=== PATIENT | male | born 1995 | race African-American/Black ===

== ENCOUNTER 2018-12-24 00:23 | Emergency (ER) | payer MEDICAID, SELFPAY ==
[2018-12-24 00:25] VITALS: BP 109/82; PULSE 103; RESP 16; TEMP 36.9; O2SAT 97; BMI 18.7
--- NOTE | 2018-12-24 00:43 | ED.VISSUMM ---
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 Patient was drinking some alcohol tonight and he has trouble with his balance from prior stroke fell and struck his face on the ground. Denies any LOC. Did not lose any teeth. And has a upper lip laceration. He states his last tetanus shot was in the last several years. Patient's biological father and I believe his stepmother want to talk to me I spoke with him in the waiting room. Mother has concerned that he has paranoid schizophrenia. She states she has been very paranoid lately. At times sleeps with a baseball bat for protection. Patient is never had a psychiatric evaluation or been institutionalized. Reportedly is not homicidal or suicidal but mom does not believe he can take care of himself. Physical Examination: Young male no acute distress. Vital signs are stable and afebrile. HEENT exam pupils are reactive light. No signs of trauma to his scalp. He does have a lip laceration on the upper lip in the midline. V-shaped 1 to 2 cm. Mild oozing but no heavy bleeding. There is no dental injuries. No malocclusion. C-spine nontender. Trachea midline. Normal range of motion to his neck. Lungs clear to auscultation bilaterally. Heart regular rhythm no murmur. Chest wall nontender. Abdomen soft nontender. Patient is moving all 4 extremities. He has normal blower and compressor assembler strength. Normal dorsi plantar flexion. No bony deformities or tenderness to his upper and lower extremities. Back nontender. Neurologically he has had a prior stroke. He has abnormal speech but it is coherent. He has no acute neurological new findings. Test Results: [] Emergency Department Course and Treatment: I offered but the patient does not want me to so the lip laceration. He understands the cosmetic difference of having the soda or not. I also discussed that with his parents and they said he would not let me so and he was mad that he was even here. Per mom's request I will have him evaluated by crisis. We will do ED mental health labs if the patient will allow us to draw them. At this time I do not feel he needs to be pink slipped unless the automotive worker comes up with additional information I am unaware of. Treatment Plan: Crisis eval. Turned over to the overnight physician. Disposition: [] Impression: Acute fall with upper lip laceration but patient refused repair History of neuro Behcet's syndrome Paranoid behavior This note was generated with Kindling software. It may contain incorrect words, spelling, and punctuation that were not noted in review of the chart prior to signing <Amandeep Uribe - Last Filed: 12/24/18 00:43> - ER Visit Summary Patient has a history of Behcet's syndrome. One of the complications of this syndrome include stroke. This is a rare complication. The patient has no signs or symptoms of a stroke currently. This syndrome can be managed as an outpatient basis. Overall his stroke risk is very low. He is medically cleared for transfer and admission to a psychiatric facility for further care. This note was generated with Kindling software. It may contain incorrect words, spelling, and punctuation that were not noted in review of the chart prior to signing <Wil Boucher - Last Filed: 12/24/18 11:27> ED Disposition <Amandeep Uribe - Last Filed: 12/24/18 00:43> <Wil Boucher - Last Filed: 12/24/18 11:27> - Plan for ED Patient: Referrals: Elizabeth Miller NP-C [Primary Care Provider] -
--- NOTE | 2018-12-24 00:47 | NURSING ---
CALLED [facility]IS AT [phone]
[2018-12-24] MEDS: Ziprasidone IM 20 MG/ML VIAL 10 MG IM (02:26)
[2018-12-24 02:28] LABS: Anion Gap 6 (5-15); BUN 8 mg/dL (7-18); BUN/Creat Ratio 8.2 RATIO (10-20); Calcium,Total 9.1 mg/dL (8.5-10.1); Chloride 104 mmol/L (98-107); Creatinine, Serum 0.97 mg/dL (0.70-1.30); EST Glomerular Filtration Rate 100 mL/min (>60); Est Glom Filt Rate - Afr Amer 121 mL/min (>60); Estimated Creatinine Clearance 92.05 ml/min; Glucose 81 mg/dL (74-106); Potassium 3.7 mmol/L (3.5-5.1); Sodium Level 140 mmol/L (136-145)
[2018-12-24 02:30] LABS: Absolute Lymphocyte Count 3.09 X10^3/uL (0.83-4.51); Basophil# 0.09 X10^3/uL; Eosinophil# 0.33 X10^3/uL; Eosinophils% 3.5 % (0-5); Hematocrit 45.3 % (40-54); Lymphocyte # 3.09 X10^3/ul (4.0); Lymphocyte % 32.7 % (19-41); Mean Corp Hgb Conc 33.1 g/dL (32-36); Mean Corpuscular Hgb 30.6 pg (27.0-32.0); Mean Corpuscular Volume 92.4 fL (80-94); Mean Platelet Vol. 10.1 fl (6.2-12.0); Monocyte% 9.5 % (0-10); NRBC Flagged by Analyzer 0 % (0-5); Neutrophil # 4.98 X10^3/uL (2.7-7.7); Neutrophil % 52.8 % (47-70); Platelet Count 234 K/mm3 (150-450); RBC Distribution Width CV 12.9 % (11.6-14.6); RBC Distribution Width SD 43.8 fl (35.1-43.9); White Blood Count 9.4 K/mm3 (4.4-11.0)
--- NOTE | 2018-12-24 02:31 | ED.RN ---
PT REFUSED MD ORDERS FOR PSYCH EVAL WORKUP. HRO ON DUTY AND THIS RN ALONG WITH FATHER OF THE PATIENT ATTEMPTED TO REASON WITH HIM. PT FINALLY SUBMITTED WILLINGLY TO LABS AND MEDICATION AFTER MUCH RESISTANCE AND PERSUASION OF TWO OTHER RESPONDING POLICE OFFICERS. PT MEDICATED WITH GEODON. RESTING COMFORTABLY IN BED WITH HOSPITAL GOWN ON AND A BLANKET.
[2018-12-24 02:34] LABS: Amphetamine Urine VISTA NEGATIVE (<1000 ng/mL); Barbiturate Urine VISTA NEGATIVE (< 200 ng/mL); Benzodiazepine Urine VISTA NEGATIVE (< 200 ng/mL); Cocaine Urine VISTA NEGATIVE (< 300 ng/mL); Ecstacy Urine VISTA NEGATIVE (< 500 ng/mL); Methadone Urine VISTA NEGATIVE (< 300 ng/mL); PCP Urine VISTA NEGATIVE (< 25 ng/mL); THC Urine VISTA POSITIVE (< 50 ng/mL); Vista UDS pH Range 5
[2018-12-24 04:25] VITALS: RESP 15
--- NOTE | 2018-12-24 05:04 | NURSING ---
REBECCA FROM CRISIS CALLED AT 0500 SAYING PATIENT WAS DECLINED FROM 3 FACILITIES AND NOW [facility] WANTS A REDRAW ON J[facility]
--- NOTE | 2018-12-24 07:06 | NURSING ---
REBECCA, LEONARD, CALLED. PATIENT GOING TO [facility]. HE'S WORKING ON IT
[2018-12-24 09:58] VITALS: BP 122/78; PULSE 60; RESP 16; O2SAT 99
--- NOTE | 2018-12-24 10:00 | ED.RN ---
called fro breakfast tray
--- NOTE | 2018-12-24 10:10 | NURSING ---
CALLED [facility]. TALKED TO KOURTNEY. AND NATALIE ARE WORKING ON PLACEMENT FOR PATIENT.
--- NOTE | 2018-12-24 11:15 | CM.ED ---
SOCIAL WORK SPOKE TO NATALIE WITH CRISIS REGARDING PATIENT'S CASE AND NEED FOR PLACEMENT. NATALIE REPORTS NEEDING UPDATED INFORMATION REGARDING PATIENT'S MEDICAL HX OF BEHCET'S SYNDROME. REQUESTING UPDATED CLINICAL NOTE FROM PHYSICIAN THAT PATIENT IS MEDICALLY STABLE FOR TRANSFER. UPDATED PATIENT'S NURSE AND DR. BARNARD ON THE ABOVE. SHEFALI SAN, MEAT GRINDER, MANUFACTURING ASSOCIATE.
--- NOTE | 2018-12-24 11:30 | CM.ED ---
SOCIAL WORK UPDATED PROGRESS NOTE COMPLETED BY DR. BARNARD FAXED TO CRISIS TO ASSIST WITH PLACEMENT FOR PATIENT. SHEFALI SAN, CREDIT RISK OFFICER, CUSTOMER RETENTION SPECIALIST.
[2018-12-24 14:16] VITALS: BP 98/85; PULSE 80; RESP 16; O2SAT 99
--- NOTE | 2018-12-24 15:20 | CM.ED ---
SOCIAL WORK RECEIVED CALL FROM [place] WITH [facility]ISIS. PER NATALIE [facility] REQUESTING EKG, CT, AND LIVER PROFILE. ONCE RECEIVED FAX RESULTS TO [facility] [phone]. UPDATED [address]. BARNARD ON THE ABOVE. SHEFALI SAN, MITERING MACHINE OPERATOR, MUD GRINDER.
--- NOTE | 2018-12-24 15:26 | CT_ITS ---
STUDY: CT BRAIN WITHOUT CONTRAST REASON FOR EXAM: Male, 23 years old. Fall, lip laceration RADIATION DOSAGE (If Supplied By Facility): CTDIvol = ( 60.81 ) mGy, DLP = ( 1044.28 ) mGycm TECHNIQUE: Transaxial CT imaging of the brain was performed without administration of intravenous contrast material. Individualized dose optimization techniques were used for this CT. COMPARISON: No relevant priors. FINDINGS: Normal soft tissue structures. Normal calvarium. Normal size ventricles and extra-axial spaces for the patient's age. Normal white matter tracts of the cerebral hemispheres. Normal basal ganglia and thalami. Remote infarct in the left jose. Normal cerebellum. There is no intracranial hemorrhage. There are no findings of an acute ischemic infarction. Normal visualized paranasal sinuses. CT/Brain/Head without Contrast IMPRESSION: No fracture or intracranial hemorrhage. Remote infarct in the left jose. Electronically Signed: Juan Luo MD at 16:29 EDT Tel , Service support ,
--- NOTE | 2018-12-24 15:26 | EKG12_ITS ---
Test Reason : MHC Blood Pressure : / mmHG Vent. Rate : 068 BPM Atrial Rate : 068 BPM P-R Int : 154 ms QRS Dur : 090 ms QT Int : 358 ms P-R-T Axes : 068 045 045 degrees QTc Int : 380 ms Normal sinus rhythm with sinus arrhythmia Early repolarization Normal ECG Confirmed by SPENCER GOODE ([id number]), electronic news gathering editor KRIS SOARES ([id number]) on 12/25/2018 2:32:49 PM Referred By: AKIL Confirmed By:SPENCER GOODE
[2018-12-24 16:00] LABS: AST(SGOT) 16 U/L (15-37); Alanine Aminotransfer ALT/SGPT 17 U/L (16-61); Alkaline Phosphatase 105 U/L (45-117); Bilirubin, Direct 0.09 mg/dL (0.00-0.30)
--- NOTE | 2018-12-24 17:00 | CM.ED ---
SOCIAL WORK REQUESTED EKG, LIVER PROFILE, AND CT FAXED TO [facility]. SHEFALI SAN, SLOT ATTENDANT, POWER HAMMER OPERATOR.
[2018-12-24 18:39] VITALS: BP 106/79; PULSE 79; RESP 15; O2SAT 98
--- NOTE | 2018-12-24 19:47 | CM.ED ---
SOCIAL WORK UPDATED BY ROSANNE WITH CRISIS, [facility] ACCEPTED PATIENT. SHEFALI SAN, DEALER SALES REP, BARN HAND.
--- NOTE | 2018-12-24 20:05 | ED.RN ---
UPDATED PT MOTHER PER PT REQUEST.
--- NOTE | 2018-12-24 20:47 | NURSING ---
[facility] DR. BARRY [phone] REPORT
[2018-12-24 20:58] VITALS: BP 106/79; PULSE 79; RESP 15; TEMP 36.9; O2SAT 98
--- NOTE | 2018-12-24 20:58 | ED.RN ---
REPORT WAS GIVEN TO ANJU LYLES AT [phone].
== END 2018-12-24 20:55 ==
PROVIDERS: Emergency Medicine; Emergency Provider Emergency Medicine; Family Provider Nurse Practitioner Family; PCP Nurse Practitioner Family
DX: S01.511A Laceration without foreign body of lip, initial encounter (principal); W18.30XA Fall on same level, unspecified, initial encounter; Y93.9 Activity, unspecified; Y92.9 Unspecified place or not applicable; Y99.9 Unspecified external cause status; M35.2 Behcet's disease; F22 Delusional disorders; Z86.73 Personal history of transient ischemic attack (TIA), and cerebral infarction without residual deficits; R46.89 Other symptoms and signs involving appearance and behavior; Z72.0 Tobacco use
CPT/HCPCS: 36415; 70450; 80048; 80076; 80307; 80320; 85025; 93005; 96372; 99283; G0480; J3486

== ENCOUNTER 2019-03-28 12:00 | Outpatient (RCR) | payer MEDICAID, SELFPAY ==
--- NOTE | 2019-03-06 16:32 | HP.PTEVAL_ITS ---
Patient's Visit Information NATI HOOD is a 23 year old M referred to Physical Therapy by JENNIFER Perez with a diagnosis of . Date of Evaluation: 03/05/19 Physical Therapist: Lawanda Villegas DPT - Visit Plan Frequency: 2x /Week Duration: 6 Weeks Plan: Focus on LE and core s/s- BALANCE assessment- Gait belt for safety. - Subjective Findings: Patient reports syndrome- balance is bad and he can't throw far any more. This all started in 2017. He can walk with a walker with 2 wheels. Lives alone in an apt- there is a few stairs to get into the apt but then its all one one floor. Is able to do all self care. 2017 could not walk at all but now its a better- but he is pretty much plateae. Wants to get back to doing everything. He was in therapy at [facility] and in [facility] [place]. Got out about 13 months- but has not done any therapy since then. Is coming to see PT and speech therapy. Wants to get back on his feet without an assistive device. He likes to play sports and wants to get back to doing those things. No pain at this time. Does not use a walker in his apt and has not had any falls. Last fall was last week when he was walking to the store- sometimes he can get up or someone helps him such as his brother. Has family close-but he does all his own cooking/cleaning. Is not working- he is disabled. PMHx: - Objective Posture: FH, RS- can correct but does not maintain. Gait: severly ataxic- uses FWW- shuffles feet- lockes out knees into full extension during stance phase- poor balance- impulsive. HR/TR: able with full ROM requires UE A for balance. SLS: unable without UE A- knee waivered btwn knee buckling and locking out. ROM: WFL in all planes. Strength: Core: fair minus, Hip: Abd: 4/5, add: 4/5, Extn: 4-/5, IR/ER: 4/5, Flex: 4/5, Knee: flex: 4/5, Extn: 4+/5, ankle: 5/5. Balance: LOB with all testing of dynamic balance. Static Standin min safely with knees locked out. when asked to close eyes- pt swayed and loss of balance happened after 10 seconds - Goals Goal 1:: Patient will be I with HEP and progression Goal Time Frame: 4-6 Weeks Goal 2:: Patient will ambulate >300 feet with a normalized gait pattern safely. - Rehabilitation Potential Physical Therapy Diagnosis: Patient presents with ataxic gait- he has decreased strength, muscular endurance and poor balance leading to increased difficulty with ADL's. Rehabilitation Potential: Fair - Anticipated Interventions Patient/Client Instruction: Educate patient on: Benefits of Fitness Program Therapeutic Exercise to Include: Strength training, Endurance training, Balance training, Coordination, Agility training, Body mechanics, Postural training, Flexibilty training, Gait and locomotor training, Dynamic Lumbar Stabilization, Scapular Strength/Stabilization For the Purpose of:: To improve muscle performance and motor function Thank you for the opportunity to evaluate your patient. For Medicare and Medicare HMO plans, please review the plan of care and approve it. It will need to be FAXED BACK to us at [phone] for Medicare purposes. For Medicare only, by signing this I certify the plan of care. Please let me know if there are questions or concerns regarding this plan of care. Physician Signature: Date:
--- NOTE | 2019-03-17 09:50 | HP.PTCOM_ITS ---
PT Communication Note 03/17/[address] Elizabeth Miller, HEAD PIECE ASSEMBLER-C , Thank you for the referral of Alber Rios to our clinic. He was tested on our NeuroCom Balance machine today and enclosed are the patients test results. On the Sensory Organization test (SOT), his overall composite score reveals that pt should be walking with an AD at this point. He has good use of his somatosensory system to help him maintain his balance. He has decreased input from his visual and vestibular systems to help him maintain his balance. His ov erall strategy analysis is ankle dominant, which is higher level and his COG alignment is more posterior. The Motor Control Test (MCT) showed that his overall reaction time is good. Pt had some trouble with weight shifting forward and to the right on the Limits of Stability Test (LOS). At this point in time we will see the pt for LE strengthening, gait training, functional strength and activities, balance activities with HEP. Sincerely, Carmen Black, CHARLETTE Contact Information
--- NOTE | 2019-05-06 11:29 | HP.PT.NRP ---
HP - Discharge Summary (1) - Patient Information NATI HOOD Jr. was seen in my office for initial evaluation on 03/05/19. The following Plan of Care was established for this patient: Initial Frequency: 2x /Week Initial Duration: 6 Weeks - Anticipated Interventions Patient/Client Instruction: Educate patient on: Benefits of Fitness Program Therapeutic Exercise to Include: Strength training, Endurance training, Balance training, Coordination, Agility training, Body mechanics, Postural training, Flexibilty training, Gait and locomotor training, Dynamic Lumbar Stabilization, Scapular Strength/Stabilization For the Purpose of:: To improve muscle performance and motor function This patient was last seen in our office . Pertinent comments regarding their Physical therapy will appear below: Patient has not attended physical therapy in over 4 weeks- appropriate for d/c and return to MD as appropriate. At this point I will be discontinuing this patient from physical therapy. I would be happy to see this patient again in the future if found appropriate by the physician. Thank you! Lawanda Villegas DPT
== END 2019-03-28 19:00 | disposition home or self-care (01) ==
LOC: PT 12:00
PROVIDERS: Family Provider Nurse Practitioner Family; PCP Nurse Practitioner Family; Referring Provider Nurse Practitioner Family; Visit Provider Nurse Practitioner Family
DX: M35.2 Behcet's disease (principal); R47.81 Slurred speech
CPT/HCPCS: 97110; 97116; 97162; 97750

== ENCOUNTER 2019-04-01 12:43 | Emergency (ER) | payer MEDICAID, SELFPAY ==
[2019-04-01 12:43] VITALS: BP 109/63; PULSE 98; RESP 16; TEMP 37.2; O2SAT 98; BMI 19.2
--- NOTE | 2019-04-01 13:57 | ED.DCSUM_ITS ---
History of Present Illness Chief Complaint: Laceration Informant: Patient Onset: Days - 4 Mechanism/Context: Blunt Injury Quality of Pain: - - sore Location: lower lip Current Severity: Mild Maximum Severity: Mild Worsened by: palpation Relieved by: nothing Narrative: Patient lacerated his lip by hitting it on the tub 4 days ago, this is the first time he has been to a healthcare provider since that injury. The swelling has become progressively worse. It is not hurting more. There is no itching. No discharge. No fevers or other systemic symptoms. No toothache. Past Medical History - Allergies and Home Meds Allergies/Adverse Reactions: Allergies No Known Allergies Allergy (Verified 04/01/19 12:45) Primary Care Physician: Elizabeth Miller NP-C [Primary Care Provider] - Past Medical History: None Lives: Alone Smoking Status: Current some day smoker Review of Systems General: Denies: Chills, Fever Eyes: Denies: Visual changes - bilaterally, Diplopia ENT: Reports: - - lower lip swelling. no dental pain.. Denies: Rhinorrhea, Sore throat Respiratory: Denies: Dyspnea, Cough Gastrointestinal: Denies: Nausea, Vomiting Skin: Reports: Wounds. Denies: Rash Neurological: Denies: Headache, Weakness, Numbness Physical Exam Vital Signs/Narrative: Vital Signs Temp Pulse Resp BP Pulse Ox 04/01/19 12:43 99 F 98 16 109/63 98 General: Well nourished, Well developed, - - well-appearing, nad Head: Normocephalic, Atraumatic Eyes: Perrl, EOMI ENT: - - Lower lip laceration that appears old. There is granulation tissue around it, there is no expressible discharge, it is diffusely swollen and mildly tender throughout. There is some scarring. There is a laceration below the lower lip that appears to be scabbed, and does not open and has no discharge. The vermilion border is spared in between these 2. No dental injury, tenderness, subluxation. Neck: Nontender, Full ROM Cardiovascular: Regular rate, Regular rhythm Respiratory: No distress, CTA bilaterally Skin: Normal color, No rash, Trauma - See above. No purulent discharge or abscess. The mucosal side of the laceration is open and macerated. Neurological: Alert, Oriented x3, Cranial nerves II-XII grossly intact, Normal Strength, Normal Sensation Psychological: Normal affect - Glascow Coma Scale Eye Opening: Spontaneous Motor: Obeys Commands Verbal: Oriented Coma Scale Total: 15 Diagnostic/Tx/Re-eval - Medical Decision Making This laceration is probably infected. There is nothing to drain. It probably was through and through although the lower portion externally appears to be scabbed and healing. Primary repair of this is not indicated at this time. He was placed on clindamycin and referred to plastics. It certainly is possible that repair of this was not indicated in the first place if he had presented directly after the injury, but it is difficult to tell with the amount of swelling and maceration on the mucosal side. ED Disposition - Plan for ED Patient: Disposition: Home or Assisted Living Diagnosis: Infected lip laceration Instructions: LACERATION, Infected (Not Sutured) Prescriptions: Clindamycin [Cleocin] 300 mg PO 4X/DAY #80 cap Transmission Status: Pending to [id number] Referrals: Manuel Ash MD [STAFF PHYSICIAN] - As soon as possible (call for appt)
== END 2019-04-01 14:22 | disposition home or self-care (01) ==
PROVIDERS: Emergency Provider Emergency Medicine; Family Provider Nurse Practitioner Family; PCP Nurse Practitioner Family
DX: S01.511A Laceration without foreign body of lip, initial encounter (principal); L08.9 Local infection of the skin and subcutaneous tissue, unspecified; W22.09XA Striking against other stationary object, initial encounter; Y92.9 Unspecified place or not applicable; Y99.9 Unspecified external cause status
CPT/HCPCS: 99282

== ENCOUNTER → 2019-04-09 19:10 | Outpatient (CLI) | payer MEDICAID, SELFPAY ==
[2019-04-09 16:14] VITALS: BMI 19.2
== END ==
PROVIDERS: Family Provider Nurse Practitioner Family; PCP Nurse Practitioner Family; Referring Provider Surgery; Visit Provider Surgery
DX: S01.501A Unspecified open wound of lip, initial encounter (principal); F17.200 Nicotine dependence, unspecified, uncomplicated; W19.XXXA Unspecified fall, initial encounter
CPT/HCPCS: 87070; 87077; 87186; 87205

== ENCOUNTER 2019-07-13 11:00 | Emergency (ER) | payer MEDICAID, SELFPAY ==
[2019-06-25 16:00] VITALS: BMI 19.2
[2019-07-13 11:01] VITALS: BP 108/69; PULSE 84; RESP 17; TEMP 36.9; O2SAT 98; BMI 20.3
--- NOTE | 2019-07-13 11:10 | RAD_ITS ---
STUDY: X-RAY - LEFT HAND REASON FOR EXAM: Male, 24 years old. PT INJURED HAND WHILE MOVING A COUCH, PAIN 3RD AND 4TH AREA TECHNIQUE: 3 view(s) of the hand. COMPARISON: None. FINDINGS: Normal radiocarpal articulation. Normal distal radioulnar joint. Normal visualized carpal bones. Normal carpal articulations Normal carpometacarpal articulation of the thumb. Normal second through fifth carpometacarpal joints. Normal metacarpi. Normal metacarpophalangeal joint of the thumb. Normal interphalangeal joint of the thumb. Normal proximal and distal phalanges of the thumb. Normal metacarpophalangeal joints of the second through fifth fingers. Normal proximal and distal interphalangeal joints of the second through fifth fingers. Normal phalanges of the second through fifth fingers. The soft tissue structures are unremarkable. RAD/Hand Min 3 Views IMPRESSION: Normal x-ray examination of the hand. Electronically Signed: Diego Coleman MD at 12:03 EST Tel , Service support ,
--- NOTE | 2019-07-13 11:12 | ED.VISSUMM ---
- ER Visit Summary Date of Service: 07/13/19 Chief Complaint: [] History of Present Illness: The patient is a 24 M [injury left hand presents the emerge meant with an injury to the left hand that occurred last evening. Patient states that he was moving his couch when he fell injuring his left hand. Patient is right-hand dominant. Patient has history of Behcet's disease and thinks he may have had a stroke in the past. Patient denies any other injuries.] Physical Examination: [Left hand-patient has some mild soft tissue swelling and tenderness over the third and fourth MCP joints. No obvious deformity. He is got good range of motion flexion extension of all digits. Neurovascular intact. No pain at the wrist.] Test Results: [X-ray of the left hand obtained and read by myself as no acute fractures] Emergency Department Course and Treatment: [Given an Meek wrap] Treatment Plan: [Patient advised use ibuprofen or Tylenol for pain. Patient advised to follow-up with primary care physician in 5 to 7 days.] Disposition: [Discharged home in stable condition] Impression: [Contusion left hand] This note was generated with [employer] dictation software. It may contain incorrect words, spelling, and punctuation that were not noted in review of the chart prior to signing ED Disposition - Plan for ED Patient: Referrals: Elizabeth Miller NP-C [Primary Care Provider] -
--- NOTE | 2019-07-13 11:45 | DCINST.ED_ITS ---
ED Disposition - Plan for ED Patient: Instructions: CONTUSION, Hand Referrals: Elizabeth Miller, FILTER TIP CATCHER-C [Primary Care Provider] - 5-7 Days
--- NOTE | 2019-07-13 11:45 | ED.DEP ---
ED Disposition - Plan for ED Patient: Instructions: CONTUSION, Hand Referrals: Elizabeth Miller, TAP PULLER-C [Primary Care Provider] - 5-7 Days
[2019-07-13 12:18] VITALS: BP 110/68; PULSE 85; RESP 16; O2SAT 98
== END 2019-07-13 12:19 | disposition home or self-care (01) ==
LOC: ED 11:51
PROVIDERS: Emergency Provider Emergency Medicine; PCP Nurse Practitioner Family
DX: S60.222A Contusion of left hand, initial encounter (principal); X50.0XXA Overexertion from strenuous movement or load, initial encounter; M35.2 Behcet's disease; Z86.73 Personal history of transient ischemic attack (TIA), and cerebral infarction without residual deficits; Z72.0 Tobacco use
CPT/HCPCS: 73130; 99282

== ENCOUNTER 2019-08-27 15:00 | Outpatient (RCR) | payer MEDICAID, SELFPAY ==
[2019-04-16 15:04] VITALS: BMI 19.2
--- NOTE | 2019-06-11 09:43 | HP.SP.AD ---
History - History Date of Eval: 06/09/19 Previous speech therapy: Yes Results: Pt received speech therapy at a assisted facility in 2018. Other Relevant Medical History/Diagnoses/Surgery: Pt with a diagnosis of Behcet's disease while at assisted facility in 2018. He will be receiving PT at this facility as well as he is currently in a wheel chair with limited mobility. Smoking Status: Current some day smoker Hx Tobacco Use: Yes - Pain Is pain an issue with your current prescribed condition?: No - Personal Occupation: Disability Patients Living Arrangements: Alone Patient Allergies - Allergies Allergies No Known Allergies Allergy (Verified 04/16/19 15:03) CLQT - CLQT CLQT Administered: Yes CLQT: Cognitive Linguistic Quick Test (CLQT) is a criterion - referenced assessment designed for adults between the ages of 18 and 89 with known or suspected neurological dysfuntions. The CLQT is to assess strength and weaknesses in five cognitive domains. Severity ratings are within normal limits, mild, moderate, severe deficits. The subtests are as follows: Date: 06/11/19 - CLQT Comments Comments Due to time restraints, the CLQT was unable to be completed in its entirety today. The patient received the following subtest scores: Personal Facts: 8 Criterion Cut Score (CCS): 8. Symbol Cancellation: 12 CCS: 11. Confrontation Namin CCS: 10. Clock Drawin CCS: 12. Story Retellin CCS: 6. Symbol Trails: 5 CCS: 9. The patient scored below the cutoff on the Clock Drawing subtest, with everything correct but the time, and the Symbol Trails subtest, which is a nonlinguistic task which requires planning, self-monitoring, working memory, and visual attention. The patient was aware of his errors on this subtest but did not self-correct. Subjective Articulation/Phon - Subjective Additional Information: The patient reports that oral sores associated with Behcet's disease have healed and that his speech has drastically improved; however, he is not yet at baseline. The patient produces a slow rate of speech with imprecise articulation. He is intelligible to this unfamiliar listener in unknown contexts approximately 95% of the time on first attempts. The patient does use grammatical structures and articulation consistent with panamanian. Plan - Plan Plan: Skilled speech-language therapy is warranted at this time to improve the patient's mild speech and cognitive-linguistic deficits secondary to Behcet's disease as he lives alone and must achieve his highest level of safe, independent functioning. - Recommendations Treatment Warranted: Yes - Frequency Frequency: 1x/Week Duration: 2 Months - Prognosis Prognosis: Good - Goals that are Established: Determination:: Goals will be added/modified as deemed necessary and appropriate. Therapy will be discontinued when results of re-evaluation indicate therapy is no longer needed or lack of progress has been documented. - Goal #1-5 Goal #1: The patient will participate in further evaluation of cognitive-linguistic skills via the CLQT. Goal #2: The patient will independently utilize strategies to improve intelligibility during conversational interactions in 4/5 trials across 3 consecutive sessions. Goal #3: The patient will independently utilize targeted cognitive-linguistic strategies to complete functional activities (finances, meal planning, etc...) of increasing complexity with 90% accuracy across 3 consecutive sessions. Education - Patient Instruction Patient Education: Diagnosis, Treatment Plan, Goals Person Taught: Patient
--- NOTE | 2019-06-18 11:41 | HP.PTEVAL ---
Patient's Visit Information NATI HOOD Jr. is a 24 year old M referred to Physical Therapy by JENNIFER Perez with a diagnosis of Behet's Disease. Date of Evaluation: 06/16/19 Physical Therapist: Lawanda Villegas DPT - Visit Plan Frequency: 2x /Week Duration: 4 Weeks Plan: Focus on balance and functional mobility - Subjective Findings: Patient is living alone in an apt- there is a single stair to get in the house- he has a neighbor that helps. Has a w/c at home but the tire off and the brakes are broke, has a walker and a cane as needed. He is not getting around very well- his family gets him to the grocery store but he wants to be more independent. His insurance brought him to PT today- currently in speech therapy as well. He wants to get back to doing physical therapy. He falls a little bit at home. Last terrible one was a few months ago when he had to go to the ER due to a cut on his lip. They did not have to do surgery but it was bad. He was on bed rest for his busted lip. Is using a walker at home but he only has a very short distance and does not feel safe. Once inside all on one floor- he is trying to get assistance for a shower chair and such but is unsure. He has to hold onto the carpenter in the shower- he has fallen down but has not hurt himself. Getting out of the shower is really scary too. No pain just balance is an issue. - Objective Posture: FH, RS- can correct but does not maintain. Gait: severly ataxic- uses FWW- shuffles feet- lockes out knees into full extension during stance phase- poor balance- impulsive. Ambualated 150 feet with FWW and sba for safety HR/TR: able with full ROM requires UE A for balance. SLS: unable without UE A- knee waivered btwn knee buckling and locking out. Unable to SLS without UE A from walker, Unable to tandem stance or tandem walk without UE A ROM: WFL in all planes. Strength: Core: fair minus, Hip: Abd: 4/5, add: 4/5, Extn: 4-/5, IR/ER: 4/5, Flex: 4/5, Knee: flex: 4/5, Extn: 4+/5, ankle: 5/5. Balance: LOB with all testing of dynamic balance. Static Standin min safely with knees locked out. when asked to close eyes- pt swayed and loss of balance happened after 10 seconds. Sit to Stand: 9 reps in 30 seconds - Goals Goal 1:: Patient will be I with HEP and progression Goal Time Frame: 4-6 Weeks Goal 2:: Patient will ambulate >300 feet with LRD and mod I Goal Time Frame: 4-6 Weeks Goal 3:: Patient will tandem stance for 10 seconds with LOB Goal Time Frame: 4-6 Weeks Goal 4:: Patient will perform 15 sit to stands in 30 sec Goal Time Frame: 4-6 Weeks - Rehabilitation Potential Physical Therapy Diagnosis: Patient presents with hypomobility- he had decreased strength, flex and muscular endurance leading to abnormal gait, balance and decreased participation in ADL's safely and efficiently. Rehabilitation Potential: Fair - Anticipated Interventions Patient/Client Instruction: Educate patient on: Benefits of Fitness Program Therapeutic Exercise to Include: Strength training, Endurance training, Balance training, Coordination, Agility training, Body mechanics, Postural training, Flexibilty training, Gait and locomotor training, Neuromotor development, Dynamic Lumbar Stabilization For the Purpose of:: To improve muscle performance and motor function Functional Training to Include: ADL Training, Gait training For the Purpose of:: To improve ability to perform ADL's Thank you for the opportunity to evaluate your patient. For Medicare and Medicare HMO plans, please review the plan of care and approve it. It will need to be FAXED BACK to us at [phone] for Medicare purposes. For Medicare only, by signing this I certify the plan of care. Please let me know if there are questions or concerns regarding this plan of care. Physician Signature: Date:
--- NOTE | 2019-07-30 16:29 | HP.SP.DC ---
ST Discharge Summary - Discharged: Discharge: Jaime Rios Jr. is discharged from outpatient speech-language therapy effective 07/30/2019. Jaime attended six therapy sessions following his initial evaluation targeting mildly impaired speech and cognitive-linguistic skills secondary to a diagnosis of Behcet's Disease. Education was provided regarding strategies to improve the patient's intelligibility (increased volume, slowed rate, over-exaggerating articulation of medial and final consonants, facing listener, reducing extraneous noise), with Jaime independently able to name and demonstrate effectively during structured activities. He does continue to benefit from direct prompts to use strategies, especially when on the phone, but uses effectively when asked for repetitions during conversation. Jaime demonstrates adequate planning and execution for functional activities (uses a calendar, did not miss appointments, makes lists, asks necessary questions regarding future events, etc...); however, he does demonstrate some deficits with follow-through, likely associated with baseline level of functioning vs. difficulty with organization, etc... He frequently demonstrated borderline inappropriate behaviors and made inappropriate comments for which he had adequate awareness of acceptability. Please reconsult as necessary.
--- NOTE | 2019-09-30 10:16 | HP.PT.NRP ---
NATI HOOD Jr. was seen in my office for initial evaluation on 06/16/19. The following Plan of Care was established for this patient: Initial Frequency: 2x /Week Initial Duration: 4 Weeks Patient/Client Instruction: Educate patient on: Benefits of Fitness Program Therapeutic Exercise to Include: Strength training, Endurance training, Balance training, Coordination, Agility training, Body mechanics, Postural training, Flexibilty training, Gait and locomotor training, Neuromotor development, Dynamic Lumbar Stabilization For the Purpose of:: To improve muscle performance and motor function Functional Training to Include: ADL Training, Gait training For the Purpose of:: To improve ability to perform ADL's This patient was last seen in our office . Pertinent comments regarding their Physical therapy will appear below: Patient has not been seen for over 4 weeks due to COVID-19 and is appropriate for d/c- may return as appropriate per MD recommendation. At this point I will be discontinuing this patient from physical therapy. I would be happy to see this patient again in the future if found appropriate by the physician. Thank you! MARZENA McclainT
== END 2019-08-27 19:00 | disposition home or self-care (01) ==
LOC: PT 15:00
PROVIDERS: Family Provider Nurse Practitioner Family; PCP Nurse Practitioner Family; Referring Provider Nurse Practitioner Family; Visit Provider Nurse Practitioner Family
DX: R47.81 Slurred speech (principal)
CPT/HCPCS: 92507; 92523; 97110; 97113; 97116; 97162; 97164

== ENCOUNTER 2019-11-01 20:14 | Emergency (ER) | payer MEDICAID, SELFPAY ==
[2019-11-01 20:14] VITALS: BP 131/100; PULSE 96; RESP 17; TEMP 37; O2SAT 99; BMI 20.1
--- NOTE | 2019-11-01 20:23 | ED.DCSUM_ITS ---
History of Present Illness Chief Complaint: Fall Informant: Patient Onset: Weeks Current Severity: Mild Maximum Severity: Mild Narrative: Lip injury 1 week ago fell getting out of shower Patient has what appears to be sound like Behcet's disorder chronic instability he falls frequently he lives alone at home, he basically stumbled out of the shower 1 week ago suffered injury to the upper lip mucosa he presents to have that evaluated, this is happened to him in the past he usually sees Dr. ash of plastic surgery who lets things heal naturally, he has had multiple lip injuries he is never required sutures his teeth are well approximated he has no complaints of teeth pain trouble opening closing mouth no head neck chest abdominal pain he has been doing fine at home with daily activities since the fall Past Medical History - Allergies and Home Meds Allergies/Adverse Reactions: Allergies No Known Allergies Allergy (Verified 11/01/19 20:17) Primary Care Physician: Elizabeth Miller NP-C [Primary Care Provider] - Past Medical History: - Smoking Status: Current every day smoker Review of Systems ROS: - Clues as above chronic instability syndrome General: Denies: Chills, Fever, Sweats Eyes: Denies: Visual changes - bilaterally, Diplopia ENT: Reports: - - upper lip only. Denies: Rhinorrhea, Sore throat Cardiovascular: Denies: Chest pain, Palpitations Respiratory: Denies: Dyspnea, Cough, Dyspnea on exertion Gastrointestinal: Denies: Abdominal pain, Nausea, Vomiting, Diarrhea, Melena, Hematochezia Genitourinary: Denies: Dysuria, Hematuria, Frequency Musculoskeletal: Denies: Back pain, Extremity Pain Skin: Denies: Rash, Wounds Neurological: Denies: Headache, Weakness, Numbness Physical Exam Vital Signs/Narrative: Vital Signs Temp Pulse Resp BP Pulse Ox 11/01/19 20:14 98.6 F 96 17 131/100 H 99 General: Well nourished, Well developed, No Acute Distress Head: Normocephalic, Atraumatic Eyes: Perrl, EOMI ENT: Moist mucous membranes, No rhinorrhea, - - He has a very superficial laceration to the left upper lip there is no signs of infection abscess drainage there is no odor the teeth are not tender he is opening and closing her mouth unremarkable tongue floor the mouth jaw head neck all unremarkable as is the rest of the medical exam Neck: Supple, Nontender Cardiovascular: Regular rate, Regular rhythm, No murmurs Respiratory: No distress, CTA bilaterally, Chest nontender Abdomen: Soft, Nontender, Nondistended, Normal bowel sounds Back: Nontender, Normal Inspection Extremities: Nontender, No edema Skin: Normal color, No rash Neurological: Alert, Oriented x3, Cranial nerves II-XII grossly intact, Normal Strength, Normal Sensation Psychological: Normal affect, Normal Mood Diagnostic/Tx/Re-eval - Medical Decision Making Patient's medical exam neurologic exam unremarkable he has no other injury no other complaints signs of healing the wound appears to have contracted there is no signs of active infection, he indicates usually treated with antibiotics and pain management he is unable to see Dr. ash, he will be started on Pen-Vee K Naprosyn and a follow-up with plastic surgeon in the next few days return for change in symptoms Home stable Final impression left upper lip laceration local trauma 1 week ago ED Disposition - Plan for ED Patient: Diagnosis: Accidental fall, Open wound of lip with complication Instructions: ED Fall Uncertain Cause, ED Laceration Lip Mouth Ch, ED Laceration Mouth Referrals: Elizabeth Miller, AIRCRAFT MAINTENANCE INSTRUCTOR-C [Primary Care Provider] - Manuel Ash MD [STAFF PHYSICIAN] -
[2019-11-01] MEDS: Naproxen 500 MG Tablet PO (20:25)
[2019-11-01] MEDS: Penicillin Vk 250 MG Tablet 500 MG PO (20:25)
--- NOTE | 2019-11-01 20:31 | ED.DEP ---
ED Disposition - Plan for ED Patient: Diagnosis: Accidental fall, Open wound of lip with complication Instructions: ED Fall Uncertain Cause, ED Laceration Mouth, ED Laceration Lip Mouth Ch Prescriptions: Naproxen [Naprosyn] 500 mg PO BID PRN #20 tab Prescription Printed Penicillin Vk [Pen-Vee K 250MG] 500 mg PO 4X/DAY #40 tab Prescription Printed Referrals: Manuel Ash MD [STAFF PHYSICIAN] - Elizabeth Miller NP-C [Primary Care Provider] -
[2019-11-01 20:36] VITALS: BP 122/89; PULSE 84; RESP 17; O2SAT 96
== END 2019-11-01 20:37 | disposition home or self-care (01) ==
LOC: ED 20:27
PROVIDERS: Emergency Provider Emergency Medicine; PCP Nurse Practitioner Family
DX: S01.511A Laceration without foreign body of lip, initial encounter (principal); W18.2XXA Fall in (into) shower or empty bathtub, initial encounter; Y93.E1 Activity, personal bathing and showering; Y92.002 Bathroom of unspecified non-institutional (private) residence as the place of occurrence of the external cause; Y99.9 Unspecified external cause status; M35.2 Behcet's disease; F17.200 Nicotine dependence, unspecified, uncomplicated; Z60.2 Problems related to living alone
CPT/HCPCS: 99285

== ENCOUNTER 2019-11-11 20:14 | Emergency (ER) | payer MEDICAID, SELFPAY ==
[2019-11-05 08:51] VITALS: BMI 20.1
[2019-11-11 20:16] VITALS: BP 119/70; PULSE 83; RESP 14; TEMP 37.5; O2SAT 97; BMI 20.4
[2019-11-11 20:39] LABS: Absolute Lymphocyte Count 1.83 X10^3/uL (0.83-4.51); Absolute Neutrophil Count 8.7 X10^3/uL (2.0-7.7); Basophil# 0.05 X10^3/uL; Basophil% 0.4 % (0-1); Eosinophil# 0.08 X10^3/uL; Eosinophils% 0.7 % (0-5); Hematocrit 43.6 % (40-54); Hemoglobin 13.6 g/dL (13.0-16.5); Lymphocyte # 1.83 X10^3/ul (4.0); Lymphocyte % 15.8 % (19-41); Mean Corp Hgb Conc 31.2 g/dL (32-36); Mean Corpuscular Hgb 30.2 pg (27.0-32.0); Mean Corpuscular Volume 96.9 fL (80-94); Mean Platelet Vol. 10.2 fl (6.2-12.0); Monocyte# 0.88 X10^3/uL; Monocyte% 7.6 % (0-10); NRBC Flagged by Analyzer 0 % (0-5); Neutrophil # 8.66 X10^3/uL (2.7-7.7); Neutrophil % 75.1 % (47-70); Platelet Count 266 K/mm3 (150-450); RBC Distribution Width CV 13.2 % (11.6-14.6); RBC Distribution Width SD 47.1 fl (35.1-43.9); White Blood Count 11.6 K/mm3 (4.4-11.0)
[2019-11-11] MEDS: 0.9% Normal Saline 1,000 ML 1000 ML IV (20:46)
[2019-11-11] MEDS: Ondansetron 4 MG/2 ML Vial IV (20:48)
--- NOTE | 2019-11-11 20:48 | ED.VIS.GEN ---
History of Present Illness Chief Complaint: Nausea/Vomiting Informant: Patient Onset: Today Context: Gradual Onset Timing: Continuous Current Severity: Moderate Maximum Severity: Moderate Narrative: The patient is a 24-year-old male with medical history significant for Georges's disease who presents to the emergency department with nausea and vomiting. The patient was in his normal state of health. He states he began to vomit last night. He is had about 5 episodes since. He denies any pain. He denies any fevers or chills. He denies any recent sick contacts. He has had no recent change in medications. He is otherwise been in his normal state of health. Prior similar symptoms: No Recent Illness/Hospitalization: No Past Medical History - Allergies and Home Meds Allergies/Adverse Reactions: Allergies No Known Allergies Allergy (Verified 11/05/19 08:50) Primary Care Physician: Zoey Delgado [Primary Care Provider] - Prior records reviewed: Yes Past Medical History: - - Behcet's disease Surgical History: noncontributory Smoking Status: Current every day smoker Review of Systems General: Denies: Chills, Fever, Sweats Eyes: Denies: Visual changes - bilaterally, Diplopia ENT: Denies: Rhinorrhea, Sore throat Cardiovascular: Denies: Chest pain, Palpitations Respiratory: Denies: Dyspnea, Cough, Dyspnea on exertion Gastrointestinal: Reports: Nausea, Vomiting. Denies: Abdominal pain, Diarrhea, Melena, Hematochezia Genitourinary: Denies: Dysuria, Hematuria, Frequency Musculoskeletal: Denies: Back pain, Extremity Pain Skin: Denies: Rash, Wounds Neurological: Denies: Headache, Weakness, Numbness Physical Exam Vital Signs/Narrative: Vital Signs Temp Pulse Resp BP Pulse Ox 11/11/19 20:16 99.5 F H 83 14 119/70 97 Inital Vital Signs reviewed: Yes General: Well nourished, Well developed, No Acute Distress Head: Normocephalic, Atraumatic Eyes: Perrl, EOMI ENT: Moist mucous membranes, No rhinorrhea Neck: Supple, Nontender Cardiovascular: Regular rate, Regular rhythm, No murmurs Respiratory: No distress, CTA bilaterally, Chest nontender Abdomen: Soft, Nontender, Nondistended, Normal bowel sounds Back: Nontender, Normal Inspection Extremities: Nontender, No edema Skin: Normal color, No rash Neurological: Alert, Oriented x3, Cranial nerves II-XII grossly intact, Normal Strength, Normal Sensation Psychological: Normal affect, Normal Mood Diagnostic/Tx/Re-eval Abnormal Lab Results 11/11/19 11/11/19 20:20 20:20 WBC 11.6 H RBC 4.50 L Hgb 13.6 Hct 43.6 MCV 96.9 H MCH 30.2 MCHC 31.2 L RDW Std Deviation 47.1 H RDW Coeff of Eduin 13.2 Plt Count 266 MPV 10.2 Immature Gran % (Auto) 0.400 Neut % (Auto) 75.1 H Lymph % (Auto) 15.8 L [place] % (Auto) 7.6 Eos % (Auto) 0.7 Baso % (Auto) 0.4 Absolute Neuts (auto) 8.7 H Absolute Lymphs (auto) 1.83 Nucleated RBC % 0 Sodium 139 Potassium 3.5 Chloride 100 Carbon Dioxide 35.0 H Anion Gap 4 L BUN 10 Creatinine 0.90 Estim Creat Clear Calc 107.31 Est GFR (MDRD) Af Amer 131 Est GFR (MDRD) Non-Af 109 BUN/Creatinine Ratio 11.1 Glucose 124 H Calcium 9.3 Total Bilirubin 0.60 AST 12 L ALT 12 L Alkaline Phosphatase 83 Total Protein 8.7 H Albumin 3.3 Globulin 5.4 H Albumin/Globulin Ratio 0.6 L - Medical Decision Making The patient presents to the emergency department nausea and vomiting. His abdomen is soft and nontender. He had vomited approximately 3 times. He is afebrile. Metabolic evaluation was obtained. Patient was given fluids and antiemetics. He is now able to tolerate oral fluids without issue. His labs are relatively unremarkable. His abdomen continues to be soft and nontender. At this point, I do feel that the patient is safe for outpatient follow-up. He will be prescribed antiemetics. He will be discharged home. Impression 1. Nausea vomiting ED Disposition - Plan for ED Patient: Instructions: ED Nausea Vomiting Adult Prescriptions: proMETHazine tablet [Phenergan] 25 mg PO Q6H PRN PRN #10 tab PRN Reason: Nausea Prescription Printed Referrals: Antonio Chaudhry,Zoey Parra [Primary Care Provider] -
[2019-11-11 21:03] LABS: ALB/GLOB Ratio 0.6 RATIO (0.9-2.4); AST(SGOT) 12 U/L (15-37); Alanine Aminotransfer ALT/SGPT 12 U/L (16-61); Albumin, Serum 3.3 g/dL (3.2-5.0); Alkaline Phosphatase 83 U/L (45-117); Anion Gap 4 (5-15); BUN 10 mg/dL (7-18); BUN/Creat Ratio 11.1 RATIO (10-20); Calcium,Total 9.3 mg/dL (8.5-10.1); Chloride 100 mmol/L (98-107); EST Glomerular Filtration Rate 109 mL/min (>60); Est Glom Filt Rate - Afr Amer 131 mL/min (>60); Estimated Creatinine Clearance 107.31 ml/min; Globulin 5.4 g/dL (2.2-4.2); Glucose 124 mg/dL (74-106); Potassium 3.5 mmol/L (3.5-5.1); Protein, Total 8.7 g/dL (6.4-8.2); Sodium Level 139 mmol/L (136-145)
[2019-11-11 22:13] VITALS: BP 118/67; PULSE 87; RESP 17; O2SAT 97
== END 2019-11-11 22:20 | disposition home or self-care (01) ==
LOC: ED 20:32
PROVIDERS: Emergency Provider Emergency Medicine; Referring Provider Nurse Practitioner Family
DX: R11.2 Nausea with vomiting, unspecified (principal); M35.2 Behcet's disease; F17.200 Nicotine dependence, unspecified, uncomplicated
CPT/HCPCS: 80053; 85025; 99285; J7030; A4216; J2405

== ENCOUNTER 2019-11-12 20:21 | Inpatient (IN) | payer MEDICAID, SELFPAY ==
[2019-11-11 20:16] VITALS: BMI 20.4
[2019-11-12] VITALS (7 sets, daily range): BP systolic 89–106; BP diastolic 64–71; PULSE 72–87; RESP 14–24; TEMP 36.6–38.1; O2SAT 89–96; BMI 22.2
--- NOTE | 2019-11-12 20:50 | EKG12_ITS ---
Test Reason : DYSRHYTHMIA Blood Pressure : / mmHG Vent. Rate : 078 BPM Atrial Rate : 078 BPM P-R Int : 150 ms QRS Dur : 092 ms QT Int : 372 ms P-R-T Axes : 067 050 039 degrees QTc Int : 424 ms Normal sinus rhythm Normal ECG When compared with ECG of 24-DEC-2018 15:32, Confirmed by CHAO WHITESIDE, MOUNIKA ([id number]), news assignment editor CHRISTOPHE BUENROSTRO ([id number]) on 11/14/2019 10:16:19 AM Referred By: Navi Bee Confirmed By:IAN GUIDRY MD
--- NOTE | 2019-11-12 20:58 | ED.DCSUM_ITS ---
History of Present Illness Chief Complaint: Fever Informant: Patient Onset: Yesterday Current Severity: Moderate Maximum Severity: Moderate Narrative: Patient was seen in the ER yesterday for nausea and vomiting. He states he was not able to get the medications that was prescribed to him because he was too weak to go to the pharmacy. He continues to have nausea and vomiting today. He states he has been short of breath and has now noted a fever with cough. - Past Medical History (1) CVA (cerebral vascular accident) Status: Chronic (2) Behcet's disease Status: Chronic Past Medical History - Allergies and Home Meds Allergies/Adverse Reactions: Allergies No Known Allergies Allergy (Verified 11/05/19 08:50) Primary Care Physician: Zoey Delgado [Primary Care Provider] - Prior records reviewed: Yes Surgical History: noncontributory Smoking Status: Current every day smoker Review of Systems General: Reports: Chills, Fever Eyes: Denies: Visual changes - bilaterally ENT: Reports: Sore throat. Denies: Bilateral ear pain Cardiovascular: Denies: Chest pain Respiratory: Reports: Dyspnea, Cough Gastrointestinal: Reports: Nausea, Vomiting Musculoskeletal: Reports: Myalgias Skin: Denies: Rash Neurological: Denies: Headache Hematologic: Denies: Easy bruising, Easy bleeding Allergy: Denies: Uticaria Physical Exam Vital Signs/Narrative: Vital Signs Temp Pulse Resp BP Pulse Ox 11/12/19 20:25 100.5 F H 84 14 106/69 93 11/12/19 20:22 100.5 F H 84 14 106/69 93 Inital Vital Signs reviewed: Yes General: Well nourished, Well developed Head: Normocephalic ENT: Moist mucous membranes, - - Posterior pharynx examination unremarkable. Neck: Supple Cardiovascular: Regular rate, Regular rhythm Respiratory: No distress, CTA bilaterally Abdomen: Soft, Nontender, Normal bowel sounds Skin: Normal color Neurological: Alert, Oriented x3 Psychological: - - Anxious Diagnostic/Tx/Re-eval Impressions Chest X-Ray 11/12/19 21:15 IMPRESSION: No acute cardiopulmonary pathology. Electronically Signed: Leonel Dawn MD at 21:39 EDT , Service support , 11/12/19 21:15 Chest 1 View (Portable) [RAD] Stat Laboratory Results 11/12/19 11/12/19 11/12/19 20:35 20:35 21:25 WBC 15.8 H RBC 4.40 L Hgb 13.5 Hct 42.6 MCV 96.8 H MCH 30.7 MCHC 31.7 L RDW Std Deviation 46.1 H RDW Coeff of Eduin 13.0 Plt Count 235 MPV 10.1 Immature Gran % (Auto) 0.400 Neut % (Auto) 79.4 H Lymph % (Auto) 9.3 L [place] % (Auto) 10.1 H Eos % (Auto) 0.4 Baso % (Auto) 0.4 Absolute Neuts (auto) 12.6 H Absolute Lymphs (auto) 1.47 Nucleated RBC % 0 Differential Comment Diff Path Review May foll Platelet Estimate ADEQUATE RBC Morphology NORM C+C Sodium 136 Potassium 3.6 Chloride 98 Carbon Dioxide 32.0 Anion Gap 6 BUN 12 Creatinine 0.81 Estim Creat Clear Calc 125.88 Est GFR (MDRD) Af Amer 147 Est GFR (MDRD) Non-Af 122 BUN/Creatinine Ratio 14.8 Glucose 104 Calcium 9.0 Total Bilirubin 0.80 Direct Bilirubin 0.18 AST 16 ALT 14 L Alkaline Phosphatase 82 Total Protein 8.7 H Albumin 3.4 Globulin 5.3 H Lipase 67 L COVID-19 (DINORAH) Negative - EKG Initial EKG Interpretation: Sinus Rhythm - Sinus at 78 with no acute ischemia. - Medical Decision Making Patient was given Toradol, Zofran, and IV fluids. He stated that he had taken an [id number] cough and cold medicine just prior to arrival. He was on nasal cannula at the time of my initial examination. On repeat exam he was feeling improved. He was asking about something to eat and drink. He was taken off of oxygen and was able to tolerate melba sage and crackers. O2 sat did drop to 87% with a good waveform. He was placed back on nasal cannula and is currently satting in the mid 90s. Patient does state that he feels a he has a lot of thick mucus in his lungs that he is having trouble getting up. He is ordered a dose of Mucinex and a DuoNeb treatment. I will speak with the hospitalist regarding admission. ED Disposition - Plan for ED Patient: Disposition: Acute Care Hospital [facility] Diagnosis: Vomiting, Hypoxia Referrals: Antonio Chaudhry,Zoey Parra [Primary Care Provider] -
[2019-11-12 21:07] LABS: Absolute Lymphocyte Count 1.47 X10^3/uL (0.83-4.51); Absolute Neutrophil Count 12.6 X10^3/uL (2.0-7.7); Basophil# 0.07 X10^3/uL; Basophil% 0.4 % (0-1); Eosinophil# 0.06 X10^3/uL; Eosinophils% 0.4 % (0-5); Hematocrit 42.6 % (40-54); Hemoglobin 13.5 g/dL (13.0-16.5); Lymphocyte # 1.47 X10^3/ul (4.0); Lymphocyte % 9.3 % (19-41); Mean Corp Hgb Conc 31.7 g/dL (32-36); Mean Corpuscular Hgb 30.7 pg (27.0-32.0); Mean Corpuscular Volume 96.8 fL (80-94); Mean Platelet Vol. 10.1 fl (6.2-12.0); Monocyte# 1.59 X10^3/uL; Monocyte% 10.1 % (0-10); NRBC Flagged by Analyzer 0 % (0-5); Neutrophil # 12.55 X10^3/uL (2.7-7.7); Neutrophil % 79.4 % (47-70); POSITIVE DIFFERENTIAL YES; Platelet Count 235 K/mm3 (150-450); RBC Distribution Width SD 46.1 fl (35.1-43.9); White Blood Count 15.8 K/mm3 (4.4-11.0)
[2019-11-12 21:09] LABS: Differential Indicated SCAN CRITERIA MET
[2019-11-12] MEDS: Ketorolac 30 MG/ML Syringe IV (21:11)
[2019-11-12] MEDS: 0.9% Normal Saline 1,000 ML 150 ML IV (21:11)
[2019-11-12] MEDS: Ondansetron 4 MG/2 ML Vial IV (21:12)
--- NOTE | 2019-11-12 21:15 | RAD_ITS ---
STUDY: X-RAY CHEST REASON FOR EXAM: Male, 24 years old. FEVER, N/V, COUGH, SEEN YESTERDAY FOR SAME TECHNIQUE: PA and lateral COMPARISON: None. FINDINGS: The lungs are clear and expanded. There is no demonstrated pleural abnormality. Normal size heart. Normal mediastinum and sergio. Normal visualized pulmonary arteries. Normal visualized aortic arch and descending thoracic aorta. Thoracic spine demonstrates dextroscoliosis possibly due to muscle spasm or positioning artifact. Normal visualized ribs, clavicles, and shoulders. There is no demonstrated abnormality of the visualized soft tissue structures of the upper abdomen. RAD/Chest 1 View (Portable) IMPRESSION: No acute cardiopulmonary pathology. Electronically Signed: Leonel Dawn MD at 21:39 EDT , Service support ,
[2019-11-12 21:20] LABS: AST(SGOT) 16 U/L (15-37); Alanine Aminotransfer ALT/SGPT 14 U/L (16-61); Albumin, Serum 3.4 g/dL (3.2-5.0); Alkaline Phosphatase 82 U/L (45-117); Anion Gap 6 (5-15); BUN 12 mg/dL (7-18); BUN/Creat Ratio 14.8 RATIO (10-20); Bilirubin, Direct 0.18 mg/dL (0.00-0.30); Chloride 98 mmol/L (98-107); Creatinine, Serum 0.81 mg/dL (0.70-1.30); EST Glomerular Filtration Rate 122 mL/min (>60); Est Glom Filt Rate - Afr Amer 147 mL/min (>60); Estimated Creatinine Clearance 125.88 ml/min; Globulin 5.3 g/dL (2.2-4.2); Glucose 104 mg/dL (74-106); Lipase 67 U/L (73-393); Potassium 3.6 mmol/L (3.5-5.1); Protein, Total 8.7 g/dL (6.4-8.2); Sodium Level 136 mmol/L (136-145)
[2019-11-12 21:26] LABS: Platelet Estimate ADEQUATE (ADEQ); Red Cell Morphology NORM C+C NORMAL (NORM C&C)
[2019-11-12 22:26] LABS: Probe Check PASS; Specimen Processing Control PASS
[2019-11-12] MEDS: guaiFENesin 1,200 MG Tablet 1200 MG PO (23:00)
--- NOTE | 2019-11-12 23:12 | ED.RN ---
PATIENT GAVE PERMISSION FOR NURSING STAFF TO SPEAK WITH MOTHER (MARY SCHULZ) AND GIVE OUT HIS TEST RESULTS OVER THE PHONE.
--- NOTE | 2019-11-12 23:36 | HP.PCM_ITS ---
Problem List (1) Respiratory insufficiency Status: Acute (2) CVA (cerebral vascular accident) Status: Chronic (3) Behcet's disease Status: Chronic (4) Vomiting Status: Acute (5) Hypoxia Status: Acute (6) Accidental fall Status: Inactive (7) Smoker Status: Chronic (8) Open wound of lip with complication Status: Chronic Comment: 1.3 cm post-traumatic nonhealing open wound left lower lip near midline 2 cm post-traumatic nonhealing open wound central upper lip in posterior portion of lip History of Present Illness Date of Admission: 11/13/19 Chief Complaint: nausea and vomiting The patient is a 24 year old M with a significant history of Behcet's disease; depression; and anxiety who presents to the emergency department with nausea and vomiting. His symptom has been going on for about 3 days. A day before his presentation he was at emergency department and he was given IV fluids and antiemetics. He was discharge home with a prescription. However patient reported he was too weak to go and pickle pumper the prescription. Associated with his symptoms is productive cough of dark black sputum. However, many times he is unable to expectorate his sputum. Further he has chills; weakness and muscle ache. He denies any loss of taste or loss of smell. Emergent department doctor reported that because on room air his oxygen s aturation fell to 87% a stay at the hospital was considered He has not been wearing a mask and he has not been quarantining. However he denies any knowledge of association with someone with covid -19 infection. Past Medical History Past Medical History (Chronic Problems): Chronic Problems (Last Reviewed 11/13/19 @ 00:[address] Naiv Bee MD) CVA (cerebral vascular accident) (Chronic) Behcet's disease (Chronic) Smoker (Chronic) Open wound of lip with complication (Chronic) 1.3 cm post-traumatic nonhealing open wound left lower lip near midline 2 cm post-traumatic nonhealing open wound central upper lip in posterior portion of lip Medical History: Medical History (Last Reviewed 11/13/19 @ 00:[address] Navi Bee MD) Open wound, nose, without complication (Inactive) S01.20XA 1 cm post-traumatic nonhealing wound nasal root Accidental fall (Chronic) W19.XXXA Open wound of lip with complication (Chronic) S01.501A 1.3 cm post-traumatic nonhealing open wound left lower lip near midline 2 cm post-traumatic nonhealing open wound central upper lip in posterior portion of lip Back problem M53.9 Behcet's disease M35.2 Head ache R51 Heart murmur R01.1 Stroke I63.9 Ulcer Vision problems H54.7 Allergies No Known Allergies Allergy (Verified 11/05/19 08:50) Home Medications: Ambulatory Orders Medication Instructions Recorded Acyclovir [Zovirax] 800 mg PO TID 11/01/19 Quetiapine Fumarate [Seroquel] 50 mg PO QHS 11/11/19 proMETHazine tablet [Phenergan] 25 mg PO Q6H PRN PRN #10 tab 11/11/19 Surgical History: Surgical History (Last Reviewed 11/07/19 @ 22:[address] Manuel Ash MD) History of incision and drainage Z98.890 BEHCETS INFECTION Surgical History: - - No surgical history except incision and drainage. Smoking Status: Current every day smoker Tobacco Use: Cigarettes Alcohol: Occasional - *Family History Maternal Family History: Family History (Last Reviewed 11/07/19 @ 22:[address] Manuel Ash MD) Unknown No problems noted. Paternal Family History: Family History (Last Reviewed 11/07/19 @ 22:[address] Manuel Ash MD) Unknown No problems noted. History Items: Hypertension Review of Systems Constitutional: Reports: Anorexia, Chills, Malaise, Weakness, Fatigue. Denies: Weight Change HEENT: Denies: Head Aches, Sinus Congestion, Sinus Drainage Cardiovascular: Denies: Chest Pain, Palpitations Respiratory: Reports: Cough, Shortness of Breath, Sputum production Gastrointestinal: Reports: Nausea, Vomiting Genitourinary: Denies: Dysuria Musculoskeletal: Denies: Joint Pain, Joint Tenderness Skin: Reports: Wounds - lips. Denies: Rash Neurological: Denies: Numbness, Tingling, Focal weakness Psychiatric: Denies: Anxiety, Depression, Homicidal Ideations, Suicidal Ideations Hematologic/ Lymphatic: Denies: Easy Bruising, Easy Bleeding VTE Information - Inpt Only VTE Present on Admission: No VTE Mechan Device Prophylaxis: None VTE Pharm Prophylaxis ordered?: Yes Patient Problems: Active and Suspected Problems (Last Reviewed 11/13/19 @ 00:[address] Navi Bee MD) Vomiting (Acute) Hypoxia (Acute) Respiratory insufficiency (Acute) - Physical Exam Vitals/I&O's: Vital Signs Temp Pulse Resp BP Pulse Ox 98 F 79 24 H 105/71 96 11/12/19 21:11 11/12/19 21:11 11/12/19 21:11 11/12/19 21:11 11/12/19 21:11 Oxygen Delivery Method Room Air Weight: 64.4 kg Body Mass Index (BMI) 22.2 General: Alert, Oriented x3, Cooperative HEENT: Atraumatic, PERRLA, EOMI, Normocephalic Oral: - - Ulcers of the lips Neck: Supple, No JVD, Negative Carotid Bruits Lungs: Rhonchi, Short of Breath, Using Accessory Muscles Cardiovascular: Regular rate, Normal S1, Normal S2, No murmurs Abdomen: Bowel Sounds Present, Soft, Non Tender Extremities: No clubbing, No cyanosis, No edema, Capillary Refill Less than 3 Seconds Skin: No rashes, No breakdown Musculoskeletal: No Tenderness to Palpation of Joints or Extremities Neurological: Cranial nerves II-XII grossly intact Psych/Mental Status: Normal Affect, Appropriate Laboratory Results 11/12/19 20:35: WBC 15.8 H, RBC 4.40 L, Hgb 13.5, Hct 42.6, MCV 96.8 H, MCH 30.7, MCHC 31.7 L, RDW Std Deviation 46.1 H, RDW Coeff of Eduin 13.0, Plt Count 235, MPV 10.1, Immature Gran % (Auto) 0.400, Neut % (Auto) 79.4 H, Lymph % (Auto) 9.3 L, [place] % (Auto) 10.1 H, Eos % (Auto) 0.4, Baso % (Auto) 0.4, Absolute Neuts (auto) 12.6 H, Absolute Lymphs (auto) 1.47, Nucleated RBC % 0, Differential Comment , Diff Path Review May foll, Platelet Estimate ADEQUATE, RBC Morphology NORM C+C 11/12/19 20:35: Sodium 136, Potassium 3.6, Chloride 98, Carbon Dioxide 32.0, Anion Gap 6, BUN 12, Creatinine 0.81, Estim Creat Clear Calc 125.88, Est GFR (MDRD) Af Amer 147, Est GFR (MDRD) Non-Af 122, BUN/Creatinine Ratio 14.8, Glucose 104, Calcium 9.0, Total Bilirubin 0.80, Direct Bilirubin 0.18, AST 16, ALT 14 L, Alkaline Phosphatase 82, Total Protein 8.7 H, Albumin 3.4, Globulin 5.3 H, Lipase 67 L 11/12/19 21:25: COVID-19 (DINORAH) Negative Current Medications Guaifenesin (Mucinex) 1,200 mg PO X1 ONE Stop: 11/13/19 23:07 Sodium Chloride () 1,000 mls @ 150 mls/hr IV .Q6H40M [facility] Last Admin: 11/12/19 21:11 Dose: 150 mls/hr Documented by: Sodium Chloride () 500 mls @ 999 mls/hr IV .Q31M [facility] Stop: 11/12/19 23:45 Last Admin: 11/12/19 23:31 Dose: 999 mls/hr Documented by: Assessment/Plan All Active Problems (Last Reviewed 11/13/19 @ 00:[address] Navi Bee MD) Vomiting (Acute) Hypoxia (Acute) Respiratory insufficiency (Acute) The patient is a 24 year old M with a significant history of Behcet's disease; depression; and anxiety who presents to the emergency department with nausea and vomiting; chills; was found to have a fever leukocytosis; hypoxia. Acute respiratory insufficiency secondary to acute febrile illness Review of imaging department labs showed a neutrophilia with lymphopenia. Also there is elevated monocytes. Etiology unclear at this time. Covid test x1 is negative. Will admit to COVID cohort unit Check ferritin; triglyceride; d-dimer ESR; CRP and troponin. Placed on scheduled DuoNeb and PRN albuterol. Mucinex ordered. Tylenol for fever His chest x-ray does not look like covid.. However in the setting of fever and GI illness will continue covid precautions started from the emergency department. Tamper Operator consult. Behcet's disease Acyclovir continued. Tobacco abuse Counseled. DVT Prophylaxis Placed on subcutaneous Lovenox 40 mg twice daily Inpatient E&M: 20184 Init Hosp L3
[2019-11-12] MEDS: Ipratropium/Albuterol Sulfate 3 ML AMPUL.NEB INHALATION (23:40)
[2019-11-13] VITALS (11 sets, daily range): BP systolic 94–137; BP diastolic 62–92; PULSE 67–105; RESP 13–22; TEMP 36.3–37.3; O2SAT 90–98
--- NOTE | 2019-11-13 01:00 | ED.RN ---
CALLED MOTHER W/UPDATE RE:ADMISSION. CALL WENT TO AND BOX INDICATES IT IS FULL. UNABLE TO LEAVE MESSAGE
[2019-11-13 01:06] LABS: D-Dimer Quantitative (DVT/PE) 1.25 FEU/ug/m (0.27-0.49)
[2019-11-13 01:15] LABS: Erythrocyte Sedimentation Rate 115 mm/hr (0-15)
--- NOTE | 2019-11-13 01:15 | NURSING ---
Pts primary rn aware of ddimer result of 1.25 at this time.
[2019-11-13 01:35] LABS: Ferritin 188 ng/mL (26-388); Triglycerides 80 mg/dL
[2019-11-13 04:41] LABS: Absolute Lymphocyte Count 1.04 X10^3/uL (0.83-4.51); Absolute Neutrophil Count 13.6 X10^3/uL (2.0-7.7); Basophil# 0.05 X10^3/uL; Basophil% 0.3 % (0-1); Eosinophil# 0.07 X10^3/uL; Eosinophils% 0.4 % (0-5); Hematocrit 41.3 % (40-54); Hemoglobin 13.1 g/dL (13.0-16.5); Lymphocyte # 1.04 X10^3/ul (4.0); Lymphocyte % 6.3 % (19-41); Mean Corp Hgb Conc 31.7 g/dL (32-36); Mean Corpuscular Hgb 30.5 pg (27.0-32.0); Mean Platelet Vol. 10.2 fl (6.2-12.0); Monocyte# 1.65 X10^3/uL; NRBC Flagged by Analyzer 0 % (0-5); Neutrophil # 13.56 X10^3/uL (2.7-7.7); Neutrophil % 82.5 % (47-70); POSITIVE DIFFERENTIAL YES; Platelet Count 214 K/mm3 (150-450); RBC Distribution Width CV 12.7 % (11.6-14.6); RBC Distribution Width SD 45.1 fl (35.1-43.9); White Blood Count 16.5 K/mm3 (4.4-11.0)
[2019-11-13 05:11] LABS: Anion Gap 5 (5-15); BUN 12 mg/dL (7-18); BUN/Creat Ratio 15.9 RATIO (10-20); Chloride 104 mmol/L (98-107); Creatinine, Serum 0.75 mg/dL (0.70-1.30); EST Glomerular Filtration Rate 133 mL/min (>60); Est Glom Filt Rate - Afr Amer 161 mL/min (>60); Estimated Creatinine Clearance 122.44 ml/min; Glucose 105 mg/dL (74-106); Potassium 3.6 mmol/L (3.5-5.1); Sodium Level 139 mmol/L (136-145)
[2019-11-13 05:29] LABS: Differential Indicated SCAN CRITERIA MET
[2019-11-13] MEDS: Acyclovir 800 MG Tablet PO ×3 (06:23→21:13)
[2019-11-13] MEDS: 0.9% Saline Lock 10 ML Syringe IV ×3 (06:23→17:30)
[2019-11-13] MEDS: guaiFENesin 1,200 MG Tablet 1200 MG PO ×2 (06:23→20:51)
[2019-11-13] MEDS: Acetaminophen 325 MG Tablet 650 MG PO ×2 (06:36→17:54)
--- NOTE | 2019-11-13 07:04 | PCM.CONS.PUL ---
Problem List (1) CVA (cerebral vascular accident) Status: Resolved (2) Behcet's disease Status: Chronic (3) Vomiting Status: Acute (4) Respiratory insufficiency Status: Acute Reason for Consult Date of Consultation: 11/13/19 Reason for Consultation: Concern for COVID, hypoxia History of Present Illness: The patient is a 24 year old M with past medical history listed below, who presented [facility] on 11/12/2019 secondary to continued nausea and vomiting. Patient reportedly has been unable to keep any medications down and has not been able to go to the pharmacy to fill new medications. Patient has had nausea and vomiting and started to develop shortness of breath and a fever with cough. Patient estimates that symptoms started on Sunday and have been progressive. Patient has been to the ER twice. In the ER, patient was given Toradol, Zofran and IV fluids. Patient was given some melba sage and crackers and was able to tolerate it. Unfortunately, patient saturation was 87% with a good waveform off of nasal cannula oxygen. Patient was given DuoNeb, Mucinex and admitted to the floor for further evaluation. Patient did have a negative COVID test, but white blood cell count was elevated at 15.8. 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 Patient reportedly has had a stroke in the past requiring a cane for ambulation. Patient states that he has been producing significant amounts of mucus overnight and this is his biggest problem at this time. Patient denies any trauma, urinary symptoms or rashes. Review of systems otherwise negative from a constitutional, HEENT, respiratory, cardiovascular, GI, genitourinary, musculoskeletal, skin, neurologic, psychiatric and hematologic system unless stated above. Past Medical History Past Medical History (Chronic Problems): Chronic Problems (Last Reviewed 11/13/19 @ 00:[address] Navi Bee MD) Behcet's disease (Chronic) Smoker (Chronic) Open wound of lip with complication (Chronic) 1.3 cm post-traumatic nonhealing open wound left lower lip near midline 2 cm post-traumatic nonhealing open wound central upper lip in posterior portion of lip Medical History: Medical History (Last Reviewed 11/13/19 @ 00:[address] Navi Bee MD) Open wound, nose, without complication (Inactive) S01.20XA 1 cm post-traumatic nonhealing wound nasal root Accidental fall (Inactive) W19.XXXA Open wound of lip with complication (Chronic) S01.501A 1.3 cm post-traumatic nonhealing open wound left lower lip near midline 2 cm post-traumatic nonhealing open wound central upper lip in posterior portion of lip Back problem M53.9 Behcet's disease M35.2 Head ache R51 Heart murmur R01.1 Stroke I63.9 Ulcer Vision problems H54.7 Allergies No Known Allergies Allergy (Verified 11/05/19 08:50) Home Medications: Ambulatory Orders Medication Instructions Recorded Acyclovir [Zovirax] 800 mg PO TID 11/01/19 Quetiapine Fumarate [Seroquel] 50 mg PO QHS 11/11/19 proMETHazine tablet [Phenergan] 25 mg PO Q6H PRN PRN #10 tab 11/11/19 Surgical History: Surgical History (Last Reviewed 11/07/19 @ 22:[address] Manuel Ash MD) History of incision and drainage Z98.890 BEHCETS INFECTION Surgical History: - - No surgical history except incision and drainage. Smoking Status: Current every day smoker Tobacco Use: Cigarettes Alcohol: Occasional - *Family History Maternal Family History: Family History (Last Reviewed 11/07/19 @ 22:[address] Manuel Ash MD) Unknown No problems noted. Paternal Family History: Family History (Last Reviewed 11/07/19 @ 22:[address] Manuel Ash MD) Unknown No problems noted. History Items: Hypertension Review of Systems Comment: See HPI Patient Problems: Active and Suspected Problems (Last Reviewed 11/13/19 @ 00:[address] Navi Bee MD) Vomiting (Acute) Hypoxia (Acute) Respiratory insufficiency (Acute) Objective: Chest x-ray was personally reviewed and appears to be normal. - Physical Exam Vitals/I&O's: Vital Signs Temp Pulse Resp BP Pulse Ox 36.3 C L 69 16 110/92 H 96 11/13/19 00:50 11/13/19 00:50 11/13/19 00:50 11/13/19 00:50 11/13/19 00:50 Oxygen Flow Rate (L/min) 3 Oxygen Delivery Method Room Air Weight: 58 kg Body Mass Index (BMI) 20.0 Intake and Output for Last 24 Hours 11/11/19 11/12/19 11/13/19 23:59 23:59 23:59 Intake Total 1847 / 1847 Output Total 400 / 400 Balance 1447 / 1447 General: Alert, Oriented x3, Cooperative, No apparent distress, - - Frequent expectoration of mucus noted. HEENT: Atraumatic, PERRLA, EOMI, Normocephalic, - - No scleral icterus or injection noted Oral: Moist Mucosa, No Gingival or Mucosal Lesions/ Ulcerations Neck: Supple, No JVD, No Nodes, Trachea Midline Lungs: Clear to auscultation, Normal air movement - Improves with coughing, No rhonchi, No wheeze, No rales Cardiovascular: Regular rate, Regular Rhythm, Normal S1, Normal S2, No murmurs, No rub noted, No Gallop Abdomen: Bowel Sounds Present, Soft, Non Tender, Non-Distended Extremities: No clubbing, No cyanosis, No edema Skin: No rashes, No breakdown Musculoskeletal: No Tenderness to Palpation of Joints or Extremities Neurological: Neuro grossly intact - At baseline function. Some expressive aphasia and lower extremity weakness Psych/Mental Status: Alert and oriented to time, place, person, mood and affect Laboratory Results 11/12/19 20:35: WBC 15.8 H, RBC 4.40 L, Hgb 13.5, Hct 42.6, MCV 96.8 H, MCH 30.7, MCHC 31.7 L, RDW Std Deviation 46.1 H, RDW Coeff of Eduin 13.0, Plt Count 235, MPV 10.1, Immature Gran % (Auto) 0.400, Neut % (Auto) 79.4 H, Lymph % (Auto) 9.3 L, [place] % (Auto) 10.1 H, Eos % (Auto) 0.4, Baso % (Auto) 0.4, Absolute Neuts (auto) 12.6 H, Absolute Lymphs (auto) 1.47, Nucleated RBC % 0, Differential Comment , Diff Path Review May , Platelet Estimate ADEQUATE, RBC Morphology NORM C+C 11/12/19 20:35: Sodium 136, Potassium 3.6, Chloride 98, Carbon Dioxide 32.0, Anion Gap 6, BUN 12, Creatinine 0.81, Estim Creat Clear Calc 125.88, Est GFR (MDRD) Af Amer 147, Est GFR (MDRD) Non-Af 122, BUN/Creatinine Ratio 14.8, Glucose 104, Calcium 9.0, Total Bilirubin 0.80, Direct Bilirubin 0.18, AST 16, ALT 14 L, Alkaline Phosphatase 82, Total Protein 8.7 H, Albumin 3.4, Globulin 5.3 H, Lipase 67 L 11/12/19 20:55: ESR 115 H 11/12/19 20:55: D-Dimer Quant (PE/DVT) 1.25 H* 11/12/19 20:55: Ferritin 188, C-React Prot Ext Range 55.60 H, Triglycerides 80 11/12/19 20:55: Troponin I < 0.015 11/12/19 21:25: COVID-19 (DINORAH) Negative 11/13/19 04:30: WBC 16.5 H, RBC 4.30 L, Hgb 13.1, Hct 41.3, MCV 96.0 H, MCH 30.5, MCHC 31.7 L, RDW Std Deviation 45.1 H, RDW Coeff of Eduin 12.7, Plt Count 214, MPV 10.2, Immature Gran % (Auto) 0.500, Neut % (Auto) 82.5 H, Lymph % (Auto) 6.3 L, [place] % (Auto) 10.0, Eos % (Auto) 0.4, Baso % (Auto) 0.3, Absolute Neuts (auto) 13.6 H, Absolute Lymphs (auto) 1.04, Nucleated RBC % 0, Differential Comment COMMENT, Diff Path Review September11/13/19 04:30: Sodium 139, Potassium 3.6, Chloride 104, Carbon Dioxide 30.0, Anion Gap 5, BUN 12, Creatinine 0.75, Estim Creat Clear Calc 122.44, Est GFR (MDRD) Af Amer 161, Est GFR (MDRD) Non-Af 133, BUN/Creatinine Ratio 15.9, Glucose 105, Calcium 8.0 L Current Medications Acetaminophen (Tylenol) 650 mg PO Q6H PRN PRN PRN Reason: Pain Score 1-10/Temp > 100.7 F Last Admin: 11/13/19 06:36 Dose: 650 mg Documented by: Acyclovir (Zovirax) 800 mg PO TID KARYNA Last Admin: 11/13/19 06:23 Dose: 800 mg Documented by: Albuterol/Ipratropium (Duoneb) 3 ml INHALATION Q4HWA.RT [facility] Dextrose (D50w Syringe) 0 gm IV X1 PRN; Protocol PRN Reason: Hypoglycemia Enoxaparin Sodium (Lovenox) 40 mg SC BID [facility] Glucagon () 1 mg IM .X1 PRN PRN Reason: Hypoglycemia Guaifenesin (Mucinex) 1,200 mg PO BID [facility] Last Admin: 11/13/19 06:23 Dose: 1,200 mg Documented by: Sodium Chloride () 250 mls @ 15 mls/hr IV .[id number] PRN PRN Reason: Saline Flush Sodium Chloride () 250 mls @ 15 mls/hr IV .[id number] PRN PRN Reason: Additional IVPB Infusion Melatonin (Melatonin) 3 mg PO QHS PRN PRN PRN Reason: INSOMNIA Ondansetron HCl (Zofran) 4 mg IV Q8H PRN PRN PRN Reason: NAUSEA/VOMITING Sodium Chloride () 10 - 40 ml IV UD PRN PRN Reason: SALINE FLUSH Last Admin: 11/13/19 06:23 Dose: 10 ml Documented by: Clinical Impression(s) from Imaging Studies Chest X-Ray 11/12/19 21:15 IMPRESSION: No acute cardiopulmonary pathology. Electronically Signed: Leonel Dawn MD at 21:39 EDT , Service support , Assessment/Plan All Active Problems (Last Reviewed 11/13/19 @ 00:[address] Navi Bee MD) CVA (cerebral vascular accident) (Resolved) Vomiting (Acute) Hypoxia (Acute) Respiratory insufficiency (Acute) RECOMMENDATIONS: 1. Consider obtaining viral panel 2. Consider discontinuation of COVID precautions 3. Aggressive pulmonary toileting 4. Consider rheumatology consultation 5. Walking oximetry prior to discharge and outpatient complete PFT IMPRESSIONS: 1. Hypoxia Unclear etiology. Chest x-ray is unremarkable. Differential diagnosis would include mucous plugging, atypical lung infection and Behcet's disease exacerbation. Patient appears to be doing well at this time. Patient is reporting significant mucus production, so pulmonary toileting will be necessary. Unclear if CT scan is necessary. COVID test was negative with low risk factors, so COVID precautions can likely be discontinued from my perspective. Outpatient complete pulmonary function test for quantification clarification of lung function would be appropriate. If patient has exertional hypoxemia, echocardiogram could be considered for evaluation of pulmonary hypertension, but this is not typical for Behcet's disease. Patient would likely benefit from rheumatology evaluation 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 Unclear if current symptomatology represents an acute exacerbation of the vasculitis given significant mucocutaneous complaints. Consider rheumatology evaluation. Patient does have a significantly elevated CRP 3. Tobacco abuse/history of stroke Complicates care, management, recovery and prognosis. Encourage smoking cessation. Inpatient E&M: 17077 Init Hosp L3
--- NOTE | 2019-11-13 09:47 | CT_ITS ---
STUDY: CTA CHEST REASON FOR EXAM: Male, 24 years old. SUSPECTED PE, BEHCETS DISEASE, HYPOXIA, D-DIMER RADIATION DOSAGE (If Supplied By Facility): CTDIvol = ( 6.88 ) mGy, DLP = ( 167.54 ) mGycm TECHNIQUE: The examination was performed with the intravenous administration of IV 75mL [id number]-370. Post-processing of the angiographic images was performed, with multiplanar reformation and 3D reconstruction. Individualized dose optimization techniques were used for this CT. COMPARISON: None. FINDINGS: There is limited enhancement of the main pulmonary artery and right and left pulmonary arteries. There is limited enhancement of the bilateral peripheral pulmonary arteries. There is no demonstrated pulmonary embolism in the proximal pulmonary arteries, there is diminished contrast in the distal pulmonary arteries and the subtle PE can not be excluded.. Normal thoracic aorta and visualized great vessels. There is no demonstrated aortic dissection. Normal heart and pericardium. Normal mediastinum. Normal hilar regions. There is peribronchial thickening. The lungs are well expanded. There is interstitial edema and both lung barnes consistent with pulmonary vascular congestion. There are also scattered tree-in-bud opacifications in the upper lobes suggesting small airways inflammation. There is a very subtle, too small to characterize 3 mm noncalcified nodule in the right upper lobe on axial image 155. Normal pleura. Normal chest wall structures. Normal osseous structures. Normal visualized upper abdomen. CT/CTA Chest W/WO Contrast IMPRESSION: No demonstrated PE, or thoracic aortic aneurysm or dissection. However, the contrast bolus is not optimal in the distal pulmonary arteries and a subtle filling defect could be present and overlooked. Diffuse interstitial edema in both lung barnes with tree-in-bud opacifications consistent with small airways inflammation. Too small to characterize 3 mm nodule in the right upper lobe on axial image 155 Electronically Signed: Henry Rolon MD at 10:59 EDT , Service support ,
--- NOTE | 2019-11-13 09:52 | PCM.HP.ID ---
Problem List (1) Hypoxia Status: Acute Reason for Consult: fever Consulted by: Dr. Pierre History of Present Illness: The patient is a 24 year old M with Behcet's, hasn't seen a doctor in a while, not on immunosuppressive meds, presented to ED last night with n/v, fever, dyspnea, aches, headache, weakness, cough, and intermittent chest pressure. Sx started 11/08 with n/v, came to ED 11/10, sent home with n/v meds. No sick contacts, but has not been masking/isolating. No oral ulcers, no diarrhea, no change in taste/smell, no sore throat. Coughing up some stuff but thinks it is related to his vomiting. No joint pain. Chest pain is intermittent, substernal, worse with deep breath. Came here last night, 87% on RA at one point, fever to 100.5. Admitted to icu in covid precautions. PCR was neg. Still n/v and cough, no current aches or chest pain. Not needing O2. Full ROS performed and neg except as noted above. Genital ulcers have been stable. No new oral ulcers. - Medical History Past Medical History (Chronic Problems): Chronic Problems (Last Reviewed 11/13/19 @ 00:[address] Navi Bee MD) Behcet's disease (Chronic) Smoker (Chronic) Open wound of lip with complication (Chronic) 1.3 cm post-traumatic nonhealing open wound left lower lip near midline 2 cm post-traumatic nonhealing open wound central upper lip in posterior portion of lip Allergies/Adverse Reactions: Allergies No Known Allergies Allergy (Verified 11/05/19 08:50) Home Medications: Ambulatory Orders Medication Instructions Recorded Acyclovir [Zovirax] 800 mg PO TID 11/01/19 Quetiapine Fumarate [Seroquel] 50 mg PO QHS 11/11/19 proMETHazine tablet [Phenergan] 25 mg PO Q6H PRN PRN #10 tab 11/11/19 - Social History Tobacco Use: cigarettes Alcohol Use: rarely Drug Use: none Vital Signs Temp Pulse Resp BP Pulse Ox 97.3 F L 69 16 110/92 H 93 11/13/19 00:50 11/13/19 00:50 11/13/19 00:50 11/13/19 00:50 11/13/19 07:43 Oxygen Flow Rate (L/min) 3 Oxygen Delivery Method Room Air Weight: 58 kg Body Mass Index (BMI) 20.0 Laboratory Tests Past 24 Hrs 11/12/19 11/12/19 11/12/19 20:35 20:35 20:55 WBC 15.8 H RBC 4.40 L Hgb 13.5 Hct 42.6 MCV 96.8 H MCH 30.7 MCHC 31.7 L RDW Std Deviation 46.1 H RDW Coeff of Eduin 13.0 Plt Count 235 MPV 10.1 Immature Gran % (Auto) 0.400 Neut % (Auto) 79.4 H Lymph % (Auto) 9.3 L [place] % (Auto) 10.1 H Eos % (Auto) 0.4 Baso % (Auto) 0.4 Absolute Neuts (auto) 12.6 H Absolute Lymphs (auto) 1.47 Nucleated RBC % 0 Differential Comment Diff Path Review May foll Platelet Estimate ADEQUATE RBC Morphology NORM C+C ESR 115 H D-Dimer Quant (PE/DVT) Sodium 136 Potassium 3.6 Chloride 98 Carbon Dioxide 32.0 Anion Gap 6 BUN 12 Creatinine 0.81 Estim Creat Clear Calc 125.88 Est GFR (MDRD) Af Amer 147 Est GFR (MDRD) Non-Af 122 BUN/Creatinine Ratio 14.8 Glucose 104 Calcium 9.0 Ferritin Total Bilirubin 0.80 Direct Bilirubin 0.18 AST 16 ALT 14 L Alkaline Phosphatase 82 Troponin I C-React Prot Ext Range Total Protein 8.7 H Albumin 3.4 Globulin 5.3 H Triglycerides Lipase 67 L COVID-19 (DINORAH) 11/12/19 11/12/19 11/12/19 20:55 20:55 20:55 WBC RBC Hgb Hct MCV MCH MCHC RDW Std Deviation RDW Coeff of Eduin Plt Count MPV Immature Gran % (Auto) Neut % (Auto) Lymph % (Auto) [place] % (Auto) Eos % (Auto) Baso % (Auto) Absolute Neuts (auto) Absolute Lymphs (auto) Nucleated RBC % Differential Comment Diff Path Review Platelet Estimate RBC Morphology ESR D-Dimer Quant (PE/DVT) 1.25 H* Sodium Potassium Chloride Carbon Dioxide Anion Gap BUN Creatinine Estim Creat Clear Calc Est GFR (MDRD) Af Amer Est GFR (MDRD) Non-Af BUN/Creatinine Ratio Glucose Calcium Ferritin 188 Total Bilirubin Direct Bilirubin AST ALT Alkaline Phosphatase Troponin I < 0.015 C-React Prot Ext Range 55.60 H Total Protein Albumin Globulin Triglycerides 80 Lipase COVID-19 (DINORAH) 11/12/19 11/13/19 11/13/19 21:25 04:30 04:30 WBC 16.5 H RBC 4.30 L Hgb 13.1 Hct 41.3 MCV 96.0 H MCH 30.5 MCHC 31.7 L RDW Std Deviation 45.1 H RDW Coeff of Eduin 12.7 Plt Count 214 MPV 10.2 Immature Gran % (Auto) 0.500 Neut % (Auto) 82.5 H Lymph % (Auto) 6.3 L [place] % (Auto) 10.0 Eos % (Auto) 0.4 Baso % (Auto) 0.3 Absolute Neuts (auto) 13.6 H Absolute Lymphs (auto) 1.04 Nucleated RBC % 0 Differential Comment COMMENT Diff Path Review May foll Platelet Estimate RBC Morphology ESR D-Dimer Quant (PE/DVT) Sodium 139 Potassium 3.6 Chloride 104 Carbon Dioxide 30.0 Anion Gap 5 BUN 12 Creatinine 0.75 Estim Creat Clear Calc 122.44 Est GFR (MDRD) Af Amer 161 Est GFR (MDRD) Non-Af 133 BUN/Creatinine Ratio 15.9 Glucose 105 Calcium 8.0 L Ferritin Total Bilirubin Direct Bilirubin AST ALT Alkaline Phosphatase Troponin I C-React Prot Ext Range Total Protein Albumin Globulin Triglycerides Lipase COVID-19 (DINORAH) Negative - Other Studies Radiology: [] reviewed Other Studies: [] Route of nutrition/ use of supplements: [] Nutritional Intake: [] IV Site: [] Chowdhury Catheter: [] - Physical Exam General: Alert, Oriented x3, Cooperative, - - ill appearing, vomiting and cough. HEENT: Atraumatic, PERRLA, EOMI Neck: Supple, No Nodes Lungs: Rhonchi - scattered rhonchi Cardiovascular: Regular rate, Regular Rhythm, No murmurs Abdomen: Soft, Non Tender, Non-Distended Extremities: No edema Skin: Ulcer/ Wound - ulcers on genitals IV Site: Peripheral, without redness Musculoskeletal: No Tenderness to Palpation of Joints or Extremities Neurological: Cranial nerves II-XII grossly intact - Assessment/Plan Antibiotics: [] Assessment/Plan: [] Active and Suspected Problems (Last Reviewed 11/13/19 @ 00:[address] Navi Bee MD) Vomiting (Acute) Hypoxia (Acute) Respiratory insufficiency (Acute) Acute onset of n/v, headache, myalgias, chest pain, dyspnea, cough, hypoxia - h/o Behcet's, untreated. Elevated d-dimer and CRP. Wbc is elevated, no lymphopenia, normal ferritin. Aches are better today. On RA currently. No sick contacts but has not been isolating/masking. COVID pcr on admit neg, but high clinical suspicion. Would keep in isolation for now. Check CT-PE given chest pain, hypoxia, cough, and elevated d-dimer. Repeat inflammatory markers today. Lungs are coarse, but cxr was clear. Aspiration is possible with all his vomiting. Will get procalcitonin and see what CT shows. Will give dose of iv dex today given suspected covid, possible contributing Behcet's. Overall lower concern for Behcet's flare given lack of lower GI symptoms, arthritis, or new ulcers, but it could be causing vasculitis, dvt/pe, or other lung changes. Duration of n/v would be atypical for something like food poisoning. Will follow, thank you, d/w Dr. Pierre.
[2019-11-13 10:37] LABS: BNP,B-Type NATRIURETIC PEPTIDE 66.2 pg/mL (0-100); Ferritin 195 ng/mL (26-388); LDH 136 U/L (87-241)
[2019-11-13 10:45] LABS: D-Dimer Quantitative (DVT/PE) 1.99 FEU/ug/m (0.27-0.49); Procalcitonin 0.12 ng/mL (0.00-0.09)
[2019-11-13] MEDS: dexAMETHasone 4 MG/ML Vial 6 MG IV (11:06)
[2019-11-13] MEDS: Enoxaparin 40 MG/0.4 ML Syringe SC ×2 (11:06→20:50)
[2019-11-13 11:09] LABS: Pathologist Review Reviewed
[2019-11-13 11:10] LABS: Pathologist Review Reviewed
--- NOTE | 2019-11-13 11:56 | CASEMGMT ---
Pt is in COVID precautions at this time. This RN CM attempted to reach pt via phone without success at this time. Will attempt again later. SStaten RN CM
--- NOTE | 2019-11-13 13:36 | CASEMGMT ---
RAFAL BAIN assessment: Phone interview with patient for initial transition planning/care coordination assessment. RN TAYA introduced self and role at [facility], pt voices understanding and consents to assessment at this time. Pt answers questions appropriately but is hard to understand via phone at this time. Pt is A/Ox4 at this time. Care providers, pharmacy, and demographics verified at this time. Presentation: Fever, N/V, cough-seen yesterday for same Admitting dx: Acute febrile illness PCP: Zoey Chaudhry Specialists: Pt states no current specialists. Preferred Pharmacy: [facility] Insurance: [facility] Prescription Benefit: [facility] Living Will/HPOA: Pt states does not have LW/HPOA and declines info at this time. LNOK: Radha Stearns, mother Living Arrangements: Pt states lives alone in 1 story apartment and states no concerns at home at this time. Pt states is independent with ADL's. Transportation: Pt states does not drives but takes taxi, if needed, and states no transportation concerns at this time. DME/HHC: Pt states no current DME or need for any at this time. Pt states no hx of HHC or SNF. Pt states no concerns with going home at time of discharge, but states may be transferred to [facility] to this RN CM . Pt states is on disability. Pt states smoke a pack of cigarettes daily and states drinks ETOH occasionally. Pt states no further concerns/needs at this time. CM to follow for any further discharge planning/needs. Advised pt to ask for CM if any further questions/concerns/needs arise, voices understanding. Pt Goal: Home Plan: Home [place]en RAFAL BAIN
[2019-11-13] MEDS: Ipratropium/Albuterol Sulfate 3 ML AMPUL.NEB INHALATION ×2 (14:36→18:55)
--- NOTE | 2019-11-13 15:12 | PN_ITS ---
Patient Problems: Active and Suspected Problems (Last Reviewed 11/13/19 @ 00:[address] Navi Bee MD) Vomiting (Acute) Hypoxia (Acute) Respiratory insufficiency (Acute) Subjective: Still with some nausea and difficulty breathing. He is 94% on room air and his previous hypoxia appears to have resolved as has his fevers Vitals/I&O's: Vital Signs Temp Pulse Resp BP Pulse Ox 98.3 F 72 18 133/76 H 94 11/13/19 12:00 11/13/19 12:00 11/13/19 12:00 11/13/19 12:00 11/13/19 12:00 Oxygen Flow Rate (L/min) 3 Oxygen Delivery Method Room Air Weight: 127 lb 13.89 oz Body Mass Index (BMI) 20.0 Intake and Output for Last 24 Hours 11/11/19 11/12/19 11/13/19 23:59 23:59 23:59 Intake Total 7 / 2087 Output Total 400 / 400 Balance 1687 / 1687 General: Alert, Oriented x3, Cooperative, No apparent distress HEENT: Atraumatic, PERRLA, EOMI, Normocephalic Oral: No Gingival or Mucosal Lesions/ Ulcerations, Dry Mucosa Neck: Supple, No JVD Lungs: Normal air movement, Diminished, Rhonchi Cardiovascular: Regular rate, Regular Rhythm, Normal S1, Normal S2, No murmurs Abdomen: Soft, Non Tender, Non-Distended, No Hepato-splenomegaly Extremities: No edema, Capillary Refill Less than 3 Seconds Skin: No rashes, No breakdown Neurological: Neuro grossly intact, Sensory exam intact to light touch and pain Psych/Mental Status: Normal Affect, Appropriate Laboratory Results 11/12/19 20:35: WBC 15.8 H, RBC 4.40 L, Hgb 13.5, Hct 42.6, MCV 96.8 H, MCH 30.7, MCHC 31.7 L, RDW Std Deviation 46.1 H, RDW Coeff of Eduin 13.0, Plt Count 235, MPV 10.1, Immature Gran % (Auto) 0.400, Neut % (Auto) 79.4 H, Lymph % (Auto) 9.3 L, [place] % (Auto) 10.1 H, Eos % (Auto) 0.4, Baso % (Auto) 0.4, Absolute Neuts (auto) 12.6 H, Absolute Lymphs (auto) 1.47, Nucleated RBC % 0, Differential Comment , Diff Path Review Reviewed, Platelet Estimate ADEQUATE, RBC Morphology NORM C+C 11/12/19 20:35: Sodium 136, Potassium 3.6, Chloride 98, Carbon Dioxide 32.0, Anion Gap 6, BUN 12, Creatinine 0.81, Estim Creat Clear Calc 125.88, Est GFR (MDRD) Af Amer 147, Est GFR (MDRD) Non-Af 122, BUN/Creatinine Ratio 14.8, Glucose 104, Calcium 9.0, Total Bilirubin 0.80, Direct Bilirubin 0.18, AST 16, ALT 14 L, Alkaline Phosphatase 82, Total Protein 8.7 H, Albumin 3.4, Globulin 5.3 H, Lipase 67 L 11/12/19 20:55: ESR 115 H 11/12/19 20:55: D-Dimer Quant (PE/DVT) 1.25 H* 11/12/19 20:55: Ferritin 188, C-React Prot Ext Range 55.60 H, Triglycerides 80 11/12/19 20:55: Troponin I < 0.015 11/12/19 21:25: COVID-19 (DINORAH) Negative 11/13/19 04:30: WBC 16.5 H, RBC 4.30 L, Hgb 13.1, Hct 41.3, MCV 96.0 H, MCH 30.5, MCHC 31.7 L, RDW Std Deviation 45.1 H, RDW Coeff of Eduin 12.7, Plt Count 214, MPV 10.2, Immature Gran % (Auto) 0.500, Neut % (Auto) 82.5 H, Lymph % (Auto) 6.3 L, [place] % (Auto) 10.0, Eos % (Auto) 0.4, Baso % (Auto) 0.3, Absolute Neuts (auto) 13.6 H, Absolute Lymphs (auto) 1.04, Nucleated RBC % 0, Differential Comment COMMENT, Diff Path Review Reviewed 11/13/19 04:30: Sodium 139, Potassium 3.6, Chloride 104, Carbon Dioxide 30.0, Anion Gap 5, BUN 12, Creatinine 0.75, Estim Creat Clear Calc 122.44, Est GFR (MDRD) Af Amer 161, Est GFR (MDRD) Non-Af 133, BUN/Creatinine Ratio 15.9, Glucose 105, Calcium 8.0 L 11/13/19 10:00: D-Dimer Quant (PE/DVT) 1.99 H* 11/13/19 10:00: Ferritin 195, Lactate Dehydrogenase 136, Troponin I < 0.015, C- React Prot Ext Range 86.60 H 11/13/19 10:00: B-Natriuretic Peptide 66.2 11/13/19 10:00: Procalcitonin 0.12 H Current Medications Acetaminophen (Tylenol) 650 mg PO Q6H PRN PRN PRN Reason: Pain Score 1-10/Temp > 100.7 F Last Admin: 11/13/19 06:36 Dose: 650 mg Documented by: Acyclovir (Zovirax) 800 mg PO TID [facility] Last Admin: 11/13/19 12:59 Dose: 800 mg Documented by: Albuterol/Ipratropium (Duoneb) 3 ml INHALATION Q4HWA.RT [facility] Last Admin: 11/13/19 14:36 Dose: 3 ml Documented by: Dextrose (D50w Syringe) 0 gm IV X1 PRN; Protocol PRN Reason: Hypoglycemia Enoxaparin Sodium (Lovenox) 40 mg SC BID [facility] Last Admin: 11/13/19 11:06 Dose: 40 mg Documented by: Glucagon () 1 mg IM .X1 PRN PRN Reason: Hypoglycemia Guaifenesin (Mucinex) 1,200 mg PO BID [facility] Last Admin: 11/13/19 06:23 Dose: 1,200 mg Documented by: Sodium Chloride () 250 mls @ 15 mls/hr IV .[id number] PRN PRN Reason: Saline Flush Sodium Chloride () 250 mls @ 15 mls/hr IV .[id number] PRN PRN Reason: Additional IVPB Infusion Melatonin (Melatonin) 3 mg PO QHS PRN PRN PRN Reason: INSOMNIA Ondansetron HCl (Zofran) 4 mg IV Q8H PRN PRN PRN Reason: NAUSEA/VOMITING Sodium Chloride () 10 - 40 ml IV UD PRN PRN Reason: SALINE FLUSH Last Admin: 11/13/19 11:06 Dose: 20 ml Documented by: STROKE Vital Signs/Narrative: Vital Signs Temp Pulse Resp BP Pulse Ox 11/13/19 12:00 98.3 F 72 18 133/76 H 94 Medical Necessity - Tobacco Use Smoking Status: Current every day smoker Tobacco Use: Cigarettes Assessment/Plan All Active Problems (Last Reviewed 11/13/19 @ 00:[address] Navi Bee MD) CVA (cerebral vascular accident) (Resolved) Vomiting (Acute) Hypoxia (Acute) Respiratory insufficiency (Acute) 1. Behcet's disease/hypoxia which appears to have resolved/tobacco abuse -This was the reason behind his stroke 2 years ago and he does not follow-up with a public health physician and is not on any suppression medication -COVID test was negative -We will continue with prednisone daily as well as Rocephin for right now and obtain a sputum culture -CTA without a PE but did show diffuse interstitial edema -He received a dose of dexamethasone per ID -We will attempt to contact rheumatology for assistance in his management -Discussed smoking cessation DVT: Lovenox Inpatient E&M: [id number] Subs Hosp L2
[2019-11-14] VITALS (10 sets, daily range): BP systolic 99–128; BP diastolic 66–81; PULSE 71–122; RESP 14–30; TEMP 36.7–38.1; O2SAT 78–97
[2019-11-14] MEDS: Acyclovir 800 MG Tablet PO ×3 (05:40→21:05)
[2019-11-14] MEDS: guaiFENesin 1,200 MG Tablet 1200 MG PO ×2 (05:40→21:05)
[2019-11-14] MEDS: Mupirocin Ointment 22gm Tube 1 APPLIC TOPICAL ×2 (05:41→21:08)
[2019-11-14] MEDS: 0.9% Saline Lock 10 ML Syringe IV ×3 (05:43→20:58)
[2019-11-14] MEDS: Ondansetron 4 MG/2 ML Vial IV ×3 (05:45→20:58)
[2019-11-14 06:02] LABS: Absolute Lymphocyte Count 1.49 X10^3/uL (0.83-4.51); Absolute Neutrophil Count 18.1 X10^3/uL (2.0-7.7); Basophil# 0.03 X10^3/uL; Basophil% 0.1 % (0-1); Hematocrit 41.6 % (40-54); Hemoglobin 13.8 g/dL (13.0-16.5); Lymphocyte # 1.49 X10^3/ul (4.0); Lymphocyte % 6.9 % (19-41); Mean Corp Hgb Conc 33.2 g/dL (32-36); Mean Corpuscular Hgb 31.1 pg (27.0-32.0); Mean Corpuscular Volume 93.7 fL (80-94); Mean Platelet Vol. 9.9 fl (6.2-12.0); Monocyte# 1.92 X10^3/uL; Monocyte% 8.9 % (0-10); NRBC Flagged by Analyzer 0 % (0-5); Neutrophil # 18.05 X10^3/uL (2.7-7.7); Neutrophil % 83.6 % (47-70); POSITIVE DIFFERENTIAL YES; Platelet Count 233 K/mm3 (150-450); RBC Distribution Width CV 12.5 % (11.6-14.6); RBC Distribution Width SD 42.6 fl (35.1-43.9); Red Blood Count 4.44 M/mm3 (4.6-6.2); White Blood Count 21.6 K/mm3 (4.4-11.0)
[2019-11-14 06:09] LABS: Differential Indicated SCAN CRITERIA MET
[2019-11-14 06:24] LABS: Anion Gap 6 (5-15); BUN 15 mg/dL (7-18); BUN/Creat Ratio 20.7 RATIO (10-20); Calcium,Total 9.1 mg/dL (8.5-10.1); Chloride 97 mmol/L (98-107); Creatinine, Serum 0.72 mg/dL (0.70-1.30); EST Glomerular Filtration Rate 139 mL/min (>60); Est Glom Filt Rate - Afr Amer 168 mL/min (>60); Estimated Creatinine Clearance 127.55 ml/min; Glucose 105 mg/dL (74-106); Sodium Level 135 mmol/L (136-145)
[2019-11-14 06:56] LABS: Differential Comment SCANNED
--- NOTE | 2019-11-14 07:16 | PN_ITS ---
Patient Problems: Active and Suspected Problems (Last Reviewed 11/13/19 @ 00:[address] Navi Bee MD) Vomiting (Acute) Hypoxia (Acute) Respiratory insufficiency (Acute) Subjective: Patient did okay overnight. Patient reports he feels subjectively improved compared to previous. Nursing does report patient developed an ulcer on the cephalad portion of the scrotum. Patient states that this is typical of his Behcet's disease. No hemoptysis has been reported. Patient did require oxygen overnight while sleeping. Patient reports that he is supposed to establish with a equity analyst in 2 to 3 weeks, but is unaware of their name. - Physical Exam Vitals/I&O's: Vital Signs Temp Pulse Resp BP Pulse Ox 36.7 C 71 18 125/75 H 92 11/14/19 03:47 11/14/19 03:47 11/14/19 03:47 11/14/19 03:47 11/14/19 03:47 Oxygen Flow Rate (L/min) 2 Oxygen Delivery Method Room Air Weight: 58 kg Body Mass Index (BMI) 20.0 Intake and Output for Last 24 Hours 11/12/19 11/13/19 11/14/19 23:59 23:59 23:59 Intake Total 2437 / 2587 600 / 600 Output Total 450 / 850 1350 / 1350 Balance 1987 / 1737 -750 / -750 General: Alert, Oriented x3, Cooperative, No apparent distress, - - No conversational dyspnea. HEENT: Atraumatic, PERRLA, EOMI, Normocephalic, - - No scleral icterus or injection noted Oral: Moist Mucosa, No Gingival or Mucosal Lesions/ Ulcerations, - - Unable to visualize any oral ulcerations Neck: Supple, No JVD, No Nodes, Trachea Midline Lungs: No wheeze, No rales, Diminished, Rhonchi - Improved with cough, - - Symmetric expansion. Cardiovascular: Regular rate, Regular Rhythm, Normal S1, Normal S2, No murmurs, No rub noted, No Gallop Abdomen: Bowel Sounds Present, Soft, Non Tender, Non-Distended Extremities: No clubbing, No cyanosis, No edema Skin: Ulcer/ Wound - Base of the penis by the scrotum Musculoskeletal: No Tenderness to Palpation of Joints or Extremities Lymphatic: No Cervical, Supraclavicular, or Inguinal Adenopathy Neurological: - - No change compared to previous Psych/Mental Status: Alert and oriented to time, place, person, mood and affect Microbiology Past 72 Hours 11/13/19 19:05 Mucosa - Nasopharyngeal Respiratory Panel (PCR) - Final Laboratory Results 11/12/19 20:35: Diff Path Review Reviewed 11/13/19 04:30: Diff Path Review Reviewed 11/13/19 10:00: D-Dimer Quant (PE/DVT) 1.99 H* 11/13/19 10:00: Ferritin 195, Lactate Dehydrogenase 136, Troponin I < 0.015, C- React Prot Ext Range 86.60 H 11/13/19 10:00: B-Natriuretic Peptide 66.2 11/13/19 10:00: Procalcitonin 0.12 H 11/14/19 05:55: WBC 21.6 H, RBC 4.44 L, Hgb 13.8, Hct 41.6, MCV 93.7, MCH 31.1, MCHC 33.2, RDW Std Deviation 42.6, RDW Coeff of Eduin 12.5, Plt Count 233, MPV 9.9, Immature Gran % (Auto) 0.500, Neut % (Auto) 83.6 H, Lymph % (Auto) 6.9 L, [place] % (Auto) 8.9, Eos % (Auto) 0.0, Baso % (Auto) 0.1, Absolute Neuts (auto) 18.1 H, Absolute Lymphs (auto) 1.49, Nucleated RBC % 0, Differential Comment SCANNED, Diff Path Review May foll 11/14/19 05:55: Sodium 135 L, Potassium 4.0, Chloride 97 L, Carbon Dioxide 32.0, Anion Gap 6, BUN 15, Creatinine 0.72, Estim Creat Clear Calc 127.55, Est GFR (MDRD) Af Amer 168, Est GFR (MDRD) Non-Af 139, BUN/Creatinine Ratio 20.7 H, Glucose 105, Calcium 9.1 Current Medications Acetaminophen (Tylenol) 650 mg PO Q6H PRN PRN PRN Reason: Pain Score 1-10/Temp > 100.7 F Last Admin: 11/13/19 17:54 Dose: 650 mg Documented by: Acyclovir (Zovirax) 800 mg PO TID [facility] Last Admin: 11/14/19 05:40 Dose: 800 mg Documented by: Albuterol/Ipratropium (Duoneb) 3 ml INHALATION Q4HWA.RT [facility] Last Admin: 11/13/19 18:55 Dose: 3 ml Documented by: Dextrose (D50w Syringe) 0 gm IV X1 PRN; Protocol PRN Reason: Hypoglycemia Enoxaparin Sodium (Lovenox) 40 mg SC BID [facility] Last Admin: 11/13/19 20:50 Dose: 40 mg Documented by: Glucagon () 1 mg IM .X1 PRN PRN Reason: Hypoglycemia Guaifenesin (Mucinex) 1,200 mg PO BID [facility] Last Admin: 11/14/19 05:40 Dose: 1,200 mg Documented by: Sodium Chloride () 250 mls @ 15 mls/hr IV .[id number] PRN PRN Reason: Saline Flush Sodium Chloride () 250 mls @ 15 mls/hr IV .[id number] PRN PRN Reason: Additional IVPB Infusion Ceftriaxone Sodium 2 gm/ (Sodium Chloride) 50 mls @ 100 mls/hr IV Q24 [facility] Last Infusion: 11/13/19 18:03 Dose: Infused Documented by: Melatonin (Melatonin) 3 mg PO QHS PRN PRN PRN Reason: INSOMNIA Mupirocin (Bactroban) 1 applic TOPICAL BID [facility]; Protocol Last Admin: 11/14/19 05:41 Dose: 1 applicatio Documented by: Ondansetron HCl (Zofran) 4 mg IV Q8H PRN PRN PRN Reason: NAUSEA/VOMITING Last Admin: 11/14/19 05:45 Dose: 4 mg Documented by: Prednisone () 40 mg PO DAILY@0800 [facility] Sodium Chloride () 10 - 40 ml IV UD PRN PRN Reason: SALINE FLUSH Last Admin: 11/14/19 05:45 Dose: 10 ml Documented by: Clinical Impression(s) from Imaging Studies Chest CTA 11/13/19 09:47 IMPRESSION: No demonstrated PE, or thoracic aortic aneurysm or dissection. However, the contrast bolus is not optimal in the distal pulmonary arteries and a subtle filling defect could be present and overlooked. Diffuse interstitial edema in both lung barnes with tree-in-bud opacifications consistent with small airways inflammation. Too small to characterize 3 mm nodule in the right upper lobe on axial image 155 Electronically Signed: Henry Rolon MD at 10:59 EDT , Service support , Medical Necessity - Tobacco Use Smoking Status: Current every day smoker Tobacco Use: Cigarettes Assessment/Plan All Active Problems (Last Reviewed 11/13/19 @ 00:[address] Navi Bee MD) CVA (cerebral vascular accident) (Resolved) Vomiting (Acute) Hypoxia (Acute) Respiratory insufficiency (Acute) RECOMMENDATIONS: 1. Continue with antibiotics pending culture results 2. Await repeat COVID testing per ID. Continue systemic steroids 3. Aggressive pulmonary toileting 4. Consider rheumatology consultation 5. Walking oximetry prior to discharge and outpatient complete PFT IMPRESSIONS: 1. Hypoxia Unclear etiology. Chest x-ray is unremarkable. Differential diagnosis would include mucous plugging, atypical lung infection and Behcet's disease exacerbation. Patient appears to be doing well at this time. Patient is reporting significant mucus production, so pulmonary toileting will be necessary. COVID test was negative with low risk factors, so COVID precautions can likely be discontinued from my perspective. Outpatient complete pulmonary function test for quantification clarification of lung function would be ap propriate. If patient has exertional hypoxemia, echocardiogram could be considered for evaluation of pulmonary hypertension, but this is not typical for Behcet's disease to affect the pulmonary vasculature. Patient would likely benefit from rheumatology evaluation. Continue empiric steroids for now. 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 Unclear if current symptomatology represents an acute exacerbation of the vasculitis given significant mucocutaneous complaints. Patient did develop a genital ulcer overnight. Consider rheumatology evaluation. Patient does have a significantly elevated CRP 3. Tobacco abuse/history of stroke Complicates care, management, recovery and prognosis. Encourage smoking cessation. Inpatient E&M: 58541 Subs Hosp L2
[2019-11-14] MEDS: Ipratropium/Albuterol Sulfate 3 ML AMPUL.NEB INHALATION ×3 (07:20→20:18)
[2019-11-14] MEDS: predniSONE 20 MG Tablet 40 MG PO (09:35)
[2019-11-14] MEDS: Enoxaparin 40 MG/0.4 ML Syringe SC ×2 (09:35→21:00)
--- NOTE | 2019-11-14 10:12 | PN_ITS ---
Patient Problems: Active and Suspected Problems (Last Reviewed 11/13/19 @ 00:[address] Navi Bee MD) Vomiting (Acute) Hypoxia (Acute) Respiratory insufficiency (Acute) Subjective: Feeling better today, less nausea and he is breathing easier today. Vitals/I&O's: Vital Signs Temp Pulse Resp BP Pulse Ox 98.7 F 83 14 119/71 94 11/14/19 09:47 11/14/19 09:47 11/14/19 09:47 11/14/19 09:47 11/14/19 09:47 Oxygen Flow Rate (L/min) 2 Oxygen Delivery Method Room Air Weight: 127 lb 13.89 oz Body Mass Index (BMI) 20.0 Intake and Output for Last 24 Hours 11/12/19 11/13/19 11/14/19 23:59 23:59 23:59 Intake Total 2437 / 2587 650 / 650 Output Total 450 / 850 1350 / 1350 Balance 1987 / 1737 -700 / -700 General: Alert, Oriented x3, Cooperative, No apparent distress HEENT: Atraumatic, PERRLA, EOMI, Normocephalic Oral: No Gingival or Mucosal Lesions/ Ulcerations, Dry Mucosa Neck: Supple, No JVD Lungs: Normal air movement, Diminished, Rhonchi Cardiovascular: Regular rate, Regular Rhythm, Normal S1, Normal S2, No murmurs Abdomen: Soft, Non Tender, Non-Distended, No Hepato-splenomegaly Extremities: No edema, Capillary Refill Less than 3 Seconds Skin: No rashes, No breakdown Neurological: Neuro grossly intact, Sensory exam intact to light touch and pain Psych/Mental Status: Normal Affect, Appropriate Microbiology Past 72 Hours 11/13/19 19:05 Mucosa - Nasopharyngeal Respiratory Panel (PCR) - Final Laboratory Results 11/12/19 20:35: Diff Path Review Reviewed 11/13/19 04:30: Diff Path Review Reviewed 11/13/19 10:00: D-Dimer Quant (PE/DVT) 1.99 H* 11/13/19 10:00: Ferritin 195, Lactate Dehydrogenase 136, Troponin I < 0.015, C- React Prot Ext Range 86.60 H 11/13/19 10:00: B-Natriuretic Peptide 66.2 11/13/19 10:00: Procalcitonin 0.12 H 11/14/19 05:55: WBC 21.6 H, RBC 4.44 L, Hgb 13.8, Hct 41.6, MCV 93.7, MCH 31.1, MCHC 33.2, RDW Std Deviation 42.6, RDW Coeff of Eduin 12.5, Plt Count 233, MPV 9.9, Immature Gran % (Auto) 0.500, Neut % (Auto) 83.6 H, Lymph % (Auto) 6.9 L, [place] % (Auto) 8.9, Eos % (Auto) 0.0, Baso % (Auto) 0.1, Absolute Neuts (auto) 18.1 H, Absolute Lymphs (auto) 1.49, Nucleated RBC % 0, Differential Comment SCANNED, Diff Path Review September11/14/19 05:55: Sodium 135 L, Potassium 4.0, Chloride 97 L, Carbon Dioxide 32.0, Anion Gap 6, BUN 15, Creatinine 0.72, Estim Creat Clear Calc 127.55, Est GFR (MDRD) Af Amer 168, Est GFR (MDRD) Non-Af 139, BUN/Creatinine Ratio 20.7 H, Glucose 105, Calcium 9.1 Current Medications Acetaminophen (Tylenol) 650 mg PO Q6H PRN PRN PRN Reason: Pain Score 1-10/Temp > 100.7 F Last Admin: 11/13/19 17:54 Dose: 650 mg Documented by: Acyclovir (Zovirax) 800 mg PO TID [facility] [place] Last Admin: 11/14/19 05:40 Dose: 800 mg Documented by: Albuterol/Ipratropium (Duoneb) 3 ml INHALATION Q4HWA.RT [facility] [place] Last Admin: 11/14/19 07:20 Dose: 3 ml Documented by: Dextrose (D50w Syringe) 0 gm IV X1 PRN; Protocol PRN Reason: Hypoglycemia Enoxaparin Sodium (Lovenox) 40 mg SC BID [facility] [place] Last Admin: 11/14/19 09:35 Dose: 40 mg Documented by: Glucagon () 1 mg IM .X1 PRN PRN Reason: Hypoglycemia Guaifenesin (Mucinex) 1,200 mg PO BID [facility] [place] Last Admin: 11/14/19 05:40 Dose: 1,200 mg Documented by: Sodium Chloride () 250 mls @ 15 mls/hr IV .[id number] PRN PRN Reason: Saline Flush Sodium Chloride () 250 mls @ 15 mls/hr IV .[id number] PRN PRN Reason: Additional IVPB Infusion Ceftriaxone Sodium 2 gm/ (Sodium Chloride) 50 mls @ 100 mls/hr IV Q24 KARYNA Last Infusion: 11/14/19 10:12 Dose: Infused Documented by: Melatonin (Melatonin) 3 mg PO QHS PRN PRN PRN Reason: INSOMNIA Mupirocin (Bactroban) 1 applic TOPICAL BID [facility] [place]; Protocol Last Admin: 11/14/19 05:41 Dose: 1 applicatio Documented by: Ondansetron HCl (Zofran) 4 mg IV Q8H PRN PRN PRN Reason: NAUSEA/VOMITING Last Admin: 11/14/19 05:45 Dose: 4 mg Documented by: Prednisone () 40 mg PO DAILY@0800 [facility] [place] Last Admin: 11/14/19 09:35 Dose: 40 mg Documented by: Sodium Chloride () 10 - 40 ml IV UD PRN PRN Reason: SALINE FLUSH Last Admin: 11/14/19 05:45 Dose: 10 ml Documented by: STROKE Vital Signs/Narrative: Vital Signs Temp Pulse Resp BP Pulse Ox 11/14/19 09:47 98.7 F 83 14 119/71 94 11/14/19 07:57 94 11/14/19 07:20 82 19 H Medical Necessity - Tobacco Use Smoking Status: Current every day smoker Tobacco Use: Cigarettes Assessment/Plan All Active Problems (Last Reviewed 11/13/19 @ 00:[address] Navi Bee MD) CVA (cerebral vascular accident) (Resolved) Vomiting (Acute) Hypoxia (Acute) Respiratory insufficiency (Acute) 1. 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
[2019-11-14 11:09] LABS: Pathologist Review Reviewed
--- NOTE | 2019-11-14 14:48 | PCM.PN.ID ---
Patient Problems: Active and Suspected Problems (Last Reviewed 11/13/19 @ 00:[address] Navi Bee MD) Vomiting (Acute) Hypoxia (Acute) Respiratory insufficiency (Acute) Subjective: Feeling better, n/v improved. On room air, breathing improved. - Physical Exam Vitals/I&O's: Vital Signs Temp Pulse Resp BP Pulse Ox 98.7 F 83 14 119/71 94 11/14/19 09:47 11/14/19 09:47 11/14/19 09:47 11/14/19 09:47 11/14/19 09:47 Oxygen Flow Rate (L/min) 2 Oxygen Delivery Method Room Air Weight: 58 kg Body Mass Index (BMI) 20.0 Intake and Output for Last 24 Hours 11/12/19 11/13/19 11/14/19 23:59 23:59 23:59 Intake Total 2437 / 2587 1050 / 1050 Output Total 450 / 850 1625 / 1625 Balance 1987 / 1737 -575 / -575 General: Alert, Cooperative, No apparent distress Lungs: Clear to auscultation, Normal air movement Cardiovascular: Regular rate, Regular Rhythm Abdomen: Soft, Non Tender, Non-Distended Skin: No rashes Microbiology Past 72 Hours 11/13/19 15:50 Sputum, Expectorated/Coughed Gram Stain - Final 11/13/19 15:50 Sputum, Expectorated/Coughed Respiratory Culture - Preliminary Appears to be normal respiratory hai. Further studies to follow. 11/13/19 19:05 Mucosa - Nasopharyngeal Respiratory Panel (PCR) - Final Laboratory Results 11/14/19 05:55: WBC 21.6 H, RBC 4.44 L, Hgb 13.8, Hct 41.6, MCV 93.7, MCH 31.1, MCHC 33.2, RDW Std Deviation 42.6, RDW Coeff of Eduin 12.5, Plt Count 233, MPV 9.9, Immature Gran % (Auto) 0.500, Neut % (Auto) 83.6 H, Lymph % (Auto) 6.9 L, [place] % (Auto) 8.9, Eos % (Auto) 0.0, Baso % (Auto) 0.1, Absolute Neuts (auto) 18.1 H, Absolute Lymphs (auto) 1.49, Nucleated RBC % 0, Differential Comment SCANNED, Diff Path Review Reviewed 11/14/19 05:55: Sodium 135 L, Potassium 4.0, Chloride 97 L, Carbon Dioxide 32.0, Anion Gap 6, BUN 15, Creatinine 0.72, Estim Creat Clear Calc 127.55, Est GFR (MDRD) Af Amer 168, Est GFR (MDRD) Non-Af 139, BUN/Creatinine Ratio 20.7 H, Glucose 105, Calcium 9.1 Current Medications Acetaminophen (Tylenol) 650 mg PO Q6H PRN PRN PRN Reason: Pain Score 1-10/Temp > 100.7 F Last Admin: 11/13/19 17:54 Dose: 650 mg Documented by: Acyclovir (Zovirax) 800 mg PO TID [facility] Last Admin: 11/14/19 14:26 Dose: 800 mg Documented by: Albuterol/Ipratropium (Duoneb) 3 ml INHALATION Q4HWA.RT [facility] Last Admin: 11/14/19 11:20 Dose: Not Given Documented by: Dextrose (D50w Syringe) 0 gm IV X1 PRN; Protocol PRN Reason: Hypoglycemia Enoxaparin Sodium (Lovenox) 40 mg SC BID [facility] Last Admin: 11/14/19 09:35 Dose: 40 mg Documented by: Glucagon () 1 mg IM .X1 PRN PRN Reason: Hypoglycemia Guaifenesin (Mucinex) 1,200 mg PO BID [facility] Last Admin: 11/14/19 05:40 Dose: 1,200 mg Documented by: Sodium Chloride () 250 mls @ 15 mls/hr IV .[id number] PRN PRN Reason: Saline Flush Sodium Chloride () 250 mls @ 15 mls/hr IV .[id number] PRN PRN Reason: Additional IVPB Infusion Melatonin (Melatonin) 3 mg PO QHS PRN PRN PRN Reason: INSOMNIA Mupirocin (Bactroban) 1 applic TOPICAL BID [facility]; Protocol Last Admin: 11/14/19 05:41 Dose: 1 applicatio Documented by: Ondansetron HCl (Zofran) 4 mg IV Q8H PRN PRN PRN Reason: NAUSEA/VOMITING Last Admin: 11/14/19 14:26 Dose: 4 mg Documented by: Prednisone () 40 mg PO DAILY@0800 [facility] Last Admin: 11/14/19 09:35 Dose: 40 mg Documented by: Sodium Chloride () 10 - 40 ml IV UD PRN PRN Reason: SALINE FLUSH Last Admin: 11/14/19 05:45 Dose: 10 ml Documented by: Medical Necessity - Tobacco Use Smoking Status: Current every day smoker Tobacco Use: Cigarettes Route of nutrition/ use of supplements: [] Nutritional Intake: [] IV Site: [] Chowdhury Catheter: [] - Assessment/Plan Antibiotics: [] Assessment/Plan: [] Active and Suspected Problems (Last Reviewed 11/13/19 @ 00:[address] Navi Bee MD) Vomiting (Acute) Hypoxia (Acute) Respiratory insufficiency (Acute) Acute onset of n/v, headache, myalgias, chest pain, dyspnea, cough, hypoxia - h/o Behcet's, untreated. Feeling better with steroids. Cxs neg. Will stop ceftriaxone. Not clear how much of this is covid vs Behcet's. Will check covid serology in AM. PCR was neg. Ok for d/c home with one more week of isolation. Will follow, d/w Dr. Mauricio.
--- NOTE | 2019-11-14 20:18 | CPS ---
placed pt on 4 lpm nasal cannula
--- NOTE | 2019-11-14 23:52 | NURSING ---
Pt bed alarm went off. Upon entering the room, pt was noted to be on his hands and knees by this RN. Pt states he had crawled on the floor to turn the bed alarm off. Pt was asked by this RN if he had hit anywhere on his body when he fell to which he responded I told you, I didn't fall. I crawled on the floor to turn the bed alarm off.. No abrasions or bruises noted. pt bedding and gown changed. Reinforcement education given to pt about call light use and waiting for staff to assist him. Bed rails up x3 and bed alarm set. Pt given snack and ice water. pt denies further needs at this time. Sonu LYLES
[2019-11-15] VITALS (54 sets, daily range): BP systolic 62–169; BP diastolic 24–108; PULSE 74–160; RESP 12–32; TEMP 36.7–39.2; O2SAT 75–100
[2019-11-15] MEDS: Ipratropium/Albuterol Sulfate 3 ML AMPUL.NEB INHALATION ×6 (00:13→22:35)
--- NOTE | 2019-11-15 01:30 | NURSING ---
Pt sats dropped to 76%. This RN entered room and pt had his nasal cannula off. Pt sats recovered to 88% on 7L. Respiratory Therapy is in with patient. Per respiratory therapy, pt increased to 10L high flow O2 and pt is refusing to be suctioned. Dr Bee ordered stat CXR and bipap therapy. Sonu LYLES
--- NOTE | 2019-11-15 01:40 | RAD_ITS ---
We are attempting to reach an attending provider to discuss findings. An addendum with communication details will be sent when the communication is complete. HISTORY: CHANGE IN O2 LEVELS;SOB EXAM: XR Chest 1 View: COMPARISON: November 12, 2019 FINDINGS: # of images incl. paperwork: 1 The right hemithorax is now completely opacified. There is no aeration remaining within the right hemithorax. The heart and mediastinum are deviated to the right. Gas fills the esophagus. Stomach is also slightly distended with gas. There is some hyperexpansion of the left hemithorax crossing the midline due to the volume loss of the right lung. The right hemidiaphragm is also slightly elevated The left lung is clear Heart is not enlarged. No acute osseous pathology perceived. Pulmonary vascularity is distinct in the left hemithorax. Likely right pleural effusions. RAD/Chest 1 View (Portable) IMPRESSION: Right lung collapse with volume loss and deviation of the mediastinum and heart to the right with hyperexpansion of the left hemithorax. at 0318 Reported and signed by: Alejandro Phelps MD Electronically Signed: Alejandro Phelps MD at 3:17 EDT Tel , Service support ,
--- NOTE | 2019-11-15 01:53 | NURSING ---
Addendum entered by Chaparro Calloway 11/18/19 02:46: Original Note: This RN spoke with Dr Bee on the phone. Dr Bee to see a patient in ED and then to come assess Mr Chaney. Sonu LYLES
--- NOTE | 2019-11-15 02:19 | RRT_ITS ---
Rapid Response Note - Blank Notified the patient is having increase work of breathing. Respiratory therapy is tried to suction patient. Reportedly patient take the respiratory therapist out of room. Discussed with nurse to get respiratory therapy to put patient on BiPAP. Patient placed on BiPAP. A chest x-ray was ordered. Rapid response was called because patient continued to have increased respiration. Patient was examined at the bedside. Lethargic and confused. Has an S1-S2 present tachycardia. Tachypnea, rhonchi throughout. Soft nontender nondistended. Extremities with no edema. Impression: Acute respiratory failure secondary to acute right lung collapse with mediastinal deviation secondary to probable mucous plug. Patient was emergently transferred to intensive care unit and intubated. Start Patient on propofol and fentanyl drip. Order was giving to give patient vancomycin loading dose x1 and Zosyn 4.5 g x 1. Dexamethasone 4 mg IV x1. CBC and blood cultures ordered. Radiologist called with acute chest x-ray finding as in impression. Discussed with scissors grinder who recommended vest therapy. Vest therapy. Per scissors grinder patient may have bronchoscopy. Because of hypotension patient was given normal saline bolus and Levophed drip was initiated. Discussed with respiratory therapy and nursing team. Critical time: This involved time at bedside, review of charts, discussing case with specialist and care team was 2:20 to 3:25 AM (65 minutes). This was outside time of intubation.
[2019-11-15] MEDS: Etomidate 20 MG/10 ML Vial IV (02:30)
[2019-11-15] MEDS: Succinylcholine Chloride 200 MG/10 ML Vial 100 MG IV (02:30)
--- NOTE | 2019-11-15 02:37 | PN_ITS ---
Progress Note Endotracheal Intubation Note Indication: Respiratory Distress Performed by: Dr. Navi Bee The patient was placed in sniffing position. RSI was done using Etomidate 20mg and succinylcholine 100 mg. The patient was transitioned form bipap. Glidescope was inserted into the oropharynx at which time there was a Grade 1 view of the v ocal cords. A 7.5-cuban endotracheal tube was inserted and visualized going through the vocal cords. The stylette was removed and cuff was inflated. Colorimetric change was visualized on the CO2 detector. Breath sounds were heard equally in both lung barnes. The endotracheal tube was placed at 21 cm, measured at the lips. A STAT chest x-ray was ordered to verify endotracheal tube placement. The patient tolerated the procedure well and there were no immediate complications. A chest x-ray showed beginning of reexpansion of right lung; and significant correction of mediastinal shift seen on previous checks x-ray. STROKE Vital Signs/Narrative: Vital Signs Temp Pulse Resp BP BP Pulse Ox 11/15/19 02:08 141 H 30 H 132/90 H 88 11/15/19 02:04 99 F 108 H 32 H 169/108 H 75 11/15/19 00:13 96 22 H
--- NOTE | 2019-11-15 02:44 | NURSING ---
This RN in room at appx 0200. pt noted to be unresponsive with desat of 75% on 15L high flow oxygen. Rapid response called. pt placed on bipap and transported to ICU at 0220. Sonu LYLES
--- NOTE | 2019-11-15 02:48 | NURSING ---
This RN attempted to call pt's mother, Radha Stearns, and reached her voicemail. Voicemail was full and unable to leave a message with pt's mother. this RN to continue to try to reach pt's mother. Sonu LYLES
[2019-11-15] MEDS: Propofol 10MG/Ml 1,000 MG/100 ML Bottle 3.5 MG CONT INF ×2 (03:00→07:00)
--- NOTE | 2019-11-15 03:00 | RAD_ITS ---
HISTORY: S/P INTUBATION. CHECK PLACEMENT OF ETT AND OG TUBE EXAM: XR Chest 1 View: COMPARISON: Study from just over one hour earlier FINDINGS: # of images incl. paperwork: 2 The endotracheal tube terminates superimposed over the trachea above the clavicular heads, at the level of the T1-T2 interspace. Esophagogastric tube terminates below the diaphragm in the left upper quadrant, likely within the stomach. There has been reexpansion of the right hemithorax. There return to normal to the position of the trachea and stefania. Heart is not enlarged. No acute osseous pathology perceived. Pulmonary vascularity is less distinct in the right hemithorax than the left. Likely small right pleural effusions. RAD/Chest 1 View (Portable) IMPRESSION: Reexpansion of the right lung with persistent atelectasis and likely airspace disease. Endotracheal tube terminates within the trachea above the clavicular heads, likely at the T1-T2 interspace. at 0455 Reported and signed by: Alejandro Phelps MD Electronically Signed: Alejandro Phelps MD at 4:54 EDT Tel , Service support ,
--- NOTE | 2019-11-15 03:27 | EKG12_ITS ---
Test Reason : RAPID RESPONSE Blood Pressure : / mmHG Vent. Rate : 125 BPM Atrial Rate : 125 BPM P-R Int : 124 ms QRS Dur : 082 ms QT Int : 308 ms P-R-T Axes : 077 073 057 degrees QTc Int : 444 ms Sinus tachycardia Right atrial enlargement Borderline ECG Confirmed by SPENCER GOODE ([id number]), newspaper copy editor KEANU RIZVI ([id number]) on 11/20/2019 1:26:30 PM Referred By: Navi Bee Confirmed By:SPENCER GOODE
[2019-11-15] MEDS: Haloperidol Lactate 5 MG/ML Vial IV (04:12)
[2019-11-15 04:19] LABS: Allen Test NEG; SITE R BRACHIAL
[2019-11-15 04:20] LABS: FI02 100; Mode AC; O2 Delivery Device VENT; PEEP 10; RR 14; Vt 450
[2019-11-15 04:21] LABS: Time Given 353
[2019-11-15 04:22] LABS: Base Excess 11 mmol/L (-2 to +2); Bicarbonate 34.4 mmol/L (22-26); PO2 63 mmHG (75-100); pCO2 47.3 mmHg (35-45); pH 7.47 (7.35-7.45)
[2019-11-15 04:23] LABS: SO2 93 % (95-99); Total Carbon Dioxide 36 mmol/L
--- NOTE | 2019-11-15 05:07 | PCM.PN.BLA ---
Progress Note Procedure: CV catheter Insertion Informed consent: Could not be obtained because patient was intubated and sedated and needed immediate IV access for pressors. The patient was appropriately placed to maximize comfort. The site was cleansed and allowed to dry prior to draping the patient. The skin overlying the access site was infiltrated with lidocaine. The vein was successfully cannulated and a guidewire was inserted. The needle was removed and the vein dilator was advanced over the guidewire. The dilator was removed and a catheter was threaded over the guidewire while maintaining control over the guidewire. The guidewire was removed and each port was sequentially aspirated and then flushed with saline. The catheter was sutured in place and the site was dressed using sterile technique. A chest x-ray was obtained. The patient tolerated the procedure well. STROKE Vital Signs/Narrative: Vital Signs Temp Pulse Resp BP BP Pulse Ox 11/15/19 03:17 152 H 11/15/19 02:20 86 11/15/19 02:08 141 H 30 H 132/90 H 88 11/15/19 02:04 99 F 108 H 32 H 169/108 H 75 Procedures: [id number] US Guide Vascular Access
--- NOTE | 2019-11-15 05:22 | RAD_ITS ---
ACR Level 3 findings have been noted. An addendum which confirms receipt of the report will follow. HISTORY: central line placement EXAM: XR Chest 1 View: COMPARISON: Previous study is from less than 2-1/2 hours earlier FINDINGS: # of images incl. paperwork: 1 The endotracheal tube continues terminates superimposed over the trachea. It may have been slightly pulled back, and is now at the level of the C7-T1 interspace. The inferior tip of the endotracheal tube is now 11 cm above the stefania. It may be beneficial to advance the endotracheal tube for more stable positioning. The esophagogastric tube and its proximal sidehole both continue to terminate below the diaphragm, likely within the stomach. New right IJ central venous catheter terminates superimposed over the anticipated location of the SVC at the level of the right main bronchus. Airspace disease within the right lung, possibly reexpansion pulmonary edema, versus pneumonia is more severe. Indistinctness of the right hemidiaphragm possibly related to small right pleural effusion is similar. The left lung remain slightly hyperexpanded. No right pneumothorax. Heart is not enlarged. No acute osseous pathology perceived. Pulmonary vascularity is distinct within the left lung. RAD/CXR for Line Placement IMPRESSION: Adequate position of newly placed right IJ central venous catheter without evidence of complications from placement of the catheter. Slight withdrawal of the endotracheal tube, now terminating at the intersection of the C7 and T1 vertebral body, approximately 11 cm above the stefania. It may benefit the patient for this to be advanced Worsening right lung airspace disease possibly representing reexpansion pulmonary edema. at 0552 Reported and signed by: Alejandro Phelps MD Electronically Signed: Alejandro Phelps MD at 5:51 EDT Tel , Service support ,
[2019-11-15 05:47] LABS: Absolute Lymphocyte Count 2.15 X10^3/uL (0.83-4.51); Absolute Neutrophil Count 19.5 X10^3/uL (2.0-7.7); Basophil# 0.07 X10^3/uL; Basophil% 0.3 % (0-1); Eosinophil# 0.07 X10^3/uL; Eosinophils% 0.3 % (0-5); Hematocrit 42.7 % (40-54); Hemoglobin 13.5 g/dL (13.0-16.5); Lymphocyte # 2.15 X10^3/ul (4.0); Lymphocyte % 9.5 % (19-41); Mean Corp Hgb Conc 31.6 g/dL (32-36); Mean Corpuscular Hgb 30.4 pg (27.0-32.0); Mean Corpuscular Volume 96.2 fL (80-94); Mean Platelet Vol. 10.3 fl (6.2-12.0); Monocyte# 0.77 X10^3/uL; Monocyte% 3.4 % (0-10); NRBC Flagged by Analyzer 0 % (0-5); Neutrophil # 19.51 X10^3/uL (2.7-7.7); Neutrophil % 85.9 % (47-70); Platelet Count 227 K/mm3 (150-450); RBC Distribution Width CV 12.6 % (11.6-14.6); RBC Distribution Width SD 44.2 fl (35.1-43.9); Red Blood Count 4.44 M/mm3 (4.6-6.2); White Blood Count 22.7 K/mm3 (4.4-11.0)
[2019-11-15 06:11] LABS: Lactic Acid 1.7 mmol/L (0.4-1.9)
[2019-11-15 06:13] LABS: Anion Gap 4 (5-15); BUN 20 mg/dL (7-18); BUN/Creat Ratio 27.6 RATIO (10-20); Calcium,Total 7.6 mg/dL (8.5-10.1); Chloride 103 mmol/L (98-107); Creatinine, Serum 0.72 mg/dL (0.70-1.30); EST Glomerular Filtration Rate 139 mL/min (>60); Est Glom Filt Rate - Afr Amer 168 mL/min (>60); Estimated Creatinine Clearance 127.55 ml/min; Glucose 74 mg/dL (74-106); Potassium 3.7 mmol/L (3.5-5.1); Sodium Level 140 mmol/L (136-145)
[2019-11-15 06:31] LABS: Bedside Glucose 185 mg/dL (70-110)
--- NOTE | 2019-11-15 07:14 | PN_ITS ---
Subjective: Patient with significant decompensation overnight requiring intubation, central line placement and pressors. Patient reportedly became progressively hypoxic and chest x-ray was consistent with a right-sided mucous plug. Patient was intubated and had central line by my arrival. Respiratory reports significant improvement in hemodynamic status following intubation. Objective: Multiple chest x-rays were reviewed showing scattered atelectasis/collapse of the right. Endotracheal tube was high this has since been advanced. Central line is in good position. Following aggressive suctioning with intubation, patient's lung exam is now clear. General: - - Intubated and sedated. Good vent synchrony noted. HEENT: Atraumatic, PERRLA, EOMI, Normocephalic, - - No scleral icterus or injection noted Oral: Moist Mucosa, No Gingival or Mucosal Lesions/ Ulcerations, - - No ulcers appreciated Neck: Supple, No JVD, No Nodes, Trachea Midline Lungs: Clear to auscultation - Following intubation, Normal air movement, No rhonchi, No wheeze, No rales Cardiovascular: Normal S1, Normal S2, No murmurs, No rub noted, No Gallop, Tachycardic Abdomen: Bowel Sounds Present, Soft, Non Tender, Non-Distended Extremities: No clubbing, No cyanosis, No edema, Capillary Refill Less than 3 Seconds Skin: No rashes, Ulcer/ Wound - Unchanged Musculoskeletal: No Tenderness to Palpation of Joints or Extremities Lymphatic: No Cervical, Supraclavicular, or Inguinal Adenopathy Neurological: Cranial nerves II-XII grossly intact, Neuro grossly intact, Motor Exam 5/5 strength throughout Psych/Mental Status: Flat Affect Vital Signs Temp Pulse Resp BP Pulse Ox 37.2 C 118 H 15 132/85 H 99 11/15/19 02:04 11/15/19 06:00 11/15/19 06:00 11/15/19 06:00 11/15/19 06:00 Oxygen Flow Rate (L/min) 100 Oxygen Delivery Method Mechanical Ventilator Weight: 58 kg Body Mass Index (BMI) 20.0 Intake and Output for Last 24 Hours 11/13/19 11/14/19 11/15/19 23:59 23:59 23:59 Intake Total 2437 / 2587 1530 / 1752 238.45 / 238.45 Output Total 450 / 850 1750 / 1750 Balance 1986 / 1736 -220 / 2 238.45 / 238.45 Labs (Last 48 Hours) 11/12/19 11/13/19 11/13/19 20:35 04:30 10:00 WBC RBC Hgb Hct MCV MCH MCHC RDW Std Deviation RDW Coeff of Eduin Plt Count MPV Immature Gran % (Auto) Neut % (Auto) Lymph % (Auto) [place] % (Auto) Eos % (Auto) Baso % (Auto) Absolute Neuts (auto) Absolute Lymphs (auto) Nucleated RBC % Differential Comment Diff Path Review Reviewed Reviewed D-Dimer Quant (PE/DVT) 1.99 H* Sample Site pH Bicarbonate Actual POC Total CO2 Base Excess O2 Saturation O2 % ABG pCO2 ABG pO2 Cisco Test Respiration Rate O2 Delivery Device Vent Mode Tidal Volume POC PEEP Blood Gas Notified Whom Blood Gas Notified Time Sodium Potassium Chloride Carbon Dioxide Anion Gap BUN Creatinine Estim Creat Clear Calc Est GFR (MDRD) Af Amer Est GFR (MDRD) Non-Af BUN/Creatinine Ratio Glucose Lactic Acid Calcium Ferritin Lactate Dehydrogenase Troponin I C-React Prot Ext Range B-Natriuretic Peptide Procalcitonin SARS Serology Pneumococcal Type 1 Ab Pneumococcal Type 3 Ab Pneumococcal Type 4 Ab Pneumococcal Type 8 Ab Pneumococcal Type 9 Ab Pneumococcal Type 12 Ab Pneumococcal Type 14 Ab Pneumococcal Type 19 Ab Pneumococcal Typ 23 Ab Pneumococcal Type 26 Ab Pneumococcal Type 51 Ab Pneumococcal Type 56 Ab Pneumococcal Type 57 Ab Pneumococcal Type 68 Ab POC Glucose 11/13/19 11/13/19 11/13/19 10:00 10:00 10:00 WBC RBC Hgb Hct MCV MCH MCHC RDW Std Deviation RDW Coeff of Eduin Plt Count MPV Immature Gran % (Auto) Neut % (Auto) Lymph % (Auto) [place] % (Auto) Eos % (Auto) Baso % (Auto) Absolute Neuts (auto) Absolute Lymphs (auto) Nucleated RBC % Differential Comment Diff Path Review D-Dimer Quant (PE/DVT) Sample Site pH Bicarbonate Actual POC Total CO2 Base Excess O2 Saturation O2 % ABG pCO2 ABG pO2 Cisco Test Respiration Rate O2 Delivery Device Vent Mode Tidal Volume POC PEEP Blood Gas Notified Whom Blood Gas Notified Time Sodium Potassium Chloride Carbon Dioxide Anion Gap BUN Creatinine Estim Creat Clear Calc Est GFR (MDRD) Af Amer Est GFR (MDRD) Non-Af BUN/Creatinine Ratio Glucose Lactic Acid Calcium Ferritin 195 Lactate Dehydrogenase 136 Troponin I < 0.015 C-React Prot Ext Range 86.60 H B-Natriuretic Peptide 66.2 Procalcitonin 0.12 H SARS Serology Pneumococcal Type 1 Ab Pneumococcal Type 3 Ab Pneumococcal Type 4 Ab Pneumococcal Type 8 Ab Pneumococcal Type 9 Ab Pneumococcal Type 12 Ab Pneumococcal Type 14 Ab Pneumococcal Type 19 Ab Pneumococcal Typ 23 Ab Pneumococcal Type 26 Ab Pneumococcal Type 51 Ab Pneumococcal Type 56 Ab Pneumococcal Type 57 Ab Pneumococcal Type 68 Ab POC Glucose 11/14/19 11/14/19 11/14/19 05:55 05:55 14:45 WBC 21.6 H RBC 4.44 L Hgb 13.8 Hct 41.6 MCV 93.7 MCH 31.1 MCHC 33.2 RDW Std Deviation 42.6 RDW Coeff of Eduin 12.5 Plt Count 233 MPV 9.9 Immature Gran % (Auto) 0.500 Neut % (Auto) 83.6 H Lymph % (Auto) 6.9 L [place] % (Auto) 8.9 Eos % (Auto) 0.0 Baso % (Auto) 0.1 Absolute Neuts (auto) 18.1 H Absolute Lymphs (auto) 1.49 Nucleated RBC % 0 Differential Comment SCANNED Diff Path Review Reviewed D-Dimer Quant (PE/DVT) Sample Site pH Bicarbonate Actual POC Total CO2 Base Excess O2 Saturation O2 % ABG pCO2 ABG pO2 Cisco Test Respiration Rate O2 Delivery Device Vent Mode Tidal Volume POC PEEP Blood Gas Notified Whom Blood Gas Notified Time Sodium 135 L Potassium 4.0 Chloride 97 L Carbon Dioxide 32.0 Anion Gap 6 BUN 15 Creatinine 0.72 Estim Creat Clear Calc 127.55 Est GFR (MDRD) Af Amer 168 Est GFR (MDRD) Non-Af 139 BUN/Creatinine Ratio 20.7 H Glucose 105 Lactic Acid Calcium 9.1 Ferritin Lactate Dehydrogenase Troponin I C-React Prot Ext Range B-Natriuretic Peptide Procalcitonin SARS Serology Pending Pneumococcal Type 1 Ab Pneumococcal Type 3 Ab Pneumococcal Type 4 Ab Pneumococcal Type 8 Ab Pneumococcal Type 9 Ab Pneumococcal Type 12 Ab Pneumococcal Type 14 Ab Pneumococcal Type 19 Ab Pneumococcal Typ 23 Ab Pneumococcal Type 26 Ab Pneumococcal Type 51 Ab Pneumococcal Type 56 Ab Pneumococcal Type 57 Ab Pneumococcal Type 68 Ab POC Glucose 11/15/19 11/15/19 11/15/19 02:06 03:50 05:15 WBC 22.7 H RBC 4.44 L Hgb 13.5 Hct 42.7 MCV 96.2 H MCH 30.4 MCHC 31.6 L RDW Std Deviation 44.2 H RDW Coeff of Eduin 12.6 Plt Count 227 MPV 10.3 Immature Gran % (Auto) 0.600 Neut % (Auto) 85.9 H Lymph % (Auto) 9.5 L [place] % (Auto) 3.4 Eos % (Auto) 0.3 Baso % (Auto) 0.3 Absolute Neuts (auto) 19.5 H Absolute Lymphs (auto) 2.15 Nucleated RBC % 0 Differential Comment Diff Path Review D-Dimer Quant (PE/DVT) Sample Site R BRACHIAL pH 7.47 H Bicarbonate Actual 34.4 H POC Total CO2 36 Base Excess 11 H O2 Saturation 93 L O2 % 100 ABG pCO2 47.3 H ABG pO2 63 L Cisco Test NEG Respiration Rate 14 O2 Delivery Device VENT Vent Mode AC Tidal Volume 450 POC PEEP 10 Blood Gas Notified Whom HOSP Blood Gas Notified Time 353 Sodium Potassium Chloride Carbon Dioxide Anion Gap BUN Creatinine Estim Creat Clear Calc Est GFR (MDRD) Af Amer Est GFR (MDRD) Non-Af BUN/Creatinine Ratio Glucose Lactic Acid Calcium Ferritin Lactate Dehydrogenase Troponin I C-React Prot Ext Range B-Natriuretic Peptide Procalcitonin SARS Serology Pneumococcal Type 1 Ab Pneumococcal Type 3 Ab Pneumococcal Type 4 Ab Pneumococcal Type 8 Ab Pneumococcal Type 9 Ab Pneumococcal Type 12 Ab Pneumococcal Type 14 Ab Pneumococcal Type 19 Ab Pneumococcal Typ 23 Ab Pneumococcal Type 26 Ab Pneumococcal Type 51 Ab Pneumococcal Type 56 Ab Pneumococcal Type 57 Ab Pneumococcal Type 68 Ab POC Glucose 185 H 11/15/19 11/15/19 11/15/19 05:15 05:15 05:15 WBC RBC Hgb Hct MCV MCH MCHC RDW Std Deviation RDW Coeff of Eduin Plt Count MPV Immature Gran % (Auto) Neut % (Auto) Lymph % (Auto) [place] % (Auto) Eos % (Auto) Baso % (Auto) Absolute Neuts (auto) Absolute Lymphs (auto) Nucleated RBC % Differential Comment Diff Path Review D-Dimer Quant (PE/DVT) Sample Site pH Bicarbonate Actual POC Total CO2 Base Excess O2 Saturation O2 % ABG pCO2 ABG pO2 Cisco Test Respiration Rate O2 Delivery Device Vent Mode Tidal Volume POC PEEP Blood Gas Notified Whom Blood Gas Notified Time Sodium 140 Potassium 3.7 Chloride 103 Carbon Dioxide 33.0 H Anion Gap 4 L BUN 20 H Creatinine 0.72 Estim Creat Clear Calc 127.55 Est GFR (MDRD) Af Amer 168 Est GFR (MDRD) Non-Af 139 BUN/Creatinine Ratio 27.6 H Glucose 74 Lactic Acid 1.7 Calcium 7.6 L Ferritin Lactate Dehydrogenase Troponin I C-React Prot Ext Range B-Natriuretic Peptide Procalcitonin SARS Serology Pneumococcal Type 1 Ab Pending Pneumococcal Type 3 Ab Pending Pneumococcal Type 4 Ab Pending Pneumococcal Type 8 Ab Pending Pneumococcal Type 9 Ab Pending Pneumococcal Type 12 Ab Pending Pneumococcal Type 14 Ab Pending Pneumococcal Type 19 Ab Pending Pneumococcal Typ 23 Ab Pending Pneumococcal Type 26 Ab Pending Pneumococcal Type 51 Ab Pending Pneumococcal Type 56 Ab Pending Pneumococcal Type 57 Ab Pending Pneumococcal Type 68 Ab Pending POC Glucose Microbiology 11/15/19 06:00 Sputum, Induced/Lukens Gram Stain - Preliminary 11/13/19 15:50 Sputum, Expectorated/Coughed Gram Stain - Final 11/13/19 15:50 Sputum, Expectorated/Coughed Respiratory Culture - Preliminary Appears to be normal respiratory hai. Further studies to follow. 11/13/19 19:05 Mucosa - Nasopharyngeal Respiratory Panel (PCR) - Final Clinical Impression(s) from Imaging Studies Chest X-Ray 11/15/19 01:40 IMPRESSION: Right lung collapse with volume loss and deviation of the mediastinum and heart to the right with hyperexpansion of the left hemithorax. at 0318 Reported and signed by: Alejandro Phelps MD Electronically Signed: Alejandro Phelps MD at 3:17 EDT Tel , Service support , ADDENDUM: 11/15/19 0334 IMPRESSION: Right lung collapse with volume loss and deviation of the mediastinum and heart to the right with hyperexpansion of the left hemithorax. at 0318 Reported and signed by: Alejandro Phelps MD N.B. : The above information has been verbally conveyed by Alejandro Phelps MD to RAFAL Snow, on 11/15/2019 03:30:11 (ET). Electronically Signed: Alejandro Phelps MD at 3:17 EDT Tel , Service support , Chest X-Ray 11/15/19 03:00 IMPRESSION: Reexpansion of the right lung with persistent atelectasis and likely airspace disease. Endotracheal tube terminates within the trachea above the clavicular heads, likely at the T1-T2 interspace. at 0455 Reported and signed by: Alejandro Phelps MD Electronically Signed: Alejandro Phelps MD at 4:54 EDT Tel , Service support , Chest X-Ray 11/15/19 05:22 IMPRESSION: Adequate position of newly placed right IJ central venous catheter without evidence of complications from placement of the catheter. Slight withdrawal of the endotracheal tube, now terminating at the intersection of the C7 and T1 vertebral body, approximately 11 cm above the stefania. It may benefit the patient for this to be advanced Worsening right lung airspace disease possibly representing reexpansion pulmonary edema. at 2734 Reported and signed by: Alejandro Phelps MD Electronically Signed: Alejandro Phelps MD at 5:51 EDT Tel , Service support , ADDENDUM: 11/15/19 0606 IMPRESSION: Adequate position of newly placed right IJ central venous catheter without evidence of complications from placement of the catheter. Slight withdrawal of the endotracheal tube, now terminating at the intersection of the C7 and T1 vertebral body, approximately 11 cm above the stefania. It may benefit the patient for this to be advanced Worsening right lung airspace disease possibly representing reexpansion pulmonary edema. at 7442 Reported and signed by: Alejandro Phelps MD N.B. : Diane Guillen RN, confirmed on 11/15/2019 05:59:10 (ET) that the healthcare facility has received the radiology report. Electronically Signed: Alejandro Phelps MD at 5:51 EDT Tel , Service support , Medical Necessity - Tobacco Use Smoking Status: Current every day smoker Tobacco Use: Cigarettes Assessment/Plan All Active Problems (Last Reviewed 11/13/19 @ 00:[address] Navi Bee MD) Mediastinal shift (Acute) Mucus plugging of bronchi (Acute) CVA (cerebral vascular accident) (Resolved) Vomiting (Acute) Hypoxia (Acute) Respiratory insufficiency (Acute) RECOMMENDATIONS: 1. Continue with antibiotics pending culture results 2. Await repeat COVID testing per ID. Continue systemic steroids 3. Aggressive pulmonary toileting 4. Consider rheumatology consultation 5. Walking oximetry prior to discharge and outpatient complete PFT IMPRESSIONS: 1. Acute hypoxic respiratory failure secondary to probable mucous plugging Patient was significant decompensation overnight following mucous plugging. Clinical suspicion for pressor requirement secondary to sedation. Patient has responded well to intubation. Repeat culture will be sent from endobronchial sample. COVID testing is still pending. Patient will be placed on empiric antibiotics. Clinical suspicion for retention of secretions leading to mucous plugging. Will repeat chest x-ray once patient has time for recruitment. Continue to wean oxygen as tolerated. 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 Unclear if current symptomatology represents an acute exacerbation of the vasculitis given significant mucocutaneous complaints. Patient did develop a genital ulcer overnight. Consider rheumatology evaluation. Patient does have a significantly elevated CRP. Patient will be placed on systemic steroids by IV. 3. Tobacco abuse/history of stroke Complicates care, management, recovery and prognosis. Encourage smoking cessation. Addendum 12:15 PM: Spoke with patient's mother Radha for 60 minutes. She was updated on patient's condition. Patient's mother is very concerned that she is too far away if he needs her, so she is planning on arriving at approximately 6 PM this evening and plans to stay in town until things stabilize. Extensive discussion on COVID, pneumonia and Behcet's. Plan was discussed in detail and mother voiced understanding. Mother has requested a brief visit with the patient when she arrives TIME: 33 minutes critical care time spent addressing patient's respiratory failure, hypotension, review of all data and collaboration with care team (5:20 AM to 6:20 AM) [phone]: [id number] Critical care first hour
[2019-11-15 07:21] LABS: Blood Gas Specimen Type ART
[2019-11-15 07:53] LABS: CPK Total, Creatine Kinase 548 U/L (39-308); Triglycerides 127 mg/dL
[2019-11-15 07:55] LABS: SARS-COV-2 TOTAL ABS Nonreactive (Nonreactive)
--- NOTE | 2019-11-15 07:55 | RAD_ITS ---
STUDY: X-RAY CHEST REASON FOR EXAM: Male, 24 years old. [employer] ADVANCEMENT. TECHNIQUE: Frontal view COMPARISON: November 15, 2019 at 05:24 hours FINDINGS: Endotracheal tube with tip 40 mm above the stefania. Right central line is stable. Nasogastric tube extends into the stomach with tip just distal to the GE junction. It may be advanced by another 8 to 9 cm. The lungs are expanded. Diffuse right pulmonary infiltrates, similar to the previous study. Normal size heart. Normal mediastinum and sergio. Normal visualized pulmonary arteries. Normal visualized aortic arch and descending thoracic aorta. Normal visualized thoracic spine. Normal visualized ribs, clavicles, and shoulders. There is no demonstrated abnormality of the visualized soft tissue structures of the upper abdomen. RAD/Chest 1 View (Portable) IMPRESSION: Diffuse right pulmonary infiltrates, similar to the previous study. Electronically Signed: Jun Blackwood DO at 8:35 EDT Tel [phone], Service support ,
--- NOTE | 2019-11-15 08:27 | PN_ITS ---
Patient Problems: Active and Suspected Problems (Last Reviewed 11/13/19 @ 00:[address] Navi Bee MD) Mediastinal shift (Acute) Mucus plugging of bronchi (Acute) Vomiting (Acute) Hypoxia (Acute) Respiratory insufficiency (Acute) Reason for Visit: Acute hypoxic respiratory failure required intubation Objective: Rapid response was called at 2:19 AM on 11/14. Subsequently patient was intubated and had a right IJ CVC catheter for hypotension requiring pressor support Patient has tachycardia even prior to start of vasopressor. Hypotension probably secondary to sedation. Blood pressure 112/58. 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 Currently on sedation. Vitals/I&O's: Vital Signs Temp Pulse Resp BP Pulse Ox 99 F 123 H 16 108/56 L 100 11/15/19 02:04 11/15/19 06:45 11/15/19 06:15 11/15/19 06:45 11/15/19 06:15 Oxygen Flow Rate (L/min) 100 Oxygen Delivery Method Mechanical Ventilator Weight: 127 lb 13.89 oz Body Mass Index (BMI) 20.0 Intake and Output for Last 24 Hours 11/13/19 11/14/19 11/15/19 23:59 23:59 23:59 Intake Total 2437 / 2587 1530 / 1752 374.25 / 374.25 Output Total 450 / 850 1750 / 1750 Balance 1986 / 1737 -220 / 2 374.25 / 374.25 General: Lethargic, - - On propofol and fentanyl drip. HEENT: Atraumatic, PERRLA, Normocephalic Neck: - - Right IJ CVC Intubated on ventilator. ET and OG tube Lungs: - - On vent support. Right-sided mediastinum shift prior to intubation probably from mucous plugging Cardiovascular: Regular Rhythm, Normal S1, Normal S2, No murmurs, Tachycardic Abdomen: Bowel Sounds Present, Soft, Non Tender, Non-Distended Extremities: No edema, Capillary Refill Less than 3 Seconds Skin: No rashes, No breakdown Musculoskeletal: No Tenderness to Palpation of Joints or Extremities Neurological: - - Neuro exam unobtainable as patient is sedated. Microbiology Past 72 Hours 11/15/19 06:00 Sputum, Induced/Lukens Gram Stain - Preliminary 11/13/19 15:50 Sputum, Expectorated/Coughed Gram Stain - Final 11/13/19 15:50 Sputum, Expectorated/Coughed Respiratory Culture - Preliminary Appears to be normal respiratory hai. Further studies to follow. 11/13/19 19:05 Mucosa - Nasopharyngeal Respiratory Panel (PCR) - Final Laboratory Results 11/14/19 05:55: Diff Path Review Reviewed 11/14/19 14:45: SARS Serology Nonreactive 11/15/19 02:06: POC Glucose 185 H 11/15/19 03:50: Specimen Type ART, Sample Site R BRACHIAL, pH 7.47 H, Bicarbonate Actual 34.4 H, POC Total CO2 36, Base Excess 11 H, O2 Saturation 93 L, O2 % 100, ABG pCO2 47.3 H, ABG pO2 63 L, Cisco Test NEG, Respiration Rate 14, O2 Delivery Device VENT, Vent Mode AC, Tidal Volume 450, POC PEEP 10, Blood Gas Notified Whom DEREK WHITESIDE, Blood Gas Notified Time 353 11/15/19 05:15: WBC 22.7 H, RBC 4.44 L, Hgb 13.5, Hct 42.7, MCV 96.2 H, MCH 30.4, MCHC 31.6 L, RDW Std Deviation 44.2 H, RDW Coeff of Eduin 12.6, Plt Count 227, MPV 10.3, Immature Gran % (Auto) 0.600, Neut % (Auto) 85.9 H, Lymph % (Auto) 9.5 L, Will % (Auto) 3.4, Eos % (Auto) 0.3, Baso % (Auto) 0.3, Absolute Neuts (auto) 19.5 H, Absolute Lymphs (auto) 2.15, Nucleated RBC % 0 11/15/19 05:15: Sodium 140, Potassium 3.7, Chloride 103, Carbon Dioxide 33.0 H, Anion Gap 4 L, BUN 20 H, Creatinine 0.72, Estim Creat Clear Calc 127.55, Est GFR (MDRD) Af Amer 168, Est GFR (MDRD) Non-Af 139, BUN/Creatinine Ratio 27.6 H, Glucose 74, Calcium 7.6 L 11/15/19 05:15: Lactic Acid 1.7 11/15/19 05:15: Pneumococcal Type 1 Ab Pending, Pneumococcal Type 3 Ab Pending, Pneumococcal Type 4 Ab Pending, Pneumococcal Type 8 Ab Pending, Pneumococcal Type 9 Ab Pending, Pneumococcal Type 12 Ab Pending, Pneumococcal Type 14 Ab Pending, Pneumococcal Type 19 Ab Pending, Pneumococcal Typ 23 Ab Pending, Pneumococcal Type 26 Ab Pending, Pneumococcal Type 51 Ab Pending, Pneumococcal Type 56 Ab Pending, Pneumococcal Type 57 Ab Pending, Pneumococcal Type 68 Ab Pending 11/15/19 05:15: Total Creatine Kinase 548 H, Triglycerides 127 Current Medications Acetaminophen (Tylenol) 650 mg PO Q6H PRN PRN PRN Reason: Pain Score 1-10/Temp > 100.7 F Last Admin: 11/13/19 17:54 Dose: 650 mg Documented by: Acyclovir (Zovirax) 800 mg PO TID [facility] Last Admin: 11/15/19 07:32 Dose: Not Given Documented by: Albuterol Sulfate (Ventolin Aerosols) 2.5 mg INHALATION Q2H PRN PRN PRN Reason: sob/wheezing Albuterol/Ipratropium (Duoneb) 3 ml INHALATION Q4H.RT [facility] Chlorhexidine Gluconate () 15 ml PO BID [facility] Dextrose (D50w Syringe) 0 gm IV X1 PRN; Protocol PRN Reason: Hypoglycemia Enoxaparin Sodium (Lovenox) 40 mg SC BID [facility] Last Admin: 11/14/19 21:00 Dose: 40 mg Documented by: Famotidine (Pepcid) 20 mg GT BID [facility] Glucagon () 1 mg IM .X1 PRN PRN Reason: Hypoglycemia Guaifenesin (Mucinex) 1,200 mg PO BID [facility] Last Admin: 11/14/19 21:05 Dose: 1,200 mg Documented by: Sodium Chloride () 250 mls @ 15 mls/hr IV .[id number] PRN PRN Reason: Saline Flush Sodium Chloride () 250 mls @ 15 mls/hr IV .[id number] PRN PRN Reason: Additional IVPB Infusion Norepinephrine Bitartrate 8 mg (/ Sodium Chloride) 250 mls @ 9.375 mls/hr CONT INF .[id number] [facility]; Protocol Last Titration: 11/15/19 06:45 Dose: 5 mcg/min, 9.4 mls/hr Documented by: Propofol (Diprivan) 1,000 mg in 100 mls @ 3.48 mls/hr CONT INF .Q12H [facility]; Protocol Last Admin: 11/15/19 07:00 Dose: 10 mcg/kg/min, 3.5 mls/hr Documented by: Fentanyl Citrate 1,000 mcg/ (Sodium Chloride) 100 mls @ 5 mls/hr CONT INF .Q20H [facility]; Protocol Last Titration: 11/15/19 07:00 Dose: 75 mcg/hr, 7.5 mls/hr Documented by: Ceftriaxone Sodium (Rocephin) 1 gm in 50 mls @ 100 mls/hr IV Q24 [facility] Azithromycin 500 mg/ Dextrose 255 mls @ 250 mls/hr IV X1 ONE Stop: 11/15/19 09:31 Melatonin (Melatonin) 3 mg PO QHS PRN PRN PRN Reason: INSOMNIA Methylprednisolone (Solu-Medrol) 40 mg IV Q8 [facility] Last Admin: 11/15/19 08:02 Dose: 40 mg Documented by: Mupirocin (Bactroban) 1 applic TOPICAL BID [facility]; Protocol Last Admin: 11/14/19 21:08 Dose: 1 applicatio Documented by: Ondansetron HCl (Zofran) 4 mg IV Q6H PRN PRN PRN Reason: NAUSEA/VOMITING Last Admin: 11/14/19 20:58 Dose: 4 mg Documented by: Sodium Chloride () 10 - 40 ml IV UD PRN PRN Reason: SALINE FLUSH Last Admin: 11/14/19 20:58 Dose: 10 ml Documented by: STROKE Vital Signs/Narrative: Vital Signs Pulse Resp BP Pulse Ox 11/15/19 06:45 123 H 108/56 L 11/15/19 06:30 126 H 112/58 L 11/15/19 06:15 125 H 16 126/71 H 100 11/15/19 06:00 118 H 15 132/85 H 99 11/15/19 05:45 117 H 119/75 11/15/19 05:30 120 H 122/74 H 11/15/19 05:15 115 H 117/56 L 11/15/19 05:00 121 H 17 81/65 L 100 11/15/19 04:45 117 H 107/64 11/15/19 04:30 117 H 16 116/69 100 Medical Necessity - Tobacco Use Smoking Status: Current every day smoker Tobacco Use: Cigarettes Assessment/Plan All Active Problems (Last Reviewed 11/13/19 @ 00:[address] Navi Bee MD) Mediastinal shift (Acute) Mucus plugging of bronchi (Acute) CVA (cerebral vascular accident) (Resolved) Vomiting (Acute) Hypoxia (Acute) Respiratory insufficiency (Acute) This a 24-year-old Afro-[place] gentleman with history of Behcet's disease was admitted with cough with dark black sputum, hypoxia 87% on room air also nausea and vomiting. 1. Acute hypoxic respiratory failure secondary to mucous plugging: Patient multiple chest x-ray reviewed and shows mediastinal shift with right tracheal pull most likely from mucous plugging. Patient is on aggressive pulmonary toileting, systemic steroid and VEST therapy. Repeat chest x-ray after intubation corrected the mediastinal shift. Early ARDS CTA did not show PE but diffuse interstitial edema. CK elevated. Lactic acid normal. Start serology nonreactive. COVID-19 PCR pending. Blood cultures x2 no growth for 48 hours, respiratory panel negative. Initial Gram stain shows mixed normal respiratory hai. On empiric ceftriaxone and Zithromax. 2. Hypotension most likely secondary to sedative: Patient is on norepinephrine drip. 3. Behcet's disease and history of a stroke: Patient is not on chronic steroid therapy or immunosuppression. Patient has significant mucocutaneous ulcer, oral and genital ulcers. Elevated CRP. On IV steroid. Stroke may be likely result of vasculitis. Patient has significant leukocytosis with neutrophilia. 4. Tobacco abuse: DVT: Lovenox Clinical Impression(s) from Imaging Studies Chest X-Ray 11/12/19 21:15 IMPRESSION: No acute cardiopulmonary pathology. Chest CTA 11/13/19 09:47 IMPRESSION: No demonstrated PE, or thoracic aortic aneurysm or dissection. However, the contrast bolus is not optimal in the distal pulmonary arteries and a subtle filling defect could be present and overlooked. Diffuse interstitial edema in both lung barnes with tree-in-bud opacifications consistent with small airways inflammation. Too small to characterize 3 mm nodule in the right upper lobe on axial image 155 Chest X-Ray 11/15/19 01:40 IMPRESSION: Right lung collapse with volume loss and deviation of the mediastinum and heart to the right with hyperexpansion of the left hemithorax. Chest X-Ray 11/15/19 03:00 IMPRESSION: Reexpansion of the right lung with persistent atelectasis and likely airspace disease. Endotracheal tube terminates within the trachea above the clavicular heads, likely at the T1-T2 interspace. Chest X-Ray 11/15/19 05:22 IMPRESSION: Adequate position of newly placed right IJ central venous catheter without evidence of complications from placement of the catheter. Slight withdrawal of the endotracheal tube, now terminating at the intersection of the C7 and T1 vertebral body, approximately 11 cm above the stefania. It may benefit the patient for this to be advanced Worsening right lung airspace disease possibly representing reexpansion pulmonary edema. at 0552 Reported and signed by: Alejandro Phelps MD Electronically Signed: Alejandro Phelps MD at 5:51 EDT Tel , Service support , ADDENDUM: 11/15/19 0606 IMPRESSION: Adequate position of newly placed right IJ central venous catheter without evidence of complications from placement of the catheter. Slight withdrawal of the endotracheal tube, now terminating at the intersection of the C7 and T1 vertebral body, approximately 11 cm above the stefania. It may benefit the patient for this to be advanced Worsening right lung airspace disease possibly representing reexpansion pulmonary edema. at 0552 Reported and signed by: Alejandro Phelps MD N.B. : Diane Guillen RN, confirmed on 11/15/2019 05:59:10 (ET) that the healthcare facility has received the radiology report. Electronically Signed: Alejandro Phelps MD at 5:51 EDT Tel , Service support , Chest X-Ray 11/15/19 07:55 IMPRESSION: Diffuse right pulmonary infiltrates, similar to the previous study. Electronically Signed: Jun Blackwood DO at 8:35 EDT Tel [phone], Service support , Inpatient E&M: [id number] [facility] L3
--- NOTE | 2019-11-15 10:00 | NT.THERAPY_ITS ---
Nutrition Therapy Report - History Nutrition Services has been consulted to:: Manage enteral nutrition Current diet / nutrition support order:: NPO - Anthropometric Measurements Height:: 5 ft 7 in Weight:: 58 kg Body Mass Index (BMI):: 20.0 - Relevant Labs Relevant Labs:: WBC 22.7 K/mm3 (4.4-11.0) H 11/15/19 05:15 RBC 4.44 M/mm3 (4.6-6.2) L 11/15/19 05:15 MCV 96.2 fL (80-94) H 11/15/19 05:15 MCHC 31.6 g/dL (32-36) L 11/15/19 05:15 RDW Std Deviation 44.2 fl (35.1-43.9) H 11/15/19 05:15 Neut % (Auto) 85.9 % (47-70) H 11/15/19 05:15 Lymph % (Auto) 9.5 % (19-41) L 11/15/19 05:15 [place] % (Auto) 10.1 % (0-10) H 11/12/19 20:35 Absolute Neuts (auto) 19.5 X10^3/uL (2.0-7.7) H 11/15/19 05:15 ESR 115 mm/hr (0-15) H 11/12/19 20:55 D-Dimer Quant (PE/DVT) 1.99 FEU/ug/m (0.27-0.49) H* 11/13/19 10:00 Sodium 135 mmol/L (136-145) L 11/14/19 05:55 Chloride 97 mmol/L (98-107) L 11/14/19 05:55 Carbon Dioxide 33.0 mmol/L (21.0-32.0) H 11/15/19 05:15 Anion Gap 4 (5-15) L 11/15/19 05:15 BUN 20 mg/dL (7-18) H 11/15/19 05:15 BUN/Creatinine Ratio 27.6 RATIO (10-20) H 11/15/19 05:15 Calcium 7.6 mg/dL (8.5-10.1) L 11/15/19 05:15 ALT 14 U/L (16-61) L 11/12/19 20:35 Total Creatine Kinase 548 U/L (39-308) H 11/15/19 05:15 C-React Prot Ext Range 86.60 mg/L (0.0-3.0) H 11/13/19 10:00 Total Protein 8.7 g/dL (6.4-8.2) H 11/12/19 20:35 Globulin 5.3 g/dL (2.2-4.2) H 11/12/19 20:35 Lipase 67 U/L (73-393) L 11/12/19 20:35 Procalcitonin 0.12 ng/mL (0.00-0.09) H 11/13/19 10:00 - Assessment Food / Nutrition-Related History:: Discussed in ICU rounds. Overnight pt w/ significant decompensation requiring intubation; chest x-ray was consistent with a right-sided mucous plug- OG In place per RN John. TF to start this day per Dr. Pierre. No new wt to assess since previous review, CBW 58 kg. Pt COVID negative remains in isolation precaution. - Nutrition Diagnosis Problem / Etiology / Signs & Symptoms (PES):: Inadequate oral intake related to respitory distress aeb pt intubated w/ OG in place. Evidence of Malnutrition Exists:: No - Nutrition Intervention Nutrition Prescription:: Estimated nutrient needs: [id number] calories, 50-60 g protein - Food / Nutrient Delivery Interventions Summary of nutrition intervention:: See TF recommendations below. Nutrition support ordered as / adjusted to:: Vital AF 1.2 via OG at goal rate of 70 ml per hour with 95 ml H2O flush every 6 hours to provide 2016 calories, 126 g protein, 1743 ml fluid per day. Would intiate TF at 20mL/hour and increase by 20 mL every 8 hours as pt tolerates until goal rate achieved. Nutrition education provided?: No - MNT Monitoring Further MNT monitoring and evaluation required?: Yes MNT Follow-up in:: 3-5 days
[2019-11-15] MEDS: Enoxaparin 40 MG/0.4 ML Syringe SC ×2 (11:12→21:26)
[2019-11-15] MEDS: guaiFENesin 10 ML UDC (200MG/10ML) 20 ML GT ×2 (11:12→17:40)
[2019-11-15] MEDS: Vital AF 1.2 Cal Liquid 1,000 ML 70 ML GT (11:12)
[2019-11-15] MEDS: Ceftriaxone 1 GM/50 ML BAG IV (11:12)
[2019-11-15] MEDS: Famotidine 20 MG Tablet GT ×2 (11:12→21:25)
[2019-11-15] MEDS: Chlorhexidine 15 ML PO ×2 (11:14→21:27)
[2019-11-15] MEDS: Acyclovir 800 MG Tablet GT ×2 (14:35→21:25)
[2019-11-15] MEDS: Propofol 10MG/Ml 1,000 MG/100 ML Bottle 10.4 MG CONT INF ×2 (17:07→22:38)
[2019-11-15] MEDS: Senna/Docusate Sodium 1 Tablet 2 TABLET GT (21:25)
[2019-11-15] MEDS: Mupirocin Ointment 22gm Tube 1 APPLIC TOPICAL (21:27)
--- NOTE | 2019-11-15 22:45 | NURSING ---
Radha, patient's mother, at bedside for a brief visit wearing proper PPE. Update provided on patient condition and POC. Radha would like notified when extubated.
[2019-11-16] VITALS (39 sets, daily range): BP systolic 109–169; BP diastolic 64–101; PULSE 77–123; RESP 14–40; TEMP 36.1–36.9; O2SAT 90–100
[2019-11-16] MEDS: guaiFENesin 10 ML UDC (200MG/10ML) 20 ML GT ×2 (00:35→05:04)
[2019-11-16] MEDS: 0.9% Saline Lock 10 ML Syringe IV (00:35)
[2019-11-16 01:15] LABS: Bedside Glucose 130 mg/dL (70-110)
[2019-11-16] MEDS: Ipratropium/Albuterol Sulfate 3 ML AMPUL.NEB INHALATION ×6 (03:35→22:15)
--- NOTE | 2019-11-16 05:01 | NURSING ---
fentanyl held at 0440 for vent wean trial
[2019-11-16] MEDS: Acyclovir 800 MG Tablet GT (05:04)
[2019-11-16 05:19] LABS: Absolute Lymphocyte Count 1.14 X10^3/uL (0.83-4.51); Absolute Neutrophil Count 26.2 X10^3/uL (2.0-7.7); Basophil# 0.04 X10^3/uL; Basophil% 0.1 % (0-1); Hematocrit 37.6 % (40-54); Hemoglobin 12.2 g/dL (13.0-16.5); Lymphocyte # 1.14 X10^3/ul (4.0); Mean Corp Hgb Conc 32.4 g/dL (32-36); Mean Corpuscular Hgb 30.3 pg (27.0-32.0); Mean Corpuscular Volume 93.3 fL (80-94); Mean Platelet Vol. 10.7 fl (6.2-12.0); Monocyte# 0.94 X10^3/uL; Monocyte% 3.3 % (0-10); NRBC Flagged by Analyzer 0 % (0-5); Neutrophil # 26.19 X10^3/uL (2.7-7.7); Neutrophil % 91.6 % (47-70); POSITIVE DIFFERENTIAL YES; Platelet Count 231 K/mm3 (150-450); RBC Distribution Width CV 12.6 % (11.6-14.6); RBC Distribution Width SD 43.3 fl (35.1-43.9); Red Blood Count 4.03 M/mm3 (4.6-6.2); White Blood Count 28.6 K/mm3 (4.4-11.0)
[2019-11-16 05:38] LABS: Anion Gap 8 (5-15); BUN 19 mg/dL (7-18); BUN/Creat Ratio 24.7 RATIO (10-20); Calcium,Total 8.7 mg/dL (8.5-10.1); Chloride 100 mmol/L (98-107); Creatinine, Serum 0.77 mg/dL (0.70-1.30); EST Glomerular Filtration Rate 130 mL/min (>60); Est Glom Filt Rate - Afr Amer 157 mL/min (>60); Estimated Creatinine Clearance 119.26 ml/min; Glucose 137 mg/dL (74-106); Potassium 3.1 mmol/L (3.5-5.1); Sodium Level 137 mmol/L (136-145)
[2019-11-16 06:15] LABS: Base Excess 7 mmol/L (-2 to +2); Bicarbonate 30.4 mmol/L (22-26); PO2 156 mmHG (75-100); SO2 100 % (95-99); Total Carbon Dioxide 32 mmol/L; pCO2 37.9 mmHg (35-45); pH 7.51 (7.35-7.45)
[2019-11-16 06:21] LABS: Allen Test POS; Blood Gas Specimen Type ART; FI02 40; Mode CPAP; PEEP 5; PS 5; SITE L RADIAL
[2019-11-16 06:21] LABS: Differential Indicated SCAN CRITERIA MET
[2019-11-16 06:24] LABS: O2 Delivery Device Vent
--- NOTE | 2019-11-16 07:07 | PN_ITS ---
Subjective: Patient did okay overnight. Nursing and respiratory have reported copious oral and endotracheal secretions. Patient with no rhonchi following suctioning. Patient was able to tolerate spontaneous breathing trial this morning and was interactive. Patient's mother was able to visit briefly last evening. General: Alert, Cooperative, No apparent distress, - - Following commands. Comfortable breathing on spontaneous breathing trial. HEENT: Atraumatic, PERRLA, EOMI, Normocephalic, - - No scleral icterus or injection noted Oral: Moist Mucosa, No Gingival or Mucosal Lesions/ Ulcerations, - - Copious oral secretions noted. Neck: Supple, No JVD, No Nodes, Trachea Midline Lungs: No wheeze, No rales, Diminished, Rhonchi - Right base, - - Symmetric expansion Cardiovascular: Regular rate, Regular Rhythm, Normal S1, Normal S2, No murmurs, No rub noted, No Gallop Abdomen: Bowel Sounds Present, Soft, Non Tender, Non-Distended Extremities: No clubbing, No cyanosis, No edema Skin: - - No change from previous Musculoskeletal: No Tenderness to Palpation of Joints or Extremities Lymphatic: No Cervical, Supraclavicular, or Inguinal Adenopathy Neurological: Cranial nerves II-XII grossly intact, Neuro grossly intact, Motor Exam 5/5 strength throughout Psych/Mental Status: Normal Affect, Appropriate Vital Signs Temp Pulse Resp BP Pulse Ox 36.8 C 82 14 148/79 H 100 11/16/19 05:00 11/16/19 06:00 11/16/19 06:00 11/16/19 06:00 11/16/19 06:00 Oxygen Flow Rate (L/min) 100 Oxygen Delivery Method Mechanical Ventilator Weight: 58 kg Body Mass Index (BMI) 20.0 Intake and Output for Last 24 Hours 11/14/19 11/15/19 11/16/19 23:59 23:59 23:59 Intake Total 1530 / 1752 2099.78 / 2709.18 1140.35 / 1140.35 Output Total 1750 / 1750 975 / 1025 210 / 210 Balance -220 / 2 1124.78 / 1684.18 930.35 / 930.35 Labs (Last 48 Hours) 11/14/19 11/14/19 11/15/19 05:55 14:45 02:06 WBC RBC Hgb Hct MCV MCH MCHC RDW Std Deviation RDW Coeff of Eduin Plt Count MPV Immature Gran % (Auto) Neut % (Auto) Lymph % (Auto) Nelson % (Auto) Eos % (Auto) Baso % (Auto) Absolute Neuts (auto) Absolute Lymphs (auto) Nucleated RBC % Diff Path Review Reviewed Specimen Type Sample Site pH Bicarbonate Actual POC Total CO2 Base Excess O2 Saturation O2 % ABG pCO2 ABG pO2 Cisco Test Respiration Rate O2 Delivery Device Vent Mode Tidal Volume POC PEEP POC Pressure Suppt Blood Gas Notified Whom Blood Gas Notified Time Sodium Potassium Chloride Carbon Dioxide Anion Gap BUN Creatinine Estim Creat Clear Calc Est GFR (MDRD) Af Amer Est GFR (MDRD) Non-Af BUN/Creatinine Ratio Glucose Lactic Acid Calcium Total Creatine Kinase Triglycerides COVID-19 (DINORAH) SARS Serology Nonreactive Pneumococcal Type 1 Ab Pneumococcal Type 3 Ab Pneumococcal Type 4 Ab Pneumococcal Type 8 Ab Pneumococcal Type 9 Ab Pneumococcal Type 12 Ab Pneumococcal Type 14 Ab Pneumococcal Type 19 Ab Pneumococcal Typ 23 Ab Pneumococcal Type 26 Ab Pneumococcal Type 51 Ab Pneumococcal Type 56 Ab Pneumococcal Type 57 Ab Pneumococcal Type 68 Ab POC Glucose 185 H 11/15/19 11/15/19 11/15/19 03:50 05:15 05:15 WBC 22.7 H RBC 4.44 L Hgb 13.5 Hct 42.7 MCV 96.2 H MCH 30.4 MCHC 31.6 L RDW Std Deviation 44.2 H RDW Coeff of Eduin 12.6 Plt Count 227 MPV 10.3 Immature Gran % (Auto) 0.600 Neut % (Auto) 85.9 H Lymph % (Auto) 9.5 L Nelson % (Auto) 3.4 Eos % (Auto) 0.3 Baso % (Auto) 0.3 Absolute Neuts (auto) 19.5 H Absolute Lymphs (auto) 2.15 Nucleated RBC % 0 Diff Path Review Specimen Type ART Sample Site R BRACHIAL pH 7.47 H Bicarbonate Actual 34.4 H POC Total CO2 36 Base Excess 11 H O2 Saturation 93 L O2 % 100 ABG pCO2 47.3 H ABG pO2 63 L Cisco Test NEG Respiration Rate 14 O2 Delivery Device VENT Vent Mode AC Tidal Volume 450 POC PEEP 10 POC Pressure Suppt Blood Gas Notified Whom [facility] [place] Blood Gas Notified Time 353 Sodium 140 Potassium 3.7 Chloride 103 Carbon Dioxide 33.0 H Anion Gap 4 L BUN 20 H Creatinine 0.72 Estim Creat Clear Calc 127.55 Est GFR (MDRD) Af Amer 168 Est GFR (MDRD) Non-Af 139 BUN/Creatinine Ratio 27.6 H Glucose 74 Lactic Acid Calcium 7.6 L Total Creatine Kinase Triglycerides COVID-19 (DINORAH) SARS Serology Pneumococcal Type 1 Ab Pneumococcal Type 3 Ab Pneumococcal Type 4 Ab Pneumococcal Type 8 Ab Pneumococcal Type 9 Ab Pneumococcal Type 12 Ab Pneumococcal Type 14 Ab Pneumococcal Type 19 Ab Pneumococcal Typ 23 Ab Pneumococcal Type 26 Ab Pneumococcal Type 51 Ab Pneumococcal Type 56 Ab Pneumococcal Type 57 Ab Pneumococcal Type 68 Ab POC Glucose 11/15/19 11/15/19 11/15/19 05:15 05:15 05:15 WBC RBC Hgb Hct MCV MCH MCHC RDW Std Deviation RDW Coeff of Eduin Plt Count MPV Immature Gran % (Auto) Neut % (Auto) Lymph % (Auto) Nelson % (Auto) Eos % (Auto) Baso % (Auto) Absolute Neuts (auto) Absolute Lymphs (auto) Nucleated RBC % Diff Path Review Specimen Type Sample Site pH Bicarbonate Actual POC Total CO2 Base Excess O2 Saturation O2 % ABG pCO2 ABG pO2 Cisco Test Respiration Rate O2 Delivery Device Vent Mode Tidal Volume POC PEEP POC Pressure Suppt Blood Gas Notified Whom Blood Gas Notified Time Sodium Potassium Chloride Carbon Dioxide Anion Gap BUN Creatinine Estim Creat Clear Calc Est GFR (MDRD) Af Amer Est GFR (MDRD) Non-Af BUN/Creatinine Ratio Glucose Lactic Acid 1.7 Calcium Total Creatine Kinase 548 H Triglycerides 127 COVID-19 (DINORAH) SARS Serology Pneumococcal Type 1 Ab Pending Pneumococcal Type 3 Ab Pending Pneumococcal Type 4 Ab Pending Pneumococcal Type 8 Ab Pending Pneumococcal Type 9 Ab Pending Pneumococcal Type 12 Ab Pending Pneumococcal Type 14 Ab Pending Pneumococcal Type 19 Ab Pending Pneumococcal Typ 23 Ab Pending Pneumococcal Type 26 Ab Pending Pneumococcal Type 51 Ab Pending Pneumococcal Type 56 Ab Pending Pneumococcal Type 57 Ab Pending Pneumococcal Type 68 Ab Pending POC Glucose 11/15/19 11/15/19 11/16/19 11:10 11:10 00:18 WBC RBC Hgb Hct MCV MCH MCHC RDW Std Deviation RDW Coeff of Eduin Plt Count MPV Immature Gran % (Auto) Neut % (Auto) Lymph % (Auto) Nelson % (Auto) Eos % (Auto) Baso % (Auto) Absolute Neuts (auto) Absolute Lymphs (auto) Nucleated RBC % Diff Path Review Specimen Type Sample Site pH Bicarbonate Actual POC Total CO2 Base Excess O2 Saturation O2 % ABG pCO2 ABG pO2 Cisco Test Respiration Rate O2 Delivery Device Vent Mode Tidal Volume POC PEEP POC Pressure Suppt Blood Gas Notified Whom Blood Gas Notified Time Sodium Potassium Chloride Carbon Dioxide Anion Gap BUN Creatinine Estim Creat Clear Calc Est GFR (MDRD) Af Amer Est GFR (MDRD) Non-Af BUN/Creatinine Ratio Glucose Lactic Acid Calcium Total Creatine Kinase Triglycerides COVID-19 (DINORAH) Pending Pending SARS Serology Pneumococcal Type 1 Ab Pneumococcal Type 3 Ab Pneumococcal Type 4 Ab Pneumococcal Type 8 Ab Pneumococcal Type 9 Ab Pneumococcal Type 12 Ab Pneumococcal Type 14 Ab Pneumococcal Type 19 Ab Pneumococcal Typ 23 Ab Pneumococcal Type 26 Ab Pneumococcal Type 51 Ab Pneumococcal Type 56 Ab Pneumococcal Type 57 Ab Pneumococcal Type 68 Ab POC Glucose 130 H 11/16/19 11/16/19 11/16/19 04:40 04:40 05:59 WBC 28.6 H RBC 4.03 L Hgb 12.2 L Hct 37.6 L MCV 93.3 MCH 30.3 MCHC 32.4 RDW Std Deviation 43.3 RDW Coeff of Eduin 12.6 Plt Count 231 MPV 10.7 Immature Gran % (Auto) 1.000 H Neut % (Auto) 91.6 H Lymph % (Auto) 4.0 L Nelson % (Auto) 3.3 Eos % (Auto) 0.0 Baso % (Auto) 0.1 Absolute Neuts (auto) 26.2 H Absolute Lymphs (auto) 1.14 Nucleated RBC % 0 Diff Path Review Specimen Type ART Sample Site L RADIAL pH 7.51 H Bicarbonate Actual 30.4 H POC Total CO2 32 Base Excess 7 H O2 Saturation 100 H O2 % 40 ABG pCO2 37.9 ABG pO2 156 H Cisco Test POS Respiration Rate O2 Delivery Device Vent Vent Mode CPAP Tidal Volume POC PEEP 5 POC Pressure Suppt 5 Blood Gas Notified Whom ICU MD Blood Gas Notified Time Sodium 137 Potassium 3.1 L Chloride 100 Carbon Dioxide 29.0 Anion Gap 8 BUN 19 H Creatinine 0.77 Estim Creat Clear Calc 119.26 Est GFR (MDRD) Af Amer 157 Est GFR (MDRD) Non-Af 130 BUN/Creatinine Ratio 24.7 H Glucose 137 H Lactic Acid Calcium 8.7 Total Creatine Kinase Triglycerides COVID-19 (DINORAH) SARS Serology Pneumococcal Type 1 Ab Pneumococcal Type 3 Ab Pneumococcal Type 4 Ab Pneumococcal Type 8 Ab Pneumococcal Type 9 Ab Pneumococcal Type 12 Ab Pneumococcal Type 14 Ab Pneumococcal Type 19 Ab Pneumococcal Typ 23 Ab Pneumococcal Type 26 Ab Pneumococcal Type 51 Ab Pneumococcal Type 56 Ab Pneumococcal Type 57 Ab Pneumococcal Type 68 Ab POC Glucose Microbiology 11/13/19 15:50 Sputum, Expectorated/Coughed Gram Stain - Final 11/13/19 15:50 Sputum, Expectorated/Coughed Respiratory Culture - Final Mixed normal respiratory hai. No Streptococcus pneumoniae, beta-hemolytic Streptococcus or Staphylococcus aureus isolated. 11/15/19 06:00 Sputum, Induced/Lukens Gram Stain - Final 11/15/19 08:00 Urine Catheter - Catheter Legionella Antigen - Final 11/12/19 20:40 Blood Culture (Wb) - Anticubital Left Blood Culture - Preliminary No growth in 48 hours. 11/12/19 20:35 Blood Culture (Wb) - Anticubital Right Blood Culture - Preliminary No growth in 48 hours. Clinical Impression(s) from Imaging Studies Chest X-Ray 11/15/19 07:55 IMPRESSION: Diffuse right pulmonary infiltrates, similar to the previous study. Electronically Signed: Jun Blackwood DO at 8:35 EDT Tel [phone], Service support , Medical Necessity - Tobacco Use Smoking Status: Current every day smoker Tobacco Use: Cigarettes Assessment/Plan All Active Problems (Last Reviewed 11/13/19 @ 00:[address] Navi Bee MD) Mediastinal shift (Acute) Mucus plugging of bronchi (Acute) CVA (cerebral vascular accident) (Resolved) Vomiting (Acute) Hypoxia (Acute) Respiratory insufficiency (Acute) RECOMMENDATIONS: 1. Continue with antibiotics pending culture results 2. Await repeat COVID testing per ID. Continue systemic steroids 3. Aggressive pulmonary toileting 4. Okay to extubate patient 5. Walking oximetry prior to discharge and outpatient complete PFT IMPRESSIONS: 1. Acute hypoxic respiratory failure secondary to probable mucous plugging Patient with respiratory failure secondary to mucous plugging. Patient still having copious oral and endotracheal secretions, but is tolerating vest therapy. Will attempt to extubate and continue aggressive pulmonary toileting. Patient is on steroid therapy for possible Behcet's contribution and antibiotics for possible pneumonia. Initial sputum culture showed no active infection. Patient does have a polymicrobial endotracheal sample currently pending. 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 Unclear if current symptomatology represents an acute exacerbation of the vasculitis given significant mucocutaneous complaints. Patient did develop a genital ulcer during the hospitalization. Attempts to have rheumatology evaluate have been unsuccessful. Patient does have a significantly elevated CRP. Patient will be continued on systemic steroids by IV. 3. Tobacco abuse/history of stroke Complicates care, management, recovery and prognosis. Encourage smoking cessation. TIME: 35 minutes critical care time spent addressing patient's respiratory failure, hypotension, review of all data and collaboration with care team (5:45 AM to 6:45 AM) [phone] [id number] Critical care first hour
--- NOTE | 2019-11-16 07:38 | NURSING ---
extubated per respiratory therapist, RN at bedside, placed on 2L NC, tolerated well. Propofol, fentanyl, and restraints D/C'd.
--- NOTE | 2019-11-16 07:46 | PCM.PN.HOSP ---
Patient Problems: Active and Suspected Problems (Last Reviewed 11/13/19 @ 00:[address] Navi Bee MD) Vomiting (Acute) Hypoxia (Acute) Respiratory insufficiency (Acute) Reason for Visit: Acute hypoxic respiratory failure. Patient is extubated. was on vasopressin that is discontinued Objective: Heart rate in normal range. Blood pressure 148/79; off vasopressor. Patient still has significant oral secretions. Patient was extubated. Vitals/I&O's: Vital Signs Temp Pulse Resp BP Pulse Ox 98.3 F 96 23 H 148/79 H 100 11/16/19 05:00 11/16/19 07:18 11/16/19 07:18 11/16/19 06:00 11/16/19 06:00 Oxygen Flow Rate (L/min) 100 Oxygen Delivery Method Mechanical Ventilator Weight: 127 lb 13.89 oz Body Mass Index (BMI) 20.0 Intake and Output for Last 24 Hours 11/14/19 11/15/19 11/16/19 23:59 23:59 23:59 Intake Total 1530 / 1752 2099.78 / 2709.18 1428.10 / 1428.10 Output Total 1750 / 1750 975 / 1025 210 / 210 Balance -220 / 2 1124.78 / 1684.18 1218.10 / 1218.10 General: Alert, Oriented x3, Cooperative, - - Restless. HEENT: Atraumatic, PERRLA, EOMI, Normocephalic Oral: Ulcerations Present - Superficial ulceration present on buccal mucosa. Significant continuous oral drooling of saliva. Neck: Supple, No JVD, Negative Carotid Bruits Lungs: Diminished - Air entry diminished. On 2 L of oxygen, Rhonchi - Coarse rhonchi present on the right lung base. Cardiovascular: Regular Rhythm, Normal S1, Normal S2, No murmurs, Tachycardic Abdomen: Bowel Sounds Present, Soft, Non Tender, Non-Distended Extremities: No edema, Capillary Refill Less than 3 Seconds Skin: Ulcer/ Wound - Scrotal ulcer present with a scab on it. Musculoskeletal: No Tenderness to Palpation of Joints or Extremities Neurological: Cranial nerves II-XII grossly intact, Deep Tendon Reflexes 2+/4 and Symmetrical, Neuro grossly intact Psych/Mental Status: Normal Affect, Appropriate Microbiology Past 72 Hours 11/13/19 15:50 Sputum, Expectorated/Coughed Gram Stain - Final 11/13/19 15:50 Sputum, Expectorated/Coughed Respiratory Culture - Final Mixed normal respiratory hai. No Streptococcus pneumoniae, beta-hemolytic Streptococcus or Staphylococcus aureus isolated. 11/15/19 06:00 Sputum, Induced/Lukens Gram Stain - Final 11/15/19 08:00 Urine Catheter - Catheter Legionella Antigen - Final 11/12/19 20:40 Blood Culture (Wb) - Anticubital Left Blood Culture - Preliminary No growth in 48 hours. 11/12/19 20:35 Blood Culture (Wb) - Anticubital Right Blood Culture - Preliminary No growth in 48 hours. 11/13/19 19:05 Mucosa - Nasopharyngeal Respiratory Panel (PCR) - Final Laboratory Results 11/14/19 14:45: SARS Serology Nonreactive 11/15/19 05:15: Total Creatine Kinase 548 H, Triglycerides 127 11/15/19 11:10: COVID-19 (DINORAH) Pending 11/15/19 11:10: COVID-19 (DINORAH) Pending 11/16/19 00:18: POC Glucose 130 H 11/16/19 04:40: WBC 28.6 H, RBC 4.03 L, Hgb 12.2 L, Hct 37.6 L, MCV 93.3, MCH 30.3, MCHC 32.4, RDW Std Deviation 43.3, RDW Coeff of Eduin 12.6, Plt Count 231, MPV 10.7, Immature Gran % (Auto) 1.000 H, Neut % (Auto) 91.6 H, Lymph % (Auto) 4.0 L, [place] % (Auto) 3.3, Eos % (Auto) 0.0, Baso % (Auto) 0.1, Absolute Neuts (auto) 26.2 H, Absolute Lymphs (auto) 1.14, Nucleated RBC % 0 11/16/19 04:40: Sodium 137, Potassium 3.1 L, Chloride 100, Carbon Dioxide 29.0, Anion Gap 8, BUN 19 H, Creatinine 0.77, Estim Creat Clear Calc 119.26, Est GFR (MDRD) Af Amer 157, Est GFR (MDRD) Non-Af 130, BUN/Creatinine Ratio 24.7 H, Glucose 137 H, Calcium 8.7 11/16/19 05:59: Specimen Type ART, Sample Site L RADIAL, pH 7.51 H, Bicarbonate Actual 30.4 H, POC Total CO2 32, Base Excess 7 H, O2 Saturation 100 H, O2 % 40, ABG pCO2 37.9, ABG pO2 156 H, Cisco Test POS, O2 Delivery Device Vent, Vent Mode CPAP, POC PEEP 5, POC Pressure Suppt 5, Blood Gas Notified Whom ICU MD Current Medications Acetaminophen (Tylenol Liquid) 650 mg GT Q4H PRN PRN PRN Reason: FEVER Acyclovir (Zovirax) 800 mg GT TID [facility] Last Admin: 11/16/19 05:04 Dose: 800 mg Documented by: Albuterol Sulfate (Ventolin Aerosols) 2.5 mg INHALATION Q2H PRN PRN PRN Reason: sob/wheezing Albuterol/Ipratropium (Duoneb) 3 ml INHALATION Q4H.RT [facility] Last Admin: 11/16/19 07:16 Dose: 3 ml Documented by: Dextrose (D50w Syringe) 0 gm IV X1 PRN; Protocol PRN Reason: Hypoglycemia Enoxaparin Sodium (Lovenox) 40 mg SC BID [facility] Last Admin: 11/15/19 21:26 Dose: 40 mg Documented by: Famotidine (Pepcid) 20 mg GT BID [facility] Last Admin: 11/15/19 21:25 Dose: 20 mg Documented by: Glucagon () 1 mg IM .X1 PRN PRN Reason: Hypoglycemia Guaifenesin (Robitussin) 20 ml GT Q6 [facility] Last Admin: 11/16/19 05:04 Dose: 20 ml Documented by: Sodium Chloride () 250 mls @ 15 mls/hr IV .[id number] PRN PRN Reason: Saline Flush Sodium Chloride () 250 mls @ 15 mls/hr IV .[id number] PRN PRN Reason: Additional IVPB Infusion Ceftriaxone Sodium (Rocephin) 1 gm in 50 mls @ 100 mls/hr IV Q24 [facility] Last Infusion: 11/15/19 13:26 Dose: Infused Documented by: Azithromycin 500 mg/ Dextrose 255 mls @ 250 mls/hr IV Q24 [facility] Stop: 11/17/19 11:02 Methylprednisolone (Solu-Medrol) 40 mg IV Q8 [facility] Last Admin: 11/16/19 05:04 Dose: 40 mg Documented by: Mupirocin (Bactroban) 1 applic TOPICAL BID KARYNA; Protocol Last Admin: 11/15/19 21:27 Dose: 1 applicatio Documented by: Ondansetron HCl (Zofran) 4 mg IV Q6H PRN PRN PRN Reason: NAUSEA/VOMITING Last Admin: 11/14/19 20:58 Dose: 4 mg Documented by: Senna/Docusate Sodium (Senokot-S, Becky-Colace) 2 tablet GT BID KARYNA Last Admin: 11/15/19 21:25 Dose: 2 tablet Documented by: Sodium Chloride () 10 - 40 ml IV UD PRN PRN Reason: SALINE FLUSH Last Admin: 11/16/19 00:35 Dose: 20 ml Documented by: STROKE Vital Signs/Narrative: Vital Signs Temp Pulse Resp BP Pulse Ox 11/16/19 07:18 96 23 H 11/16/19 06:00 82 14 148/79 H 100 11/16/19 05:00 98.3 F 83 19 H 156/85 H 97 11/16/19 04:45 78 20 H 97 11/16/19 04:00 97.9 F 88 23 H 123/83 H 95 Medical Necessity - Tobacco Use Smoking Status: Current every day smoker Tobacco Use: Cigarettes Assessment/Plan All Active Problems (Last Reviewed 11/13/19 @ 00:[address] Navi Bee MD) Mediastinal shift (Acute) Mucus plugging of bronchi (Acute) CVA (cerebral vascular accident) (Resolved) Vomiting (Acute) Hypoxia (Acute) Respiratory insufficiency (Acute) This a 24-year-old Afro-[place]ian gentleman with history of Behcet's disease was admitted with cough with dark black sputum, hypoxia 87% on room air also nausea and vomiting. 1. Acute hypoxic respiratory failure secondary to mucous plugging: Patient multiple chest x-ray reviewed and shows mediastinal shift with right tracheal pull most likely from mucous plugging. Patient is on aggressive pulmonary toileting, systemic steroid and VEST therapy. Repeat chest x-ray after intubation corrected the mediastinal shift. Early ARDS CTA did not show PE but diffuse interstitial edema. CK elevated. Lactic acid normal. Start serology nonreactive. COVID-19 PCR pending. Blood cultures x2 no growth for 48 hours, respiratory panel negative. Initial Gram stain shows mixed normal respiratory hai. On empiric ceftriaxone and Zithromax. 11/15 continue pulmonary hygiene including oral suctioning,VEST and incentive spirometry. Continue IV antibiotics. Patient has leukocytosis most probably, reactive to steroid. Sputum culture from 11/14 are pending which shows 3+ gram-positive cocci, 1+ gram-negative rods and 1+ gram-positive rods. 2. Hypotension most likely secondary to sedative: Resolved. Blood pressure normal to slightly elevated 156/71. 3. Behcet's disease and history of a stroke: Has oral and scrotal ulcer. Patient is not on chronic steroid therapy or immunosuppression. Elevated CRP. On IV steroid. Stroke may be likely result of vasculitis. Patient has significant leukocytosis with neutrophilia. 4. Tobacco abuse: DVT: Lovenox Microbiology Past 72 Hours 11/15/19 06:00 Sputum, Induced/Lukens Gram Stain - Final 11/15/19 06:00 Sputum, Induced/Lukens Respiratory Culture - Preliminary Culture exhibits no growth. 11/13/19 15:50 Sputum, Expectorated/Coughed Gram Stain - Final 11/13/19 15:50 Sputum, Expectorated/Coughed Respiratory Culture - Final Mixed normal respiratory hai. No Streptococcus pneumoniae, beta-hemolytic Streptococcus or Staphylococcus aureus isolated. 11/15/19 08:00 Urine Catheter - Catheter Legionella Antigen - Final 11/12/19 20:40 Blood Culture (Wb) - Anticubital Left Blood Culture - Preliminary No growth in 48 hours. 11/12/19 20:35 Blood Culture (Wb) - Anticubital Right Blood Culture - Preliminary No growth in 48 hours. 11/13/19 19:05 Mucosa - Nasopharyngeal Respiratory Panel (PCR) - Final Laboratory Results 11/16/19 00:18: POC Glucose 130 H 11/16/19 04:40: WBC 28.6 H, RBC 4.03 L, Hgb 12.2 L, Hct 37.6 L, MCV 93.3, MCH 30.3, MCHC 32.4, RDW Std Deviation 43.3, RDW Coeff of Eduin 12.6, Plt Count 231, MPV 10.7, Immature Gran % (Auto) 1.000 H, Neut % (Auto) 91.6 H, Lymph % (Auto) 4.0 L, [place] % (Auto) 3.3, Eos % (Auto) 0.0, Baso % (Auto) 0.1, Absolute Neuts (auto) 26.2 H, Absolute Lymphs (auto) 1.14, Nucleated RBC % 0, Differential Comment SCANNED 11/16/19 04:40: Sodium 137, Potassium 3.1 L, Chloride 100, Carbon Dioxide 29.0, Anion Gap 8, BUN 19 H, Creatinine 0.77, Estim Creat Clear Calc 119.26, Est GFR (MDRD) Af Amer 157, Est GFR (MDRD) Non-Af 130, BUN/Creatinine Ratio 24.7 H, Glucose 137 H, Calcium 8.7 11/16/19 05:59: Specimen Type ART, Sample Site L RADIAL, pH 7.51 H, Bicarbonate Actual 30.4 H, POC Total CO2 32, Base Excess 7 H, O2 Saturation 100 H, O2 % 40, ABG pCO2 37.9, ABG pO2 156 H, Cisco Test POS, O2 Delivery Device Vent, Vent Mode CPAP, POC PEEP 5, POC Pressure Suppt 5, Blood Gas Notified Whom ICU MD Inpatient E&M: 63963 Subs Hosp L3
[2019-11-16 08:44] LABS: Differential Comment SCANNED
[2019-11-16] MEDS: Enoxaparin 40 MG/0.4 ML Syringe SC ×2 (10:06→20:59)
[2019-11-16] MEDS: guaiFENesin 1,200 MG Tablet 1200 MG PO (10:06)
[2019-11-16] MEDS: QUEtiapine 25 MG Tablet 50 MG PO (10:06)
[2019-11-16] MEDS: Famotidine 20 MG Tablet PO (10:06)
[2019-11-16] MEDS: Mupirocin Ointment 22gm Tube 1 APPLIC TOPICAL ×2 (10:07→23:56)
[2019-11-16] MEDS: Ceftriaxone 1 GM/50 ML BAG IV (10:07)
[2019-11-16] MEDS: Acyclovir 800 MG Tablet PO (13:14)
[2019-11-16] MEDS: Bisacodyl 10 MG Suppository RECTAL (16:00)
[2019-11-16] MEDS: Ondansetron 4 MG/2 ML Vial IV (18:27)
--- NOTE | 2019-11-16 21:28 | NURSING ---
DR COWART AT BEDSIDE. DEEP SUCTIONING DONE . 93-95% ON 2L N/C
--- NOTE | 2019-11-16 21:31 | PCM.PN.BLA ---
Progress Note Notified by nurse that patient has increased work of breathing and has noisy breathing. Stat chest x-ray placed. Notified nurse to let respiratory therapy suction patient. Patient was then examined at the bedside. Patient lethargic and in a position. Respiratory rate 26-35. Rhonchorous throughout. Heart sounds S1-S2 present. Respiratory at the bedside ready to suction patient. Discussed with nurse that if patient worsens MD be notified. Will follow up with x-ray reading and clinically. STROKE Vital Signs/Narrative: Vital Signs Temp Pulse Resp BP Pulse Ox 11/16/19 21:00 87 30 H 127/85 H 94 11/16/19 20:00 113 H 29 H 125/72 H 93 11/16/19 19:00 96.9 F L 92 30 H 161/96 H 95 11/16/19 18:50 110 H 40 H 94 11/16/19 18:00 91 32 H 113/88 H 94
--- NOTE | 2019-11-16 21:40 | RAD_ITS ---
HISTORY: DYSPNEA, ACUTE FEBRILE ILLNESS EXAM: XR Chest 1 View: COMPARISON: November 15, 2019 FINDINGS: # of images incl. paperwork: 1 Endotracheal tube and esophagogastric tube have been removed. Right IJ central venous catheter remains. And is unchanged in position. Right lung airspace disease remains and is perhaps slightly diminished. The left lung remains well expanded and relatively clear Heart is not enlarged. No acute osseous pathology perceived. Pulmonary vascularity is indistinct in the right hemithorax. No effusions. RAD/Chest 1 View (Portable) IMPRESSION: Removal of endotracheal and esophagogastric tubes.. Stable position of right IJ central venous catheter. Likely slight improvement to diffuse right hemithorax airspace disease, likely pneumonia. at 2041 Reported and signed by: Alejandro Phelps MD Electronically Signed: Alejandro Phelps MD at 22:44 EDT Tel , Service support ,
--- NOTE | 2019-11-16 22:43 | NURSING ---
2200: HS ORAL MEDS HELD AT THIS TIME D/T COPIOUS AMOUNTS OF SECRETIONS AND PT'S FATIGUE. CXR PENDING
--- NOTE | 2019-11-16 22:54 | NURSING ---
PT BEING PREPPED FOR INTUBATION AT THIS TIME.
[2019-11-16] MEDS: Succinylcholine Chloride 200 MG/10 ML Vial 100 MG IV (23:08)
--- NOTE | 2019-11-16 23:13 | RAD_ITS ---
HISTORY: Intubation, acute febrile illness. Comparison is from study from 2 hours earlier. Findings: The endotracheal tube terminates superimposed over the trachea, below the level of the clavicular heads, and above the stefania. Esophagogastric tube's tip is below the diaphragm. Right IJ central venous catheter terminates superimposed over the anticipated location of the SVC, near the level of the right main bronchus. Lungs are adequately expanded. Right lung airspace disease is similar. Heart is not enlarged. No pleural effusions are perceived. RAD/Chest 1 View (Portable) IMPRESSION: Adequate position of replaced endotracheal and esophagogastric tubes. Persistent right lung airspace disease. at 0041 Reported and signed by: Alejandro Phelps MD Electronically Signed: Alejandro Phelps MD at 0:40 EDT Tel , Service support ,
[2019-11-16] MEDS: Propofol 10MG/Ml 1,000 MG/100 ML Bottle 3.5 MG CONT INF (23:15)
[2019-11-16 23:17] LABS: CPK Total, Creatine Kinase 429 U/L (39-308); Triglycerides 120 mg/dL
--- NOTE | 2019-11-16 23:30 | NURSING ---
Preparing to intubate patient at this time. Dr Bee is at the bedside, Respiratory Martell Webster is at the bedside, this RN, Margot Lindsay RN and Diane Haney GLUELINE WORKER all at the beside for intubation. 20 of Etomidate given at 2308 100 of succinycholine give at 2308 ETT inserted at 2311 glidescope used intubation preformed by Dr. Bee ETT size 7.5, 26@lip OG placed at 2320 Core temp Chowdhury @2320
--- NOTE | 2019-11-16 23:46 | PN_ITS ---
Progress Note Endotracheal Intubation Note Indication: Impending respiratory failure Performed by: Dr. Navi Bee The patient was placed in a supine position. The patient was easily ventilated using an ambu bag. RSI was done using Etomidate 20 mg and succinylcholine 100 mg. . Glidescope was used and inserted into the oropharynx at which time there was a Grade 1 view of the vocal cords. A 7.5-macanese endotracheal tube was inserted and visualized going through the vocal cords. The stylette was removed and cuff was inflated. Colorimetric change was visualized on the CO2 detector. Breath sounds were heard equally in both lung barnes. The endotracheal tube was placed at 26 cm, measured at the lips. A STAT chest x-ray was ordered to verify endotracheal tube placement. The patient tolerated the procedure well and there were no immediate complications. STROKE Vital Signs/Narrative: Vital Signs Temp Pulse Resp BP Pulse Ox 11/16/19 23:43 103 H 14 98 11/16/19 23:00 97.7 F L 79 16 109/83 H 11/16/19 22:15 91 29 H 11/16/19 21:40 121 H 27 H 127/85 H 95 11/16/19 21:20 90 38 H 11/16/19 21:00 87 30 H 127/85 H 94 11/16/19 20:00 113 H 29 H 125/72 H 93
[2019-11-17] VITALS (36 sets, daily range): BP systolic 95–111; BP diastolic 60–87; PULSE 68–117; RESP 14–25; TEMP 36.6–37.3; O2SAT 93–100
[2019-11-17] MEDS: Propofol 10MG/Ml 1,000 MG/100 ML Bottle 10.4 MG CONT INF (00:50)
[2019-11-17] MEDS: 0.9% Saline Lock 10 ML Syringe IV ×4 (00:58→22:16)
[2019-11-17] MEDS: Ipratropium/Albuterol Sulfate 3 ML AMPUL.NEB INHALATION ×6 (02:40→23:09)
[2019-11-17 04:04] LABS: Absolute Lymphocyte Count 1.29 X10^3/uL (0.83-4.51); Absolute Neutrophil Count 36.2 X10^3/uL (2.0-7.7); Basophil# 0.06 X10^3/uL; Basophil% 0.2 % (0-1); Hematocrit 38.3 % (40-54); Hemoglobin 12.2 g/dL (13.0-16.5); Lymphocyte # 1.29 X10^3/ul (4.0); Lymphocyte % 3.3 % (19-41); Mean Corp Hgb Conc 31.9 g/dL (32-36); Mean Corpuscular Volume 94.3 fL (80-94); Mean Platelet Vol. 10.3 fl (6.2-12.0); Monocyte# 1.29 X10^3/uL; Monocyte% 3.3 % (0-10); NRBC Flagged by Analyzer 0 % (0-5); Neutrophil # 36.18 X10^3/uL (2.7-7.7); Neutrophil % 92.3 % (47-70); POSITIVE COUNT YES; POSITIVE DIFFERENTIAL YES; Platelet Count 264 K/mm3 (150-450); RBC Distribution Width CV 12.8 % (11.6-14.6); RBC Distribution Width SD 44.3 fl (35.1-43.9); Red Blood Count 4.06 M/mm3 (4.6-6.2)
[2019-11-17 04:46] LABS: Differential Indicated SCAN CRITERIA MET; White Blood Count 39.2 K/mm3 (4.4-11.0)
[2019-11-17 04:48] LABS: Anion Gap 7 (5-15); BUN 24 mg/dL (7-18); Calcium,Total 9.1 mg/dL (8.5-10.1); Chloride 105 mmol/L (98-107); Creatinine, Serum 0.67 mg/dL (0.70-1.30); EST Glomerular Filtration Rate 153 mL/min (>60); Est Glom Filt Rate - Afr Amer 185 mL/min (>60); Estimated Creatinine Clearance 137.06 ml/min; Glucose 91 mg/dL (74-106); Magnesium 2.2 mg/dL (1.6-2.6); Phosphorus 0.6 mg/dL (2.5-4.9); Potassium 3.7 mmol/L (3.5-5.1); Sodium Level 141 mmol/L (136-145)
[2019-11-17 05:20] LABS: Differential Comment SCANNED
[2019-11-17] MEDS: Acyclovir 800 MG Tablet PO (05:51)
--- NOTE | 2019-11-17 06:22 | PCM.PN.INT ---
Subjective: The patient was seen and examined at the bedside this morning. Events from the last 24 hours have been reviewed. The patient is currently afebrile, hemodynamically stable and maintaining appropriate oxygen saturations with an FiO2 requirement of 30%. Overnight, the patient experienced multiple episodes of increased work of breathing, which subsequently led to his re-intubation. The patient is currently documented to be overall net +3.6 L for the hospital admission. Objective: The patient's most recent lab work, culture data and imaging studies have all been personally reviewed. Infectious work-up has been unrevealing to date. General: - - Intubated, sedated and mechanically ventilated HEENT: Atraumatic, Normocephalic Oral: No Gingival or Mucosal Lesions/ Ulcerations, - - Endotracheal and OG tubes in place Neck: Supple, No Nodes, Trachea Midline, - - Right IJ central venous catheter in place Lungs: Diminished Cardiovascular: Regular rate, Regular Rhythm Abdomen: Bowel Sounds Present, Soft, Non Tender Extremities: No clubbing, No cyanosis, No edema Skin: No rashes Musculoskeletal: No Muscle Wasting Lymphatic: No Cervical, Supraclavicular, or Inguinal Adenopathy Neurological: - - No focal neurological deficits. Arousable and able to follow simple commands. Vital Signs Temp Pulse Resp BP Pulse Ox 98.1 F 84 14 111/76 100 11/17/19 06:00 11/17/19 06:00 11/17/19 06:00 11/17/19 06:00 11/17/19 06:00 Oxygen Flow Rate (L/min) 2 Oxygen Delivery Method Mechanical Ventilator Weight: 127 lb 13.89 oz Body Mass Index (BMI) 20.0 Intake and Output for Last 24 Hours 11/15/19 11/16/19 11/17/19 23:59 23:59 23:59 Intake Total 2099.78 / 2709.18 2418.22 / 2420.40 251.15 / 251.15 Output Total 975 / 1025 1380 / 1580 550 / 550 Balance 1124.78 / 1684.18 1038.22 / 840.40 -298.85 / -298.85 Labs (Last 48 Hours) 11/14/19 11/15/19 11/15/19 14:45 02:06 03:50 WBC RBC Hgb Hct MCV MCH MCHC RDW Std Deviation RDW Coeff of Eduin Plt Count MPV Immature Gran % (Auto) Neut % (Auto) Lymph % (Auto) Faulk % (Auto) Eos % (Auto) Baso % (Auto) Absolute Neuts (auto) Absolute Lymphs (auto) Nucleated RBC % Differential Comment Diff Path Review Specimen Type ART Sample Site R BRACHIAL pH 7.47 H Bicarbonate Actual 34.4 H POC Total CO2 36 Base Excess 11 H O2 Saturation 93 L O2 % 100 ABG pCO2 47.3 H ABG pO2 63 L Cisco Test NEG Respiration Rate 14 O2 Delivery Device VENT Vent Mode AC Tidal Volume 450 POC PEEP 10 POC Pressure Suppt Blood Gas Notified Whom [facility] Blood Gas Notified Time 353 Sodium Potassium Chloride Carbon Dioxide Anion Gap BUN Creatinine Estim Creat Clear Calc Est GFR (MDRD) Af Amer Est GFR (MDRD) Non-Af BUN/Creatinine Ratio Glucose Calcium Phosphorus Magnesium Total Creatine Kinase Triglycerides COVID-19 (DINORAH) SARS Serology Nonreactive POC Glucose 185 H 11/15/19 11/15/19 11/15/19 05:15 11:10 11:10 WBC RBC Hgb Hct MCV MCH MCHC RDW Std Deviation RDW Coeff of Eduin Plt Count MPV Immature Gran % (Auto) Neut % (Auto) Lymph % (Auto) Faulk % (Auto) Eos % (Auto) Baso % (Auto) Absolute Neuts (auto) Absolute Lymphs (auto) Nucleated RBC % Differential Comment Diff Path Review Specimen Type Sample Site pH Bicarbonate Actual POC Total CO2 Base Excess O2 Saturation O2 % ABG pCO2 ABG pO2 Cisco Test Respiration Rate O2 Delivery Device Vent Mode Tidal Volume POC PEEP POC Pressure Suppt Blood Gas Notified Whom Blood Gas Notified Time Sodium Potassium Chloride Carbon Dioxide Anion Gap BUN Creatinine Estim Creat Clear Calc Est GFR (MDRD) Af Amer Est GFR (MDRD) Non-Af BUN/Creatinine Ratio Glucose Calcium Phosphorus Magnesium Total Creatine Kinase 548 H Triglycerides 127 COVID-19 (DINORAH) Not Detected Not Reportable SARS Serology POC Glucose 11/16/19 11/16/19 11/16/19 00:18 04:40 04:40 WBC 28.6 H RBC 4.03 L Hgb 12.2 L Hct 37.6 L MCV 93.3 MCH 30.3 MCHC 32.4 RDW Std Deviation 43.3 RDW Coeff of Eduin 12.6 Plt Count 231 MPV 10.7 Immature Gran % (Auto) 1.000 H Neut % (Auto) 91.6 H Lymph % (Auto) 4.0 L Faulk % (Auto) 3.3 Eos % (Auto) 0.0 Baso % (Auto) 0.1 Absolute Neuts (auto) 26.2 H Absolute Lymphs (auto) 1.14 Nucleated RBC % 0 Differential Comment SCANNED Diff Path Review Specimen Type Sample Site pH Bicarbonate Actual POC Total CO2 Base Excess O2 Saturation O2 % ABG pCO2 ABG pO2 Cisco Test Respiration Rate O2 Delivery Device Vent Mode Tidal Volume POC PEEP POC Pressure Suppt Blood Gas Notified Whom Blood Gas Notified Time Sodium 137 Potassium 3.1 L Chloride 100 Carbon Dioxide 29.0 Anion Gap 8 BUN 19 H Creatinine 0.77 Estim Creat Clear Calc 119.26 Est GFR (MDRD) Af Amer 157 Est GFR (MDRD) Non-Af 130 BUN/Creatinine Ratio 24.7 H Glucose 137 H Calcium 8.7 Phosphorus Magnesium Total Creatine Kinase Triglycerides COVID-19 (DINORAH) SARS Serology POC Glucose 130 H 11/16/19 11/16/19 11/17/19 04:40 05:59 03:50 WBC 39.2 H* RBC 4.06 L Hgb 12.2 L Hct 38.3 L MCV 94.3 H MCH 30.0 MCHC 31.9 L RDW Std Deviation 44.3 H RDW Coeff of Eduin 12.8 Plt Count 264 MPV 10.3 Immature Gran % (Auto) 0.900 Neut % (Auto) 92.3 H Lymph % (Auto) 3.3 L Faulk % (Auto) 3.3 Eos % (Auto) 0.0 Baso % (Auto) 0.2 Absolute Neuts (auto) 36.2 H Absolute Lymphs (auto) 1.29 Nucleated RBC % 0 Differential Comment SCANNED Diff Path Review May foll Specimen Type ART Sample Site L RADIAL pH 7.51 H Bicarbonate Actual 30.4 H POC Total CO2 32 Base Excess 7 H O2 Saturation 100 H O2 % 40 ABG pCO2 37.9 ABG pO2 156 H Cisco Test POS Respiration Rate O2 Delivery Device Vent Vent Mode CPAP Tidal Volume POC PEEP 5 POC Pressure Suppt 5 Blood Gas Notified Whom ICU MD Blood Gas Notified Time Sodium Potassium Chloride Carbon Dioxide Anion Gap BUN Creatinine Estim Creat Clear Calc Est GFR (MDRD) Af Amer Est GFR (MDRD) Non-Af BUN/Creatinine Ratio Glucose Calcium Phosphorus Magnesium Total Creatine Kinase 429 H Triglycerides 120 COVID-19 (DINORAH) SARS Serology POC Glucose 11/17/19 03:50 WBC RBC Hgb Hct MCV MCH MCHC RDW Std Deviation RDW Coeff of Eduin Plt Count MPV Immature Gran % (Auto) Neut % (Auto) Lymph % (Auto) Faulk % (Auto) Eos % (Auto) Baso % (Auto) Absolute Neuts (auto) Absolute Lymphs (auto) Nucleated RBC % Differential Comment Diff Path Review Specimen Type Sample Site pH Bicarbonate Actual POC Total CO2 Base Excess O2 Saturation O2 % ABG pCO2 ABG pO2 Cisco Test Respiration Rate O2 Delivery Device Vent Mode Tidal Volume POC PEEP POC Pressure Suppt Blood Gas Notified Whom Blood Gas Notified Time Sodium 141 Potassium 3.7 Chloride 105 Carbon Dioxide 29.0 Anion Gap 7 BUN 24 H Creatinine 0.67 L Estim Creat Clear Calc 137.06 Est GFR (MDRD) Af Amer 185 Est GFR (MDRD) Non-Af 153 BUN/Creatinine Ratio 36.0 H Glucose 91 Calcium 9.1 Phosphorus 0.6 L* Magnesium 2.2 Total Creatine Kinase Triglycerides COVID-19 (DINORAH) SARS Serology POC Glucose Microbiology 11/15/19 06:00 Sputum, Induced/Lukens Gram Stain - Final 11/15/19 06:00 Sputum, Induced/Lukens Respiratory Culture - Preliminary Culture exhibits no growth. 11/13/19 15:50 Sputum, Expectorated/Coughed Gram Stain - Final 11/13/19 15:50 Sputum, Expectorated/Coughed Respiratory Culture - Final Mixed normal respiratory hai. No Streptococcus pneumoniae, beta-hemolytic Streptococcus or Staphylococcus aureus isolated. 11/15/19 08:00 Urine Catheter - Catheter Legionella Antigen - Final 11/12/19 20:40 Blood Culture (Wb) - Anticubital Left Blood Culture - Preliminary No growth in 48 hours. 11/12/19 20:35 Blood Culture (Wb) - Anticubital Right Blood Culture - Preliminary No growth in 48 hours. Clinical Impression(s) from Imaging Studies Chest X-Ray 11/12/19 21:15 IMPRESSION: No acute cardiopulmonary pathology. Electronically Signed: Leonel Dawn MD at 21:39 EDT , Service support , Chest CTA 06/25/20 09:47 IMPRESSION: No demonstrated PE, or thoracic aortic aneurysm or dissection. However, the contrast bolus is not optimal in the distal pulmonary arteries and a subtle filling defect could be present and overlooked. Diffuse interstitial edema in both lung barnes with tree-in-bud opacifications consistent with small airways inflammation. Too small to characterize 3 mm nodule in the right upper lobe on axial image 155 Electronically Signed: Henry Rolon MD at 10:59 EDT , Service support , Chest X-Ray 11/15/19 01:40 IMPRESSION: Right lung collapse with volume loss and deviation of the mediastinum and heart to the right with hyperexpansion of the left hemithorax. at 0318 Reported and signed by: Alejandro Phelps MD Electronically Signed: Alejandro Phelps MD at 3:17 EDT Tel , Service support , ADDENDUM: 11/15/19 0337 IMPRESSION: Right lung collapse with volume loss and deviation of the mediastinum and heart to the right with hyperexpansion of the left hemithorax. at 0318 Reported and signed by: Alejandro Phelps MD N.B. : The above information has been verbally conveyed by Alejandro Phelps MD to RAFAL Snow, on 11/15/2019 03:30:11 (ET). Electronically Signed: Alejandro Phelps MD at 3:17 EDT Tel , Service support , Chest X-Ray 11/15/19 03:00 IMPRESSION: Reexpansion of the right lung with persistent atelectasis and likely airspace disease. Endotracheal tube terminates within the trachea above the clavicular heads, likely at the T1-T2 interspace. at 0455 Reported and signed by: Alejandro Phelps MD Electronically Signed: Alejandro Phelps MD at 4:54 EDT Tel , Service support , Chest X-Ray 11/15/19 05:22 IMPRESSION: Adequate position of newly placed right IJ central venous catheter without evidence of complications from placement of the catheter. Slight withdrawal of the endotracheal tube, now terminating at the intersection of the C7 and T1 vertebral body, approximately 11 cm above the stefania. It may benefit the patient for this to be advanced Worsening right lung airspace disease possibly representing reexpansion pulmonary edema. at 0572 Reported and signed by: Alejandro Phelps MD Electronically Signed: Alejandro Phelps MD at 5:51 EDT Tel , Service support , ADDENDUM: 11/15/19 0606 IMPRESSION: Adequate position of newly placed right IJ central venous catheter without evidence of complications from placement of the catheter. Slight withdrawal of the endotracheal tube, now terminating at the intersection of the C7 and T1 vertebral body, approximately 11 cm above the stefania. It may benefit the patient for this to be advanced Worsening right lung airspace disease possibly representing reexpansion pulmonary edema. at 0525 Reported and signed by: Alejandro Phelps MD N.B. : Diane Guillen RN, confirmed on 11/15/2019 05:59:10 (ET) that the healthcare facility has received the radiology report. Electronically Signed: Alejandro Phelps MD at 5:51 EDT Tel , Service support , Chest X-Ray 11/15/19 07:55 IMPRESSION: Diffuse right pulmonary infiltrates, similar to the previous study. Electronically Signed: Jun Blackwood DO at 8:35 EDT Tel [phone], Service support , Chest X-Ray 11/16/19 21:40 IMPRESSION: Removal of endotracheal and esophagogastric tubes.. Stable position of right IJ central venous catheter. Likely slight improvement to diffuse right hemithorax airspace disease, likely pneumonia. at 2245 Reported and signed by: Alejandro Phelps MD Electronically Signed: Alejandro Phelps MD at 22:44 EDT Tel , Service support , Chest X-Ray 11/16/19 23:13 IMPRESSION: Adequate position of replaced endotracheal and esophagogastric tubes. Persistent right lung airspace disease. at 0041 Reported and signed by: Alejandro Phelps MD Electronically Signed: Alejandro Phelps MD at 0:40 EDT Tel , Service support , Medical Necessity - Tobacco Use Smoking Status: Current every day smoker Tobacco Use: Cigarettes Assessment/Plan All Active Problems (Last Reviewed 11/13/19 @ 00:[address] Navi Bee MD) Mediastinal shift (Acute) Mucus plugging of bronchi (Acute) CVA (cerebral vascular accident) (Resolved) Vomiting (Acute) Hypoxia (Acute) Respiratory insufficiency (Acute) RECOMMENDATIONS: 1. Given issues handling oral secretions, will obtain MRI brain today. 2. Continue antimicrobials as ordered, per ID recommendations. 3. Okay from my perspective to discontinue coronavirus precautions, given negative PCR and nonreactive serology. 4. Start tube feeds today. 5. Continue propofol and fentanyl for sedation. 6. Continue appropriate ICU prophylaxis. 7. Phosphorus repletion as ordered. IMPRESSIONS: 1. Acute hypoxemic respiratory failure The patient does have notable right lower lobe airspace disease and failed a trial of extubation due to increased work of breathing and inability to clear secretions. He remains on antimicrobials per the discretion of infectious diseases. FiO2 requirement is minimal. At this time, the patient will be started on tube feeds once again with plans to perform daily paired spontaneous awakening and breathing trials. The exact reason that the patient is unable to clear his secretions is unknown. Given his underlying Behcet's disease, I am going to obtain an MRI brain today for further evaluation. To date, the patient has had negative PCR testing for coronavirus and nonreactive serology. 2. Hypophosphatemia Aggressive phosphate repletion as ordered. Recheck levels in the morning. 3. History of Behcet Disease The patient was not on any chronic immunosuppression reportedly as an outpatient. Unclear if current symptomatology represents an acute exacerbation of the vasculitis given significant mucocutaneous complaints. Attempts to have rheumatology evaluate have been unsuccessful. Patient does have a significantly elevated CRP. The patient will be continued on systemic steroids by IV. 4. History of tobacco dependency/Prior CVA Complicates care, management, recovery and prognosis. Physical therapy to evaluate the patient. TIME: 38 minutes of critical care time, independent of procedures, was spent addressing the patient's acute hypoxemic respiratory failure, hypophosphatemia, review of all data and collaboration with the care team. ([id number])
[2019-11-17] MEDS: Propofol 10MG/Ml 1,000 MG/100 ML Bottle 13.9 MG CONT INF ×4 (06:33→23:55)
--- NOTE | 2019-11-17 08:03 | NT.THERAPY_ITS ---
Nutrition Therapy Report - History Nutrition Services has been consulted to:: Manage enteral nutrition Current diet / nutrition support order:: Regular - will change to NPO d/t intubation - Anthropometric Measurements Height:: 5 ft 7 in - Weight:: 58 kg Body Mass Index (BMI):: 20.0 - Relevant Labs Relevant Labs:: WBC 39.2 K/mm3 (4.4-11.0) H* 11/17/19 03:50 RBC 4.06 M/mm3 (4.6-6.2) L 11/17/19 03:50 Hgb 12.2 g/dL (13.0-16.5) L 11/17/19 03:50 Hct 38.3 % (40-54) L 11/17/19 03:50 MCV 94.3 fL (80-94) H 11/17/19 03:50 MCHC 31.9 g/dL (32-36) L 11/17/19 03:50 RDW Std Deviation 44.3 fl (35.1-43.9) H 11/17/19 03:50 Immature Gran % (Auto) 1.000 % (0.0-0.9) H 11/16/19 04:40 Neut % (Auto) 92.3 % (47-70) H 11/17/19 03:50 Lymph % (Auto) 3.3 % (19-41) L 11/17/19 03:50 Griggs % (Auto) 10.1 % (0-10) H 11/12/19 20:35 Absolute Neuts (auto) 36.2 X10^3/uL (2.0-7.7) H 11/17/19 03:50 ESR 115 mm/hr (0-15) H 11/12/19 20:55 D-Dimer Quant (PE/DVT) 1.99 FEU/ug/m (0.27-0.49) H* 11/13/19 10:00 Sodium 135 mmol/L (136-145) L 11/14/19 05:55 Potassium 3.1 mmol/L (3.5-5.1) L 11/16/19 04:40 Chloride 97 mmol/L (98-107) L 11/14/19 05:55 Carbon Dioxide 33.0 mmol/L (21.0-32.0) H 11/15/19 05:15 Anion Gap 4 (5-15) L 11/15/19 05:15 BUN 24 mg/dL (7-18) H 11/17/19 03:50 Creatinine 0.67 mg/dL (0.70-1.30) L 11/17/19 03:50 BUN/Creatinine Ratio 36.0 RATIO (10-20) H 11/17/19 03:50 Glucose 137 mg/dL (74-106) H 11/16/19 04:40 Calcium 7.6 mg/dL (8.5-10.1) L 11/15/19 05:15 Phosphorus 0.6 mg/dL (2.5-4.9) L* 11/17/19 03:50 ALT 14 U/L (16-61) L 11/12/19 20:35 Total Creatine Kinase 429 U/L (39-308) H 11/16/19 04:40 C-React Prot Ext Range 86.60 mg/L (0.0-3.0) H 11/13/19 10:00 Total Protein 8.7 g/dL (6.4-8.2) H 11/12/19 20:35 Globulin 5.3 g/dL (2.2-4.2) H 11/12/19 20:35 Lipase 67 U/L (73-393) L 11/12/19 20:35 Procalcitonin 0.12 ng/mL (0.00-0.09) H 11/13/19 10:00 - Assessment Food / Nutrition-Related History:: Pt reintubated over night d/t resp distress - has OGT to suction. No new wt since last revies. On Regular diet - will change to NPO d/t intubation. [ End ] - Nutrition Diagnosis Problem / Etiology / Signs & Symptoms (PES):: Inadequate oral intake related to respitory distress aeb pt intubated w/ OG in place. [ End ]. [ End ] Evidence of Malnutrition Exists:: No - Nutrition Intervention Nutrition Prescription:: [id number] charo / 50-60 gm pro/day - Food / Nutrient Delivery Interventions Summary of nutrition intervention:: While intubated, rec enteral nutrition support - rec Vital AF 1.2 at goal rate 70 cc/hr with 100 cc H2O flush every 4 hours to provide ~ 2016 charo/ 126 gm pro / 1962 cc free water/day. Would start tf at 20 cc/hr and increase by 20 cc every 8 hours as pt tolerates until goal rate achieved. Rec Regular diet as pt medically able. [ End ] Nutrition support ordered as / adjusted to:: While on TF rec - Vital AF 1.2 at goal rate 70 cc/hr with 100 cc H2O flush every 4 hours to provide ~ 2016 charo/ 126 gm pro / 1962 cc free water/day. Would start tf at 20 cc/hr and increase by 20 cc every 8 hours as pt tolerates until goal rate achieved. [ End ] Nutrition education provided?: No - MNT Monitoring Further MNT monitoring and evaluation required?: Yes MNT Follow-up in:: 1-2 days - if questions - please call RD/LD at x [phone]
--- NOTE | 2019-11-17 09:18 | MRI_ITS ---
We are attempting to reach an attending provider to discuss findings. An addendum with communication details will be sent when the communication is complete. STUDY: MRI BRAIN WITH AND WITHOUT CONTRAST REASON FOR EXAM: Male, 24 years old. h/o Behcets with issues handling oral secretions, hx prev cva -- patient intubated TECHNIQUE: Standardized multiplanar fat and water weighted pulse sequences were obtained. IV dotarem 11ml was administered for the contrast portion of the examination. COMPARISON: CT 12/24/2018 FINDINGS: Normal size of the ventricles and extra-axial spaces for the patient''s age. Normal white matter tracts of the supratentorial brain. Hyperintensity of the brainstem with a punctate area restricted diffusion consistent with an acute/subacute brainstem infarct. Normal T2* images of the brain without demonstrated susceptibility artifact. There is no demonstrated hemosiderin stain. Normal bilateral basal ganglia. Normal thalami. There is no extra-axial fluid accumulation. Normal flow voids within the major intracranial circulation suggesting patency by spin echo criteria. Normal venous enhancement. There is no enhancing intra-axial or extra-axial abnormality. Normal sella turcica, pituitary gland, infundibular stalk, optic chiasm and hypothalamus. Normal tectal plate and pineal gland. Normal midbrain, jose and medulla. Normal cerebellum. Normal basal cisterns. Normal bilateral temporal bones. Normal bilateral internal auditory canals. No demonstrated orbital abnormality, within the constraints of a routine brain study. Normal visualized paranasal sinuses. Normal calvarium and skull base. Normal visualized soft tissue structures. Normal visualized upper cervical spine. MRI/Brain W/WO Contrast IMPRESSION: Acute/subacute infarct of the right side of the brainstem. Electronically Signed: Diego Coleman MD at 14:17 EDT Tel , Service support ,
--- NOTE | 2019-11-17 10:02 | CASEMGMT ---
RN TAYA Note: participated in ICU interdisciplinary rounds. Pt remains on ventilator, 30% O2. COVID 19 negative and Sars serology nonreactive. DC planning deferred while patient is intubated. RAFAL BAIN will continue to follow and assist with dc needs. Lars FABIANN RN ACM
[2019-11-17] MEDS: Chlorhexidine 15 ML PO ×2 (11:18→22:13)
[2019-11-17] MEDS: Mupirocin Ointment 22gm Tube 1 APPLIC TOPICAL ×2 (11:18→22:15)
[2019-11-17] MEDS: Vital AF 1.2 Cal Liquid 1,000 ML 70 ML GT (11:18)
[2019-11-17] MEDS: Enoxaparin 40 MG/0.4 ML Syringe SC ×2 (11:19→22:14)
[2019-11-17] MEDS: QUEtiapine 25 MG Tablet 50 MG GT ×2 (11:19→22:13)
[2019-11-17] MEDS: CHLORHEXIDINE GLUC 2% CLOTH 1 EACH TOWELETTE TOPICAL (11:19)
[2019-11-17] MEDS: Ceftriaxone 1 GM/50 ML BAG IV (11:20)
[2019-11-17] MEDS: Famotidine 20 MG Tablet GT ×2 (11:20→22:14)
--- NOTE | 2019-11-17 11:55 | PN_ITS ---
Patient Problems: Active and Suspected Problems (Last Reviewed 11/13/19 @ 00:[address] Navi Bee MD) Vomiting (Acute) Hypoxia (Acute) Respiratory insufficiency (Acute) Reason for Visit: Acute hypoxic respiratory failure secondary to increased oral and tracheal bronchial secretions along with inability to protect airway Objective: Overnight events were noted. Patient was intubated form tamper operator today when he was not able to control his secretions. Copious amount of oropharyngeal/tracheal secretions giving respiratory distress and was re- intubated. On IV sedation. Discussed with the night hospitalist. Patient is overall +3.6 L fluid balance. On exam General: Awake, cooperative, mild lethargic on light IV sedation HEENT: Atraumatic, PERRLA, EOMI, Normocephalic Oral: Superficial ulceration present on buccal mucosa. Significant continuous oral drooling of saliva. ET tube and OG tube. Neck: Supple, No JVD, Negative Carotid Bruits Lungs: Air entry diminished mainly on the right lung base. On ventilator setting, 30% FiO2. Coarse rhonchi present on the right lung base. Cardiovascular: Regular Rhythm, Normal S1, Normal S2, No murmurs Abdomen: Bowel Sounds Present, Soft, Non Tender, Non-Distended Extremities: No edema, Capillary Refill Less than 3 Seconds Skin: Ulcer/ Wound - Scrotal ulcer present with a scab on it. Musculoskeletal: No Tenderness to Palpation of Joints or Extremities Neurological: Cranial nerves II-XII grossly intact. Bilateral lower extremity weakness but patient is on sedative therefore hard to grade the strength of muscle power. Psych/Mental Status: Normal Affect, Appropriate Vitals/I&O's: Vital Signs Temp Pulse Resp BP Pulse Ox 98.0 F 78 14 109/72 98 11/17/19 07:00 11/17/19 11:15 11/17/19 11:15 11/17/19 07:00 11/17/19 11:15 Oxygen Flow Rate (L/min) 2 Oxygen Delivery Method Mechanical Ventilator Weight: 127 lb 13.89 oz Body Mass Index (BMI) 20.0 Intake and Output for Last 24 Hours 11/15/19 11/16/19 11/17/19 23:59 23:59 23:59 Intake Total 2099.78 / 2709.18 2418.22 / 2420.40 341.71 / 341.71 Output Total 975 / 1025 1380 / 1580 825 / 825 Balance 1124.78 / 1684.18 1038.22 / 840.40 -483.29 / -483.29 Microbiology Past 72 Hours 11/15/19 06:00 Sputum, Induced/Lukens Gram Stain - Final 11/15/19 06:00 Sputum, Induced/Lukens Respiratory Culture - Final Presumptive C albicans 11/15/19 05:15 Blood Culture (Wb) - Central Line Blood Culture - Preliminary No growth in 48 hours. 11/15/19 04:15 Blood Culture (Wb) - Arm Right Blood Culture - Preliminary No growth in 48 hours. 11/13/19 15:50 Sputum, Expectorated/Coughed Gram Stain - Final 11/13/19 15:50 Sputum, Expectorated/Coughed Respiratory Culture - Final Mixed normal respiratory hai. No Streptococcus pneumoniae, beta-hemolytic Streptococcus or Staphylococcus aureus isolated. 11/15/19 08:00 Urine Catheter - Catheter Legionella Antigen - Final 11/12/19 20:40 Blood Culture (Wb) - Anticubital Left Blood Culture - Preliminary No growth in 48 hours. 11/12/19 20:35 Blood Culture (Wb) - Anticubital Right Blood Culture - Preliminary No growth in 48 hours. Laboratory Results 11/15/19 11:10: COVID-19 (DINORAH) Not Detected 11/15/19 11:10: COVID-19 (DINORAH) Not Reportable 11/16/19 04:40: Total Creatine Kinase 429 H, Triglycerides 120 11/17/19 03:50: WBC 39.2 H*, RBC 4.06 L, Hgb 12.2 L, Hct 38.3 L, MCV 94.3 H, MCH 30.0, MCHC 31.9 L, RDW Std Deviation 44.3 H, RDW Coeff of Eduin 12.8, Plt Count 264, MPV 10.3, Immature Gran % (Auto) 0.900, Neut % (Auto) 92.3 H, Lymph % (Auto) 3.3 L, Weber % (Auto) 3.3, Eos % (Auto) 0.0, Baso % (Auto) 0.2, Absolute Neuts (auto) 36.2 H, Absolute Lymphs (auto) 1.29, Nucleated RBC % 0, Differential Comment SCANNED, Diff Path Review September11/17/19 03:50: Sodium 141, Potassium 3.7, Chloride 105, Carbon Dioxide 29.0, Anion Gap 7, BUN 24 H, Creatinine 0.67 L, Estim Creat Clear Calc 137.06, Est GFR (MDRD) Af Amer 185, Est GFR (MDRD) Non-Af 153, BUN/Creatinine Ratio 36.0 H, Glucose 91, Calcium 9.1, Phosphorus 0.6 L*, Magnesium 2.2 Current Medications Acyclovir (Zovirax) 800 mg GT TID [facility] Albuterol Sulfate (Ventolin Aerosols) 2.5 mg INHALATION Q2H PRN PRN PRN Reason: sob/wheezing Albuterol/Ipratropium (Duoneb) 3 ml INHALATION Q4H.RT [facility] Last Admin: 11/17/19 11:18 Dose: 3 ml Documented by: Chlorhexidine Gluconate () 15 ml PO BID [facility] Last Admin: 11/17/19 11:18 Dose: 15 ml Documented by: Chlorhexidine Gluconate () 1 each TOPICAL DAILY [facility] Last Admin: 11/17/19 11:19 Dose: 1 each Documented by: Dextrose (D50w Syringe) 0 gm IV X1 PRN; Protocol PRN Reason: Hypoglycemia Enoxaparin Sodium (Lovenox) 40 mg SC BID [facility] Last Admin: 11/17/19 11:19 Dose: 40 mg Documented by: Famotidine (Pepcid) 20 mg GT BID [facility] Last Admin: 11/17/19 11:20 Dose: 20 mg Documented by: Glucagon () 1 mg IM .X1 PRN PRN Reason: Hypoglycemia Guaifenesin (Mucinex) 1,200 mg PO BID [facility] Last Admin: 11/16/19 22:21 Dose: Not Given Documented by: Sodium Chloride () 250 mls @ 15 mls/hr IV .[id number] PRN PRN Reason: Saline Flush Sodium Chloride () 250 mls @ 15 mls/hr IV .[id number] PRN PRN Reason: Additional IVPB Infusion Ceftriaxone Sodium (Rocephin) 1 gm in 50 mls @ 100 mls/hr IV Q24 [facility] Last Admin: 11/17/19 11:20 Dose: 100 mls/hr Documented by: Propofol (Diprivan) 1,000 mg in 100 mls @ 3.48 mls/hr CONT INF .Q12H [facility]; Protocol Last Titration: 11/17/19 07:00 Dose: 40 mcg/kg/min, 13.9 mls/hr Documented by: Fentanyl Citrate 1,000 mcg/ (Sodium Chloride) 100 mls @ 5 mls/hr CONT INF .Q20H [facility]; Protocol Last Titration: 11/17/19 07:00 Dose: 150 mcg/hr, 15 mls/hr Documented by: Potassium Phosphate 40 mm/ (Sodium Chloride) 513.3333 mls @ 62.5 mls/hr IV X1 ONE Stop: 11/17/19 13:22 Last Admin: 11/17/19 05:51 Dose: 62.5 mls/hr Documented by: Enteral Nutritional Formula (Vital Af 1.2 Rafael Liquid) 1,000 mls @ 70 mls/hr GT .[id number] [facility] Last Admin: 11/17/19 11:18 Dose: 70 mls/hr Documented by: Methylprednisolone (Solu-Medrol) 40 mg IV Q8 [facility] Last Admin: 11/17/19 05:51 Dose: 40 mg Documented by: Mupirocin (Bactroban) 1 applic TOPICAL BID [facility]; Protocol Last Admin: 11/17/19 11:18 Dose: 1 applicatio Documented by: Ondansetron HCl (Zofran) 4 mg IV Q6H PRN PRN PRN Reason: NAUSEA/VOMITING Last Admin: 11/16/19 18:27 Dose: 4 mg Documented by: Quetiapine Fumarate (Seroquel) 50 mg GT BID [facility] Last Admin: 11/17/19 11:19 Dose: 50 mg Documented by: Sodium Chloride () 10 - 40 ml IV UD PRN PRN Reason: SALINE FLUSH Last Admin: 11/17/19 03:55 Dose: 40 ml Documented by: STROKE Vital Signs/Narrative: Vital Signs Pulse Resp Pulse Ox 11/17/19 11:15 78 14 98 11/17/19 08:58 87 14 98 Medical Necessity - Tobacco Use Smoking Status: Current every day smoker Tobacco Use: Cigarettes Assessment/Plan All Active Problems (Last Reviewed 11/13/19 @ 00:[address] Navi Bee MD) Mediastinal shift (Acute) Mucus plugging of bronchi (Acute) CVA (cerebral vascular accident) (Resolved) Vomiting (Acute) Hypoxia (Acute) Respiratory insufficiency (Acute) This a 24-year-old Afro-[place] gentleman with history of Behcet's disease was admitted with cough with dark black sputum, hypoxia 87% on room air also nausea and vomiting. 1. Acute hypoxic respiratory failure secondary to mucous plugging/ subacute infarct of right side of brainstem: Patient multiple chest x-ray reviewed and shows mediastinal shift with right tracheal pull most likely from mucous plugging. Patient is on aggressive pulmonary toileting, systemic steroid and VEST therapy. Repeat chest x-ray after intubation corrected the mediastinal shift. Early ARDS CTA did not show PE but diffuse interstitial edema. CK elevated. Lactic acid normal. Start serology nonreactive. COVID-19 PCR pending. Blood cultures x2 no growth for 48 hours, respiratory panel negative. Initial Gram stain shows mixed normal respiratory hai. On empiric ceftriaxone and Zithromax. 11/15 continue pulmonary hygiene including oral suctioning,VEST and incentive spirometry. Continue IV antibiotics. Patient has leukocytosis most probably, reactive to steroid. Sputum culture from 11/14 are pending which shows 3+ gram- positive cocci, 1+ gram-negative rods and 1+ gram-positive rods. 11/16: Repeat sputum culture shows presumptive Mikki albicans 1+. COVID-19 PCR not detected. SARS serology is nonreactive. 2. 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 MRI of brain reported acute/subacute infarct of the right side of brainstem but clinically it seems mainly subacute. Started on aspirin and statin. Fasting profile tomorrow a.m. It is hard to elicit neuro check/exam or SOC neurology consult as patient is intubated and on sedative, therefore will do neuro consult tomorrow a.m. by the most probably he will be extubated. Discussed with tire vulcanizer. 3. Hypotension most likely secondary to sedative: Resolved. Blood pressure systolic 110. Hypophosphatemia: K3.7, magnesium 2.2, phosphorus 0.6, on IV potassium phosphate. 3. Behcet's disease and history of a stroke: Has oral and scrotal ulcer. Patient was not on chronic steroid therapy or immunosuppression. Elevated CRP. On IV steroid. Stroke may be likely result of vasculitis. Patient has significant leukocytosis with neutrophilia most likely steroid effect. 4. Tobacco abuse: DVT: Lovenox Microbiology Past 72 Hours 11/15/19 06:00 Sputum, Induced/Lukens Gram Stain - Final 11/15/19 06:00 Sputum, Induced/Lukens Respiratory Culture - Final Presumptive C albicans 11/15/19 05:15 Blood Culture (Wb) - Central Line Blood Culture - Preliminary No growth in 48 hours. 11/15/19 04:15 Blood Culture (Wb) - Arm Right Blood Culture - Preliminary No growth in 48 hours. 11/13/19 15:50 Sputum, Expectorated/Coughed Gram Stain - Final 11/13/19 15:50 Sputum, Expectorated/Coughed Respiratory Culture - Final Mixed normal respiratory hai. No Streptococcus pneumoniae, beta-hemolytic Streptococcus or Staphylococcus aureus isolated. 11/15/19 08:00 Urine Catheter - Catheter Legionella Antigen - Final 11/12/19 20:40 Blood Culture (Wb) - Anticubital Left Blood Culture - Preliminary No growth in 48 hours. 11/12/19 20:35 Blood Culture (Wb) - Anticubital Right Blood Culture - Preliminary No growth in 48 hours. Laboratory Results 11/15/19 11:10: COVID-19 (DINORAH) Not Detected 11/15/19 11:10: COVID-19 (DINORAH) Not Reportable 11/16/19 04:40: Total Creatine Kinase 429 H, Triglycerides 120 11/17/19 03:50: WBC 39.2 H*, RBC 4.06 L, Hgb 12.2 L, Hct 38.3 L, MCV 94.3 H, MCH 30.0, MCHC 31.9 L, RDW Std Deviation 44.3 H, RDW Coeff of Eduin 12.8, Plt Count 264, MPV 10.3, Immature Gran % (Auto) 0.900, Neut % (Auto) 92.3 H, Lymph % (Auto) 3.3 L, Weber % (Auto) 3.3, Eos % (Auto) 0.0, Baso % (Auto) 0.2, Absolute Neuts (auto) 36.2 H, Absolute Lymphs (auto) 1.29, Nucleated RBC % 0, Differential Comment SCANNED, Diff Path Review September11/17/19 03:50: Sodium 141, Potassium 3.7, Chloride 105, Carbon Dioxide 29.0, Anion Gap 7, BUN 24 H, Creatinine 0.67 L, Estim Creat Clear Calc 137.06, Est GFR (MDRD) Af Amer 185, Est GFR (MDRD) Non-Af 153, BUN/Creatinine Ratio 36.0 H, Glucose 91, Calcium 9.1, Phosphorus 0.6 L*, Magnesium 2.2 Clinical Impression(s) from Imaging Studies Chest X-Ray 11/12/19 21:15 IMPRESSION: No acute cardiopulmonary pathology. Electronically Signed: Leonel Dawn MD at 21:39 EDT , Service support , Chest CTA 11/13/19 09:47 IMPRESSION: No demonstrated PE, or thoracic aortic aneurysm or dissection. However, the contrast bolus is not optimal in the distal pulmonary arteries and a subtle filling defect could be present and overlooked. Diffuse interstitial edema in both lung barnes with tree-in-bud opacifications consistent with small airways inflammation. Too small to characterize 3 mm nodule in the right upper lobe on axial image 155 Electronically Signed: Henry Rolon MD at 10:59 EDT , Service support , Chest X-Ray 11/15/19 01:40 IMPRESSION: Right lung collapse with volume loss and deviation of the mediastinum and heart to the right with hyperexpansion of the left hemithorax. at 0318 Reported and signed by: Alejandro Phelps MD Electronically Signed: Alejandro Phelps MD at 3:17 EDT Tel , Service support , ADDENDUM: 11/15/19 0337 IMPRESSION: Right lung collapse with volume loss and deviation of the mediastinum and heart to the right with hyperexpansion of the left hemithorax. at 0318 Reported and signed by: Alejandro Phelps MD N.B. : The above information has been verbally conveyed by Alejandro Phelps MD to RAFAL Snow, on 11/15/2019 03:30:11 (ET). Electronically Signed: Alejandro Phelps MD at 3:17 EDT Tel , Service support , Chest X-Ray 11/15/19 03:00 IMPRESSION: Reexpansion of the right lung with persistent atelectasis and likely airspace disease. Endotracheal tube terminates within the trachea above the clavicular heads, likely at the T1-T2 interspace. at 0455 Reported and signed by: Alejandro Phelps MD Electronically Signed: Alejandro Phelps MD at 4:54 EDT Tel , Service support , Chest X-Ray 11/15/19 05:22 IMPRESSION: Adequate position of newly placed right IJ central venous catheter without evidence of complications from placement of the catheter. Slight withdrawal of the endotracheal tube, now terminating at the intersection of the C7 and T1 vertebral body, approximately 11 cm above the stefania. It may benefit the patient for this to be advanced Worsening right lung airspace disease possibly representing reexpansion pulmonary edema. at 0552 Reported and signed by: Alejandro Phelps MD Electronically Signed: Alejandro Phelps MD at 5:51 EDT Tel , Service support , ADDENDUM: 11/15/19 0606 IMPRESSION: Adequate position of newly placed right IJ central venous catheter without evidence of complications from placement of the catheter. Slight withdrawal of the endotracheal tube, now terminating at the intersection of the C7 and T1 vertebral body, approximately 11 cm above the stefania. It may benefit the patient for this to be advanced Worsening right lung airspace disease possibly representing reexpansion pulmonary edema. at 0552 Reported and signed by: Alejandro Phelps MD N.B. : Diane Guillen RN, confirmed on 11/15/2019 05:59:10 (ET) that the healthcare facility has received the radiology report. Electronically Signed: Alejandro Phelps MD at 5:51 EDT Tel , Service support , Chest X-Ray 11/15/19 07:55 IMPRESSION: Diffuse right pulmonary infiltrates, similar to the previous study. Electronically Signed: Jun Blackwood DO at 8:35 EDT Tel [phone], Service support , Chest X-Ray 11/16/19 21:40 IMPRESSION: Removal of endotracheal and esophagogastric tubes.. Stable position of right IJ central venous catheter. Likely slight improvement to diffuse right hemithorax airspace disease, likely pneumonia. at 2245 Reported and signed by: Alejandro Phelps MD Electronically Signed: Alejandro Phelps MD at 22:44 EDT Tel , Service support , Chest X-Ray 11/16/19 23:13 IMPRESSION: Adequate position of replaced endotracheal and esophagogastric tubes. Persistent right lung airspace disease. at 0041 Reported and signed by: Alejandro Phelps MD Electronically Signed: Alejandro Phelps MD at 0:40 EDT Tel , Service support , Brain MRI 11/17/19 09:18 IMPRESSION: Acute/subacute infarct of the right side of the brainstem. Electronically Signed: Diego Coleman MD at 14:17 EDT Tel , Service support , Inpatient E&M: [id number] Subs Hosp L3
[2019-11-17] MEDS: fentaNYL 100 MCG/2 ML Ampul 150 MCG IV (12:30)
[2019-11-17] MEDS: Propofol 200 MG/20 ML Vial 50 MG IV BOLUS (12:30)
[2019-11-17] MEDS: Acyclovir 800 MG Tablet GT ×2 (13:58→22:13)
--- NOTE | 2019-11-17 15:33 | PN.ID_ITS ---
Patient Problems: Active and Suspected Problems (Last Reviewed 11/13/19 @ 00:[address] Navi Bee MD) Vomiting (Acute) Hypoxia (Acute) Respiratory insufficiency (Acute) Subjective: On vent, wants tube out, no fever - Physical Exam Vitals/I&O's: Vital Signs Temp Pulse Resp BP Pulse Ox 98 F 81 14 100/73 96 11/17/19 12:00 11/17/19 15:00 11/17/19 15:00 11/17/19 15:00 11/17/19 15:00 Oxygen Flow Rate (L/min) 2 Oxygen Delivery Method Mechanical Ventilator Weight: 58 kg Body Mass Index (BMI) 20.0 Intake and Output for Last 24 Hours 11/15/19 11/16/19 11/17/19 23:59 23:59 23:59 Intake Total 2099.78 / 2709.18 2418.22 / 2420.40 1056.99 / 1056.99 Output Total 975 / 1025 1380 / 1580 825 / 825 Balance 1124.78 / 1684.18 1038.22 / 840.40 231.99 / 231.99 General: Alert, Cooperative, No apparent distress Lungs: Clear to auscultation, Normal air movement Cardiovascular: Regular rate, Regular Rhythm Abdomen: Soft, Non Tender, Non-Distended Skin: No rashes Microbiology Past 72 Hours 11/15/19 06:00 Sputum, Induced/Lukens Gram Stain - Final 11/15/19 06:00 Sputum, Induced/Lukens Respiratory Culture - Final Presumptive C albicans 11/15/19 05:15 Blood Culture (Wb) - Central Line Blood Culture - Preliminary No growth in 48 hours. 11/15/19 04:15 Blood Culture (Wb) - Arm Right Blood Culture - Preliminary No growth in 48 hours. 11/13/19 15:50 Sputum, Expectorated/Coughed Gram Stain - Final 11/13/19 15:50 Sputum, Expectorated/Coughed Respiratory Culture - Final Mixed normal respiratory hai. No Streptococcus pneumoniae, beta-hemolytic Streptococcus or Staphylococcus aureus isolated. 11/15/19 08:00 Urine Catheter - Catheter Legionella Antigen - Final 11/12/19 20:40 Blood Culture (Wb) - Anticubital Left Blood Culture - Preliminary No growth in 48 hours. 11/12/19 20:35 Blood Culture (Wb) - Anticubital Right Blood Culture - Preliminary No growth in 48 hours. Laboratory Results 11/15/19 11:10: COVID-19 (DINORAH) Not Detected 11/15/19 11:10: COVID-19 (DINORAH) Not Reportable 11/16/19 04:40: Total Creatine Kinase 429 H, Triglycerides 120 11/17/19 03:50: WBC 39.2 H*, RBC 4.06 L, Hgb 12.2 L, Hct 38.3 L, MCV 94.3 H, MCH 30.0, MCHC 31.9 L, RDW Std Deviation 44.3 H, RDW Coeff of Eduin 12.8, Plt Count 264, MPV 10.3, Immature Gran % (Auto) 0.900, Neut % (Auto) 92.3 H, Lymph % (Auto) 3.3 L, Talbot % (Auto) 3.3, Eos % (Auto) 0.0, Baso % (Auto) 0.2, Absolute Neuts (auto) 36.2 H, Absolute Lymphs (auto) 1.29, Nucleated RBC % 0, Differential Comment SCANNED, Diff Path Review May foll 11/17/19 03:50: Sodium 141, Potassium 3.7, Chloride 105, Carbon Dioxide 29.0, Anion Gap 7, BUN 24 H, Creatinine 0.67 L, Estim Creat Clear Calc 137.06, Est GFR (MDRD) Af Amer 185, Est GFR (MDRD) Non-Af 153, BUN/Creatinine Ratio 36.0 H, Glucose 91, Calcium 9.1, Phosphorus 0.6 L*, Magnesium 2.2 11/17/19 03:50: Triglycerides Pending, Cholesterol Pending, LDL Cholesterol Pending, VLDL Cholesterol Pending, HDL Cholesterol Pending Current Medications Acyclovir (Zovirax) 800 mg GT TID [facility] Last Admin: 11/17/19 13:58 Dose: 800 mg Documented by: Albuterol Sulfate (Ventolin Aerosols) 2.5 mg INHALATION Q2H PRN PRN PRN Reason: sob/wheezing Albuterol/Ipratropium (Duoneb) 3 ml INHALATION Q4H.RT [facility] Last Admin: 11/17/19 14:40 Dose: 3 ml Documented by: Aspirin (Aspirin) 300 mg RECTAL DAILY [facility] Atorvastatin Calcium (Lipitor) 80 mg NG QHS [facility] Chlorhexidine Gluconate () 15 ml PO BID [facility] Last Admin: 11/17/19 11:18 Dose: 15 ml Documented by: Chlorhexidine Gluconate () 1 each TOPICAL DAILY [facility] Last Admin: 11/17/19 11:19 Dose: 1 each Documented by: Dextrose (D50w Syringe) 0 gm IV X1 PRN; Protocol PRN Reason: Hypoglycemia Enoxaparin Sodium (Lovenox) 40 mg SC BID [facility] Last Admin: 11/17/19 11:19 Dose: 40 mg Documented by: Famotidine (Pepcid) 20 mg GT BID [facility] Last Admin: 11/17/19 11:20 Dose: 20 mg Documented by: Glucagon () 1 mg IM .X1 PRN PRN Reason: Hypoglycemia Guaifenesin (Mucinex) 1,200 mg PO BID [facility] Last Admin: 11/17/19 12:20 Dose: Not Given Documented by: Sodium Chloride () 250 mls @ 15 mls/hr IV .[id number] PRN PRN Reason: Saline Flush Sodium Chloride () 250 mls @ 15 mls/hr IV .[id number] PRN PRN Reason: Additional IVPB Infusion Ceftriaxone Sodium (Rocephin) 1 gm in 50 mls @ 100 mls/hr IV Q24 [facility] Last Infusion: 11/17/19 11:50 Dose: Infused Documented by: Propofol (Diprivan) 1,000 mg in 100 mls @ 3.48 mls/hr CONT INF .Q12H [facility]; Protocol Last Titration: 11/17/19 15:00 Dose: 40 mcg/kg/min, 13.9 mls/hr Documented by: Fentanyl Citrate 1,000 mcg/ (Sodium Chloride) 100 mls @ 5 mls/hr CONT INF .Q20H [facility]; Protocol Last Titration: 11/17/19 15:00 Dose: 150 mcg/hr, 15 mls/hr Documented by: Enteral Nutritional Formula (Vital Af 1.2 Rafael Liquid) 1,000 mls @ 70 mls/hr GT .[id number] [facility] Last Admin: 11/17/19 11:18 Dose: 70 mls/hr Documented by: Methylprednisolone (Solu-Medrol) 40 mg IV Q8 [facility] Last Admin: 11/17/19 13:58 Dose: 40 mg Documented by: Mupirocin (Bactroban) 1 applic TOPICAL BID [facility]; Protocol Last Admin: 11/17/19 11:18 Dose: 1 applicatio Documented by: Ondansetron HCl (Zofran) 4 mg IV Q6H PRN PRN PRN Reason: NAUSEA/VOMITING Last Admin: 11/16/19 18:27 Dose: 4 mg Documented by: Quetiapine Fumarate (Seroquel) 50 mg GT BID [facility] Last Admin: 11/17/19 11:19 Dose: 50 mg Documented by: Sodium Chloride () 10 - 40 ml IV UD PRN PRN Reason: SALINE FLUSH Last Admin: 11/17/19 13:53 Dose: 40 ml Documented by: Medical Necessity - Tobacco Use Smoking Status: Current every day smoker Tobacco Use: Cigarettes Route of nutrition/ use of supplements: [] Nutritional Intake: [] IV Site: [] Chowdhury Catheter: [] - Assessment/Plan Antibiotics: [] Assessment/Plan: [] Active and Suspected Problems (Last Reviewed 11/13/19 @ 00:[address] Navi Bee MD) Vomiting (Acute) Hypoxia (Acute) Respiratory insufficiency (Acute) Acute onset of n/v, headache, myalgias, chest pain, dyspnea, cough, hypoxia - h/o Behcet's, untreated. On vent, cxs neg. Will stop ceftriaxone. Endobronchial covid pcr neg, will d/c iso. Will follow
[2019-11-17 15:39] LABS: Cholesterol 128 mg/dL (200); High Density Lipoprotein 30 mg/dL; Triglycerides 146 mg/dL; Very Low Density Lipoprotein 29 mg/dL (5-40)
[2019-11-17] MEDS: Aspirin 325 MG Tablet GT (16:12)
[2019-11-17] MEDS: Atorvastatin Calcium 80 MG Tablet NG (22:15)
[2019-11-18] VITALS (42 sets, daily range): BP systolic 104–138; BP diastolic 61–97; PULSE 63–95; RESP 14–31; TEMP 36.8–37.5; O2SAT 95–100
[2019-11-18] MEDS: Ipratropium/Albuterol Sulfate 3 ML AMPUL.NEB INHALATION ×6 (03:04→22:48)
[2019-11-18] MEDS: CHLORHEXIDINE GLUC 2% CLOTH 1 EACH TOWELETTE TOPICAL (04:00)
[2019-11-18 04:20] LABS: Absolute Lymphocyte Count 1.19 X10^3/uL (0.83-4.51); Absolute Neutrophil Count 23.9 X10^3/uL (2.0-7.7); Basophil# 0.02 X10^3/uL; Basophil% 0.1 % (0-1); Hematocrit 36.2 % (40-54); Hemoglobin 11.6 g/dL (13.0-16.5); Lymphocyte # 1.19 X10^3/ul (4.0); Lymphocyte % 4.5 % (19-41); Mean Corpuscular Hgb 30.6 pg (27.0-32.0); Mean Corpuscular Volume 95.5 fL (80-94); Monocyte# 0.87 X10^3/uL; Monocyte% 3.3 % (0-10); NRBC Flagged by Analyzer 0 % (0-5); Neutrophil # 23.92 X10^3/uL (2.7-7.7); Neutrophil % 91.5 % (47-70); POSITIVE DIFFERENTIAL YES; Platelet Count 250 K/mm3 (150-450); RBC Distribution Width CV 13.2 % (11.6-14.6); RBC Distribution Width SD 45.9 fl (35.1-43.9); Red Blood Count 3.79 M/mm3 (4.6-6.2); White Blood Count 26.2 K/mm3 (4.4-11.0)
[2019-11-18 04:24] LABS: Differential Indicated SCAN CRITERIA MET
[2019-11-18 04:50] LABS: AST(SGOT) 17 U/L (15-37); Alanine Aminotransfer ALT/SGPT 17 U/L (16-61); Albumin, Serum 2.7 g/dL (3.2-5.0); Alkaline Phosphatase 58 U/L (45-117); Anion Gap 4 (5-15); BUN 24 mg/dL (7-18); BUN/Creat Ratio 36.3 RATIO (10-20); Bilirubin, Direct 0.22 mg/dL (0.00-0.30); Calcium,Total 8.2 mg/dL (8.5-10.1); Chloride 105 mmol/L (98-107); Creatinine, Serum 0.66 mg/dL (0.70-1.30); EST Glomerular Filtration Rate 154 mL/min (>60); Est Glom Filt Rate - Afr Amer 186 mL/min (>60); Estimated Creatinine Clearance 139.14 ml/min; Globulin 4.6 g/dL (2.2-4.2); Glucose 115 mg/dL (74-106); Potassium 4.1 mmol/L (3.5-5.1); Protein, Total 7.3 g/dL (6.4-8.2); Sodium Level 138 mmol/L (136-145)
[2019-11-18] MEDS: Acyclovir 800 MG Tablet GT ×3 (05:19→21:26)
[2019-11-18] MEDS: 0.9% Saline Lock 10 ML Syringe IV ×3 (05:20→21:48)
[2019-11-18] MEDS: TITRATION PARAMETER CHANGE 1 EACH IV (05:34)
--- NOTE | 2019-11-18 06:20 | PCM.PN.INT ---
Subjective: The patient was seen and examined at the bedside this morning. Events from the last 24 hours have been reviewed. The patient is currently afebrile, hemodynamically stable and maintaining appropriate oxygen saturations on spontaneous mode of mechanical ventilation with an FiO2 requirement of 30%. The patient unfortunately failed his spontaneous breathing trial this morning due to the development of tachypnea and low tidal volume breaths. The patient was also noted to have a significant amount of oral secretions. I did call and personally speak with the patient's mother, Radha, to provide her an update on the patient's clinical state. Objective: The patient's most recent lab work, culture data and imaging studies have all been personally reviewed. Infectious work-up has been unrevealing to date. Brain MRI revealed an acute/subacute infarct of the right side of the brainstem. General: - - Remains intubated and mechanically ventilated. HEENT: Atraumatic, PERRLA, Normocephalic Oral: No Gingival or Mucosal Lesions/ Ulcerations, - - Endotracheal and OG tubes remain in place. Neck: Supple, No Nodes, Trachea Midline Lungs: Diminished, Tachypneic Cardiovascular: Regular rate, Regular Rhythm Abdomen: Bowel Sounds Present, Soft, Non Tender Extremities: No clubbing, No cyanosis, No edema Skin: - - No significant change from previous Musculoskeletal: No Muscle Wasting Lymphatic: No Cervical, Supraclavicular, or Inguinal Adenopathy Neurological: - - No focal neurological deficits. Alert and able to follow simple commands. Vital Signs Temp Pulse Resp BP Pulse Ox 98.7 F 64 14 115/83 H 99 11/18/19 06:00 11/18/19 06:00 11/18/19 06:00 11/18/19 06:00 11/18/19 06:00 Oxygen Flow Rate (L/min) 2 Oxygen Delivery Method Mechanical Ventilator Weight: 124 lb 1.924 oz Body Mass Index (BMI) 20.0 Intake and Output for Last 24 Hours 11/16/19 11/17/19 11/18/19 23:59 23:59 23:59 Intake Total 2418.22 / 2420.40 2255.8033 / 2271.9633 514.41 / 514.41 Output Total 1380 / 1580 1325 / 1325 175 / 175 Balance 1038.22 / 840.40 930.8033 / 946.9633 339.41 / 339.41 Labs (Last 48 Hours) 11/15/19 11/15/19 11/16/19 11:10 11:10 04:40 WBC 28.6 H RBC 4.03 L Hgb 12.2 L Hct 37.6 L MCV 93.3 MCH 30.3 MCHC 32.4 RDW Std Deviation 43.3 RDW Coeff of Eduin 12.6 Plt Count 231 MPV 10.7 Immature Gran % (Auto) 1.000 H Neut % (Auto) 91.6 H Lymph % (Auto) 4.0 L Sutter % (Auto) 3.3 Eos % (Auto) 0.0 Baso % (Auto) 0.1 Absolute Neuts (auto) 26.2 H Absolute Lymphs (auto) 1.14 Nucleated RBC % 0 Differential Comment SCANNED Diff Path Review Specimen Type Sample Site O2 % Cisco Test O2 Delivery Device Vent Mode POC PEEP POC Pressure Suppt Blood Gas Notified Whom Sodium Potassium Chloride Carbon Dioxide Anion Gap BUN Creatinine Estim Creat Clear Calc Est GFR (MDRD) Af Amer Est GFR (MDRD) Non-Af BUN/Creatinine Ratio Glucose Calcium Phosphorus Magnesium Total Bilirubin Direct Bilirubin AST ALT Alkaline Phosphatase Total Creatine Kinase Total Protein Albumin Globulin Triglycerides Cholesterol LDL Cholesterol VLDL Cholesterol HDL Cholesterol COVID-19 (DINORAH) Not Detected Not Reportable 11/16/19 11/16/19 11/17/19 04:40 05:59 03:50 WBC 39.2 H* RBC 4.06 L Hgb 12.2 L Hct 38.3 L MCV 94.3 H MCH 30.0 MCHC 31.9 L RDW Std Deviation 44.3 H RDW Coeff of Eduin 12.8 Plt Count 264 MPV 10.3 Immature Gran % (Auto) 0.900 Neut % (Auto) 92.3 H Lymph % (Auto) 3.3 L Sutter % (Auto) 3.3 Eos % (Auto) 0.0 Baso % (Auto) 0.2 Absolute Neuts (auto) 36.2 H Absolute Lymphs (auto) 1.29 Nucleated RBC % 0 Differential Comment SCANNED Diff Path Review May foll Specimen Type ART Sample Site L RADIAL O2 % 40 Cisco Test POS O2 Delivery Device Vent Vent Mode CPAP POC PEEP 5 POC Pressure Suppt 5 Blood Gas Notified Whom ICU Sodium Potassium Chloride Carbon Dioxide Anion Gap BUN Creatinine Estim Creat Clear Calc Est GFR (MDRD) Af Amer Est GFR (MDRD) Non-Af BUN/Creatinine Ratio Glucose Calcium Phosphorus Magnesium Total Bilirubin Direct Bilirubin AST ALT Alkaline Phosphatase Total Creatine Kinase 429 H Total Protein Albumin Globulin Triglycerides 120 Cholesterol LDL Cholesterol VLDL Cholesterol HDL Cholesterol COVID-19 (DINORAH) 11/17/19 11/17/19 11/18/19 03:50 03:50 04:15 WBC RBC Hgb Hct MCV MCH MCHC RDW Std Deviation RDW Coeff of Eduin Plt Count MPV Immature Gran % (Auto) Neut % (Auto) Lymph % (Auto) Sutter % (Auto) Eos % (Auto) Baso % (Auto) Absolute Neuts (auto) Absolute Lymphs (auto) Nucleated RBC % Differential Comment Diff Path Review Specimen Type Sample Site O2 % Cisco Test O2 Delivery Device Vent Mode POC PEEP POC Pressure Suppt Blood Gas Notified Whom Sodium 141 138 Potassium 3.7 4.1 Chloride 105 105 Carbon Dioxide 29.0 29.0 Anion Gap 7 4 L BUN 24 H 24 H Creatinine 0.67 L 0.66 L Estim Creat Clear Calc 137.06 139.14 Est GFR (MDRD) Af Amer 185 186 Est GFR (MDRD) Non-Af 153 154 BUN/Creatinine Ratio 36.0 H 36.3 H Glucose 91 115 H Calcium 9.1 8.2 L Phosphorus 0.6 L* 3.0 Magnesium 2.2 Total Bilirubin 0.80 Direct Bilirubin 0.22 AST 17 ALT 17 Alkaline Phosphatase 58 Total Creatine Kinase Total Protein 7.3 Albumin 2.7 L Globulin 4.6 H Triglycerides 146 Cholesterol 128 LDL Cholesterol 69 VLDL Cholesterol 29 HDL Cholesterol 30 L COVID-19 (DINORAH) 11/18/19 04:15 WBC 26.2 H RBC 3.79 L Hgb 11.6 L Hct 36.2 L MCV 95.5 H MCH 30.6 MCHC 32.0 RDW Std Deviation 45.9 H RDW Coeff of Eduin 13.2 Plt Count 250 MPV 10.0 Immature Gran % (Auto) 0.600 Neut % (Auto) 91.5 H Lymph % (Auto) 4.5 L Sutter % (Auto) 3.3 Eos % (Auto) 0.0 Baso % (Auto) 0.1 Absolute Neuts (auto) 23.9 H Absolute Lymphs (auto) 1.19 Nucleated RBC % 0 Differential Comment COMMENT Diff Path Review Specimen Type Sample Site O2 % Cisco Test O2 Delivery Device Vent Mode POC PEEP POC Pressure Suppt Blood Gas Notified Whom Sodium Potassium Chloride Carbon Dioxide Anion Gap BUN Creatinine Estim Creat Clear Calc Est GFR (MDRD) Af Amer Est GFR (MDRD) Non-Af BUN/Creatinine Ratio Glucose Calcium Phosphorus Magnesium Total Bilirubin Direct Bilirubin AST ALT Alkaline Phosphatase Total Creatine Kinase Total Protein Albumin Globulin Triglycerides Cholesterol LDL Cholesterol VLDL Cholesterol HDL Cholesterol COVID-19 (DINORAH) Microbiology 11/15/19 06:00 Sputum, Induced/Lukens Gram Stain - Final 11/15/19 06:00 Sputum, Induced/Lukens Respiratory Culture - Final Presumptive C albicans 11/15/19 05:15 Blood Culture (Wb) - Central Line Blood Culture - Preliminary No growth in 48 hours. 11/15/19 04:15 Blood Culture (Wb) - Arm Right Blood Culture - Preliminary No growth in 48 hours. Clinical Impression(s) from Imaging Studies Chest X-Ray 11/12/19 21:15 IMPRESSION: No acute cardiopulmonary pathology. Electronically Signed: Leonel Dawn MD at 21:39 EDT , Service support , Chest CTA 11/13/19 09:47 IMPRESSION: No demonstrated PE, or thoracic aortic aneurysm or dissection. However, the contrast bolus is not optimal in the distal pulmonary arteries and a subtle filling defect could be present and overlooked. Diffuse interstitial edema in both lung barnes with tree-in-bud opacifications consistent with small airways inflammation. Too small to characterize 3 mm nodule in the right upper lobe on axial image 155 Electronically Signed: Henry Rolon MD at 10:59 EDT , Service support , Chest X-Ray 11/15/19 01:40 IMPRESSION: Right lung collapse with volume loss and deviation of the mediastinum and heart to the right with hyperexpansion of the left hemithorax. at 0318 Reported and signed by: Alejandro Phelps MD Electronically Signed: Alejandro Phelps MD at 3:17 EDT Tel , Service support , ADDENDUM: 11/15/19 0337 IMPRESSION: Right lung collapse with volume loss and deviation of the mediastinum and heart to the right with hyperexpansion of the left hemithorax. at 0318 Reported and signed by: Alejandro Phelps MD N.B. : The above information has been verbally conveyed by Alejandro Phelps MD to RAFAL Snow, on 11/15/2019 03:30:11 (ET). Electronically Signed: Alejandro Phelps MD at 3:17 EDT Tel , Service support , Chest X-Ray 11/15/19 03:00 IMPRESSION: Reexpansion of the right lung with persistent atelectasis and likely airspace disease. Endotracheal tube terminates within the trachea above the clavicular heads, likely at the T1-T2 interspace. at 0455 Reported and signed by: Alejandro Phelps MD Electronically Signed: Alejandro Phelps MD at 4:54 EDT Tel , Service support , Chest X-Ray 11/15/19 05:22 IMPRESSION: Adequate position of newly placed right IJ central venous catheter without evidence of complications from placement of the catheter. Slight withdrawal of the endotracheal tube, now terminating at the intersection of the C7 and T1 vertebral body, approximately 11 cm above the stefania. It may benefit the patient for this to be advanced Worsening right lung airspace disease possibly representing reexpansion pulmonary edema. at 1730 Reported and signed by: Alejandro Phelps MD Electronically Signed: Alejandro Phelps MD at 5:51 EDT Tel , Service support , ADDENDUM: 11/15/19 0606 IMPRESSION: Adequate position of newly placed right IJ central venous catheter without evidence of complications from placement of the catheter. Slight withdrawal of the endotracheal tube, now terminating at the intersection of the C7 and T1 vertebral body, approximately 11 cm above the stefania. It may benefit the patient for this to be advanced Worsening right lung airspace disease possibly representing reexpansion pulmonary edema. at 0552 Reported and signed by: Alejandro Phelps MD N.B. : Diane Guillen RN, confirmed on 11/15/2019 05:59:10 (ET) that the healthcare facility has received the radiology report. Electronically Signed: Alejandro Phelps MD at 5:51 EDT Tel , Service support , Chest X-Ray 11/15/19 07:55 IMPRESSION: Diffuse right pulmonary infiltrates, similar to the previous study. Electronically Signed: Jun Blackwood DO at 8:35 EDT Tel [phone], Service support , Chest X-Ray 11/16/19 21:40 IMPRESSION: Removal of endotracheal and esophagogastric tubes.. Stable position of right IJ central venous catheter. Likely slight improvement to diffuse right hemithorax airspace disease, likely pneumonia. at 2245 Reported and signed by: Alejandro Phelps MD Electronically Signed: Alejandro Phelps MD at 22:44 EDT Tel , Service support , Chest X-Ray 11/16/19 23:13 IMPRESSION: Adequate position of replaced endotracheal and esophagogastric tubes. Persistent right lung airspace disease. at 0041 Reported and signed by: Alejandro Phelps MD Electronically Signed: Alejandro Phelps MD at 0:40 EDT Tel , Service support , Brain MRI 11/17/19 09:18 IMPRESSION: Acute/subacute infarct of the right side of the brainstem. Electronically Signed: Diego Coleman MD at 14:17 EDT Tel , Service support , ADDENDUM: 11/17/19 1441 IMPRESSION: Acute/subacute infarct of the right side of the brainstem. N.B. : The above information has been verbally conveyed by Diego Coleman MD to EDGAR EASTMAN DO, DO on 11/17/2019 14:34:32 (ET). Electronically Signed: Diego Coleman MD at 14:17 EDT Tel , Service support , Medical Necessity - Tobacco Use Smoking Status: Current every day smoker Tobacco Use: Cigarettes Assessment/Plan All Active Problems (Last Reviewed 11/13/19 @ 00:[address] Navi Bee MD) Mediastinal shift (Acute) Mucus plugging of bronchi (Acute) CVA (cerebral vascular accident) (Resolved) Vomiting (Acute) Hypoxia (Acute) Respiratory insufficiency (Acute) RECOMMENDATIONS: 1. Given SBT failure, plan to transition the patient back to assist control mode of mechanical ventilation. 2. Okay to resume tube feeds. 3. Continue antimicrobials as ordered, per ID recommendations. 4. Obtain neurology consultation. 5. Continue propofol and fentanyl for sedation. 6. Continue appropriate ICU prophylaxis. IMPRESSIONS: 1. Acute hypoxemic respiratory failure The patient does have notable right lower lobe airspace disease and failed a trial of extubation due to increased work of breathing and inability to clear secretions. He remains on antimicrobials per the discretion of infectious diseases. FiO2 requirement is minimal. Unfortunately, the patient failed his spontaneous breathing trial this morning due to development of tachypnea and low tidal volume breathing. He continues to have a significant amount of oral secretions. Coronavirus PCR testing was negative and serology was nonreactive. MRI did reveal findings concerning for an acute/subacute infarct of the brainstem. Accordingly, will obtain neurology consultation. Plan for repeat spontaneous awakening and breathing trials tomorrow morning. 2. Acute/subacute brainstem infarction MRI completed on November 16 revealed the above findings. Will obtain neurology consultation. 3. History of Behcet Disease The patient was not on any chronic immunosuppression reportedly as an outpatient. Unclear if current symptomatology represents an acute exacerbation of the vasculitis given significant mucocutaneous complaints. Attempts to have rheumatology evaluate have been unsuccessful. Patient does have a significantly elevated CRP. The patient will be continued on systemic steroids by IV. 4. History of tobacco dependency/Prior CVA Complicates care, management, recovery and prognosis. Physical therapy to work with the patient. TIME: 35 minutes of critical care time, independent of procedures, was spent addressing the patient's acute hypoxemic respiratory failure, hypophosphatemia, review of all data and collaboration with the care team. [id number]) [id number]: [id number] Critical care first hour
--- NOTE | 2019-11-18 08:13 | PN_ITS ---
Patient Problems: Active and Suspected Problems (Last Reviewed 11/13/19 @ 00:[address] Navi Bee MD) Vomiting (Acute) Hypoxia (Acute) Respiratory insufficiency (Acute) Reason for Visit: Follow-up for acute hypoxic respiratory failure and copious oral and tracheobronchial secretions Objective: No fever. Blood pressure is maintained. Still on ventilator, maintain patent airways to copious airway secretions. Vitals/I&O's: Vital Signs Temp Pulse Resp BP Pulse Ox 98.7 F 70 22 H 125/87 H 95 11/18/19 06:00 11/18/19 07:00 11/18/19 07:00 11/18/19 07:00 11/18/19 07:00 Oxygen Flow Rate (L/min) 2 Oxygen Delivery Method Mechanical Ventilator Weight: 124 lb 1.924 oz Body Mass Index (BMI) 20.0 Intake and Output for Last 24 Hours 11/16/19 11/17/19 11/18/19 23:59 23:59 23:59 Intake Total 2418.22 / 2420.40 2255.8033 / 2271.9633 514.41 / 514.41 Output Total 1380 / 1580 1325 / 1325 175 / 175 Balance 1038.22 / 840.40 930.8033 / 946.9633 339.41 / 339.41 General: Oriented x3, Cooperative, - - Awake HEENT: Atraumatic, PERRLA, EOMI, Normocephalic Oral: - - ET and OG tube. Still drooling saliva Neck: Supple, No JVD, Negative Carotid Bruits Lungs: Rales - COARSE rales on right lung base, - - On 30% FiO2. Cardiovascular: Regular rate, Regular Rhythm, Normal S1, Normal S2, No murmurs Abdomen: Bowel Sounds Present, Soft, Non Tender Extremities: No edema, Capillary Refill Less than 3 Seconds Skin: No rashes, No breakdown Musculoskeletal: No Tenderness to Palpation of Joints or Extremities Neurological: Cranial nerves II-XII grossly intact, Deep Tendon Reflexes 2+/4 and Symmetrical, Neuro grossly intact Psych/Mental Status: Normal Affect, Appropriate Microbiology Past 72 Hours 11/12/19 20:40 Blood Culture (Wb) - Anticubital Left Blood Culture - Final No growth in 5 days. 11/12/19 20:35 Blood Culture (Wb) - Anticubital Right Blood Culture - Final No growth in 5 days. 11/15/19 06:00 Sputum, Induced/Lukens Gram Stain - Final 11/15/19 06:00 Sputum, Induced/Lukens Respiratory Culture - Final Presumptive C albicans 11/15/19 05:15 Blood Culture (Wb) - Central Line Blood Culture - Preliminary No growth in 48 hours. 11/15/19 04:15 Blood Culture (Wb) - Arm Right Blood Culture - Preliminary No growth in 48 hours. 11/13/19 15:50 Sputum, Expectorated/Coughed Gram Stain - Final 11/13/19 15:50 Sputum, Expectorated/Coughed Respiratory Culture - Final Mixed normal respiratory hai. No Streptococcus pneumoniae, beta-hemolytic Streptococcus or Staphylococcus aureus isolated. 11/15/19 08:00 Urine Catheter - Catheter Legionella Antigen - Final Laboratory Results 11/17/19 03:50: Triglycerides 146, Cholesterol 128, LDL Cholesterol 69, VLDL Cholesterol 29, HDL Cholesterol 30 L 11/18/19 04:15: Sodium 138, Potassium 4.1, Chloride 105, Carbon Dioxide 29.0, Anion Gap 4 L, BUN 24 H, Creatinine 0.66 L, Estim Creat Clear Calc 139.14, Est GFR (MDRD) Af Amer 186, Est GFR (MDRD) Non-Af 154, BUN/Creatinine Ratio 36.3 H, Glucose 115 H, Calcium 8.2 L, Phosphorus 3.0, Total Bilirubin 0.80, Direct Bilirubin 0.22, AST 17, ALT 17, Alkaline Phosphatase 58, Total Protein 7.3, Albumin 2.7 L, Globulin 4.6 H 11/18/19 04:15: WBC 26.2 H, RBC 3.79 L, Hgb 11.6 L, Hct 36.2 L, MCV 95.5 H, MCH 30.6, MCHC 32.0, RDW Std Deviation 45.9 H, RDW Coeff of Eduin 13.2, Plt Count 250, MPV 10.0, Immature Gran % (Auto) 0.600, Neut % (Auto) 91.5 H, Lymph % (Auto) 4.5 L, Hayes % (Auto) 3.3, Eos % (Auto) 0.0, Baso % (Auto) 0.1, Absolute Neuts (auto) 23.9 H, Absolute Lymphs (auto) 1.19, Nucleated RBC % 0, Differential Comment COMMENT Current Medications Acyclovir (Zovirax) 800 mg GT TID [facility] Last Admin: 11/18/19 05:19 Dose: 800 mg Documented by: Albuterol Sulfate (Ventolin Aerosols) 2.5 mg INHALATION Q2H PRN PRN PRN Reason: sob/wheezing Albuterol/Ipratropium (Duoneb) 3 ml INHALATION Q4H.RT [facility] Last Admin: 11/18/19 07:52 Dose: 3 ml Documented by: Aspirin (Aspirin, Baby) 81 mg GT DAILY@1000 [facility] Atorvastatin Calcium (Lipitor) 80 mg NG QHS [facility] Last Admin: 11/17/19 22:15 Dose: 80 mg Documented by: Chlorhexidine Gluconate () 15 ml PO BID [facility] Last Admin: 11/17/19 22:13 Dose: 15 ml Documented by: Chlorhexidine Gluconate () 1 each TOPICAL DAILY [facility] Last Admin: 11/18/19 04:00 Dose: 1 each Documented by: Dextrose (D50w Syringe) 0 gm IV X1 PRN; Protocol PRN Reason: Hypoglycemia Enoxaparin Sodium (Lovenox) 40 mg SC BID [facility] Last Admin: 11/17/19 22:14 Dose: 40 mg Documented by: Famotidine (Pepcid) 20 mg GT BID [facility] Last Admin: 11/17/19 22:14 Dose: 20 mg Documented by: Glucagon () 1 mg IM .X1 PRN PRN Reason: Hypoglycemia Guaifenesin (Mucinex) 1,200 mg PO BID [facility] Last Admin: 11/17/19 21:59 Dose: Not Given Documented by: Sodium Chloride () 250 mls @ 15 mls/hr IV .[id number] PRN PRN Reason: Saline Flush Sodium Chloride () 250 mls @ 15 mls/hr IV .[id number] PRN PRN Reason: Additional IVPB Infusion Propofol (Diprivan) 1,000 mg in 100 mls @ 3.378 mls/hr CONT INF .Q12H [facility]; Protocol Last Titration: 11/18/19 07:00 Dose: 0 mcg/kg/min, 0 mls/hr Documented by: Fentanyl Citrate 1,000 mcg/ (Sodium Chloride) 100 mls @ 5 mls/hr CONT INF .Q20H [facility]; Protocol Last Titration: 11/18/19 07:00 Dose: 0 mcg/hr, 0 mls/hr Documented by: Enteral Nutritional Formula (Vital Af 1.2 Rafael Liquid) 1,000 mls @ 70 mls/hr GT .[id number] [facility] Last Admin: 11/17/19 23:41 Dose: Not Given Documented by: Methylprednisolone (Solu-Medrol) 40 mg IV Q8 [facility] Last Admin: 11/18/19 05:20 Dose: 40 mg Documented by: Mupirocin (Bactroban) 1 applic TOPICAL BID [facility]; Protocol Last Admin: 11/17/19 22:15 Dose: 1 applicatio Documented by: Ondansetron HCl (Zofran) 4 mg IV Q6H PRN PRN PRN Reason: NAUSEA/VOMITING Last Admin: 11/16/19 18:27 Dose: 4 mg Documented by: Quetiapine Fumarate (Seroquel) 50 mg GT BID [facility] Last Admin: 11/17/19 22:13 Dose: 50 mg Documented by: Sodium Chloride () 10 - 40 ml IV UD PRN PRN Reason: SALINE FLUSH Last Admin: 11/18/19 05:20 Dose: 20 ml Documented by: STROKE Vital Signs/Narrative: Vital Signs Temp Pulse Resp BP Pulse Ox 11/18/19 07:00 70 22 H 125/87 H 95 11/18/19 06:00 98.7 F 64 14 115/83 H 99 11/18/19 05:21 71 14 98 11/18/19 05:00 98.4 F 71 14 112/75 98 Medical Necessity - Tobacco Use Smoking Status: Current every day smoker Tobacco Use: Cigarettes Assessment/Plan All Active Problems (Last Reviewed 11/13/19 @ 00:[address] Navi Bee MD) Mediastinal shift (Acute) Mucus plugging of bronchi (Acute) CVA (cerebral vascular accident) (Resolved) Vomiting (Acute) Hypoxia (Acute) Respiratory insufficiency (Acute) This a 24-year-old Afro-[place] gentleman with history of Behcet's disease was admitted with cough with dark black sputum, hypoxia 87% on room air also nausea and vomiting. 1. Acute hypoxic respiratory failure secondary to mucous plugging/ subacute infarct of right side of brainstem: Patient multiple chest x-ray reviewed and shows mediastinal shift with right tracheal pull most likely from mucous plugging. Patient is on aggressive pulmonary toileting, systemic steroid and VEST therapy. Repeat chest x-ray after intubation corrected the mediastinal shift. CTA did not show PE but diffuse interstitial edema. CK elevated. Lactic acid normal. Blood cultures x2 no growth for 48 hours, respiratory panel negative. Initial Gram stain shows mixed normal respiratory hai. On empiric ceftriaxone and Zithromax. 11/15 continue pulmonary hygiene including oral suctioning,VEST and incentive spirometry. Continue IV antibiotics. Patient has leukocytosis most probably, reactive to steroid. Sputum culture from 11/14 are pending which shows 3+ gram-positive cocci, 1+ gram-negative rods and 1+ gram-positive rods. 11/16: Repeat sputum culture shows presumptive Mikki albicans 1+. COVID-19 endobronchial PCR not detected. SARS serology is nonreactive. 11/17: Still on ventilator. Patient unable to control oral secretions. No fever, hemodynamically blood pressure GOOD. Antibiotics discontinued 2. 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 MRI of brain reported acute/subacute infarct of the right side of brainstem but clinically it seems mainly subacute. Started on aspirin and statin. 11/17: Fasting profile LDL 69, HDL 30. On high intensity statin and aspirin. SOC neurology consult. 3. Hypotension most likely secondary to sedative: Resolved. 4. Hypophosphatemia: K3.7, magnesium 2.2, phosphorus 0.6, on IV potassium phosphate. 11/17: Repeat phosphorus 3.0. K4.1. 3. Behcet's disease and history of a stroke: Has oral and scrotal ulcer. Patient was not on chronic steroid therapy or immunosuppression. Elevated CRP. On IV steroid. Patient has significant leukocytosis with neutrophilia most likely steroid effect. 4. Tobacco abuse: DVT: Lovenox Microbiology Past 72 Hours 11/12/19 20:40 Blood Culture (Wb) - Anticubital Left Blood Culture - Final No growth in 5 days. 11/12/19 20:35 Blood Culture (Wb) - Anticubital Right Blood Culture - Final No growth in 5 days. 11/15/19 06:00 Sputum, Induced/Lukens Gram Stain - Final 11/15/19 06:00 Sputum, Induced/Lukens Respiratory Culture - Final Presumptive C albicans 11/15/19 05:15 Blood Culture (Wb) - Central Line Blood Culture - Preliminary No growth in 48 hours. 11/15/19 04:15 Blood Culture (Wb) - Arm Right Blood Culture - Preliminary No growth in 48 hours. 11/13/19 15:50 Sputum, Expectorated/Coughed Gram Stain - Final 11/13/19 15:50 Sputum, Expectorated/Coughed Respiratory Culture - Final Mixed normal respiratory hai. No Streptococcus pneumoniae, beta-hemolytic Streptococcus or Staphylococcus aureus isolated. 11/15/19 08:00 Urine Catheter - Catheter Legionella Antigen - Final Laboratory Results 11/17/19 03:50: Triglycerides 146, Cholesterol 128, LDL Cholesterol 69, VLDL Cholesterol 29, HDL Cholesterol 30 L 11/18/19 04:15: Sodium 138, Potassium 4.1, Chloride 105, Carbon Dioxide 29.0, Anion Gap 4 L, BUN 24 H, Creatinine 0.66 L, Estim Creat Clear Calc 139.14, Est GFR (MDRD) Af Amer 186, Est GFR (MDRD) Non-Af 154, BUN/Creatinine Ratio 36.3 H, Glucose 115 H, Calcium 8.2 L, Phosphorus 3.0, Total Bilirubin 0.80, Direct Bilirubin 0.22, AST 17, ALT 17, Alkaline Phosphatase 58, Total Protein 7.3, Albumin 2.7 L, Globulin 4.6 H 11/18/19 04:15: WBC 26.2 H, RBC 3.79 L, Hgb 11.6 L, Hct 36.2 L, MCV 95.5 H, MCH 30.6, MCHC 32.0, RDW Std Deviation 45.9 H, RDW Coeff of Eduin 13.2, Plt Count 250, MPV 10.0, Immature Gran % (Auto) 0.600, Neut % (Auto) 91.5 H, Lymph % (Auto) 4.5 L, Hayes % (Auto) 3.3, Eos % (Auto) 0.0, Baso % (Auto) 0.1, Absolute Neuts (auto) 23.9 H, Absolute Lymphs (auto) 1.19, Nucleated RBC % 0, Differential Comment COMMENT Clinical Impression(s) from Imaging Studies Chest X-Ray 11/12/19 21:15 IMPRESSION: No acute cardiopulmonary pathology. Electronically Signed: Leonel Dawn MD at 21:39 EDT , Service support , Chest CTA 11/13/19 09:47 IMPRESSION: No demonstrated PE, or thoracic aortic aneurysm or dissection. However, the contrast bolus is not optimal in the distal pulmonary arteries and a subtle filling defect could be present and overlooked. Diffuse interstitial edema in both lung barnes with tree-in-bud opacifications consistent with small airways inflammation. Too small to characterize 3 mm nodule in the right upper lobe on axial image 155 Electronically Signed: Henry Rolon MD at 10:59 EDT , Service support , Chest X-Ray 11/15/19 01:40 IMPRESSION: Right lung collapse with volume loss and deviation of the mediastinum and heart to the right with hyperexpansion of the left hemithorax. at 0318 Reported and signed by: Alejandro Phelps MD Electronically Signed: Alejandro Phelps MD at 3:17 EDT Tel , Service support , ADDENDUM: 11/15/19 0337 IMPRESSION: Right lung collapse with volume loss and deviation of the mediastinum and heart to the right with hyperexpansion of the left hemithorax. at 0318 Reported and signed by: Alejandro Phelps MD N.B. : The above information has been verbally conveyed by Alejandro Phelps MD to RAFAL Snow, on 11/15/2019 03:30:11 (ET). Electronically Signed: Alejandro Phelps MD at 3:17 EDT Tel , Service support , Chest X-Ray 11/15/19 03:00 IMPRESSION: Reexpansion of the right lung with persistent atelectasis and likely airspace disease. Endotracheal tube terminates within the trachea above the clavicular heads, likely at the T1-T2 interspace. at 0455 Reported and signed by: Alejandro Phelps MD Electronically Signed: Alejandro Phelps MD at 4:54 EDT Tel , Service support , Chest X-Ray 11/15/19 05:22 IMPRESSION: Adequate position of newly placed right IJ central venous catheter without evidence of complications from placement of the catheter. Slight withdrawal of the endotracheal tube, now terminating at the intersection of the C7 and T1 vertebral body, approximately 11 cm above the stefania. It may benefit the patient for this to be advanced Worsening right lung airspace disease possibly representing reexpansion pulmonary edema. at 3613 Reported and signed by: Alejandro Phelps MD Electronically Signed: Alejandro Phelps MD at 5:51 EDT Tel , Service support , ADDENDUM: 11/15/19 0606 IMPRESSION: Adequate position of newly placed right IJ central venous catheter without evidence of complications from placement of the catheter. Slight withdrawal of the endotracheal tube, now terminating at the intersection of the C7 and T1 vertebral body, approximately 11 cm above the stefania. It may benefit the patient for this to be advanced Worsening right lung airspace disease possibly representing reexpansion pulmonary edema. at 4967 Reported and signed by: Alejandro Phelps MD N.B. : Diane Guillen RN, confirmed on 11/15/2019 05:59:10 (ET) that the healthcare facility has received the radiology report. Electronically Signed: Alejandro Phelps MD at 5:51 EDT Tel , Service support , Chest X-Ray 11/15/19 07:55 IMPRESSION: Diffuse right pulmonary infiltrates, similar to the previous study. Electronically Signed: Jun Blackwood DO at 8:35 EDT Tel [phone], Service support , Chest X-Ray 11/16/19 21:40 IMPRESSION: Removal of endotracheal and esophagogastric tubes.. Stable position of right IJ central venous catheter. Likely slight improvement to diffuse right hemithorax airspace disease, likely pneumonia. at 2245 Reported and signed by: Alejandro Phelps MD Electronically Signed: Alejandro Phelps MD at 22:44 EDT Tel , Service support , Chest X-Ray 11/16/19 23:13 IMPRESSION: Adequate position of replaced endotracheal and esophagogastric tubes. Persistent right lung airspace disease. at 0041 Reported and signed by: Alejandro Phelps MD Electronically Signed: Alejandro Phelps MD at 0:40 EDT Tel , Service support , Brain MRI 11/17/19 09:18 IMPRESSION: Acute/subacute infarct of the right side of the brainstem. Electronically Signed: Diego Coleman MD at 14:17 EDT Tel , Service support , Inpatient E&M: [id number] [facility] Hosp L3
--- NOTE | 2019-11-18 08:54 | NURSING ---
0814 UPDATED MOTHER ON PATIENT CONDITION AND EVENTS FROM OVERNIGHT
[2019-11-18] MEDS: Enoxaparin 40 MG/0.4 ML Syringe SC ×2 (09:41→21:26)
[2019-11-18] MEDS: Famotidine 20 MG Tablet GT ×2 (09:42→21:25)
[2019-11-18] MEDS: Polyethylene Glycol 3350 17 GM PACKET GT (09:42)
[2019-11-18] MEDS: Senna/Docusate Sodium 1 Tablet 2 TABLET GT ×2 (09:42→21:25)
[2019-11-18] MEDS: QUEtiapine 25 MG Tablet 50 MG GT ×2 (09:42→21:25)
[2019-11-18] MEDS: Aspirin 81 MG TAB.CHEW GT (09:42)
[2019-11-18] MEDS: Mupirocin Ointment 22gm Tube 1 APPLIC TOPICAL ×2 (09:42→21:26)
[2019-11-18] MEDS: Chlorhexidine 15 ML PO ×2 (09:43→21:26)
[2019-11-18] MEDS: Propofol 10MG/Ml 1,000 MG/100 ML Bottle 6.8 MG CONT INF ×2 (10:00→23:00)
--- NOTE | 2019-11-18 10:11 | PCM.PN.ID ---
Patient Problems: Active and Suspected Problems (Last Reviewed 11/13/19 @ 00:[address] Navi Bee MD) Vomiting (Acute) Hypoxia (Acute) Respiratory insufficiency (Acute) Subjective: Feeling ok, denies fever, no dyspnea, no abd pain - Physical Exam Vitals/I&O's: Vital Signs Temp Pulse Resp BP Pulse Ox 98.7 F 70 22 H 125/87 H 95 11/18/19 06:00 11/18/19 07:00 11/18/19 07:00 11/18/19 07:00 11/18/19 07:00 Oxygen Flow Rate (L/min) 2 Oxygen Delivery Method Mechanical Ventilator Weight: 56.3 kg Body Mass Index (BMI) 20.0 Intake and Output for Last 24 Hours 11/16/19 11/17/19 11/18/19 23:59 23:59 23:59 Intake Total 2418.22 / 2420.40 2255.8033 / 2271.9633 735.53 / 735.53 Output Total 1380 / 1580 1325 / 1325 450 / 450 Balance 1038.22 / 840.40 930.8033 / 946.9633 285.53 / 285.53 General: Alert, Cooperative, No apparent distress Lungs: Clear to auscultation, Normal air movement Cardiovascular: Regular rate, Regular Rhythm Abdomen: Soft, Non Tender, Non-Distended Skin: No rashes Microbiology Past 72 Hours 11/12/19 20:40 Blood Culture (Wb) - Anticubital Left Blood Culture - Final No growth in 5 days. 11/12/19 20:35 Blood Culture (Wb) - Anticubital Right Blood Culture - Final No growth in 5 days. 11/15/19 06:00 Sputum, Induced/Lukens Gram Stain - Final 11/15/19 06:00 Sputum, Induced/Lukens Respiratory Culture - Final Presumptive C albicans 11/15/19 05:15 Blood Culture (Wb) - Central Line Blood Culture - Preliminary No growth in 48 hours. 11/15/19 04:15 Blood Culture (Wb) - Arm Right Blood Culture - Preliminary No growth in 48 hours. 11/13/19 15:50 Sputum, Expectorated/Coughed Gram Stain - Final 11/13/19 15:50 Sputum, Expectorated/Coughed Respiratory Culture - Final Mixed normal respiratory hai. No Streptococcus pneumoniae, beta-hemolytic Streptococcus or Staphylococcus aureus isolated. 11/15/19 08:00 Urine Catheter - Catheter Legionella Antigen - Final Laboratory Results 11/17/19 03:50: Triglycerides 146, Cholesterol 128, LDL Cholesterol 69, VLDL Cholesterol 29, HDL Cholesterol 30 L 11/18/19 04:15: Sodium 138, Potassium 4.1, Chloride 105, Carbon Dioxide 29.0, Anion Gap 4 L, BUN 24 H, Creatinine 0.66 L, Estim Creat Clear Calc 139.14, Est GFR (MDRD) Af Amer 186, Est GFR (MDRD) Non-Af 154, BUN/Creatinine Ratio 36.3 H, Glucose 115 H, Calcium 8.2 L, Phosphorus 3.0, Total Bilirubin 0.80, Direct Bilirubin 0.22, AST 17, ALT 17, Alkaline Phosphatase 58, Total Protein 7.3, Albumin 2.7 L, Globulin 4.6 H 11/18/19 04:15: WBC 26.2 H, RBC 3.79 L, Hgb 11.6 L, Hct 36.2 L, MCV 95.5 H, MCH 30.6, MCHC 32.0, RDW Std Deviation 45.9 H, RDW Coeff of Eduin 13.2, Plt Count 250, MPV 10.0, Immature Gran % (Auto) 0.600, Neut % (Auto) 91.5 H, Lymph % (Auto) 4.5 L, [place] % (Auto) 3.3, Eos % (Auto) 0.0, Baso % (Auto) 0.1, Absolute Neuts (auto) 23.9 H, Absolute Lymphs (auto) 1.19, Nucleated RBC % 0, Differential Comment COMMENT Current Medications Acyclovir (Zovirax) 800 mg GT TID [facility] Last Admin: 11/18/19 05:19 Dose: 800 mg Documented by: Albuterol Sulfate (Ventolin Aerosols) 2.5 mg INHALATION Q2H PRN PRN PRN Reason: sob/wheezing Albuterol/Ipratropium (Duoneb) 3 ml INHALATION Q4H.RT [facility] Last Admin: 11/18/19 07:52 Dose: 3 ml Documented by: Aspirin (Aspirin, Baby) 81 mg GT DAILY@1000 [facility] Last Admin: 11/18/19 09:42 Dose: 81 mg Documented by: Atorvastatin Calcium (Lipitor) 80 mg NG QHS [facility] Last Admin: 11/17/19 22:15 Dose: 80 mg Documented by: Chlorhexidine Gluconate () 15 ml PO BID [facility] Last Admin: 11/18/19 09:43 Dose: 15 ml Documented by: Chlorhexidine Gluconate () 1 each TOPICAL DAILY [facility] Last Admin: 11/18/19 04:00 Dose: 1 each Documented by: Dextrose (D50w Syringe) 0 gm IV X1 PRN; Protocol PRN Reason: Hypoglycemia Enoxaparin Sodium (Lovenox) 40 mg SC BID [facility] Last Admin: 11/18/19 09:41 Dose: 40 mg Documented by: Famotidine (Pepcid) 20 mg GT BID [facility] Last Admin: 11/18/19 09:42 Dose: 20 mg Documented by: Glucagon () 1 mg IM .X1 PRN PRN Reason: Hypoglycemia Guaifenesin (Mucinex) 1,200 mg PO BID [facility] Last Admin: 11/18/19 09:46 Dose: Not Given Documented by: Sodium Chloride () 250 mls @ 15 mls/hr IV .[id number] PRN PRN Reason: Saline Flush Sodium Chloride () 250 mls @ 15 mls/hr IV .[id number] PRN PRN Reason: Additional IVPB Infusion Propofol (Diprivan) 1,000 mg in 100 mls @ 3.378 mls/hr CONT INF .Q12H [facility]; Protocol Last Admin: 11/18/19 10:00 Dose: 20 mcg/kg/min, 6.8 mls/hr Documented by: Fentanyl Citrate 1,000 mcg/ (Sodium Chloride) 100 mls @ 5 mls/hr CONT INF .Q20H [facility]; Protocol Last Titration: 11/18/19 09:00 Dose: 75 mcg/hr, 7.5 mls/hr Documented by: Enteral Nutritional Formula (Vital Af 1.2 Rafael Liquid) 1,000 mls @ 70 mls/hr GT .[id number] [facility] Last Admin: 11/17/19 23:41 Dose: Not Given Documented by: Methylprednisolone (Solu-Medrol) 40 mg IV Q8 [facility] Last Admin: 11/18/19 05:20 Dose: 40 mg Documented by: Mupirocin (Bactroban) 1 applic TOPICAL BID [facility]; Protocol Last Admin: 11/18/19 09:42 Dose: 1 applicatio Documented by: Ondansetron HCl (Zofran) 4 mg IV Q6H PRN PRN PRN Reason: NAUSEA/VOMITING Last Admin: 11/16/19 18:27 Dose: 4 mg Documented by: Polyethylene Glycol (Miralax) 17 gm GT DAILY [facility] Last Admin: 11/18/19 09:42 Dose: 17 gm Documented by: Quetiapine Fumarate (Seroquel) 50 mg GT BID [facility] Last Admin: 11/18/19 09:42 Dose: 50 mg Documented by: Senna/Docusate Sodium (Senokot-S, Becky-Colace) 2 tablet GT BID [facility] Last Admin: 11/18/19 09:42 Dose: 2 tablet Documented by: Sodium Chloride () 10 - 40 ml IV UD PRN PRN Reason: SALINE FLUSH Last Admin: 11/18/19 09:44 Dose: 40 ml Documented by: Medical Necessity - Tobacco Use Smoking Status: Current every day smoker Tobacco Use: Cigarettes Route of nutrition/ use of supplements: [] Nutritional Intake: [] IV Site: [] Chowdhury Catheter: [] - Assessment/Plan Antibiotics: [] Assessment/Plan: [] Active and Suspected Problems (Last Reviewed 11/13/19 @ 00:[address] Navi Bee MD) Vomiting (Acute) Hypoxia (Acute) Respiratory insufficiency (Acute) Acute onset of n/v, headache, myalgias, chest pain, dyspnea, cough, hypoxia - h/o Behcet's, untreated. On vent, cxs neg. Off abx, out of iso. COVID endobronchial pcr was neg. Will follow
[2019-11-18 11:38] LABS: Pathologist Review Reviewed
--- NOTE | 2019-11-18 12:08 | CPS ---
Patient began coughing after placing neb in-line. Patient suctioned down ETT and orally multiple times. Vest therapy not done at this time.
[2019-11-18] MEDS: Atorvastatin Calcium 80 MG Tablet NG (21:25)
[2019-11-18] MEDS: Vital AF 1.2 Cal Liquid 1,000 ML 70 ML GT (21:45)
[2019-11-19] VITALS (38 sets, daily range): BP systolic 108–138; BP diastolic 75–105; PULSE 23–100; RESP 14–34; TEMP 36.7–37.1; O2SAT 90–100
[2019-11-19] MEDS: Ipratropium/Albuterol Sulfate 3 ML AMPUL.NEB INHALATION ×6 (02:36→22:50)
[2019-11-19] MEDS: 0.9% Saline Lock 10 ML Syringe IV ×3 (04:03→21:18)
[2019-11-19 04:17] LABS: Absolute Lymphocyte Count 1.77 X10^3/uL (0.83-4.51); Absolute Neutrophil Count 21.6 X10^3/uL (2.0-7.7); Basophil# 0.04 X10^3/uL; Basophil% 0.2 % (0-1); Eosinophil# 0.01 X10^3/uL; Hematocrit 37.1 % (40-54); Hemoglobin 11.8 g/dL (13.0-16.5); Lymphocyte # 1.77 X10^3/ul (4.0); Mean Corp Hgb Conc 31.8 g/dL (32-36); Mean Corpuscular Hgb 30.4 pg (27.0-32.0); Mean Corpuscular Volume 95.6 fL (80-94); Monocyte# 1.04 X10^3/uL; Monocyte% 4.1 % (0-10); NRBC Flagged by Analyzer 0 % (0-5); Neutrophil # 21.62 X10^3/uL (2.7-7.7); Neutrophil % 86.2 % (47-70); POSITIVE DIFFERENTIAL YES; Platelet Count 265 K/mm3 (150-450); RBC Distribution Width CV 13.2 % (11.6-14.6); RBC Distribution Width SD 44.7 fl (35.1-43.9); Red Blood Count 3.88 M/mm3 (4.6-6.2); White Blood Count 25.1 K/mm3 (4.4-11.0)
[2019-11-19 04:21] LABS: Differential Indicated SCAN CRITERIA MET
[2019-11-19 04:40] LABS: Anion Gap 6 (5-15); BUN 22 mg/dL (7-18); BUN/Creat Ratio 41.2 RATIO (10-20); Calcium,Total 8.6 mg/dL (8.5-10.1); Chloride 103 mmol/L (98-107); Creatinine, Serum 0.53 mg/dL (0.70-1.30); EST Glomerular Filtration Rate 197 mL/min (>60); Est Glom Filt Rate - Afr Amer 239 mL/min (>60); Estimated Creatinine Clearance 168.19 ml/min; Glucose 106 mg/dL (74-106); Potassium 4.2 mmol/L (3.5-5.1); Sodium Level 136 mmol/L (136-145)
[2019-11-19 05:04] LABS: Differential Comment SCANNED; Polychromasia RARE
[2019-11-19] MEDS: Acyclovir 800 MG Tablet GT ×2 (05:26→15:00)
--- NOTE | 2019-11-19 06:45 | PCM.PN.INT ---
Subjective: The patient was seen and examined at the bedside this morning. Events from the last 24 hours have been reviewed. The patient is currently afebrile, hemodynamically stable and maintaining appropriate oxygen saturations on spontaneous mode of mechanical ventilation with an FiO2 requirement of 30%. Nursing staff did report improvement in the level of his secretions. He has required less suctioning overnight. The patient is alert and appropriately interactive this morning. Objective: The patient's most recent lab work, culture data and imaging studies have all been personally reviewed. Infectious work-up has been unrevealing to date. Brain MRI revealed an acute/subacute infarct of the right side of the brainstem. General: - - Remains intubated and mechanically ventilated. Currently tolerating spontaneous mode of mechanical ventilation. HEENT: Atraumatic, Normocephalic Oral: No Gingival or Mucosal Lesions/ Ulcerations, - - Endotracheal and OG tubes remain in place Neck: Supple, No Nodes, Trachea Midline Lungs: No rhonchi, No wheeze, No rales, Diminished Cardiovascular: Regular rate, Regular Rhythm Abdomen: Bowel Sounds Present, Soft, Non Tender Extremities: No clubbing, No cyanosis, No edema Skin: No breakdown Musculoskeletal: No Tenderness to Palpation of Joints or Extremities Lymphatic: No Cervical, Supraclavicular, or Inguinal Adenopathy Neurological: Neuro grossly intact, - - Alert and following commands appropriately. Vital Signs Temp Pulse Resp BP Pulse Ox 98.3 F 59 L 16 127/89 H 98 11/19/19 06:00 11/19/19 06:00 11/19/19 06:00 11/19/19 06:00 11/19/19 06:00 Oxygen Flow Rate (L/min) 2 Oxygen Delivery Method CPAP Weight: 124 lb 1.924 oz Body Mass Index (BMI) 20.0 Intake and Output for Last 24 Hours 11/17/19 11/18/19 11/19/19 23:59 23:59 23:59 Intake Total 2255.8033 / 2271.9633 2308.66 / 2325.46 553.0 / 553.0 Output Total 1325 / 1325 1155 / 1155 300 / 300 Balance 930.8033 / 946.9633 1153.66 / 1170.46 253.0 / 253.0 Labs (Last 48 Hours) 11/17/19 11/17/19 11/18/19 03:50 03:50 04:15 WBC RBC Hgb Hct MCV MCH MCHC RDW Std Deviation RDW Coeff of Eduin Plt Count MPV Immature Gran % (Auto) Neut % (Auto) Lymph % (Auto) [place] % (Auto) Eos % (Auto) Baso % (Auto) Absolute Neuts (auto) Absolute Lymphs (auto) Nucleated RBC % Differential Comment Diff Path Review Reviewed Polychromasia Sodium 138 Potassium 4.1 Chloride 105 Carbon Dioxide 29.0 Anion Gap 4 L BUN 24 H Creatinine 0.66 L Estim Creat Clear Calc 139.14 Est GFR (MDRD) Af Amer 186 Est GFR (MDRD) Non-Af 154 BUN/Creatinine Ratio 36.3 H Glucose 115 H Calcium 8.2 L Phosphorus 3.0 Total Bilirubin 0.80 Direct Bilirubin 0.22 AST 17 ALT 17 Alkaline Phosphatase 58 Total Protein 7.3 Albumin 2.7 L Globulin 4.6 H Triglycerides 146 Cholesterol 128 LDL Cholesterol 69 VLDL Cholesterol 29 HDL Cholesterol 30 L 11/18/19 11/19/19 11/19/19 04:15 04:00 04:00 WBC 26.2 H 25.1 H RBC 3.79 L 3.88 L Hgb 11.6 L 11.8 L Hct 36.2 L 37.1 L MCV 95.5 H 95.6 H MCH 30.6 30.4 MCHC 32.0 31.8 L RDW Std Deviation 45.9 H 44.7 H RDW Coeff of Eduin 13.2 13.2 Plt Count 250 265 MPV 10.0 10.0 Immature Gran % (Auto) 0.600 2.500 H Neut % (Auto) 91.5 H 86.2 H Lymph % (Auto) 4.5 L 7.0 L [place] % (Auto) 3.3 4.1 Eos % (Auto) 0.0 0.0 Baso % (Auto) 0.1 0.2 Absolute Neuts (auto) 23.9 H 21.6 H Absolute Lymphs (auto) 1.19 1.77 Nucleated RBC % 0 0 Differential Comment COMMENT SCANNED Diff Path Review Polychromasia RARE Sodium 136 Potassium 4.2 Chloride 103 Carbon Dioxide 27.0 Anion Gap 6 BUN 22 H Creatinine 0.53 L Estim Creat Clear Calc 168.19 Est GFR (MDRD) Af Amer 239 Est GFR (MDRD) Non-Af 197 BUN/Creatinine Ratio 41.2 H Glucose 106 Calcium 8.6 Phosphorus Total Bilirubin Direct Bilirubin AST ALT Alkaline Phosphatase Total Protein Albumin Globulin Triglycerides Cholesterol LDL Cholesterol VLDL Cholesterol HDL Cholesterol Microbiology 11/12/19 20:40 Blood Culture (Wb) - Anticubital Left Blood Culture - Final No growth in 5 days. 11/12/19 20:35 Blood Culture (Wb) - Anticubital Right Blood Culture - Final No growth in 5 days. 11/15/19 06:00 Sputum, Induced/Lukens Gram Stain - Final 11/15/19 06:00 Sputum, Induced/Lukens Respiratory Culture - Final Presumptive C albicans 11/15/19 05:15 Blood Culture (Wb) - Central Line Blood Culture - Preliminary No growth in 48 hours. 11/15/19 04:15 Blood Culture (Wb) - Arm Right Blood Culture - Preliminary No growth in 48 hours. Clinical Impression(s) from Imaging Studies Chest X-Ray 11/12/19 21:15 IMPRESSION: No acute cardiopulmonary pathology. Electronically Signed: Leonel Dawn MD at 21:39 EDT , Service support , Chest CTA 11/13/19 09:47 IMPRESSION: No demonstrated PE, or thoracic aortic aneurysm or dissection. However, the contrast bolus is not optimal in the distal pulmonary arteries and a subtle filling defect could be present and overlooked. Diffuse interstitial edema in both lung barnes with tree-in-bud opacifications consistent with small airways inflammation. Too small to characterize 3 mm nodule in the right upper lobe on axial image 155 Electronically Signed: Henry Rolon MD at 10:59 EDT , Service support , Chest X-Ray 11/15/19 01:40 IMPRESSION: Right lung collapse with volume loss and deviation of the mediastinum and heart to the right with hyperexpansion of the left hemithorax. at 0318 Reported and signed by: Alejandro Phelps MD Electronically Signed: Alejandro Phelps MD at 3:17 EDT Tel , Service support , ADDENDUM: 11/15/19 0337 IMPRESSION: Right lung collapse with volume loss and deviation of the mediastinum and heart to the right with hyperexpansion of the left hemithorax. at 0318 Reported and signed by: Alejandro Phelps MD N.B. : The above information has been verbally conveyed by Alejandro Phelps MD to RAFAL Snow, on 11/15/2019 03:30:11 (ET). Electronically Signed: Alejandro Phelps MD at 3:17 EDT Tel , Service support , Chest X-Ray 11/15/19 03:00 IMPRESSION: Reexpansion of the right lung with persistent atelectasis and likely airspace disease. Endotracheal tube terminates within the trachea above the clavicular heads, likely at the T1-T2 interspace. at 0455 Reported and signed by: Alejandro Phelps MD Electronically Signed: Alejandro Phelps MD at 4:54 EDT Tel , Service support , Chest X-Ray 11/15/19 05:22 IMPRESSION: Adequate position of newly placed right IJ central venous catheter without evidence of complications from placement of the catheter. Slight withdrawal of the endotracheal tube, now terminating at the intersection of the C7 and T1 vertebral body, approximately 11 cm above the stefania. It may benefit the patient for this to be advanced Worsening right lung airspace disease possibly representing reexpansion pulmonary edema. at 1265 Reported and signed by: Alejandro Phelps MD Electronically Signed: Alejandro Phelps MD at 5:51 EDT Tel , Service support , ADDENDUM: 11/15/19 0606 IMPRESSION: Adequate position of newly placed right IJ central venous catheter without evidence of complications from placement of the catheter. Slight withdrawal of the endotracheal tube, now terminating at the intersection of the C7 and T1 vertebral body, approximately 11 cm above the stefania. It may benefit the patient for this to be advanced Worsening right lung airspace disease possibly representing reexpansion pulmonary edema. at 0552 Reported and signed by: Alejandro Phelps MD N.B. : Diane Guillen RN, confirmed on 11/15/2019 05:59:10 (ET) that the healthcare facility has received the radiology report. Electronically Signed: Alejandro Phelps MD at 5:51 EDT Tel , Service support , Chest X-Ray 11/15/19 07:55 IMPRESSION: Diffuse right pulmonary infiltrates, similar to the previous study. Electronically Signed: Jun Blackwood DO at 8:35 EDT Tel [phone], Service support , Chest X-Ray 11/16/19 21:40 IMPRESSION: Removal of endotracheal and esophagogastric tubes.. Stable position of right IJ central venous catheter. Likely slight improvement to diffuse right hemithorax airspace disease, likely pneumonia. at 2245 Reported and signed by: Alejandro Phelps MD Electronically Signed: Alejandro Phelps MD at 22:44 EDT Tel , Service support , Chest X-Ray 11/16/19 23:13 IMPRESSION: Adequate position of replaced endotracheal and esophagogastric tubes. Persistent right lung airspace disease. at 0041 Reported and signed by: Alejandro Phelps MD Electronically Signed: Alejandro Phelps MD at 0:40 EDT Tel , Service support , Brain MRI 11/17/19 09:18 IMPRESSION: Acute/subacute infarct of the right side of the brainstem. Electronically Signed: Diego Coleman MD at 14:17 EDT Tel , Service support , ADDENDUM: 11/17/19 1441 IMPRESSION: Acute/subacute infarct of the right side of the brainstem. N.B. : The above information has been verbally conveyed by Diego Coleman MD to EDGAR EASTMAN DO, DO on 11/17/2019 14:34:32 (ET). Electronically Signed: Diego Coleman MD at 14:17 EDT Tel , Service support , Medical Necessity - Tobacco Use Smoking Status: Current every day smoker Tobacco Use: Cigarettes Assessment/Plan All Active Problems (Last Reviewed 11/13/19 @ 00:[address] Navi Bee MD) Mediastinal shift (Acute) Mucus plugging of bronchi (Acute) CVA (cerebral vascular accident) (Resolved) Vomiting (Acute) Hypoxia (Acute) Respiratory insufficiency (Acute) RECOMMENDATIONS: 1. Proceed with a trial of extubation this morning. 2. Once extubated, wean supplemental oxygen to maintain saturations at or above 90%. 3. Obtain speech therapy evaluation prior to advancing diet. 4. Continue antimicrobials as ordered, per ID recommendations. 5. Continue appropriate ICU prophylaxis. IMPRESSIONS: 1. Acute hypoxemic respiratory failure The patient does have notable right lower lobe airspace disease and failed his initial trial of extubation due to increased work of breathing and inability to clear secretions. He remains on antimicrobials per the discretion of infectious diseases. FiO2 requirement is minimal. Coronavirus PCR testing was negative and serology was nonreactive. The patient passed his spontaneous breathing trial this morning and is therefore a candidate for extubation. Once extubated, wean supplemental oxygen to maintain saturations at or above 90%. Encourage incentive spirometer use and mobilize patient as tolerated. Recommend speech therapy evaluation prior to advancing diet. 2. Acute/subacute brainstem infarction MRI completed on November 16 revealed an acute/subacute brainstem infarction. The patient was subsequently evaluated by neurology. 3. History of Behcet Disease The patient was not on any chronic immunosuppression reportedly as an outpatient. Unclear if current symptomatology represents an acute exacerbation of the vasculitis given significant mucocutaneous complaints. Attempts to have rheumatology evaluate have been unsuccessful. Patient does have a significantly elevated CRP. The patient will be continued on systemic steroids by IV. 4. History of tobacco dependency/Prior CVA Complicates care, management, recovery and prognosis. Physical therapy to work with the patient. TIME: 35 minutes of critical care time, independent of procedures, was spent addressing the patient's acute hypoxemic respiratory failure, review of all data and collaboration with the care team. ([id number]) [id number] Critical care first hour
--- NOTE | 2019-11-19 08:34 | PN_ITS ---
Patient Problems: Active and Suspected Problems (Last Reviewed 11/13/19 @ 00:[address] Navi Bee MD) Vomiting (Acute) Hypoxia (Acute) Respiratory insufficiency (Acute) Reason for Visit: Acute hypoxic respiratory failure secondary to increased secretions Objective: No fever. Blood pressure is controlled. Vitals in acceptable limits. Respiratory rate 20-24. Patient was extubated in the morning today. Vitals/I&O's: Vital Signs Temp Pulse Resp BP Pulse Ox 98.3 F 65 22 H 129/84 H 98 11/19/19 08:00 11/19/19 08:00 11/19/19 08:00 11/19/19 08:00 11/19/19 08:00 Oxygen Flow Rate (L/min) 2 Oxygen Delivery Method Room Air Weight: 121 lb 14.65 oz Body Mass Index (BMI) 20.0 Intake and Output for Last 24 Hours 11/17/19 11/18/19 11/19/19 23:59 23:59 23:59 Intake Total 2255.8033 / 2271.9633 2308.66 / 2325.46 610.0 / 610.0 Output Total 1325 / 1325 1155 / 1155 300 / 300 Balance 930.8033 / 946.9633 1153.66 / 1170.46 310.0 / 310.0 General: Alert, Oriented x3, Cooperative HEENT: Atraumatic, PERRLA, EOMI, Normocephalic Oral: - - Patient is spitting out clear oral secretions/saliva; seems more voluntary. No obvious oral ulcers seen. Might have healed. Neck: Supple, No JVD, Negative Carotid Bruits Lungs: Clear to auscultation, No rhonchi, No wheeze, No rales, Diminished Cardiovascular: Regular rate, Regular Rhythm, Normal S1, Normal S2, No murmurs Abdomen: Bowel Sounds Present, Soft, Non Tender, Non-Distended Extremities: No edema, Capillary Refill Less than 3 Seconds Skin: No rashes, No breakdown Musculoskeletal: No Tenderness to Palpation of Joints or Extremities, Arthritic Changes, Muscle Wasting Lymphatic: No Cervical, Supraclavicular, or Inguinal Adenopathy Neurological: Cranial nerves II-XII grossly intact, Deep Tendon Reflexes 2+/4 and Symmetrical, Neuro grossly intact Psych/Mental Status: Normal Affect, Appropriate Microbiology Past 72 Hours 11/12/19 20:40 Blood Culture (Wb) - Anticubital Left Blood Culture - Final No growth in 5 days. 11/12/19 20:35 Blood Culture (Wb) - Anticubital Right Blood Culture - Final No growth in 5 days. 11/15/19 06:00 Sputum, Induced/Lukens Gram Stain - Final 11/15/19 06:00 Sputum, Induced/Lukens Respiratory Culture - Final Presumptive C albicans 11/15/19 05:15 Blood Culture (Wb) - Central Line Blood Culture - Preliminary No growth in 48 hours. 11/15/19 04:15 Blood Culture (Wb) - Arm Right Blood Culture - Preliminary No growth in 48 hours. Laboratory Results 11/17/19 03:50: Diff Path Review Reviewed 11/19/19 04:00: WBC 25.1 H, RBC 3.88 L, Hgb 11.8 L, Hct 37.1 L, MCV 95.6 H, MCH 30.4, MCHC 31.8 L, RDW Std Deviation 44.7 H, RDW Coeff of Eduin 13.2, Plt Count 265, MPV 10.0, Immature Gran % (Auto) 2.500 H, Neut % (Auto) 86.2 H, Lymph % (Auto) 7.0 L, [place] % (Auto) 4.1, Eos % (Auto) 0.0, Baso % (Auto) 0.2, Absolute Neuts (auto) 21.6 H, Absolute Lymphs (auto) 1.77, Nucleated RBC % 0, Differential Comment SCANNED, Polychromasia RARE 11/19/19 04:00: Sodium 136, Potassium 4.2, Chloride 103, Carbon Dioxide 27.0, A nion Gap 6, BUN 22 H, Creatinine 0.53 L, Estim Creat Clear Calc 168.19, Est GFR (MDRD) Af Amer 239, Est GFR (MDRD) Non-Af 197, BUN/Creatinine Ratio 41.2 H, Glucose 106, Calcium 8.6 Current Medications Acyclovir (Zovirax) 800 mg GT TID KARYNA Last Admin: 11/19/19 05:26 Dose: 800 mg Documented by: Albuterol Sulfate (Ventolin Aerosols) 2.5 mg INHALATION Q2H PRN PRN PRN Reason: sob/wheezing Albuterol/Ipratropium (Duoneb) 3 ml INHALATION Q4H.RT [facility] Last Admin: 11/19/19 07:23 Dose: 3 ml Documented by: Aspirin (Aspirin, Baby) 81 mg GT DAILY@1000 [facility] Last Admin: 11/18/19 09:42 Dose: 81 mg Documented by: Atorvastatin Calcium (Lipitor) 80 mg NG QHS [facility] Last Admin: 11/18/19 21:25 Dose: 80 mg Documented by: Chlorhexidine Gluconate () 1 each TOPICAL DAILY [facility] Last Admin: 11/18/19 04:00 Dose: 1 each Documented by: Dextrose (D50w Syringe) 0 gm IV X1 PRN; Protocol PRN Reason: Hypoglycemia Enoxaparin Sodium (Lovenox) 40 mg SC BID [facility] Last Admin: 11/18/19 21:26 Dose: 40 mg Documented by: Famotidine (Pepcid) 20 mg GT BID [facility] Last Admin: 11/18/19 21:25 Dose: 20 mg Documented by: Glucagon () 1 mg IM .X1 PRN PRN Reason: Hypoglycemia Guaifenesin (Mucinex) 1,200 mg PO BID [facility] Last Admin: 11/18/19 21:15 Dose: Not Given Documented by: Sodium Chloride () 250 mls @ 15 mls/hr IV .[id number] PRN PRN Reason: Saline Flush Sodium Chloride () 250 mls @ 15 mls/hr IV .[id number] PRN PRN Reason: Additional IVPB Infusion Methylprednisolone (Solu-Medrol) 40 mg IV Q8 [facility] Last Admin: 11/19/19 05:26 Dose: 40 mg Documented by: Mupirocin (Bactroban) 1 applic TOPICAL BID [facility]; Protocol Last Admin: 11/18/19 21:26 Dose: 1 applicatio Documented by: Ondansetron HCl (Zofran) 4 mg IV Q6H PRN PRN PRN Reason: NAUSEA/VOMITING Last Admin: 11/16/19 18:27 Dose: 4 mg Documented by: Polyethylene Glycol (Miralax) 17 gm GT DAILY [facility] Last Admin: 11/18/19 09:42 Dose: 17 gm Documented by: Quetiapine Fumarate (Seroquel) 50 mg GT BID [facility] Last Admin: 11/18/19 21:25 Dose: 50 mg Documented by: Senna/Docusate Sodium (Senokot-S, Becky-Colace) 2 tablet GT BID [facility] Last Admin: 11/18/19 21:25 Dose: 2 tablet Documented by: Sodium Chloride () 10 - 40 ml IV UD PRN PRN Reason: SALINE FLUSH Last Admin: 11/19/19 05:26 Dose: 10 ml Documented by: STROKE Vital Signs/Narrative: Vital Signs Temp Pulse Resp BP Pulse Ox 11/19/19 08:00 98.3 F 65 22 H 129/84 H 98 11/19/19 07:25 72 11/19/19 07:00 98.4 F 62 24 H 125/86 H 95 11/19/19 06:00 98.3 F 59 L 16 127/89 H 98 11/19/19 05:40 61 19 H 100 11/19/19 05:00 98.2 F 66 14 119/82 H 97 Medical Necessity - Tobacco Use Smoking Status: Current every day smoker Tobacco Use: Cigarettes Assessment/Plan All Active Problems (Last Reviewed 11/13/19 @ 00:[address] Navi Bee MD) Mediastinal shift (Acute) Mucus plugging of bronchi (Acute) CVA (cerebral vascular accident) (Resolved) Vomiting (Acute) Hypoxia (Acute) Respiratory insufficiency (Acute) This a 24-year-old Afro-[place] gentleman with history of Behcet's disease was admitted with cough with dark black sputum, hypoxia 87% on room air also nausea and vomiting. 1. Acute hypoxic respiratory failure secondary to mucous plugging/ subacute infarct of right side of brainstem: Patient multiple chest x-ray reviewed and shows mediastinal shift with right tracheal pull most likely from mucous plugging. Patient is on aggressive pulmonary toileting, systemic steroid and VEST therapy. Repeat chest x-ray after intubation corrected the mediastinal shift. CTA did not show PE but diffuse interstitial edema. CK elevated. Lactic acid normal. Blood cultures x2 no growth for 48 hours, respiratory panel negative. Initial Gram stain shows mixed normal respiratory hai. On empiric ceftriaxone and Zithromax. 11/15 continue pulmonary hygiene including oral suctioning,VEST and incentive spirometry. Continue IV antibiotics. Patient has leukocytosis most probably, reactive to steroid. Sputum culture from 11/14 are pending which shows 3+ gram- positive cocci, 1+ gram-negative rods and 1+ gram-positive rods. 11/16: Repeat sputum culture shows presumptive Mikki albicans 1+. COVID-19 endobronchial PCR not detected. SARS serology is nonreactive. 11/17: Still on ventilator. Patient unable to control oral secretions. No f ever, hemodynamically blood pressure GOOD. Antibiotics discontinued 11/18: Patient extubated in the morning. Still spitting out saliva. 2. 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 MRI of brain reported acute/subacute infarct of the right side of brainstem but clinically it seems mainly subacute. Started on aspirin and statin. 11/17: Fasting profile LDL 69, HDL 30. On high intensity statin and aspirin. 11/18: [facility] neurology consult reviewed. CTA head and neck and echo ordered. 3. Hypotension most likely secondary to sedative: Resolved. 4. Hypophosphatemia: K3.7, magnesium 2.2, phosphorus 0.6, on IV potassium phosphate. 11/17: Repeat phosphorus 3.0. K4.1. 3. Behcet's disease and history of a stroke: Has oral and scrotal ulcer. Patient was not on chronic steroid therapy or immunosuppression. Elevated CRP. On IV steroid. Patient has significant leukocytosis with neutrophilia most likely steroid effect. [facility] neurology recommended azathioprine suggested for Behcet's disease vasculitis but probably will need incinerator operator opinion and consult and patient is already on steroid. 4. Tobacco abuse: DVT: Lovenox Clinical Impression(s) from Imaging Studies Chest X-Ray 11/16/19 23:13 IMPRESSION: Adequate position of replaced endotracheal and esophagogastric tubes. Persistent right lung airspace disease. Brain MRI 11/17/19 09:18 IMPRESSION: Acute/subacute infarct of the right side of the brainstem. Chest CTA 11/13/19 09:47 IMPRESSION: No demonstrated PE, or thoracic aortic aneurysm or dissection. However, the contrast bolus is not optimal in the distal pulmonary arteries and a subtle filling defect could be present and overlooked. Diffuse interstitial edema in both lung barnes with tree-in-bud opacifications consistent with small airways inflammation. Too small to characterize 3 mm nodule in the right upper lobe on axial image 155 Inpatient E&M: [id number] Subs Hosp L3
--- NOTE | 2019-11-19 08:35 | NURSING ---
Updated pt's mother, Radha Stearns, on patient's current condition and most recent events.
--- NOTE | 2019-11-19 08:52 | CT_ITS ---
STUDY: CTA HEAD AND NECK WITH CONTRAST REASON FOR EXAM: Male, 24 years old. R SIDE BRAINSTEM STROKE INFARCT. H/O BEHCET''S. RADIATION DOSAGE (If Supplied By Facility): CTDIvol = ( 24.38 ) mGy, DLP = ( 1391.68 ) mGycm TECHNIQUE: CT angiography was performed with a multi-detector CT scanner. Data acquisition was obtained from the skull base through the vertex following intravenous administration of IV 100 ML ISOVUE 370. MIP images were reconstructed from the axial data set. Post-processing of the angiographic images was performed, with multiplanar reformation and 3D reconstruction. Individualized dose optimization techniques were used for this CT. COMPARISON: Head CT dated November 19, 2019. FINDINGS: Normal bilateral petrous carotid arteries. Normal right cavernous carotid artery with a normal supraclinoid bifurcation. Normal left cavernous carotid artery with a normal supraclinoid bifurcation. Normal right A1 segments of the anterior cerebral artery. Normal left A1 segments of the anterior cerebral artery. Normal intact anterior communicating artery (ACOM). Normal bilateral A2 segments of the anterior cerebral arteries. Normal right M1 and M2 segments of the middle cerebral arteries, with a normal M1 bifurcation. Normal left M1 and M2 segments of the middle cerebral arteries, with a normal M1 bifurcation. Normal right posterior communicating artery (PCOM). Normal left posterior communicating artery (PCOM). Normal bilateral vertebral arteries. Normal basilar artery with a normal basilar bifurcation. The visualized bilateral superior cerebellar (SCA) arteries are normal. Normal bilateral P1, P2 and visualized P3 segments of the posterior cerebral arteries. There is no demonstrated aneurysm of the [place]. Air is seen in the retrosternal region/anterior mediastinum. A small amount of subcutaneous gas is also seen anterior to the right side of the thyroid gland. AORTIC ARCH: Normal visualized aortic arch. Normal origins of the brachiocephalic, left common carotid, and left subclavian arteries. RIGHT CAROTID ARTERIES: Normal right common carotid artery (CCA). Normal right common carotid bulb. Normal origin of the right internal carotid (ICA) artery without a hemodynamically significant stenosis. Normal visualized cervical portion of the right internal carotid artery. Normal origin of the right external carotid artery (ECA). LEFT CAROTID ARTERIES: Normal left common carotid artery (CCA). Normal left common carotid bulb. Normal origin of the left internal carotid (ICA) artery without a hemodynamically significant stenosis. Normal visualized cervical portion of the left internal carotid artery. Normal origin of the left external carotid artery (ECA). VERTEBRAL ARTERIES: Normal bilateral vertebral arteries. CT/CTA Head AND Neck W/ Contrast IMPRESSION: 1. No demonstrated hemodynamically significant stenosis or occlusion of the major arteries of the head or neck. 2. Acute infarct on the right side of the brainstem distribution is consistent with occlusion of a small perforating vessel. 3. Air is seen in the retrosternal region/anterior mediastinum. A small amount of subcutaneous gas is also seen anterior to the right side of the thyroid gland. Is there history of trauma to this region? Electronically Signed: Dejuan Hickman MD at 18:37 EDT , Service support ,
--- NOTE | 2019-11-19 08:52 | ECHOD_ITS ---
Reason For Study: Arrhythmia Procedure This was a 2D Doppler, Color Flow transthoracic echocardiogram. Techically difficult, patient unable to hold still due to discomfort and vomiting. Patient scanned supine. Exam performed portable in ICU/CCU. Left Ventricle Normal size and thickness. The estimated ejection fraction is 65 %. Normal diastology for age. No regional wall motion abnormalities noted. Right Ventricle Normal size and thickness. Normal systolic function. Atria Normal left atrium. Normal right atrium. Normal atrial septum. Mitral Valve The mitral valve is structurally normal. No prolapse or stenosis seen. Tricuspid Valve Normal tricuspid valve. Trivial tricuspid valve insufficiency. Unable to estimate RV systolic pressure due to insufficient tricuspid regurgitant envelope. Aortic Valve Normal aortic valve. Trisinus/trileaflet aortic valve. Pulmonic Valve Normal pulmonic valve. Great Vessels Normal aortic root. Normal arch. Normal inferior vena cava. Inferior vena cava collapse with sniff. Pericardium/Pleural No pericardial effusion. Medication Performed a rapid injection of agitated mix of 9 cc saline and 1cc air to assess for atrial septal defect. MMode/2D Measurements & Calculations LVIDd: 4.1 cm IVSd: 1.2 cm LA dimension: 2.7 cm LVIDs: 2.9 cm LVPWd: 1.1 cm FS: 29.5 % LAV(MOD-bp): 23.2 ml LA A4 area: 11.0 cm2 RA A4 area: 11.3 cm2 LAV(MOD-bp) Indexed: 14.0 ml/m2 LAV(MOD-sp2): 21.6 ml LAV(MOD-sp4): 24.3 ml Doppler Measurements & Calculations Lat Peak E' [place]: 18.9 cm/sec Med Peak E' [place]: 12.6 cm/sec Ao V2 max: 128.1 cm/sec Ao max P.6 mmHg Ao V2 mean: 77.9 cm/sec Ao mean P.9 mmHg Ao V2 VTI: 20.6 cm LV V1 max: 97.4 cm/sec PA V2 max: 111.7 cm/sec LV V1 max P.8 mmHg LV V1 mean P.7 mmHg LV V1 mean: 59.9 cm/sec LV V1 VTI: 20.4 cm Interpretation Summary The estimated ejection fraction is 65 %. Normal diastology for age. Trivial tricuspid valve insufficiency. Unable to estimate RV systolic pressure due to insufficient tricuspid regurgitant envelope. There is no comparison study available. Ordering Physician: Richard Pinzon Referring Physician: Navi Bee Performed By: Eriberto Martinez RCS
[2019-11-19] MEDS: Polyethylene Glycol 3350 17 GM PACKET GT (10:12)
[2019-11-19] MEDS: Enoxaparin 40 MG/0.4 ML Syringe SC ×2 (10:12→21:18)
[2019-11-19] MEDS: CHLORHEXIDINE GLUC 2% CLOTH 1 EACH TOWELETTE TOPICAL (10:12)
[2019-11-19] MEDS: Aspirin 81 MG TAB.CHEW GT (10:13)
[2019-11-19] MEDS: guaiFENesin 1,200 MG Tablet 1200 MG PO (10:13)
[2019-11-19] MEDS: Senna/Docusate Sodium 1 Tablet 2 TABLET GT (10:13)
[2019-11-19] MEDS: QUEtiapine 25 MG Tablet 50 MG GT (10:13)
[2019-11-19] MEDS: Famotidine 20 MG Tablet GT (10:14)
[2019-11-19] MEDS: Mupirocin Ointment 22gm Tube 1 APPLIC TOPICAL ×2 (10:14→21:18)
--- NOTE | 2019-11-19 12:47 | NURSING ---
Pt educated on the importance of being evaluated by Speech Therapy before being allowed regular meals as well as the safety concerns and risks that are involved with swallowing impairment and oral intake. The patient states I have not eaten anything at all today or yesterday. Patient was then educated on the role of enteric nutrition via tube feedings while patient was on the mechanical ventilator. Emotional support provided.
[2019-11-19] MEDS: Famotidine 200 MG/20 ML MDV 20 MG in 0.9% Normal Saline (Pres. free 8 ML 300 MG IV (21:18)
[2019-11-19] MEDS: Acetylcysteine 800 MG/4 ML VIAL.NEB. INHALATION (22:50)
[2019-11-20] VITALS (26 sets, daily range): BP systolic 108–140; BP diastolic 76–92; PULSE 65–102; RESP 16–31; TEMP 36.6–37.1; O2SAT 92–99; BMI 18.1
[2019-11-20] MEDS: Ipratropium/Albuterol Sulfate 3 ML AMPUL.NEB INHALATION ×5 (03:20→22:43)
[2019-11-20 03:49] LABS: Absolute Lymphocyte Count 2.43 X10^3/uL (0.83-4.51); Absolute Neutrophil Count 30.1 X10^3/uL (2.0-7.7); Basophil# 0.11 X10^3/uL; Basophil% 0.3 % (0-1); Eosinophil# 0.07 X10^3/uL; Eosinophils% 0.2 % (0-5); Hematocrit 44.3 % (40-54); Hemoglobin 14.2 g/dL (13.0-16.5); Lymphocyte # 2.43 X10^3/ul (4.0); Lymphocyte % 6.8 % (19-41); Mean Corp Hgb Conc 32.1 g/dL (32-36); Mean Corpuscular Hgb 30.7 pg (27.0-32.0); Mean Corpuscular Volume 95.7 fL (80-94); Mean Platelet Vol. 9.7 fl (6.2-12.0); Monocyte# 1.56 X10^3/uL; Monocyte% 4.4 % (0-10); NRBC Flagged by Analyzer 0 % (0-5); POSITIVE COUNT YES; POSITIVE DIFFERENTIAL YES; Platelet Count 336 K/mm3 (150-450); RBC Distribution Width CV 13.2 % (11.6-14.6); RBC Distribution Width SD 45.3 fl (35.1-43.9); Red Blood Count 4.63 M/mm3 (4.6-6.2)
[2019-11-20 03:56] LABS: Differential Indicated SCAN CRITERIA MET; White Blood Count 35.8 K/mm3 (4.4-11.0)
[2019-11-20 04:13] LABS: Anion Gap 6 (5-15); BUN 22 mg/dL (7-18); BUN/Creat Ratio 35.6 RATIO (10-20); Calcium,Total 8.9 mg/dL (8.5-10.1); Chloride 102 mmol/L (98-107); Creatinine, Serum 0.62 mg/dL (0.70-1.30); EST Glomerular Filtration Rate 167 mL/min (>60); Est Glom Filt Rate - Afr Amer 202 mL/min (>60); Estimated Creatinine Clearance 141.22 ml/min; Glucose 114 mg/dL (74-106); Potassium 3.5 mmol/L (3.5-5.1); Sodium Level 137 mmol/L (136-145)
[2019-11-20 04:30] LABS: Differential Comment SCANNED
[2019-11-20] MEDS: Albuterol 2.5 MG/3 ML VIAL.NEB. INHALATION (05:39)
[2019-11-20] MEDS: Acetylcysteine 800 MG/4 ML VIAL.NEB. INHALATION (05:39)
--- NOTE | 2019-11-20 05:59 | PN_ITS ---
Subjective: The patient was seen and examined at the bedside this morning. Events from the last 24 hours have been reviewed. The patient is currently afebrile, hemodynamically stable and maintaining appropriate oxygen saturations on room air. The patient is done relatively well from a respiratory perspective following extubation yesterday. He continues to have a significant amount of oral secretions. He did fail his speech therapy evaluation yesterday and remains n.p.o. Objective: The patient's most recent lab work, culture data and imaging studies have all been personally reviewed. Infectious work-up has been unrevealing to date. Brain MRI revealed an acute/subacute infarct of the right side of the brainstem. General: Alert, No apparent distress HEENT: Atraumatic, PERRLA, Normocephalic Oral: No Gingival or Mucosal Lesions/ Ulcerations Neck: Supple, No Nodes, Trachea Midline Lungs: Normal air movement, No rhonchi, No wheeze, No rales Cardiovascular: Regular rate, Regular Rhythm Abdomen: Bowel Sounds Present, Soft, Non Tender Extremities: No clubbing, No cyanosis, No edema Skin: - - No significant change from previous Musculoskeletal: No Tenderness to Palpation of Joints or Extremities, No Muscle Wasting Lymphatic: No Cervical, Supraclavicular, or Inguinal Adenopathy Neurological: Cranial nerves II-XII grossly intact, Neuro grossly intact, - - Some dysarthria Psych/Mental Status: Normal Affect, Appropriate Vital Signs Temp Pulse Resp BP Pulse Ox 98.0 F 89 24 H 108/78 96 11/20/19 04:00 11/20/19 05:39 11/20/19 05:39 11/20/19 05:00 11/20/19 05:00 Oxygen Flow Rate (L/min) 2 Oxygen Delivery Method Room Air Weight: 115 lb 11.883 oz Body Mass Index (BMI) 20.0 Intake and Output for Last 24 Hours 11/18/19 11/19/19 11/20/19 23:59 23:59 23:59 Intake Total 2308.66 / 2325.46 727.5 / 727.5 Output Total 1155 / 1155 1999 Balance 1153.66 / 1170.46 -1272.5 / -1272.5 Labs (Last 48 Hours) 11/17/19 11/19/19 11/19/19 03:50 04:00 04:00 WBC 25.1 H RBC 3.88 L Hgb 11.8 L Hct 37.1 L MCV 95.6 H MCH 30.4 MCHC 31.8 L RDW Std Deviation 44.7 H RDW Coeff of Eduin 13.2 Plt Count 265 MPV 10.0 Immature Gran % (Auto) 2.500 H Neut % (Auto) 86.2 H Lymph % (Auto) 7.0 L [place] % (Auto) 4.1 Eos % (Auto) 0.0 Baso % (Auto) 0.2 Absolute Neuts (auto) 21.6 H Absolute Lymphs (auto) 1.77 Nucleated RBC % 0 Differential Comment SCANNED Diff Path Review Reviewed Polychromasia RARE Sodium 136 Potassium 4.2 Chloride 103 Carbon Dioxide 27.0 Anion Gap 6 BUN 22 H Creatinine 0.53 L Estim Creat Clear Calc 168.19 Est GFR (MDRD) Af Amer 239 Est GFR (MDRD) Non-Af 197 BUN/Creatinine Ratio 41.2 H Glucose 106 Calcium 8.6 C-React Prot Ext Range 11/20/19 11/20/19 03:40 03:40 WBC 35.8 H* RBC 4.63 Hgb 14.2 Hct 44.3 MCV 95.7 H MCH 30.7 MCHC 32.1 RDW Std Deviation 45.3 H RDW Coeff of Eduin 13.2 Plt Count 336 MPV 9.7 Immature Gran % (Auto) 4.300 H Neut % (Auto) 84.0 H Lymph % (Auto) 6.8 L [place] % (Auto) 4.4 Eos % (Auto) 0.2 Baso % (Auto) 0.3 Absolute Neuts (auto) 30.1 H Absolute Lymphs (auto) 2.43 Nucleated RBC % 0 Differential Comment SCANNED Diff Path Review May foll Polychromasia Sodium 137 Potassium 3.5 Chloride 102 Carbon Dioxide 29.0 Anion Gap 6 BUN 22 H Creatinine 0.62 L Estim Creat Clear Calc 141.22 Est GFR (MDRD) Af Amer 202 Est GFR (MDRD) Non-Af 167 BUN/Creatinine Ratio 35.6 H Glucose 114 H Calcium 8.9 C-React Prot Ext Range 24.70 H Microbiology 11/12/19 20:40 Blood Culture (Wb) - Anticubital Left Blood Culture - Final No growth in 5 days. 11/12/19 20:35 Blood Culture (Wb) - Anticubital Right Blood Culture - Final No growth in 5 days. Clinical Impression(s) from Imaging Studies Chest X-Ray 11/12/19 21:15 IMPRESSION: No acute cardiopulmonary pathology. Electronically Signed: Leonel Dawn MD at 21:39 EDT , Service support , Chest CTA 11/13/19 09:47 IMPRESSION: No demonstrated PE, or thoracic aortic aneurysm or dissection. However, the contrast bolus is not optimal in the distal pulmonary arteries and a subtle filling defect could be present and overlooked. Diffuse interstitial edema in both lung barnes with tree-in-bud opacifications consistent with small airways inflammation. Too small to characterize 3 mm nodule in the right upper lobe on axial image 155 Electronically Signed: Henry Rolon MD at 10:59 EDT , Service support , Chest X-Ray 11/15/19 01:40 IMPRESSION: Right lung collapse with volume loss and deviation of the mediastinum and heart to the right with hyperexpansion of the left hemithorax. at 0318 Reported and signed by: Alejandro Phelps MD Electronically Signed: Alejandro Phelps MD at 3:17 EDT Tel , Service support , ADDENDUM: 11/15/19 0337 IMPRESSION: Right lung collapse with volume loss and deviation of the mediastinum and heart to the right with hyperexpansion of the left hemithorax. at 0318 Reported and signed by: Alejandro Phelps MD N.B. : The above information has been verbally conveyed by Alejandro Phelps MD to RAFAL Snow, on 11/15/2019 03:30:11 (ET). Electronically Signed: Alejandro Phelps MD at 3:17 EDT Tel , Service support , Chest X-Ray 11/15/19 03:00 IMPRESSION: Reexpansion of the right lung with persistent atelectasis and likely airspace disease. Endotracheal tube terminates within the trachea above the clavicular heads, likely at the T1-T2 interspace. at 0455 Reported and signed by: Alejandro Phelps MD Electronically Signed: Alejandro Phelps MD at 4:54 EDT Tel , Service support , Chest X-Ray 11/15/19 05:22 IMPRESSION: Adequate position of newly placed right IJ central venous catheter without evidence of complications from placement of the catheter. Slight withdrawal of the endotracheal tube, now terminating at the intersection of the C7 and T1 vertebral body, approximately 11 cm above the stefania. It may benefit the patient for this to be advanced Worsening right lung airspace disease possibly representing reexpansion pulmonary edema. at 8079 Reported and signed by: Alejandro Phelps MD Electronically Signed: Alejandro Phelps MD at 5:51 EDT Tel , Service support , ADDENDUM: 11/15/19 0606 IMPRESSION: Adequate position of newly placed right IJ central venous catheter without evidence of complications from placement of the catheter. Slight withdrawal of the endotracheal tube, now terminating at the intersection of the C7 and T1 vertebral body, approximately 11 cm above the stefania. It may benefit the patient for this to be advanced Worsening right lung airspace disease possibly representing reexpansion pulmonary edema. at 6965 Reported and signed by: Alejandro Phelps MD N.B. : Diane Guillen RN, confirmed on 11/15/2019 05:59:10 (ET) that the healthcare facility has received the radiology report. Electronically Signed: Alejandro Phelps MD at 5:51 EDT Tel , Service support , Chest X-Ray 11/15/19 07:55 IMPRESSION: Diffuse right pulmonary infiltrates, similar to the previous study. Electronically Signed: Jun Blackwood DO at 8:35 EDT Tel [phone], Service support , Chest X-Ray 11/16/19 21:40 IMPRESSION: Removal of endotracheal and esophagogastric tubes.. Stable position of right IJ central venous catheter. Likely slight improvement to diffuse right hemithorax airspace disease, likely pneumonia. at 2245 Reported and signed by: Alejandro Phelps MD Electronically Signed: Alejandro Phelps MD at 22:44 EDT Tel , Service support , Chest X-Ray 11/16/19 23:13 IMPRESSION: Adequate position of replaced endotracheal and esophagogastric tubes. Persistent right lung airspace disease. at 0041 Reported and signed by: Alejandro Phelps MD Electronically Signed: Alejanrdo Phelps MD at 0:40 EDT Tel , Service support , Brain MRI 11/17/19 09:18 IMPRESSION: Acute/subacute infarct of the right side of the brainstem. Electronically Signed: Diego Coleman MD at 14:17 EDT Tel , Service support , ADDENDUM: 11/17/19 1441 IMPRESSION: Acute/subacute infarct of the right side of the brainstem. N.B. : The above information has been verbally conveyed by Diego Coleman MD to EDGAR EASTMAN DO, DO, on 11/17/2019 14:34:32 (ET). Electronically Signed: Diego Coleman MD at 14:17 EDT Tel , Service support , Head/Neck CTA 11/19/19 08:52 IMPRESSION: 1. No demonstrated hemodynamically significant stenosis or occlusion of the major arteries of the head or neck. 2. Acute infarct on the right side of the brainstem distribution is consistent with occlusion of a small perforating vessel. 3. Air is seen in the retrosternal region/anterior mediastinum. A small amount of subcutaneous gas is also seen anterior to the right side of the thyroid gland. Is there history of trauma to this region? Electronically Signed: Dejuan Hickman MD at 18:37 EDT , Service support , Medical Necessity - Tobacco Use Smoking Status: Current every day smoker Tobacco Use: Cigarettes Assessment/Plan All Active Problems (Last Reviewed 11/13/19 @ 00:[address] Navi Bee MD) Mediastinal shift (Acute) Mucus plugging of bronchi (Acute) CVA (cerebral vascular accident) (Resolved) Vomiting (Acute) Hypoxia (Acute) Respiratory insufficiency (Acute) RECOMMENDATIONS: 1. Maintain n.p.o. status, pending reevaluation with speech therapy. 2. Obtain neurology follow-up. 3. Continue steroids as ordered. 4. Encourage incentive spirometer use and mobilize patient as tolerated. 5. Will need to consider alternative means of nutrition, if swallowing does not begin to improve. 6. The patient is medically stable for transfer out of the intensive care unit. IMPRESSIONS: 1. Acute hypoxemic respiratory failure Resolved. The patient does have notable right lower lobe airspace disease and failed his initial trial of extubation due to increased work of breathing and inability to clear secretions. However, the patient was able to be successfully extubated on November 18. He has done well from an oxygenation status following extubation. Coronavirus PCR testing was negative and serology was nonreactive. The patient is still having some residual difficulties handling his oral secretions and has a limited gag reflex. We will ask neurology to reevaluate accordingly. Continue to encourage incentive spirometer use and mobilize patient as tolerated. Patient to remain n.p.o., pending reevaluation by speech therapy. 2. Acute/subacute brainstem infarction MRI completed on November 16 revealed an acute/subacute brainstem infarction. The patient continues to have some residual neurological issues. Therefore, we will ask for neurologic reevaluation. 3. History of Behcet Disease The patient was not on any chronic immunosuppression reportedly as an outpatient. Unclear if current symptomatology represents an acute exacerbation of the vasculitis given significant mucocutaneous complaints. For now, the patient will be continued on IV steroids, with plans to transition to p.o. regimen once medically stable. The patient will need to establish care with a specialist on an outpatient basis following discharge from the hospital. 4. History of tobacco dependency/Prior CVA Complicates care, management, recovery and prognosis. Physical therapy to work with the patient. This note was generated with [employer] dictation software. It may contain incorrect words, spelling, and punctuation that were not noted in checking the note before signing. Inpatient E&M: 99931 Subs Hosp L3
--- NOTE | 2019-11-20 07:15 | PCM.PN.HOSP ---
Patient Problems: Active and Suspected Problems (Last Reviewed 11/13/19 @ 00:[address] Navi Bee MD) Vomiting (Acute) Hypoxia (Acute) Respiratory insufficiency (Acute) Reason for Visit: Acute hypoxic respiratory failure secondary to increased secretions. Objective: No fever. Blood pressure is good. Still patient is spitting out oral secretion. On physical exam General: Alert, Oriented x3, Cooperative HEENT: Atraumatic, PERRLA, EOMI, Normocephalic Oral: - - Patient is spitting out clear oral secretions/saliva; seems more voluntary. No obvious oral ulcers seen. Might have healed. Weak gag reflex with little movement of soft palate Neck: Supple, No JVD, Negative Carotid Bruits Lungs: Clear to auscultation, No rhonchi, No wheeze, No rales, Diminished Cardiovascular: Regular rate, Regular Rhythm, Normal S1, Normal S2, No murmurs Abdomen: Bowel Sounds Present, Soft, Non Tender, Non-Distended Extremities: No edema, Capillary Refill Less than 3 Seconds Skin: No rashes, No breakdown Musculoskeletal: No Tenderness to Palpation of Joints or Extremities, Arthritic Changes, Muscle Wasting Lymphatic: No Cervical, Supraclavicular, or Inguinal Adenopathy Neurological: Cranial nerves II-XII grossly intact, Deep Tendon Reflexes 2+/4 and Symmetrical, Neuro grossly intact Psych/Mental Status: Normal Affect, Appropriate Vitals/I&O's: Vital Signs Temp Pulse Resp BP Pulse Ox 98.0 F 79 22 H 111/89 H 97 11/20/19 04:00 11/20/19 07:08 11/20/19 07:08 11/20/19 07:00 11/20/19 07:08 Oxygen Flow Rate (L/min) 2 Oxygen Delivery Method Room Air Weight: 115 lb 11.883 oz Body Mass Index (BMI) 20.0 Intake and Output for Last 24 Hours 11/18/19 11/19/19 11/20/19 23:59 23:59 23:59 Intake Total 2308.66 / 2325.46 727.5 / 727.5 798.75 / 798.75 Output Total 1155 / 1155 1999 / 1999 Balance 1153.66 / 1170.46 -1272.5 / -1272.5 798.75 / 798.75 Microbiology Past 72 Hours 11/12/19 20:40 Blood Culture (Wb) - Anticubital Left Blood Culture - Final No growth in 5 days. 11/12/19 20:35 Blood Culture (Wb) - Anticubital Right Blood Culture - Final No growth in 5 days. 11/15/19 06:00 Sputum, Induced/Lukens Gram Stain - Final 11/15/19 06:00 Sputum, Induced/Lukens Respiratory Culture - Final Presumptive C albicans 11/15/19 05:15 Blood Culture (Wb) - Central Line Blood Culture - Preliminary No growth in 48 hours. 11/15/19 04:15 Blood Culture (Wb) - Arm Right Blood Culture - Preliminary No growth in 48 hours. Laboratory Results 11/20/19 03:40: WBC 35.8 H*, RBC 4.63, Hgb 14.2, Hct 44.3, MCV 95.7 H, MCH 30.7, MCHC 32.1, RDW Std Deviation 45.3 H, RDW Coeff of Eduin 13.2, Plt Count 336, MPV 9.7, Immature Gran % (Auto) 4.300 H, Neut % (Auto) 84.0 H, Lymph % (Auto) 6.8 L, Walsh % (Auto) 4.4, Eos % (Auto) 0.2, Baso % (Auto) 0.3, Absolute Neuts (auto) 30.1 H, Absolute Lymphs (auto) 2.43, Nucleated RBC % 0, Differential Comment SCANNED, Diff Path Review September foll 11/20/19 03:40: Sodium 137, Potassium 3.5, Chloride 102, Carbon Dioxide 29.0, Anion Gap 6, BUN 22 H, Creatinine 0.62 L, Estim Creat Clear Calc 141.22, Est GFR (MDRD) Af Amer 202, Est GFR (MDRD) Non-Af 167, BUN/Creatinine Ratio 35.6 H, Glucose 114 H, Calcium 8.9, C-React Prot Ext Range 24.70 H Current Medications Acyclovir (Zovirax) 800 mg GT TID KARYNA Last Admin: 11/20/19 05:59 Dose: Not Given Documented by: Albuterol Sulfate (Ventolin Aerosols) 2.5 mg INHALATION Q2H PRN PRN PRN Reason: sob/wheezing Last Admin: 11/20/19 05:39 Dose: 2.5 mg Documented by: Albuterol/Ipratropium (Duoneb) 3 ml INHALATION Q4H.RT [facility] Last Admin: 11/20/19 07:05 Dose: 3 ml Documented by: Aspirin (Aspirin, Baby) 81 mg GT DAILY@1000 [facility] Last Admin: 11/19/19 10:13 Dose: 81 mg Documented by: Atorvastatin Calcium (Lipitor) 80 mg NG QHS [facility] Last Admin: 11/19/19 20:55 Dose: Not Given Documented by: Chlorhexidine Gluconate () 1 each TOPICAL DAILY [facility] Last Admin: 11/19/19 10:12 Dose: 1 each Documented by: Dextrose (D50w Syringe) 0 gm IV X1 PRN; Protocol PRN Reason: Hypoglycemia Enoxaparin Sodium (Lovenox) 40 mg SC BID [facility] Last Admin: 11/19/19 21:18 Dose: 40 mg Documented by: Glucagon () 1 mg IM .X1 PRN PRN Reason: Hypoglycemia Guaifenesin (Mucinex) 1,200 mg PO BID [facility] Last Admin: 11/19/19 20:55 Dose: Not Given Documented by: Sodium Chloride () 250 mls @ 15 mls/hr IV .[id number] PRN PRN Reason: Saline Flush Sodium Chloride () 250 mls @ 15 mls/hr IV .[id number] PRN PRN Reason: Additional IVPB Infusion Dextrose () 1,000 mls @ 75 mls/hr IV .[id number] [facility] Last Admin: 11/20/19 05:59 Dose: 75 mls/hr Documented by: Famotidine 20 mg/ Sodium (Chloride) 10 mls @ 300 mls/hr IV Q12 [facility] Last Infusion: 11/19/19 21:20 Dose: Infused Documented by: Methylprednisolone (Solu-Medrol) 40 mg IV Q12 [facility] Last Admin: 11/19/19 21:18 Dose: 40 mg Documented by: Mupirocin (Bactroban) 1 applic TOPICAL BID [facility]; Protocol Last Admin: 11/19/19 21:18 Dose: 1 applicatio Documented by: Ondansetron HCl (Zofran) 4 mg IV Q6H PRN PRN PRN Reason: NAUSEA/VOMITING Last Admin: 11/16/19 18:27 Dose: 4 mg Documented by: Polyethylene Glycol (Miralax) 17 gm GT DAILY [facility] Last Admin: 11/19/19 10:12 Dose: 17 gm Documented by: Quetiapine Fumarate (Seroquel) 50 mg GT BID [facility] Last Admin: 11/19/19 20:56 Dose: Not Given Documented by: Senna/Docusate Sodium (Senokot-S, Becky-Colace) 2 tablet GT BID [facility] Last Admin: 11/19/19 20:56 Dose: Not Given Documented by: Sodium Chloride () 10 - 40 ml IV UD PRN PRN Reason: SALINE FLUSH Last Admin: 11/19/19 21:18 Dose: 20 ml Documented by: STROKE Vital Signs/Narrative: Vital Signs Temp Pulse Resp BP Pulse Ox 11/20/19 07:08 79 22 H 97 11/20/19 07:00 79 31 H 111/89 H 99 11/20/19 06:00 74 18 114/84 H 97 11/20/19 05:39 89 24 H 11/20/19 05:00 102 H 18 108/78 96 11/20/19 04:00 98.0 F 99 22 H 114/90 H 95 11/20/19 03:20 87 24 H Medical Necessity - Tobacco Use Smoking Status: Current every day smoker Tobacco Use: Cigarettes Assessment/Plan All Active Problems (Last Reviewed 11/13/19 @ 00:[address] Navi Bee MD) Mediastinal shift (Acute) Mucus plugging of bronchi (Acute) CVA (cerebral vascular accident) (Resolved) Vomiting (Acute) Hypoxia (Acute) Respiratory insufficiency (Acute) This a 24-year-old Afro-[place]i gentleman with history of Behcet's disease was admitted with cough with dark black sputum, hypoxia 87% on room air also nausea and vomiting. 1. Acute hypoxic respiratory failure secondary to mucous plugging/ subacute infarct of right side of brainstem: Patient multiple chest x-ray reviewed and shows mediastinal shift with right tracheal pull most likely from mucous plugging. Patient is on aggressive pulmonary toileting, systemic steroid and VEST therapy. Repeat chest x-ray after intubation corrected the mediastinal shift. CTA did not show PE but diffuse interstitial edema. CK elevated. Lactic acid normal. Blood cultures x2 no growth for 48 hours, respiratory panel negative. Initial Gram stain shows mixed normal respiratory hai. On empiric ceftriaxone and Zithromax. 11/15 continue pulmonary hygiene including oral suctioning,VEST and incentive spirometry. Continue IV antibiotics. Patient has leukocytosis most probably, reactive to steroid. Sputum culture from 11/14 are pending which shows 3+ gram-positive cocci, 1+ gram-negative rods and 1+ gram-positive rods. 11/16: Repeat sputum culture shows presumptive Mikki albicans 1+. COVID-19 endobronchial PCR not detected. SARS serology is nonreactive. 11/17: Still on ventilator. Patient unable to control oral secretions. No fever, hemodynamically blood pressure GOOD. Antibiotics discontinued 11/18: Patient extubated in the morning. Still spitting out saliva. 11/19: Weak gag reflex, not able to maintain or control oral secretions. Speech therapist to evaluate currently patient is n.p.o. 2. 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 MRI of brain reported acute/subacute infarct of the right side of brainstem but clinically it seems mainly subacute. Started on aspirin and statin. 11/17: Fasting profile LDL 69, HDL 30. On high intensity statin and aspirin. 11/18: SOC neurology consult of 11/17 reviewed. CTA head and neck and echo ordered. 11/19 SOC neurology follow-up was done. Recommended high-dose Solu-Medrol 1 g/day for 3 days with GI prophylaxis then prednisone 1 mg/kg and then taper as outpatient. Patient is already on Solu-Medrol 80 mg/day (weight [address] kg). Dr. Aundrea Elias recommended to start Imuran, and the dose was not specified. Patient is already on aspirin, Lipitor. Patients Transporter is not able to see the while inpatient there for follow-up as an outpatient. CRP still elevated 24 although improved from 86. Leukocytosis from high-dose Solu-Medrol. Repeat CK tomorrow a.m. 3. Hypotension most likely secondary to sedative: Resolved. 4. Hypophosphatemia: K3.7, magnesium 2.2, phosphorus 0.6, on IV potassium phosphate. 11/17: Repeat phosphorus 3.0. K4.1. 3. Behcet's disease and history of a stroke: Has oral and scrotal ulcer. Patient was not on chronic steroid therapy or immunosuppression. Elevated CRP. On IV steroid. Patient has significant leukocytosis with neutrophilia most likely steroid effect. SOC neurology recommended azathioprine suggested for Behcet's disease vasculitis but probably will need chief operator synthesis opinion and consult and patient is already on steroid. 4. Tobacco abuse: DVT: Lovenox Total time of the visit including total time spent in counseling or coordination of care, (more than 50% of the total time, spent in obtaining medical information from nurses and other ancillary care providers), discussion with the eggs inspector and clinical updates given to mother Mrs. Radha Stearns, review of labs and imaging is [address] Haney also communicated to the patient's mother regarding dysphagia. Clinical Impression(s) from Imaging Studies Chest X-Ray 11/16/19 23:13 IMPRESSION: Adequate position of replaced endotracheal and esophagogastric tubes. Persistent right lung airspace disease. Brain MRI 11/17/19 09:18 IMPRESSION: Acute/subacute infarct of the right side of the brainstem. Chest CTA 11/13/19 09:47 IMPRESSION: No demonstrated PE, or thoracic aortic aneurysm or dissection. However, the contrast bolus is not optimal in the distal pulmonary arteries and a subtle filling defect could be present and overlooked. Diffuse interstitial edema in both lung barnes with tree-in-bud opacifications consistent with small airways inflammation. Too small to characterize 3 mm nodule in the right upper lobe on axial image 155 Inpatient E&M: 34440 Subs Hosp L3
--- NOTE | 2019-11-20 09:39 | PCM.NTREPORT ---
Nutrition Therapy Report - History Current diet / nutrition support order:: NPO - Anthropometric Measurements Height:: 5 ft 7 in Weight:: 52.5 kg Body Mass Index (BMI):: 18.1 - Relevant Labs Relevant Labs:: WBC 35.8 K/mm3 (4.4-11.0) H* 11/20/19 03:40 RBC 3.88 M/mm3 (4.6-6.2) L 11/19/19 04:00 Hgb 11.8 g/dL (13.0-16.5) L 11/19/19 04:00 Hct 37.1 % (40-54) L 11/19/19 04:00 MCV 95.7 fL (80-94) H 11/20/19 03:40 MCHC 31.8 g/dL (32-36) L 11/19/19 04:00 RDW Std Deviation 45.3 fl (35.1-43.9) H 11/20/19 03:40 Immature Gran % (Auto) 4.300 % (0.0-0.9) H 11/20/19 03:40 Neut % (Auto) 84.0 % (47-70) H 11/20/19 03:40 Lymph % (Auto) 6.8 % (19-41) L 11/20/19 03:40 [place] % (Auto) 10.1 % (0-10) H 11/12/19 20:35 Absolute Neuts (auto) 30.1 X10^3/uL (2.0-7.7) H 11/20/19 03:40 ESR 115 mm/hr (0-15) H 11/12/19 20:55 D-Dimer Quant (PE/DVT) 1.99 FEU/ug/m (0.27-0.49) H* 11/13/19 10:00 Sodium 135 mmol/L (136-145) L 11/14/19 05:55 Potassium 3.1 mmol/L (3.5-5.1) L 11/16/19 04:40 Chloride 97 mmol/L (98-107) L 11/14/19 05:55 Carbon Dioxide 33.0 mmol/L (21.0-32.0) H 11/15/19 05:15 Anion Gap 4 (5-15) L 11/18/19 04:15 BUN 22 mg/dL (7-18) H 11/20/19 03:40 Creatinine 0.62 mg/dL (0.70-1.30) L 11/20/19 03:40 BUN/Creatinine Ratio 35.6 RATIO (10-20) H 11/20/19 03:40 Glucose 114 mg/dL (74-106) H 11/20/19 03:40 Calcium 8.2 mg/dL (8.5-10.1) L 11/18/19 04:15 Phosphorus 0.6 mg/dL (2.5-4.9) L* 11/17/19 03:50 ALT 14 U/L (16-61) L 11/12/19 20:35 Total Creatine Kinase 429 U/L (39-308) H 11/16/19 04:40 C-React Prot Ext Range 24.70 mg/L (0.0-3.0) H 11/20/19 03:40 Total Protein 8.7 g/dL (6.4-8.2) H 11/12/19 20:35 Albumin 2.7 g/dL (3.2-5.0) L 11/18/19 04:15 Globulin 4.6 g/dL (2.2-4.2) H 11/18/19 04:15 HDL Cholesterol 30 mg/dL (40-) L 11/17/19 03:50 Lipase 67 U/L (73-393) L 11/12/19 20:35 Procalcitonin 0.12 ng/mL (0.00-0.09) H 11/13/19 10:00 - Assessment Food / Nutrition-Related History:: Failed HAIRPIECE STYLIST evaluation yesterday. Continues to have difficulty clearing own secretions. NPO day 3, but has had limited PO intake since admission (1 week). Wt decrease of 2.8 kg since last review; has lost 5.5kg/ 9.4% x 1 week, significant for malnutrition. IV dextrose started. Had large BM per nursing staff. - Nutrition Diagnosis Problem / Etiology / Signs & Symptoms (PES):: Severe, acute malnutrition related to difficulty swallowing as evidenced by 5.5kg/ 9.4% wt loss x 1 week and estimated PO intake meeting <50% of pts estimated nutritional needs Evidence of Malnutrition Exists:: Yes Severe PCM:: Acute Illness - Nutrition Intervention Nutrition Prescription:: 0036-1713 calories, 60-80 g protein/day - Food / Nutrient Delivery Interventions Summary of nutrition intervention:: If unable to advance PO diet today, strongly recommend placement of NGT for enteral nutrition support. If HAIRPIECE STYLIST feels NPO status to persist long-term, would also consider placement of PEG. - MNT Monitoring Further MNT monitoring and evaluation required?: Yes MNT Follow-up in:: 1-2 days
[2019-11-20] MEDS: CHLORHEXIDINE GLUC 2% CLOTH 1 EACH TOWELETTE TOPICAL (09:58)
[2019-11-20] MEDS: Enoxaparin 40 MG/0.4 ML Syringe SC (09:59)
[2019-11-20] MEDS: Famotidine 200 MG/20 ML MDV 20 MG in 0.9% Normal Saline (Pres. free 8 ML 300 MG IV ×2 (10:02→21:45)
[2019-11-20] MEDS: Mupirocin Ointment 22gm Tube 1 APPLIC TOPICAL ×2 (10:03→21:45)
[2019-11-20 12:37] LABS: Pathologist Review Reviewed
--- NOTE | 2019-11-20 14:11 | NURSING ---
report called to TAPE KELLER OPERATOR
--- NOTE | 2019-11-20 14:15 | NURSING ---
to PCU 114, ICU staff in attendance
[2019-11-21] VITALS (14 sets, daily range): BP systolic 109–133; BP diastolic 74–90; PULSE 61–104; RESP 16–18; TEMP 36.6–36.9; O2SAT 95–98; BMI 17.6
--- NOTE | 2019-11-21 00:25 | NURSING ---
Updated pt's mother, Radha Stearns, on patient's current condition
[2019-11-21] MEDS: Ipratropium/Albuterol Sulfate 3 ML AMPUL.NEB INHALATION ×5 (06:41→23:27)
[2019-11-21 07:04] LABS: Absolute Lymphocyte Count 2.51 X10^3/uL (0.83-4.51); Absolute Neutrophil Count 17.5 X10^3/uL (2.0-7.7); Basophil# 0.13 X10^3/uL; Basophil% 0.6 % (0-1); Eosinophil# 0.11 X10^3/uL; Eosinophils% 0.5 % (0-5); Hemoglobin 14.4 g/dL (13.0-16.5); Lymphocyte # 2.51 X10^3/ul (4.0); Lymphocyte % 11.1 % (19-41); Mean Corpuscular Hgb 30.3 pg (27.0-32.0); Mean Corpuscular Volume 94.7 fL (80-94); Mean Platelet Vol. 10.3 fl (6.2-12.0); Monocyte# 1.35 X10^3/uL; NRBC Flagged by Analyzer 0 % (0-5); Neutrophil # 17.48 X10^3/uL (2.7-7.7); Neutrophil % 77.3 % (47-70); Platelet Count 341 K/mm3 (150-450); RBC Distribution Width SD 43.8 fl (35.1-43.9); Red Blood Count 4.75 M/mm3 (4.6-6.2); White Blood Count 22.6 K/mm3 (4.4-11.0)
[2019-11-21 07:31] LABS: Anion Gap 5 (5-15); BUN 20 mg/dL (7-18); BUN/Creat Ratio 26.5 RATIO (10-20); CPK Total, Creatine Kinase 333 U/L (39-308); Calcium,Total 8.9 mg/dL (8.5-10.1); Chloride 100 mmol/L (98-107); Creatinine, Serum 0.75 mg/dL (0.70-1.30); EST Glomerular Filtration Rate 133 mL/min (>60); Est Glom Filt Rate - Afr Amer 160 mL/min (>60); Estimated Creatinine Clearance 107.67 ml/min; Glucose 93 mg/dL (74-106); Potassium 3.9 mmol/L (3.5-5.1); Sodium Level 135 mmol/L (136-145)
[2019-11-21] MEDS: Enoxaparin 40 MG/0.4 ML Syringe SC (09:49)
[2019-11-21] MEDS: Famotidine 200 MG/20 ML MDV 20 MG in 0.9% Normal Saline (Pres. free 8 ML 300 MG IV ×2 (09:50→22:21)
[2019-11-21] MEDS: 0.9% Saline Lock 10 ML Syringe IV ×3 (09:50→22:20)
[2019-11-21] MEDS: Mupirocin Ointment 22gm Tube 1 APPLIC TOPICAL ×2 (09:51→22:22)
--- NOTE | 2019-11-21 10:36 | NURSING ---
This RN called and gave pt's mother, Radha an update.
--- NOTE | 2019-11-21 10:55 | NT.THERAPY_ITS ---
Nutrition Therapy Report - History Nutrition Services has been consulted to:: Manage enteral nutrition Current diet / nutrition support order:: NPO - Anthropometric Measurements Height:: 5 ft 7 in Weight:: 51 kg Body Mass Index (BMI):: 17.6 - Relevant Labs Relevant Labs:: WBC 22.6 K/mm3 (4.4-11.0) H 11/21/19 06:25 RBC 3.88 M/mm3 (4.6-6.2) L 11/19/19 04:00 Hgb 11.8 g/dL (13.0-16.5) L 11/19/19 04:00 Hct 37.1 % (40-54) L 11/19/19 04:00 MCV 94.7 fL (80-94) H 11/21/19 06:25 MCHC 31.8 g/dL (32-36) L 11/19/19 04:00 RDW Std Deviation 45.3 fl (35.1-43.9) H 11/20/19 03:40 Immature Gran % (Auto) 4.500 % (0.0-0.9) H 11/21/19 06:25 Neut % (Auto) 77.3 % (47-70) H 11/21/19 06:25 Lymph % (Auto) 11.1 % (19-41) L 11/21/19 06:25 [place] % (Auto) 10.1 % (0-10) H 11/12/19 20:35 Absolute Neuts (auto) 17.5 X10^3/uL (2.0-7.7) H 11/21/19 06:25 ESR 115 mm/hr (0-15) H 11/12/19 20:55 D-Dimer Quant (PE/DVT) 1.99 FEU/ug/m (0.27-0.49) H* 11/13/19 10:00 Sodium 135 mmol/L (136-145) L 11/21/19 06:25 Potassium 3.1 mmol/L (3.5-5.1) L 11/16/19 04:40 Chloride 97 mmol/L (98-107) L 11/14/19 05:55 Carbon Dioxide 33.0 mmol/L (21.0-32.0) H 11/15/19 05:15 Anion Gap 4 (5-15) L 11/18/19 04:15 BUN 20 mg/dL (7-18) H 11/21/19 06:25 Creatinine 0.62 mg/dL (0.70-1.30) L 11/20/19 03:40 BUN/Creatinine Ratio 26.5 RATIO (10-20) H 11/21/19 06:25 Glucose 114 mg/dL (74-106) H 11/20/19 03:40 Calcium 8.2 mg/dL (8.5-10.1) L 11/18/19 04:15 Phosphorus 0.6 mg/dL (2.5-4.9) L* 11/17/19 03:50 ALT 14 U/L (16-61) L 11/12/19 20:35 Total Creatine Kinase 333 U/L (39-308) H 11/21/19 06:25 C-React Prot Ext Range 24.70 mg/L (0.0-3.0) H 11/20/19 03:40 Total Protein 8.7 g/dL (6.4-8.2) H 11/12/19 20:35 Albumin 2.7 g/dL (3.2-5.0) L 11/18/19 04:15 Globulin 4.6 g/dL (2.2-4.2) H 11/18/19 04:15 HDL Cholesterol 30 mg/dL (40-) L 11/17/19 03:50 Lipase 67 U/L (73-393) L 11/12/19 20:35 Procalcitonin 0.12 ng/mL (0.00-0.09) H 11/13/19 10:00 - Assessment Food / Nutrition-Related History:: Continues to have difficulty clearing own secretions. Wt decrease of 1.5 kg since last review; has lost 10.6% x 1 week, significant for malnutrition. Failed dysphagia screen and followed by MARKETING ADMINISTRATOR. Per Dr. Pinzon, plans to place NG today and start enteral nutrition support. Pt re- est nutrition needs ~ [id number] charo /50-60 gm pro/day. [ End ] - Nutrition Diagnosis Problem / Etiology / Signs & Symptoms (PES):: Pt with inadequate charo/pro intake r/t dysphagia AEB extended NPO status. [ End ] Evidence of Malnutrition Exists:: Yes Severe PCM:: Acute Illness - Nutrition Intervention Nutrition Prescription:: [id number] charo / 50-60 gm pro/day - Food / Nutrient Delivery Interventions Summary of nutrition intervention:: Once NG placed, rec Jevity 1.5 at goal rate 50 cc/hr with 150 cc H2O flush every 4 hours to provide ~ 1800 charo / 76 gm pro / 1812 cc free water per day. Would start tf at 10 cc/hr and increase by 10 cc/hr every 8 hrs as pt tolerates until goal rate achieved. [ End ] Nutrition support ordered as / adjusted to:: Once NG placed, start Jevity 1.5 at goal rate 50 cc/hr with 150 cc H2O flush every 4 hours to provide ~ 1800 charo / 76 gm pro / 1812 cc free water per day. Would start tf at 10 cc/hr and increase by 10 cc/hr every 8 hrs as pt tolerates until goal rate achieved. [ End ] Nutrition education provided?: No - MNT Monitoring Further MNT monitoring and evaluation required?: Yes MNT Follow-up in:: 1-2 days - if questions - please call RD/LD at x [phone]
--- NOTE | 2019-11-21 13:07 | RAD_ITS ---
STUDY: X-RAY - ABDOMEN/PELVIS REASON FOR EXAM: Male, 24 years old. An NG tube TECHNIQUE: Single AP view of the abdomen / pelvis. COMPARISON: None. FINDINGS: There is an enteric tube noted with its tip in the stomach. However, the tube is coiled upon itself. If the tube is not functioning properly, consider repositioning in order to eliminate the coiling. There is no bowel obstruction. There is air and stool to the level of the rectum. The visualized osseous structures are within normal limits. RAD/Abdomen Single View IMPRESSION: Enteric tube noted with its tip in the stomach. However, the tube is coiled upon itself. If the tube is not functioning properly, consider repositioning in order to eliminate the coiling. Electronically Signed: Brad Preciado, at 14:04 EDT Tel , Service support ,
[2019-11-21] MEDS: Jevity 1.5 1,000 ML 50 ML GT (14:27)
--- NOTE | 2019-11-21 15:20 | PCM.PN.HOSP ---
Patient Problems: Active and Suspected Problems (Last Reviewed 11/13/19 @ 00:[address] Navi Bee MD) Vomiting (Acute) Hypoxia (Acute) Respiratory insufficiency (Acute) Reason for Visit: Acute hypoxic respiratory failure secondary to increased secretion. Dysphagia Objective: General: Alert, Oriented x3, Cooperative HEENT: Atraumatic, PERRLA, EOMI, Normocephalic. NG tube inserted Oral: - Patient is spitting out clear oral secretions/saliva; seems more voluntary. No obvious oral ulcers seen, probably healed. Weak gag reflex with little movement of soft palate. Neck: Supple, No JVD, Negative Carotid Bruits Lungs: Clear to auscultation, No rhonchi, No wheeze, No rales, Diminished Cardiovascular: Regular rate, Regular Rhythm, Normal S1, Normal S2, No murmurs Abdomen: Bowel Sounds Present, Soft, Non Tender, Non-Distended Extremities: No edema, Capillary Refill Less than 3 Seconds Skin: No rashes, No breakdown Musculoskeletal: No Tenderness to Palpation of Joints or Extremities, Arthritic Changes, Muscle Wasting Lymphatic: No Cervical, Supraclavicular, or Inguinal Adenopathy Neurological: Cranial nerves II-XII grossly intact, Deep Tendon Reflexes 2+/4 and Symmetrical, Neuro grossly intact. Bilateral lower extremity weakness Psych/Mental Status: Normal Affect, Appropriate Vitals/I&O's: Vital Signs Temp Pulse Resp BP Pulse Ox 97.8 F 104 H 18 133/80 H 97 11/21/19 15:00 11/21/19 15:00 11/21/19 15:00 11/21/19 15:00 11/21/19 15:00 Oxygen Flow Rate (L/min) 2 Oxygen Delivery Method Room Air Weight: 112 lb 6.972 oz Body Mass Index (BMI) 17.6 Intake and Output for Last 24 Hours 11/19/19 11/20/19 11/21/19 23:59 23:59 23:59 Intake Total 727.5 / 727.5 2138.75 / 2138.75 852.50 / 852.50 Output Total 1999 450 / 450 400 / 400 Balance -1272.5 / -1272.5 1688.75 / 1688.75 452.50 / 452.50 Microbiology Past 72 Hours 11/15/19 05:15 Blood Culture (Wb) - Central Line Blood Culture - Final No growth in 5 days. 11/15/19 04:15 Blood Culture (Wb) - Arm Right Blood Culture - Final No growth in 5 days. Laboratory Results 11/21/19 06:25: WBC 22.6 H, RBC 4.75, Hgb 14.4, Hct 45.0, MCV 94.7 H, MCH 30.3, MCHC 32.0, RDW Std Deviation 43.8, RDW Coeff of Eduin 13.0, Plt Count 341, MPV 10.3, Immature Gran % (Auto) 4.500 H, Neut % (Auto) 77.3 H, Lymph % (Auto) 11.1 L, [place] % (Auto) 6.0, Eos % (Auto) 0.5, Baso % (Auto) 0.6, Absolute Neuts (auto) 17.5 H, Absolute Lymphs (auto) 2.51, Nucleated RBC % 0 11/21/19 06:25: Sodium 135 L, Potassium 3.9, Chloride 100, Carbon Dioxide 30.0, Anion Gap 5, BUN 20 H, Creatinine 0.75, Estim Creat Clear Calc 107.67, Est GFR (MDRD) Af Amer 160, Est GFR (MDRD) Non-Af 133, BUN/Creatinine Ratio 26.5 H, Glucose 93, Calcium 8.9, Total Creatine Kinase 333 H Current Medications Acyclovir (Zovirax) 800 mg NG TID [facility] Albuterol Sulfate (Ventolin Aerosols) 2.5 mg INHALATION Q2H PRN PRN PRN Reason: sob/wheezing Last Admin: 11/20/19 05:39 Dose: 2.5 mg Documented by: Albuterol/Ipratropium (Duoneb) 3 ml INHALATION Q4H.RT [facility]ARYNA Last Admin: 11/21/19 15:08 Dose: 3 ml Documented by: Aspirin (Aspirin, Baby) 81 mg NG DAILY@1000 [facility] Atorvastatin Calcium (Lipitor) 80 mg NG QHS [facility] Last Admin: 11/20/19 21:28 Dose: Not Given Documented by: Azathioprine (Imuran) 50 mg NG DAILY [facility] Chlorhexidine Gluconate () 1 each TOPICAL DAILY [facility] Last Admin: 11/21/19 09:48 Dose: Not Given Documented by: Dextrose (D50w Syringe) 0 gm IV X1 PRN; Protocol PRN Reason: Hypoglycemia Enoxaparin Sodium (Lovenox) 40 mg SC DAILY [facility] Last Admin: 11/21/19 09:49 Dose: 40 mg Documented by: Glucagon () 1 mg IM .X1 PRN PRN Reason: Hypoglycemia Guaifenesin (Mucinex) 1,200 mg PO BID [facility] Last Admin: 11/21/19 09:48 Dose: Not Given Documented by: Sodium Chloride () 250 mls @ 15 mls/hr IV .[id number] PRN PRN Reason: Saline Flush Sodium Chloride () 250 mls @ 15 mls/hr IV .[id number] PRN PRN Reason: Additional IVPB Infusion Dextrose () 1,000 mls @ 75 mls/hr IV .[id number] [facility] Last Admin: 11/21/19 08:33 Dose: 75 mls/hr Documented by: Famotidine 20 mg/ Sodium (Chloride) 10 mls @ 300 mls/hr IV Q12 [facility] Last Infusion: 11/21/19 10:18 Dose: Infused Documented by: Enteral Nutritional Formula (Jevity 1.5) 1,000 mls @ 50 mls/hr GT .Q20H [facility] Last Admin: 11/21/19 14:27 Dose: 50 mls/hr Documented by: Methylprednisolone (Solu-Medrol) 40 mg IV Q12 [facility] Last Admin: 11/21/19 09:50 Dose: 40 mg Documented by: Mupirocin (Bactroban) 1 applic TOPICAL BID [facility]; Protocol Last Admin: 11/21/19 09:51 Dose: 1 applicatio Documented by: Ondansetron HCl (Zofran) 4 mg IV Q6H PRN PRN PRN Reason: NAUSEA/VOMITING Last Admin: 11/16/19 18:27 Dose: 4 mg Documented by: Polyethylene Glycol (Miralax) 17 gm NG DAILY [facility] Quetiapine Fumarate (Seroquel) 50 mg NG BID [facility] Senna/Docusate Sodium (Senokot-S, Becky-Colace) 2 tablet NG BID [facility] Sodium Chloride () 10 - 40 ml IV UD PRN PRN Reason: SALINE FLUSH Last Admin: 11/21/19 09:50 Dose: 10 ml Documented by: STROKE Vital Signs/Narrative: Vital Signs Temp Pulse Resp BP Pulse Ox 11/21/19 15:00 97.8 F 104 H 18 133/80 H 97 Medical Necessity - Tobacco Use Smoking Status: Current every day smoker Tobacco Use: Cigarettes Assessment/Plan All Active Problems (Last Reviewed 11/13/19 @ 00:[address] Navi Bee MD) Mediastinal shift (Acute) Mucus plugging of bronchi (Acute) CVA (cerebral vascular accident) (Resolved) Vomiting (Acute) Hypoxia (Acute) Respiratory insufficiency (Acute) This a 24-year-old Afro-Citizen Of [place] gentleman with history of Behcet's disease was admitted with cough with dark black sputum, hypoxia 87% on room air also nausea and vomiting. 1. Acute hypoxic respiratory failure secondary to mucous plugging/ subacute infarct of right side of brainstem: Patient multiple chest x-ray reviewed and shows mediastinal shift with right tracheal pull most likely from mucous plugging. Patient is on aggressive pulmonary toileting, systemic steroid and VEST therapy. Repeat chest x-ray after intubation corrected the mediastinal shift. CTA did not show PE but diffuse interstitial edema. CK elevated. Lactic acid normal. Blood cultures x2 no growth for 48 hours, respiratory panel negative. Initial Gram stain shows mixed normal respiratory hai. On empiric ceftriaxone and Zithromax. 11/15 continue pulmonary hygiene including oral suctioning,VEST and incentive spirometry. Continue IV antibiotics. Patient has leukocytosis most probably, reactive to steroid. Sputum culture from 11/14 are pending which shows 3+ gram-positive cocci, 1+ gram-negative rods and 1+ gram-positive rods. 11/16: Repeat sputum culture shows presumptive Mikki albicans 1+. COVID-19 endobronchial PCR not detected. SARS serology is nonreactive. 11/17: Still on ventilator. Patient unable to control oral secretions. No fever, hemodynamically blood pressure GOOD. Antibiotics discontinued 11/18: Patient extubated in the morning. Still spitting out saliva. 11/19: Weak gag reflex, not able to maintain or control oral secretions. Speech therapist to evaluate currently patient is n.p.o. 11/20: Started on NG tube feeds, Jevity 1.2. Discussed with the display artist. Speech therapist on board. 2. 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 MRI of brain reported acute/subacute infarct of the right side of brainstem but clinically it seems mainly subacute. Started on aspirin and statin. 11/17: Fasting profile LDL 69, HDL 30. On high intensity statin and aspirin. 11/18: [facility] neurology consult of 11/17 reviewed. CTA head and neck and echo ordered. 11/19 [facility] neurology follow-up was done. Recommended high-dose Solu-Medrol 1 g/day for 3 days with GI prophylaxis then prednisone 1 mg/kg and then taper as outpatient. Patient is already on Solu-Medrol 80 mg/day (weight 52 kg). Dr. Aundrea Elias recommended to start Imuran, and the dose was not specified. Patient is already on aspirin, Lipitor. 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 CRP still elevated 24 although improved from 86. Leukocytosis from high-dose Solu-Medrol. 11/20: Repeat CK 333. CRP 24.7. Atorvastatin dose decreased to 40 mg daily. Solu-Medrol decreased total dose 60 mg IV daily 3. Hypotension most likely secondary to sedative: Resolved. 4. Hypophosphatemia: K3.7, magnesium 2.2, phosphorus 0.6, on IV potassium phosphate. 11/17: Repeat phosphorus 3.0. K4.1. 3. Behcet's disease and history of a stroke: Has oral and scrotal ulcer. Patient was not on chronic steroid therapy or immunosuppression. Elevated CRP. On IV steroid. Patient has significant leukocytosis with neutrophilia most likely steroid effect. [facility] neurology recommended azathioprine suggested for Behcet's disease vasculitis but probably will need supervisor knitting opinion and consult and patient is already on steroid. 4. Tobacco abuse: DVT: Lovenox Total time of the visit including total time spent in counseling or coordination of care, (more than 50% of the total time, spent in obtaining medical information from nurses and other ancillary care providers), discussion with the sports equipment repairer and clinical updates given to mother Mrs. Radha Stearns, review of labs and imaging is [address] Haney also communicated to the patient's mother regarding dysphagia. Clinical Impression(s) from Imaging Studies Chest X-Ray 11/16/19 23:13 IMPRESSION: Adequate position of replaced endotracheal and esophagogastric tubes. Persistent right lung airspace disease. Brain MRI 11/17/19 09:18 IMPRESSION: Acute/subacute infarct of the right side of the brainstem. Chest CTA 11/13/19 09:47 IMPRESSION: No demonstrated PE, or thoracic aortic aneurysm or dissection. However, the contrast bolus is not optimal in the distal pulmonary arteries and a subtle filling defect could be present and overlooked. Diffuse interstitial edema in both lung barnes with tree-in-bud opacifications consistent with small airways inflammation. Too small to characterize 3 mm nodule in the right upper lobe on axial image 155 Inpatient E&M: [id number] Subs Hosp L3
[2019-11-21] MEDS: Morphine 2 MG/ML Syringe IV ×2 (18:16→22:21)
[2019-11-21] MEDS: Acetaminophen 650 MG/20 ML UDC NG (18:17)
[2019-11-21] MEDS: busPIRone 5 MG Tablet 10 MG NG (22:23)
[2019-11-21] MEDS: guaiFENesin 1,200 MG Tablet 1200 MG PO (22:23)
[2019-11-21] MEDS: Senna/Docusate Sodium 1 Tablet 2 TABLET NG (22:25)
[2019-11-21] MEDS: Atorvastatin Calcium 40 MG Tablet NG (22:25)
[2019-11-21] MEDS: QUEtiapine 25 MG Tablet 50 MG NG (22:26)
[2019-11-21] MEDS: Acyclovir 800 MG Tablet NG (22:26)
[2019-11-22] VITALS (10 sets, daily range): BP systolic 130–142; BP diastolic 76–97; PULSE 73–95; RESP 14–18; TEMP 36.5–36.8; O2SAT 94–97; BMI 17.6
--- NOTE | 2019-11-22 02:18 | NURSING ---
This RN gives report to Taya LYLES who is assuming care of this pt.
[2019-11-22] MEDS: Acyclovir 800 MG Tablet NG ×3 (06:28→21:07)
[2019-11-22] MEDS: Ipratropium/Albuterol Sulfate 3 ML AMPUL.NEB INHALATION (07:26)
[2019-11-22] MEDS: Mupirocin Ointment 22gm Tube 1 APPLIC TOPICAL ×2 (08:52→21:08)
[2019-11-22] MEDS: QUEtiapine 25 MG Tablet 50 MG NG ×2 (08:54→21:07)
[2019-11-22] MEDS: busPIRone 5 MG Tablet 10 MG NG ×2 (08:54→21:07)
[2019-11-22] MEDS: guaiFENesin 1,200 MG Tablet 1200 MG PO (08:54)
[2019-11-22] MEDS: Aspirin 81 MG TAB.CHEW NG (08:54)
[2019-11-22] MEDS: azaTHIOprine 50 MG Tablet NG (08:56)
[2019-11-22] MEDS: Enoxaparin 40 MG/0.4 ML Syringe SC (08:56)
[2019-11-22] MEDS: Famotidine 20 MG Tablet NG ×2 (09:03→21:07)
[2019-11-22] MEDS: Jevity 1.5 1,000 ML 50 ML GT (09:04)
[2019-11-22] MEDS: Acetaminophen 650 MG/20 ML UDC NG ×3 (09:04→20:20)
--- NOTE | 2019-11-22 12:08 | PN_ITS ---
Patient Problems: Active and Suspected Problems (Last Reviewed 11/13/19 @ 00:[address] Navi Bee MD) Vomiting (Acute) Hypoxia (Acute) Respiratory insufficiency (Acute) Reason for Visit: Multiple issues, dysphagia cannot control oral secretion, generalized muscle weakness Objective: Blood pressure is good. Patient was not able to tolerate NG tube. Discussed with patient and patient's mother and we agreed on giving antianxiety and analgesic medication to tolerate the tube. On physical exam General: Alert, Oriented x3, Cooperative HEENT: Atraumatic, PERRLA, EOMI, Normocephalic. NG tube feeds running at 50 mils per hour. Patient tolerating feeding well Oral: - Patient is spitting out clear oral secretions/saliva. No obvious oral ulcers seen, probably healed. Weak gag reflex and swallowing reflex. N.p.o. Neck: Supple, No JVD, Negative Carotid Bruits Lungs: Clear to auscultation, No rhonchi, No wheeze, No rales, Diminished Cardiovascular: Regular rate, Regular Rhythm, Normal S1, Normal S2, No murmurs Abdomen: Bowel Sounds Present, Soft, Non Tender, Non-Distended Extremities: No edema, Capillary Refill Less than 3 Seconds Skin: No rashes, No breakdown Musculoskeletal: No Tenderness to Palpation of Joints or Extremities, Arthritic Changes, Muscle Wasting Lymphatic: No Cervical, Supraclavicular, or Inguinal Adenopathy Neurological: Cranial nerves II-XII grossly intact, Deep Tendon Reflexes 2+/4 and Symmetrical, Neuro grossly intact. Bilateral lower extremity weakness Psych/Mental Status: Normal Affect, Appropriate Vitals/I&O's: Vital Signs Temp Pulse Resp BP Pulse Ox 98.3 F 88 15 133/76 H 97 11/22/19 08:41 11/22/19 08:41 11/22/19 08:41 11/22/19 08:41 11/22/19 08:41 Oxygen Flow Rate (L/min) 2 Oxygen Delivery Method Room Air Weight: 117 lb 4.575 oz Body Mass Index (BMI) 17.6 Intake and Output for Last 24 Hours 11/20/19 11/21/19 11/22/19 23:59 23:59 23:59 Intake Total 2138.75 / 2138.75 2408.75 / 2408.75 350 / 350 Output Total 450 / 450 600 / 600 650 / 650 Balance 1688.75 / 1688.75 1808.75 / 1808.75 -300 / -300 Microbiology Past 72 Hours 11/15/19 05:15 Blood Culture (Wb) - Central Line Blood Culture - Final No growth in 5 days. 11/15/19 04:15 Blood Culture (Wb) - Arm Right Blood Culture - Final No growth in 5 days. Current Medications Acetaminophen (Tylenol Liquid) 650 mg NG Q4H PRN PRN PRN Reason: Pain Score 1-10/10 Last Admin: 11/22/19 09:04 Dose: 650 mg Documented by: Acyclovir (Zovirax) 800 mg NG TID [facility] Last Admin: 11/22/19 06:28 Dose: 800 mg Documented by: Albuterol Sulfate (Ventolin Aerosols) 2.5 mg INHALATION Q2H PRN PRN PRN Reason: sob/wheezing Last Admin: 11/20/19 05:39 Dose: 2.5 mg Documented by: Aspirin (Aspirin, Baby) 81 mg NG DAILY@1000 [facility] Last Admin: 11/22/19 08:54 Dose: 81 mg Documented by: Atorvastatin Calcium (Lipitor) 40 mg NG QHS [facility] Last Admin: 11/21/19 22:25 Dose: 40 mg Documented by: Azathioprine (Imuran) 50 mg NG DAILY [facility] Last Admin: 11/22/19 08:56 Dose: 50 mg Documented by: Buspirone HCl (Buspar) 10 mg NG BID [facility] Last Admin: 11/22/19 08:54 Dose: 10 mg Documented by: Dextrose (D50w Syringe) 0 gm IV X1 PRN; Protocol PRN Reason: Hypoglycemia Enoxaparin Sodium (Lovenox) 40 mg SC DAILY [facility] Last Admin: 11/22/19 08:56 Dose: 40 mg Documented by: Famotidine (Pepcid) 20 mg NG BID [facility] Last Admin: 11/22/19 09:03 Dose: 20 mg Documented by: Glucagon () 1 mg IM .X1 PRN PRN Reason: Hypoglycemia Guaifenesin (Mucinex) 1,200 mg PO BID [facility] Last Admin: 11/22/19 08:54 Dose: 1,200 mg Documented by: Sodium Chloride () 250 mls @ 15 mls/hr IV .[id number] PRN PRN Reason: Saline Flush Sodium Chloride () 250 mls @ 15 mls/hr IV .[id number] PRN PRN Reason: Additional IVPB Infusion Enteral Nutritional Formula (Jevity 1.5) 1,000 mls @ 50 mls/hr GT .Q20H [facility] Last Admin: 11/22/19 09:04 Dose: 50 mls/hr Documented by: Morphine Sulfate () 2 mg IV Q4H PRN PRN PRN Reason: Pain Score 6-10/10 Last Admin: 11/21/19 22:21 Dose: 2 mg Documented by: Mupirocin (Bactroban) 1 applic TOPICAL BID [facility]; Protocol Last Admin: 11/22/19 08:52 Dose: 1 applicatio Documented by: Ondansetron HCl (Zofran) 4 mg IV Q6H PRN PRN PRN Reason: NAUSEA/VOMITING Last Admin: 11/16/19 18:27 Dose: 4 mg Documented by: Polyethylene Glycol (Miralax) 17 gm NG DAILY [facility] Last Admin: 11/22/19 08:50 Dose: Not Given Documented by: Prednisone () 60 mg PO DAILY@0800 [facility] Quetiapine Fumarate (Seroquel) 50 mg NG BID [facility] Last Admin: 11/22/19 08:54 Dose: 50 mg Documented by: Senna/Docusate Sodium (Senokot-S, Becky-Colace) 2 tablet NG BID [facility] Last Admin: 11/22/19 08:50 Dose: Not Given Documented by: Sodium Chloride () 10 - 40 ml IV UD PRN PRN Reason: SALINE FLUSH Last Admin: 11/21/19 22:20 Dose: 10 ml Documented by: STROKE Vital Signs/Narrative: Vital Signs Temp Pulse Resp BP Pulse Ox 11/22/19 08:41 98.3 F 88 15 133/76 H 97 Medical Necessity - Tobacco Use Smoking Status: Current every day smoker Tobacco Use: Cigarettes Assessment/Plan All Active Problems (Last Reviewed 11/13/19 @ 00:[address] Navi Bee MD) Mediastinal shift (Acute) Mucus plugging of bronchi (Acute) CVA (cerebral vascular accident) (Resolved) Vomiting (Acute) Hypoxia (Acute) Respiratory insufficiency (Acute) This a 24-year-old Afro-[place] gentleman with history of Behcet's disease was admitted with cough with dark black sputum, hypoxia 87% on room air also nausea and vomiting. 1. Acute hypoxic respiratory failure secondary to mucous plugging/ subacute infarct of right side of brainstem: Patient multiple chest x-ray reviewed and shows mediastinal shift with right tracheal pull most likely from mucous plugging. Patient is on aggressive pulmonary toileting, systemic steroid and VEST therapy. Repeat chest x-ray after intubation corrected the mediastinal shift. CTA did not show PE but diffuse interstitial edema. CK elevated. Lactic acid normal. Blood cultures x2 no growth for 48 hours, respiratory panel negative. Initial Gram stain shows mixed normal respiratory hai. On empiric ceftriaxone and Zithromax. 11/15 continue pulmonary hygiene including oral suctioning,VEST and incentive spirometry. Continue IV antibiotics. Patient has leukocytosis most probably, reactive to steroid. Sputum culture from 11/14 are pending which shows 3+ gram- positive cocci, 1+ gram-negative rods and 1+ gram-positive rods. 11/16: Repeat sputum culture shows presumptive Mikki albicans 1+. COVID-19 endobronchial PCR not detected. SARS serology is nonreactive. 11/17: Still on ventilator. Patient unable to control oral secretions. No fever, hemodynamically blood pressure GOOD. Antibiotics discontinued 11/18: Patient extubated in the morning. Still spitting out saliva. 11/19: Weak gag reflex, not able to maintain or control oral secretions. Speech therapist to evaluate currently patient is n.p.o. 11/20: Started on NG tube feeds, Jevity 1.2. Discussed with the bankman. Speech therapist on board. 11/21: Patient tolerating tube feed. Discussed with the speech therapist still n.p.o. no remarkable or significant progress. Discussed with the patient's mother, Mrs. Radha Stearns and surgeon Dr. Monet For PEG tube. They agreed, most probable PEG tube on Sunday. 2. 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 MRI of brain reported acute/subacute infarct of the right side of brainstem but clinically it seems mainly subacute. Started on aspirin and statin. 11/17: Fasting profile LDL 69, HDL 30. On high intensity statin and aspirin. 11/18: [facility] neurology consult of 11/17 reviewed. CTA head and neck and echo ordered. 7/2 SOC neurology follow-up was done. Recommended high-dose Solu-Medrol 1 g/day for 3 days with GI prophylaxis then prednisone 1 mg/kg and then taper as outpatient. Patient is already on Solu-Medrol 80 mg/day (weight 52 kg). Dr. Aundrea Elias recommended to start Imuran, and the dose was not specified. Patient is already on aspirin, Lipitor. 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 CRP still elevated 24 although improved from 86. Leukocytosis from high-dose Solu-Medrol. 11/20: Repeat CK 333. CRP 24.7. Atorvastatin dose decreased to 40 mg daily. Solu-Medrol decreased total dose 60 mg IV daily 11/21: Solu-Medrol changed to prednisone, 1 mg/kg body weight. 3. Hypotension most likely secondary to sedative: Resolved. 4. Hypophosphatemia: K3.7, magnesium 2.2, phosphorus 0.6, on IV potassium phosphate. 11/17: Repeat phosphorus 3.0. K4.1. 3. Behcet's disease and history of a stroke: Has oral and scrotal ulcer. Patient was not on chronic steroid therapy or immunosuppression. Elevated CRP. On IV steroid. Patient has significant leukocytosis with neutrophilia most likely steroid effect. [facility] neurology recommended azathioprine suggested for Behcet's disease vasculitis but probably will need rental boats caretaker opinion and consult and patient is already on steroid. 4. Tobacco abuse: DVT: Lovenox Total time of the visit including total time spent in counseling or coordination of care, (more than 50% of the total time, spent in obtaining medical information from nurses and other ancillary care providers), discussion with the insurance actuary and clinical updates given to mother Mrs. Radha Stearns, review of labs and imaging is 30 minutes. Clinical Impression(s) from Imaging Studies Chest X-Ray 11/16/19 23:13 IMPRESSION: Adequate position of replaced endotracheal and esophagogastric tubes. Persistent right lung airspace disease. Brain MRI 11/17/19 09:18 IMPRESSION: Acute/subacute infarct of the right side of the brainstem. Chest CTA 11/13/19 09:47 IMPRESSION: No demonstrated PE, or thoracic aortic aneurysm or dissection. However, the contrast bolus is not optimal in the distal pulmonary arteries and a subtle filling defect could be present and overlooked. Diffuse interstitial edema in both lung barnes with tree-in-bud opacifications consistent with small airways inflammation. Too small to characterize 3 mm nodule in the right upper lobe on axial image 155 Inpatient E&M: [id number] Subs Hosp L2
--- NOTE | 2019-11-22 17:14 | NURSING ---
Central line drsg changed. Area without redness, edema or drainage. Caps changed.
[2019-11-22] MEDS: Senna/Docusate Sodium 1 Tablet 2 TABLET NG (21:07)
[2019-11-22] MEDS: Atorvastatin Calcium 40 MG Tablet NG (21:08)
[2019-11-22] MEDS: Morphine 2 MG/ML Syringe IV (21:18)
--- NOTE | 2019-11-22 23:23 | NURSING ---
Mother called to check on pt, gave update on pt's condition. Penelope RN
--- NOTE | 2019-11-22 23:51 | NURSING ---
Verbal handoff given to RAFAL Ramirez at this time. Penelope RN
--- NOTE | 2019-11-22 23:51 | NURSING ---
Verbal report received from RAFAL Tesfaye. This RN resuming care of patient at this time.
[2019-11-23] VITALS (9 sets, daily range): BP systolic 118–134; BP diastolic 83–91; PULSE 81–120; RESP 14–22; TEMP 36.7–37; O2SAT 93–98; BMI 17.6
--- NOTE | 2019-11-23 05:31 | NURSING ---
During nursing round at 02:42, pt requested ice chips. This RN explained to patient that there is an order for nothing by mouth. This RN offered an oral swab. Pt became agitated and hit items off of his bedside table. This RN again offered patient an oral swab.
[2019-11-23] MEDS: Acyclovir 800 MG Tablet NG ×3 (06:32→23:00)
--- NOTE | 2019-11-23 08:38 | PCM.CONS.GEN ---
Reason for Consult Date of Consultation: 11/23/19 History of Present Illness: The patient is a 24 year old M with a past medical history of Behcet's and new dysphasia. Patient is currently getting tube feeds for nutrition via an NG. Patient is working with speech therapy. PEG tube recommended. Patient denies any abdominal pain nausea or vomiting. Past Medical History Past Medical History (Chronic Problems): Chronic Problems (Last Reviewed 11/13/19 @ 00:[address] Navi Bee MD) Behcet's disease (Chronic) Smoker (Chronic) Open wound of lip with complication (Chronic) 1.3 cm post-traumatic nonhealing open wound left lower lip near midline 2 cm post-traumatic nonhealing open wound central upper lip in posterior portion of lip Medical History: Medical History (Last Reviewed 11/13/19 @ 00:[address] Navi Bee MD) Open wound, nose, without complication (Inactive) S01.20XA 1 cm post-traumatic nonhealing wound nasal root Accidental fall (Inactive) W19.XXXA Open wound of lip with complication (Chronic) S01.501A 1.3 cm post-traumatic nonhealing open wound left lower lip near midline 2 cm post-traumatic nonhealing open wound central upper lip in posterior portion of lip Back problem M53.9 Behcet's disease M35.2 Head ache R51 Heart murmur R01.1 Stroke I63.9 Ulcer Vision problems H54.7 Allergies No Known Allergies Allergy (Verified 11/05/19 08:50) Home Medications: Ambulatory Orders Medication Instructions Recorded Acyclovir [Zovirax] 800 mg PO TID 11/01/19 Quetiapine Fumarate [Seroquel] 50 mg PO QHS 11/11/19 proMETHazine tablet [Phenergan] 25 mg PO Q6H PRN PRN #10 tab 11/11/19 Surgical History: Surgical History (Last Reviewed 11/07/19 @ 22:[address] Manuel Ash MD) History of incision and drainage Z98.890 BEHCETS INFECTION Surgical History: - - No surgical history except incision and drainage. Smoking Status: Current every day smoker Tobacco Use: Cigarettes Alcohol: Occasional - *Family History Maternal Family History: Family History (Last Reviewed 11/07/19 @ 22:[address] Manuel Ash MD) Unknown No problems noted. Paternal Family History: Family History (Last Reviewed 11/07/19 @ 22:[address] Manuel Ash MD) Unknown No problems noted. History Items: Hypertension Review of Systems Constitutional: Denies: Fever HEENT: Reports: Difficulty Swallowing, Dysphasia Cardiovascular: Denies: Chest Pain Respiratory: Denies: Shortness of Breath Gastrointestinal: Denies: Abdominal Pain, Nausea, Vomiting Genitourinary: Denies: Dysuria Skin: Denies: Rash Neurological: Denies: Balance problems Psychiatric: Denies: Depression Hematologic/ Lymphatic: Denies: Easy Bleeding Patient Problems: Active and Suspected Problems (Last Reviewed 11/13/19 @ 00:[address] Navi Bee MD) Vomiting (Acute) Hypoxia (Acute) Respiratory insufficiency (Acute) - Physical Exam Vitals/I&O's: Vital Signs Temp Pulse Resp BP Pulse Ox 98.1 F 108 H 22 H 134/91 H 93 11/23/19 03:19 11/23/19 06:59 11/23/19 03:19 11/23/19 03:19 11/23/19 03:19 Oxygen Flow Rate (L/min) 2 Oxygen Delivery Method Room Air Weight: 115 lb 8.356 oz Body Mass Index (BMI) 17.6 Intake and Output for Last 24 Hours 11/21/19 11/22/19 11/23/19 23:59 23:59 23:59 Intake Total 2408.75 / 2408.75 3250 / 3250 653 / 653 Output Total 600 / 600 1350 / 1350 0 / 0 Balance 1808.75 / 1808.75 1900 / 1900 653 / 653 General: Alert, Oriented x3, Cooperative, No apparent distress Lungs: Normal air movement Cardiovascular: Regular rate Abdomen: Soft, Non Tender, Non-Distended Extremities: No clubbing, No cyanosis, No edema Neurological: Neuro grossly intact Psych/Mental Status: Normal Affect Microbiology Past 72 Hours 11/15/19 05:15 Blood Culture (Wb) - Central Line Blood Culture - Final No growth in 5 days. 11/15/19 04:15 Blood Culture (Wb) - Arm Right Blood Culture - Final No growth in 5 days. Current Medications Acetaminophen (Tylenol Liquid) 650 mg NG Q4H PRN PRN PRN Reason: Pain Score 1-10/10 Last Admin: 11/22/19 20:20 Dose: 650 mg Documented by: Acyclovir (Zovirax) 800 mg NG TID [facility] Last Admin: 11/23/19 06:32 Dose: 800 mg Documented by: Albuterol Sulfate (Ventolin Aerosols) 2.5 mg INHALATION Q2H PRN PRN PRN Reason: sob/wheezing Last Admin: 11/20/19 05:39 Dose: 2.5 mg Documented by: Aspirin (Aspirin, Baby) 81 mg NG DAILY@1000 [facility] Last Admin: 11/22/19 08:54 Dose: 81 mg Documented by: Atorvastatin Calcium (Lipitor) 40 mg NG QHS [facility] Last Admin: 11/22/19 21:08 Dose: 40 mg Documented by: Azathioprine (Imuran) 50 mg NG DAILY [facility] Last Admin: 11/22/19 08:56 Dose: 50 mg Documented by: Buspirone HCl (Buspar) 10 mg NG BID [facility] Last Admin: 11/22/19 21:07 Dose: 10 mg Documented by: Dextrose (D50w Syringe) 0 gm IV X1 PRN; Protocol PRN Reason: Hypoglycemia Enoxaparin Sodium (Lovenox) 40 mg SC DAILY [facility] Last Admin: 11/22/19 08:56 Dose: 40 mg Documented by: Famotidine (Pepcid) 20 mg NG BID [facility] Last Admin: 11/22/19 21:07 Dose: 20 mg Documented by: Glucagon () 1 mg IM .X1 PRN PRN Reason: Hypoglycemia Guaifenesin (Mucinex) 1,200 mg PO BID [facility] Last Admin: 11/22/19 21:26 Dose: Not Given Documented by: Sodium Chloride () 250 mls @ 15 mls/hr IV .[id number] PRN PRN Reason: Saline Flush Last Infusion: 11/23/19 00:38 Dose: Infused Documented by: Sodium Chloride () 250 mls @ 15 mls/hr IV .[id number] PRN PRN Reason: Additional IVPB Infusion Enteral Nutritional Formula (Jevity 1.5) 1,000 mls @ 50 mls/hr GT .Q20H [facility] Last Admin: 11/23/19 04:00 Dose: Not Given Documented by: Morphine Sulfate () 2 mg IV Q4H PRN PRN PRN Reason: Pain Score 6-10/10 Last Admin: 11/22/19 21:18 Dose: 2 mg Documented by: Mupirocin (Bactroban) 1 applic TOPICAL BID [facility]; Protocol Last Admin: 11/22/19 21:08 Dose: 1 applicatio Documented by: Ondansetron HCl (Zofran) 4 mg IV Q6H PRN PRN PRN Reason: NAUSEA/VOMITING Last Admin: 11/16/19 18:27 Dose: 4 mg Documented by: Polyethylene Glycol (Miralax) 17 gm NG DAILY [facility] Last Admin: 11/22/19 08:50 Dose: Not Given Documented by: Prednisone () 60 mg PO DAILY@0800 [facility] Quetiapine Fumarate (Seroquel) 50 mg NG BID [facility] Last Admin: 11/22/19 21:07 Dose: 50 mg Documented by: Senna/Docusate Sodium (Senokot-S, Becky-Colace) 2 tablet NG BID [facility] Last Admin: 11/22/19 21:07 Dose: 2 tablet Documented by: Sodium Chloride () 10 - 40 ml IV UD PRN PRN Reason: SALINE FLUSH Last Admin: 11/21/19 22:20 Dose: 10 ml Documented by: Assessment/Plan All Active Problems (Last Reviewed 11/13/19 @ 00:[address] Navi Bee MD) Mediastinal shift (Acute) Mucus plugging of bronchi (Acute) CVA (cerebral vascular accident) (Resolved) Vomiting (Acute) Hypoxia (Acute) Respiratory insufficiency (Acute) 24-year-old male with Behcet's, dysphasia requiring tube feeds, request for PEG 1. Did discuss the procedure of the PEG with the patient he had no further questions this time was agreeable to proceed. I have discussed the above with the patient. I have offered the patient PEG placement with EGD for evaluation. I have explained the risks/benefits of the procedure and described the procedure. I have discussed the risks with the patient, including but not limited to: infection, bleeding, perforation of the GI tract requiring emergency surgery other than the typical gastrostomy for a PEG site, inability to complete the procedure, injury to any internal organs, complications of anesthesia, etc. - the patient understands and agrees to proceed. I have answered all the patient's questions to the patient's satisfaction and the patient has no further questions. We will plan for tomorrow, hold tube feeds after midnight. Tami Monet M.D. Pager: [phone] [facility] [address] [place] [address], [address] [place] [address] Office: [phone] Procedure Criteria Procedure Type: Elective COVID Risk Discussion: The surgeon/proceduralist and patient have discussed in detail the risk of exposure to and/or potential harm posed by the COVID-19 virus with having a surgery/procedure at this time versus the risk of delaying the surgery/procedure. It is not possible to know either the risk of delaying the surgery or procedure or chance of getting an infection with perfect accuracy, but a joint decision was made between the patient and the surgeon/proceduralist to proceed at this time with the scheduled surgery/procedure as indicated on the consent form. Inpatient E&M: 01716 Init Hosp L2
[2019-11-23] MEDS: QUEtiapine 25 MG Tablet 50 MG NG ×2 (09:42→23:01)
[2019-11-23] MEDS: guaiFENesin 1,200 MG Tablet 1200 MG PO ×2 (09:42→23:03)
[2019-11-23] MEDS: predniSONE 20 MG Tablet 60 MG PO (09:43)
[2019-11-23] MEDS: Senna/Docusate Sodium 1 Tablet 2 TABLET NG ×2 (09:43→23:00)
[2019-11-23] MEDS: Famotidine 20 MG Tablet NG ×2 (09:43→23:03)
[2019-11-23] MEDS: Aspirin 81 MG TAB.CHEW NG (09:44)
[2019-11-23] MEDS: azaTHIOprine 50 MG Tablet NG (09:44)
[2019-11-23] MEDS: Enoxaparin 40 MG/0.4 ML Syringe SC (09:45)
[2019-11-23] MEDS: busPIRone 5 MG Tablet 10 MG NG ×2 (09:45→23:00)
[2019-11-23] MEDS: Polyethylene Glycol 3350 17 GM PACKET NG (09:46)
[2019-11-23] MEDS: Mupirocin Ointment 22gm Tube 1 APPLIC TOPICAL ×2 (09:46→23:05)
[2019-11-23] MEDS: Acetaminophen 650 MG/20 ML UDC NG ×3 (10:51→22:59)
--- NOTE | 2019-11-23 14:25 | PN_ITS ---
Patient Problems: Active and Suspected Problems (Last Reviewed 11/13/19 @ 00:[address] Navi Bee MD) Vomiting (Acute) Hypoxia (Acute) Respiratory insufficiency (Acute) Reason for Visit: Multiple issues. Oropharyngeal dysphagia on tube feeding. Objective: Hemodynamically blood pressure and heart rate is good. No hypoxia. Patient anxiety level is controlled. On physical exam General: Alert, Oriented x3, Cooperative HEENT: Atraumatic, PERRLA, EOMI, Normocephalic. NG tube feeds running at 50 mils per hour. Patient tolerating feeding well Oral: -Patient is spitting out clear oral secretions/saliva. No obvious oral ulcers seen, probably healed. Weak gag reflex and swallowing reflex. n.p.o. Neck: Supple, No JVD, Negative Carotid Bruits Lungs: Clear to auscultation, No rhonchi, No wheeze, No rales, Diminished Cardiovascular: Regular rate, Regular Rhythm, Normal S1, Normal S2, No murmurs Abdomen: Bowel Sounds Present, Soft, Non Tender, Non-Distended Extremities: No edema, Capillary Refill Less than 3 Seconds Skin: No rashes, No breakdown Musculoskeletal: No Tenderness to Palpation of Joints or Extremities, Arthritic Changes, Muscle Wasting Lymphatic: No Cervical, Supraclavicular, or Inguinal Adenopathy Neurological: Cranial nerves II-XII grossly intact, Deep Tendon Reflexes 2+/4 and Symmetrical, Neuro grossly intact. Bilateral lower extremity weakness Psych/Mental Status: Normal Affect, Appropriate Vitals/I&O's: Vital Signs Temp Pulse Resp BP Pulse Ox 98.6 F 87 14 123/83 H 98 11/23/19 09:33 11/23/19 09:33 11/23/19 09:33 11/23/19 09:33 11/23/19 09:33 Oxygen Flow Rate (L/min) 2 Oxygen Delivery Method Room Air Weight: 115 lb 8.356 oz Body Mass Index (BMI) 17.6 Intake and Output for Last 24 Hours 11/21/19 11/22/19 11/23/19 23:59 23:59 23:59 Intake Total 2408.75 / 2408.75 3250 / 3250 853 / 853 Output Total 600 / 600 1350 / 1350 0 / 0 Balance 1808.75 / 1808.75 1900 / 1900 853 / 853 Microbiology Past 72 Hours 11/15/19 05:15 Blood Culture (Wb) - Central Line Blood Culture - Final No growth in 5 days. Current Medications Acetaminophen (Tylenol Liquid) 650 mg NG Q4H PRN PRN PRN Reason: Pain Score 1-1010 Last Admin: 11/23/19 10:51 Dose: 650 mg Documented by: Acyclovir (Zovirax) 800 mg NG TID [facility] Last Admin: 11/23/19 06:32 Dose: 800 mg Documented by: Albuterol Sulfate (Ventolin Aerosols) 2.5 mg INHALATION Q2H PRN PRN PRN Reason: sob/wheezing Last Admin: 11/20/19 05:39 Dose: 2.5 mg Documented by: Aspirin (Aspirin, Baby) 81 mg NG DAILY@1000 [facility] Last Admin: 11/23/19 09:44 Dose: 81 mg Documented by: Atorvastatin Calcium (Lipitor) 40 mg NG QHS [facility] Last Admin: 11/22/19 21:08 Dose: 40 mg Documented by: Azathioprine (Imuran) 50 mg NG DAILY [facility] Last Admin: 11/23/19 09:44 Dose: 50 mg Documented by: Buspirone HCl (Buspar) 10 mg NG BID [facility] Last Admin: 11/23/19 09:45 Dose: 10 mg Documented by: Dextrose (D50w Syringe) 0 gm IV X1 PRN; Protocol PRN Reason: Hypoglycemia Enoxaparin Sodium (Lovenox) 40 mg SC DAILY [facility] Last Admin: 11/23/19 09:45 Dose: 40 mg Documented by: Famotidine (Pepcid) 20 mg NG BID [facility] Last Admin: 11/23/19 09:43 Dose: 20 mg Documented by: Glucagon () 1 mg IM .X1 PRN PRN Reason: Hypoglycemia Guaifenesin (Mucinex) 1,200 mg PO BID [facility] Last Admin: 11/23/19 09:42 Dose: 1,200 mg Documented by: Sodium Chloride () 250 mls @ 15 mls/hr IV .[id number] PRN PRN Reason: Saline Flush Last Infusion: 11/23/19 00:38 Dose: Infused Documented by: Sodium Chloride () 250 mls @ 15 mls/hr IV .[id number] PRN PRN Reason: Additional IVPB Infusion Enteral Nutritional Formula (Jevity 1.5) 1,000 mls @ 50 mls/hr GT .Q20H [facility] Stop: 11/24/19 00:00 Last Admin: 11/23/19 04:00 Dose: Not Given Documented by: Dextrose/Sodium Chloride () 1,000 mls @ 60 mls/hr IV .[id number] [facility] Morphine Sulfate () 2 mg IV Q4H PRN PRN PRN Reason: Pain Score 6-10/10 Last Admin: 11/22/19 21:18 Dose: 2 mg Documented by: Mupirocin (Bactroban) 1 applic TOPICAL BID [facility]; Protocol Last Admin: 11/23/19 09:46 Dose: 1 applicatio Documented by: Ondansetron HCl (Zofran) 4 mg IV Q6H PRN PRN PRN Reason: NAUSEA/VOMITING Last Admin: 11/16/19 18:27 Dose: 4 mg Documented by: Polyethylene Glycol (Miralax) 17 gm NG DAILY [facility] Last Admin: 11/23/19 09:46 Dose: 17 gm Documented by: Prednisone () 60 mg PO DAILY@0800 [facility] Last Admin: 11/23/19 09:43 Dose: 60 mg Documented by: Quetiapine Fumarate (Seroquel) 50 mg NG BID [facility] Last Admin: 11/23/19 09:42 Dose: 50 mg Documented by: Senna/Docusate Sodium (Senokot-S, Becky-Colace) 2 tablet NG BID [facility] Last Admin: 11/23/19 09:43 Dose: 2 tablet Documented by: Sodium Chloride () 10 - 40 ml IV UD PRN PRN Reason: SALINE FLUSH Last Admin: 11/21/19 22:20 Dose: 10 ml Documented by: Medical Necessity - Tobacco Use Smoking Status: Current every day smoker Tobacco Use: Cigarettes Assessment/Plan All Active Problems (Last Reviewed 11/13/19 @ 00:[address] Navi Bee MD) Mediastinal shift (Acute) Mucus plugging of bronchi (Acute) CVA (cerebral vascular accident) (Resolved) Vomiting (Acute) Hypoxia (Acute) Respiratory insufficiency (Acute) This a 24-year-old Afro-[place] gentleman with history of Behcet's disease was admitted with cough with dark black sputum, hypoxia 87% on room air also nausea and vomiting. 1. Acute hypoxic respiratory failure secondary to mucous plugging/ subacute infarct of right side of brainstem: Patient multiple chest x-ray reviewed and shows mediastinal shift with right tracheal pull most likely from mucous plugging. Patient is on aggressive pulmonary toileting, systemic steroid and VEST therapy. Repeat chest x-ray after intubation corrected the mediastinal shift. CTA did not show PE but diffuse interstitial edema. CK elevated. Lactic acid normal. Blood cultures x2 no growth for 48 hours, respiratory panel negative. Initial Gram stain shows mixed normal respiratory hai. On empiric ceftriaxone and Zithromax. 11/15 continue pulmonary hygiene including oral suctioning,VEST and incentive spirometry. Continue IV antibiotics. Patient has leukocytosis most probably, reactive to steroid. Sputum culture from 11/14 are pending which shows 3+ gram- positive cocci, 1+ gram-negative rods and 1+ gram-positive rods. 11/16: Repeat sputum culture shows presumptive Mikki albicans 1+. COVID-19 endobronchial PCR not detected. SARS serology is nonreactive. 11/17: Still on ventilator. Patient unable to control oral secretions. No fever, hemodynamically blood pressure GOOD. Antibiotics discontinued 11/18: Patient extubated in the morning. Still spitting out saliva. 11/19: Weak gag reflex, not able to maintain or control oral secretions. Speech therapist to evaluate currently patient is n.p.o. 11/20: Started on NG tube feeds, Jevity 1.2. Discussed with the janitorial maintenance worker. Speech therapist on board. 11/21: Patient tolerating tube feed. Discussed with the speech therapist still n.p.o. no remarkable or significant progress. Discussed with the patient's mother, Mrs. Radha Stearns and surgeon Dr. Monet For PEG tube. They agreed, most probable PEG tube on Sunday. 11/22: Discussed with surgeon. Hold tube feed after 12 midnight on 11/23 with PEG tube in the morning. Patient and her mother agreed for PEG tube. 2. 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 MRI of brain reported acute/subacute infarct of the right side of brainstem but clinically it seems mainly subacute. Started on aspirin and statin. 11/17: Fasting profile LDL 69, HDL 30. On high intensity statin and aspirin. 11/18: [facility] neurology consult of 11/17 reviewed. CTA head and neck and echo ordered. 11/19 [facility] neurology follow-up was done. Recommended high-dose Solu-Medrol 1 g/day for 3 days with GI prophylaxis then prednisone 1 mg/kg and then taper as outpati ent. Patient is already on Solu-Medrol 80 mg/day (weight 52 kg). Dr. Aundrea Elias recommended to start Imuran, and the dose was not specified. Patient is already on aspirin, Lipitor. Otr Driver is not able to see the while inpatient there for follow-up as an outpatient. CRP still elevated 24 although improved from 86. Leukocytosis from high-dose Solu-Medrol. 11/20: Repeat CK 333. CRP 24.7. Atorvastatin dose decreased to 40 mg daily. Solu-Medrol decreased total dose 60 mg IV daily 11/21: Solu-Medrol changed to prednisone, 1 mg/kg body weight. 11/22: Leukocytosis improving. 3. Hypotension most likely secondary to sedative: Resolved. 4. Hypophosphatemia: K3.7, magnesium 2.2, phosphorus 0.6, on IV potassium phosphate. 11/17: Repeat phosphorus 3.0. K4.1. 3. Behcet's disease and history of a stroke: Has oral and scrotal ulcer. Patient was not on chronic steroid therapy or immunosuppression. Elevated CRP. On IV steroid. Patient has significant leukocytosis with neutrophilia most likely steroid effect. [facility] [place] recommended azathioprine suggested for Behcet's disease vasculitis but probably will need benefits director opinion and consult and patient is already on steroid. 4. Tobacco abuse: DVT: Lovenox Total time of the visit including total time spent in counseling or coordination of care, (more than 50% of the total time, spent in obtaining medical info rmation from nurses and other ancillary care providers), discussion with the home care liaison, review of labs and imaging is 30 minutes. Discharge plan: Patient's mother wants the patient to go to TCU. manager scheduling and social service worker to follow. Clinical Impression(s) from Imaging Studies Chest X-Ray 11/16/19 23:13 IMPRESSION: Adequate position of replaced endotracheal and esophagogastric tubes. Persistent right lung airspace disease. Brain MRI 11/17/19 09:18 IMPRESSION: Acute/subacute infarct of the right side of the brainstem. Chest CTA 11/13/19 09:47 IMPRESSION: No demonstrated PE, or thoracic aortic aneurysm or dissection. However, the contrast bolus is not optimal in the distal pulmonary arteries and a subtle filling defect could be present and overlooked. Diffuse interstitial edema in both lung barnes with tree-in-bud opacifications consistent with small airways inflammation. Too small to characterize 3 mm nodule in the right upper lobe on axial image 155 Inpatient E&M: 10277 Subs Hosp L2
--- NOTE | 2019-11-23 14:35 | NURSING ---
[id number] called mother and updated on poc of peg tube placement on sunday
[2019-11-23] MEDS: Jevity 1.5 1,000 ML 50 ML GT (15:04)
[2019-11-23] MEDS: Morphine 2 MG/ML Syringe IV (20:23)
[2019-11-23] MEDS: Atorvastatin Calcium 40 MG Tablet NG (23:03)
[2019-11-24] VITALS (14 sets, daily range): BP systolic 112–134; BP diastolic 78–102; PULSE 71–99; RESP 16–20; TEMP 36.3–36.9; O2SAT 93–99; BMI 17.6
--- NOTE | 2019-11-24 04:18 | EKG12_ITS ---
Test Reason : AM EKG Blood Pressure : / mmHG Vent. Rate : 089 BPM Atrial Rate : 089 BPM P-R Int : 142 ms QRS Dur : 090 ms QT Int : 366 ms P-R-T Axes : 075 055 052 degrees QTc Int : 445 ms Normal sinus rhythm Consider Voltage criteria for LVH Confirmed by JENS WHITESIDE, ROSA ([id number]), editor managing newspaper GEM PAGAN ([id number]) on 11/26/2019 10:25:22 AM Referred By: Navi Bee Confirmed By:ROSA COLINDRES MD
[2019-11-24] MEDS: Dext 5%-0.45% NS 1,000 ML 60 ML IV ×2 (04:28→10:55)
[2019-11-24 06:24] LABS: Hematocrit 44.8 % (40-54); Hemoglobin 14.4 g/dL (13.0-16.5); Mean Corp Hgb Conc 32.1 g/dL (32-36); Mean Corpuscular Hgb 30.4 pg (27.0-32.0); Mean Corpuscular Volume 94.7 fL (80-94); Mean Platelet Vol. 9.9 fl (6.2-12.0); Platelet Count 328 K/mm3 (150-450); RBC Distribution Width CV 13.5 % (11.6-14.6); RBC Distribution Width SD 45.5 fl (35.1-43.9); Red Blood Count 4.73 M/mm3 (4.6-6.2); White Blood Count 13.9 K/mm3 (4.4-11.0)
[2019-11-24 06:50] LABS: Anion Gap 4 (5-15); BUN 27 mg/dL (7-18); BUN/Creat Ratio 35.6 RATIO (10-20); Calcium,Total 8.8 mg/dL (8.5-10.1); Chloride 102 mmol/L (98-107); Creatinine, Serum 0.76 mg/dL (0.70-1.30); EST Glomerular Filtration Rate 132 mL/min (>60); Est Glom Filt Rate - Afr Amer 159 mL/min (>60); Estimated Creatinine Clearance 108.54 ml/min; Glucose 94 mg/dL (74-106); Potassium 3.4 mmol/L (3.5-5.1); Sodium Level 137 mmol/L (136-145)
--- NOTE | 2019-11-24 08:49 | OP.CCLET_ITS ---
11/24/2019 Zoey Parra [facility] Re : Upper GI endoscopy procedure for Alber Lima [facility] This procedure was performed on Sunday, November 24, 2019. My impressions and recommendations are as follows: Impressions : - Normal. - Normal esophagus. - Non-bleeding gastric ulcer. - An externally removable PEG placement was successfully completed. - No specimens collected. Recommendations : - [facility]. - NPO. - Continue present medications. - Use Protonix (pantoprazole) 40 mg PO daily. - Use sucralfate tablets 1 gram PO QID for 1 month. My findings are described in the full procedure note, which is enclosed. If I can be of further assistance, please feel free to contact me at Doctor phone number(s): , Work: . Sincerely, MD Tami Yates MD 11/24/2019 8:48:23 AM This report has been signed electronically.
--- NOTE | 2019-11-24 08:49 | OP.EGD_ITS ---
Patient Name: Alber Rios Procedure Date: 11/24/2019 8:00 AM Date of : 1995 Age: 24 Procedure: Upper GI endoscopy Indications: Dysphagia Providers: Tami Monet MD Referring MD: Navi Bee Medicines: Monitored Anesthesia Care Patient Profile: This is a 24 year old male. Complications: No immediate complications. Procedure: Pre-Anesthesia Assessment: - Prior to the procedure, a History and Physical was performed, and patient medications and allergies were reviewed. The patient's tolerance of previous anesthesia was also reviewed. The risks and benefits of the procedure and the sedation options and risks were discussed with the patient. All questions were answered, and informed consent was obtained. Prior Anticoagulants: The patient has taken no previous anticoagulant or antiplatelet agents. ASA Grade Assessment: Per anesthesia. After reviewing the risks and benefits, the patient was deemed in satisfactory condition to undergo the procedure. After obtaining informed consent, the endoscope was passed under direct vision. Throughout the procedure, the patient's blood pressure, pulse, and oxygen saturations were monitored continuously. The Endoscope was introduced through the mouth, and advanced to the second part of duodenum. The upper GI endoscopy was accomplished without difficulty. The patient tolerated the procedure well. Scope In: 8:21:47 AM Scope Out: 8:33:35 AM Total Procedure Duration Time 0 hours 11 minutes 48 seconds Findings: The in the duodenum was normal. The esophagus was normal. The patient was placed in the supine position for PEG placement. The stomach was insufflated to appose gastric and abdominal carpenter. A site was located in the body of the stomach with excellent transillumination for placement. The abdominal wall was marked and prepped in a sterile manner. The area was anesthetized with 5 mL of 1% lidocaine. The trocar needle was introduced through the abdominal wall and into the stomach under direct endoscopic view. A snare was introduced through the endoscope and opened in the gastric lumen. The guide wire was passed through the trocar and into the open snare. The snare was closed around the guide wire. The endoscope and snare were removed, pulling the wire out through the mouth. A skin incision was made at the site of needle insertion. The externally removable 20 Fr Bard gastrostomy tube was lubricated. The G-tube was tied to the guide wire and pulled through the mouth and into the stomach. The trocar needle was removed, and the gastrostomy tube was pulled out from the stomach through the skin. The external bumper was attached to the gastrostomy tube, and the tube was cut to remove the guide wire. The final position of the gastrostomy tube was confirmed by relook endoscopy, and skin marking noted to be 3 cm at the external bumper. The final tension and compression of the abdominal wall by the PEG tube and external bumper were checked and revealed that the bumper was loose and lightly touching the skin. The feeding tube was capped, and the tube site cleaned and dressed. One non-bleeding superficial gastric ulcer was found in the gastric body. The lesion was 3 mm in largest dimension. Impression: - Normal. - Normal esophagus. - Non-bleeding gastric ulcer. - An externally removable PEG placement was successfully completed. - No specimens collected. Recommendation: - [facility]. - NPO. - Continue present medications. - Use Protonix (pantoprazole) 40 mg PO daily. - Use sucralfate tablets 1 gram PO QID for 1 month. Procedure Code(s): --- Professional --- 81853, Esophagogastroduodenoscopy, flexible, transoral; with directed placement of percutaneous gastrostomy tube Diagnosis Code(s): --- Professional --- K29.70, Gastritis, unspecified, without bleeding R13.10, Dysphagia, unspecified CPT copyright 2017 [employer]. All rights reserved. The codes documented in this report are preliminary and upon dual hose cementer review may be revised to meet current compliance requirements. MD Tami Yates MD 11/24/2019 8:48:23 AM This report has been signed electronically. Number of Addenda: 0 Note Initiated On: 11/24/2019 8:00 AM
[2019-11-24] MEDS: Morphine 2 MG/ML Syringe IV ×3 (10:16→20:56)
[2019-11-24] MEDS: Enoxaparin 40 MG/0.4 ML Syringe SC (10:56)
[2019-11-24] MEDS: Senna/Docusate Sodium 1 Tablet 2 TABLET NG ×2 (10:56→20:58)
[2019-11-24] MEDS: QUEtiapine 25 MG Tablet 50 MG NG ×2 (10:56→20:59)
[2019-11-24] MEDS: guaiFENesin 1,200 MG Tablet 1200 MG PO ×2 (10:57→21:00)
[2019-11-24] MEDS: Aspirin 81 MG TAB.CHEW NG (10:58)
[2019-11-24] MEDS: predniSONE 20 MG Tablet 60 MG PO (10:59)
[2019-11-24] MEDS: Mupirocin Ointment 22gm Tube 1 APPLIC TOPICAL ×2 (10:59→20:57)
[2019-11-24] MEDS: azaTHIOprine 50 MG Tablet NG (11:00)
[2019-11-24] MEDS: Polyethylene Glycol 3350 17 GM PACKET NG (11:01)
[2019-11-24] MEDS: busPIRone 5 MG Tablet 10 MG NG ×2 (11:10→20:57)
[2019-11-24] MEDS: Sucralfate 1 GM Tablet GT ×3 (11:11→21:01)
[2019-11-24] MEDS: Acetaminophen 650 MG/20 ML UDC NG (11:24)
--- NOTE | 2019-11-24 11:57 | CASEMGMT ---
Social Work Pt presenting with stroke. PHQ9 interview completed with score of 0/27. Pt denies any feelings of depression at this time. SW educated pt on depression and stroke and encouraged pt to be mindful of feeling and consult PCP should feelings change. MANNY Martini
--- NOTE | 2019-11-24 12:00 | CASEMGMT ---
Social Work SW met with pt in room to discuss discharge plan. Pt lives at home alone and was able to function independently. SW presented option of inpatient rehab and pt is agreeable to this. Pt stating he does not want to go to a SNF. With pt permission phone call to pt mother who is also agreeable to inpt rehab. SW explained Rehab physician would need to accept as well as insurance precert. Mother is understanding. Referral made to Radha in Inpt Rehab, will await determination. MANNY Martini
--- NOTE | 2019-11-24 12:26 | PCM.PN.HOSP ---
Patient Problems: Active and Suspected Problems (Last Reviewed 11/13/19 @ 00:[address] Navi Bee MD) Vomiting (Acute) Hypoxia (Acute) Respiratory insufficiency (Acute) Subjective: PEG done today. Pt sleepy now. Did better with therapy. Feeling okay. Remains on RA. Vitals/I&O's: Vital Signs Temp Pulse Resp BP Pulse Ox 98.4 F 75 16 134/88 H 95 11/24/19 09:39 11/24/19 09:58 11/24/19 09:39 11/24/19 09:39 11/24/19 09:39 Oxygen Flow Rate (L/min) 2 Oxygen Delivery Method Room Air Weight: 52.1 kg Body Mass Index (BMI) 17.6 Intake and Output for Last 24 Hours 11/22/19 11/23/19 11/24/19 23:59 23:59 23:59 Intake Total 3250 / 3250 2294 / 2294 497 / 497 Output Total 1350 / 1350 450 / 650 200 / 200 Balance 1900 / 1900 1844 / 1644 297 / 297 General: Alert, Oriented x3, Cooperative, No apparent distress, Well developed, - - thin AAM, appears tired but comfortable HEENT: Atraumatic, PERRLA, EOMI, Normocephalic, Sluggish Pupils Oral: Moist Mucosa, Ulcerations Present Neck: Supple, No Nodes, Trachea Midline, Thyroid Normal Size and Texture Lungs: Clear to auscultation, Normal air movement, No rhonchi, No wheeze, No rales Cardiovascular: Regular rate, Regular Rhythm, Normal S1, Normal S2, No rub noted, No Gallop Abdomen: Bowel Sounds Present, Soft, Non-Distended, Tender - at new PEG site Extremities: No clubbing, No cyanosis, No edema Skin: No rashes Psych/Mental Status: Appropriate, Flat Affect Laboratory Results 11/24/19 06:07: Sodium 137, Potassium 3.4 L, Chloride 102, Carbon Dioxide 31.0, Anion Gap 4 L, BUN 27 H, Creatinine 0.76, Estim Creat Clear Calc 108.54, Est GFR (MDRD) Af Amer 159, Est GFR (MDRD) Non-Af 132, BUN/Creatinine Ratio 35.6 H, Glucose 94, Calcium 8.8 11/24/19 06:07: WBC 13.9 H, RBC 4.73, Hgb 14.4, Hct 44.8, MCV 94.7 H, MCH 30.4, MCHC 32.1, RDW Std Deviation 45.5 H, RDW Coeff of Eduin 13.5, Plt Count 328, MPV 9.9 Current Medications Acetaminophen (Tylenol Liquid) 650 mg NG Q4H PRN PRN PRN Reason: Pain Score 1-10/10 Last Admin: 11/24/19 11:24 Dose: 650 mg Documented by: Acyclovir (Zovirax) 800 mg NG TID [facility] Last Admin: 11/24/19 04:53 Dose: Not Given Documented by: Albuterol Sulfate (Ventolin Aerosols) 2.5 mg INHALATION Q2H PRN PRN PRN Reason: sob/wheezing Last Admin: 11/20/19 05:39 Dose: 2.5 mg Documented by: Aspirin (Aspirin, Baby) 81 mg NG DAILY@1000 [facility] Last Admin: 11/24/19 10:58 Dose: 81 mg Documented by: Atorvastatin Calcium (Lipitor) 40 mg NG QHS [facility] Last Admin: 11/23/19 23:03 Dose: 40 mg Documented by: Azathioprine (Imuran) 50 mg NG DAILY [facility] Last Admin: 11/24/19 11:00 Dose: 50 mg Documented by: Buspirone HCl (Buspar) 10 mg NG BID [facility] Last Admin: 11/24/19 11:10 Dose: 10 mg Documented by: Dextrose (D50w Syringe) 0 gm IV X1 PRN; Protocol PRN Reason: Hypoglycemia Enoxaparin Sodium (Lovenox) 40 mg SC DAILY [facility] Last Admin: 11/24/19 10:56 Dose: 40 mg Documented by: Glucagon () 1 mg IM .X1 PRN PRN Reason: Hypoglycemia Guaifenesin (Mucinex) 1,200 mg PO BID [facility] Last Admin: 11/24/19 10:57 Dose: 1,200 mg Documented by: Sodium Chloride () 250 mls @ 15 mls/hr IV .[id number] PRN PRN Reason: Saline Flush Last Infusion: 11/23/19 00:38 Dose: Infused Documented by: Sodium Chloride () 250 mls @ 15 mls/hr IV .[id number] PRN PRN Reason: Additional IVPB Infusion Dextrose/Sodium Chloride () 1,000 mls @ 60 mls/hr IV .[id number] [facility] Last Admin: 11/24/19 10:55 Dose: 60 mls/hr Documented by: Pantoprazole Sodium 40 mg/ (Sodium Chloride) 110 mls @ 330 mls/hr IV Q24 [facility] Last Infusion: 11/24/19 11:33 Dose: Infused Documented by: Morphine Sulfate () 2 mg IV Q4H PRN PRN PRN Reason: Pain Score 6-10/10 Last Admin: 11/24/19 10:16 Dose: 2 mg Documented by: Mupirocin (Bactroban) 1 applic TOPICAL BID [facility]; Protocol Last Admin: 11/24/19 10:59 Dose: 1 applicatio Documented by: Ondansetron HCl (Zofran) 4 mg IV Q6H PRN PRN PRN Reason: NAUSEA/VOMITING Last Admin: 11/16/19 18:27 Dose: 4 mg Documented by: Polyethylene Glycol (Miralax) 17 gm NG DAILY [facility] Last Admin: 11/24/19 11:01 Dose: 17 gm Documented by: Prednisone () 60 mg PO DAILY@0800 [facility] Last Admin: 11/24/19 10:59 Dose: 60 mg Documented by: Quetiapine Fumarate (Seroquel) 50 mg NG BID [facility] Last Admin: 11/24/19 10:56 Dose: 50 mg Documented by: Senna/Docusate Sodium (Senokot-S, Becky-Colace) 2 tablet NG BID [facility] Last Admin: 11/24/19 10:56 Dose: 2 tablet Documented by: Sodium Chloride () 10 - 40 ml IV UD PRN PRN Reason: SALINE FLUSH Last Admin: 11/21/19 22:20 Dose: 10 ml Documented by: Sucralfate (Carafate) 1 gm GT 1HR_ACHS [facility] Last Admin: 11/24/19 11:11 Dose: 1 gm Documented by: STROKE Vital Signs/Narrative: Vital Signs Temp Pulse Resp BP Pulse Ox 11/24/19 09:58 75 11/24/19 09:39 98.4 F 76 16 134/88 H 95 11/24/19 09:05 97.5 F L 79 18 124/83 H 99 11/24/19 09:00 89 20 H 132/102 H 95 11/24/19 08:55 90 20 H 130/84 H 95 11/24/19 08:50 99 20 H 131/86 H 96 11/24/19 08:45 97.4 F L 98 20 H 127/82 H 93 Medical Necessity - Tobacco Use Smoking Status: Never smoker Tobacco Use: Non-smoker Assessment/Plan All Active Problems (Last Reviewed 11/13/19 @ 00:[address] 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 -Rehab at D/C 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 -Neuro recommended -high-dose Solu-Medrol 1 g/day for 3 days with GI prophylaxis then prednisone 1 mg/kg and then taper as outpatient -continue prednisone 60 mg -Imuran -Acyclovir for prophylaxis -Plant Engineer is not able to see the while inpatient there for follow-up as an outpatient -CRP remains elevated -ASA -PT/OT/ICT BUSINESS DEVELOPMENT MANAGER Leukocytosis -suspected from demargination with steroid -trending down -no s/o infection Hypokalemia -40 mEq enterally today -check mag and repeat BMP in am 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 bactrim prophylaxis--> will have rheum decide when they decide taper duratioin -Patient has significant leukocytosis with neutrophilia most likely steroid effect -SOC neurology recommended azathioprine suggested for Behcet's disease vasculitis but probably will need tower loader operator opinion and consult and patient is already on steroid -outpt f/u GI prophylaxis -will need while on steroids -PPI DVT prophylaxis -Lovenox Code status -FULL Inpatient E&M: 23480 Subs Hosp L3
--- NOTE | 2019-11-24 12:28 | CASEMGMT ---
Social Work Inpt rehab is able to accept pt and precert will be requested. Pt and mother updated and agreeable. SW will continue to follow. Plan: Inpt Rehab, pending precert. MANNY Martini
[2019-11-24 13:32] LABS: Absolute Lymphocyte Count 0.96 X10^3/uL (0.83-4.51); Absolute Neutrophil Count 16.5 X10^3/uL (2.0-7.7); Basophil# 0.01 X10^3/uL; Basophil% 0.1 % (0-1); Eosinophil# 0.05 X10^3/uL; Eosinophils% 0.3 % (0-5); Hematocrit 42.7 % (40-54); Hemoglobin 13.9 g/dL (13.0-16.5); Lymphocyte # 0.96 X10^3/ul (4.0); Lymphocyte % 5.2 % (19-41); Mean Corp Hgb Conc 32.6 g/dL (32-36); Mean Corpuscular Volume 95.3 fL (80-94); Mean Platelet Vol. 9.9 fl (6.2-12.0); Monocyte# 0.82 X10^3/uL; Monocyte% 4.4 % (0-10); NRBC Flagged by Analyzer 0 % (0-5); Neutrophil # 16.49 X10^3/uL (2.7-7.7); Platelet Count 289 K/mm3 (150-450); RBC Distribution Width CV 13.8 % (11.6-14.6); Red Blood Count 4.48 M/mm3 (4.6-6.2); White Blood Count 18.5 K/mm3 (4.4-11.0)
[2019-11-24 14:04] LABS: Anion Gap 5 (5-15); BUN 25 mg/dL (7-18); BUN/Creat Ratio 32.6 RATIO (10-20); Calcium,Total 8.5 mg/dL (8.5-10.1); Chloride 100 mmol/L (98-107); Creatinine, Serum 0.77 mg/dL (0.70-1.30); EST Glomerular Filtration Rate 130 mL/min (>60); Est Glom Filt Rate - Afr Amer 157 mL/min (>60); Estimated Creatinine Clearance 107.13 ml/min; Glucose 94 mg/dL (74-106); Magnesium 2.3 mg/dL (1.6-2.6); Potassium 3.1 mmol/L (3.5-5.1); Sodium Level 136 mmol/L (136-145)
[2019-11-24] MEDS: Acyclovir 800 MG Tablet NG ×2 (16:01→20:59)
[2019-11-24] MEDS: Atorvastatin Calcium 40 MG Tablet NG (21:00)
[2019-11-25] VITALS (10 sets, daily range): BP systolic 116–124; BP diastolic 70–79; PULSE 65–84; RESP 16–18; TEMP 36.6–36.8; O2SAT 93–99; BMI 17.6
[2019-11-25] MEDS: Dext 5%-0.45% NS 1,000 ML 60 ML IV ×2 (01:02→16:49)
[2019-11-25] MEDS: Morphine 2 MG/ML Syringe IV ×3 (02:52→21:19)
[2019-11-25] MEDS: 0.9% Saline Lock 10 ML Syringe IV (02:53)
[2019-11-25] MEDS: Sucralfate 1 GM Tablet GT ×4 (05:58→21:41)
[2019-11-25] MEDS: Acyclovir 800 MG Tablet NG (05:58)
[2019-11-25] MEDS: Polyethylene Glycol 3350 17 GM PACKET GT (08:50)
[2019-11-25] MEDS: Senna/Docusate Sodium 1 Tablet 2 TABLET GT (08:50)
[2019-11-25] MEDS: predniSONE 20 MG Tablet 60 MG GT (08:52)
[2019-11-25] MEDS: QUEtiapine 25 MG Tablet 50 MG GT (08:52)
[2019-11-25] MEDS: busPIRone 5 MG Tablet 10 MG GT ×2 (08:52→21:41)
[2019-11-25] MEDS: Aspirin 81 MG TAB.CHEW GT (08:53)
[2019-11-25] MEDS: azaTHIOprine 50 MG Tablet GT (08:53)
[2019-11-25] MEDS: Enoxaparin 40 MG/0.4 ML Syringe SC (08:54)
[2019-11-25] MEDS: Mupirocin Ointment 22gm Tube 1 APPLIC TOPICAL ×2 (08:54→21:40)
--- NOTE | 2019-11-25 09:19 | PCM.PN.HOSP ---
Patient Problems: Active and Suspected Problems (Last Reviewed 11/13/19 @ 00:[address] Navi Bee MD) Vomiting (Acute) Hypoxia (Acute) Respiratory insufficiency (Acute) Subjective: No issues overnight. Frustrated that he is not going to rehab today. No complaints otherwise. Vitals/I&O's: Vital Signs Temp Pulse Resp BP Pulse Ox 97.8 F 73 16 119/76 94 11/25/19 02:00 11/25/19 07:45 11/25/19 02:00 11/25/19 02:00 11/25/19 02:00 Oxygen Flow Rate (L/min) 2 Oxygen Delivery Method Room Air Weight: 53.6 kg Body Mass Index (BMI) 17.6 Intake and Output for Last 24 Hours 11/23/19 11/24/19 11/25/19 23:59 23:59 23:59 Intake Total 2294 / 2294 797 / 797 847 / 847 Output Total 450 / 650 650 / 650 400 / 400 Balance 1844 / 1644 147 / 147 447 / 447 General: Alert, Oriented x3, Cooperative, No apparent distress, Well developed, - - AAM, lying in bed with dark room HEENT: Atraumatic, PERRLA, EOMI, Normocephalic, EAC Clear Oral: Moist Mucosa, No Gingival or Mucosal Lesions/ Ulcerations Neck: Supple, No JVD, Negative Carotid Bruits, Negative Hepatojugular Reflux, No Nodes, Trachea Midline, Thyroid Normal Size and Texture Lungs: Clear to auscultation, Normal air movement, No rhonchi, No wheeze, No rales Cardiovascular: Regular rate, Regular Rhythm, Normal S1, Normal S2, No murmurs, No Ectopic Activity, No rub noted, No Gallop Abdomen: Bowel Sounds Present, Soft, Non-Distended, No Hepato-splenomegaly, Tender - around new PEG-slightly, No hernias noted Extremities: No clubbing, No cyanosis, No edema, Capillary Refill Less than 3 Seconds, No Calf Tenderness, Peripheral Pulses Normal Skin: No rashes, No breakdown Musculoskeletal: No Tenderness to Palpation of Joints or Extremities, No Muscle Wasting Lymphatic: No Cervical, Supraclavicular, or Inguinal Adenopathy Neurological: Cranial nerves II-XII grossly intact, Deep Tendon Reflexes 2+/4 and Symmetrical, Neuro grossly intact, Sensory exam intact to light touch and pain, Coordination normal Psych/Mental Status: Agitated, - - A&O x 3 Laboratory Results 11/24/19 13:14: WBC 18.5 H, RBC 4.48 L, Hgb 13.9, Hct 42.7, MCV 95.3 H, MCH 31.0, MCHC 32.6, RDW Std Deviation 47.0 H, RDW Coeff of Eduin 13.8, Plt Count 289, MPV 9.9, Immature Gran % (Auto) 1.000 H, Neut % (Auto) 89.0 H, Lymph % (Auto) 5.2 L, [place] % (Auto) 4.4, Eos % (Auto) 0.3, Baso % (Auto) 0.1, Absolute Neuts (auto) 16.5 H, Absolute Lymphs (auto) 0.96, Nucleated RBC % 0 11/24/19 13:14: Sodium 136, Potassium 3.1 L, Chloride 100, Carbon Dioxide 31.0, Anion Gap 5, BUN 25 H, Creatinine 0.77, Estim Creat Clear Calc 107.13, Est GFR (MDRD) Af Amer 157, Est GFR (MDRD) Non-Af 130, BUN/Creatinine Ratio 32.6 H, Glucose 94, Calcium 8.5, Magnesium 2.3 Current Medications Acetaminophen (Tylenol Liquid) 650 mg GT Q4H PRN PRN PRN Reason: Pain Score 1-10/10 Acyclovir (Zovirax) 800 mg GT TID [facility] Albuterol Sulfate (Ventolin Aerosols) 2.5 mg INHALATION Q2H PRN PRN PRN Reason: sob/wheezing Last Admin: 11/20/19 05:39 Dose: 2.5 mg Documented by: Aspirin (Aspirin, Baby) 81 mg GT DAILY@1000 [facility] Last Admin: 11/25/19 08:53 Dose: 81 mg Documented by: Atorvastatin Calcium (Lipitor) 40 mg GT QHS [facility] Azathioprine (Imuran) 50 mg GT DAILY [facility] Last Admin: 11/25/19 08:53 Dose: 50 mg Documented by: Buspirone HCl (Buspar) 10 mg GT BID [facility] Last Admin: 11/25/19 08:52 Dose: 10 mg Documented by: Dextrose (D50w Syringe) 0 gm IV X1 PRN; Protocol PRN Reason: Hypoglycemia Enoxaparin Sodium (Lovenox) 40 mg SC DAILY [facility] Last Admin: 11/25/19 08:54 Dose: 40 mg Documented by: Glucagon () 1 mg IM .X1 PRN PRN Reason: Hypoglycemia Guaifenesin (Mucinex) 1,200 mg PO BID [facility] Last Admin: 11/24/19 21:00 Dose: 1,200 mg Documented by: Sodium Chloride () 250 mls @ 15 mls/hr IV .[id number] PRN PRN Reason: Saline Flush Last Infusion: 11/23/19 00:38 Dose: Infused Documented by: Sodium Chloride () 250 mls @ 15 mls/hr IV .[id number] PRN PRN Reason: Additional IVPB Infusion Dextrose/Sodium Chloride () 1,000 mls @ 60 mls/hr IV .[id number] [facility] Last Admin: 11/25/19 01:02 Dose: 60 mls/hr Documented by: Pantoprazole Sodium 40 mg/ (Sodium Chloride) 110 mls @ 330 mls/hr IV Q24 [facility] Last Admin: 11/25/19 08:58 Dose: 330 mls/hr Documented by: Morphine Sulfate () 2 mg IV Q4H PRN PRN PRN Reason: Pain Score 6-10/10 Last Admin: 11/25/19 02:52 Dose: 2 mg Documented by: Mupirocin (Bactroban) 1 applic TOPICAL BID [facility]; Protocol Last Admin: 11/25/19 08:54 Dose: 1 applicatio Documented by: Ondansetron HCl (Zofran) 4 mg IV Q6H PRN PRN PRN Reason: NAUSEA/VOMITING Last Admin: 11/16/19 18:27 Dose: 4 mg Documented by: Polyethylene Glycol (Miralax) 17 gm GT DAILY [facility] Last Admin: 11/25/19 08:50 Dose: 17 gm Documented by: Prednisone () 60 mg GT DAILY@0800 [facility] Last Admin: 11/25/19 08:52 Dose: 60 mg Documented by: Quetiapine Fumarate (Seroquel) 50 mg GT BID [facility] Last Admin: 11/25/19 08:52 Dose: 50 mg Documented by: Senna/Docusate Sodium (Senokot-S, Becky-Colace) 2 tablet GT BID [facility] Last Admin: 11/25/19 08:50 Dose: 2 tablet Documented by: Sodium Chloride () 10 - 40 ml IV UD PRN PRN Reason: SALINE FLUSH Last Admin: 11/25/19 02:53 Dose: 10 ml Documented by: Sucralfate (Carafate) 1 gm GT 1HR_ACHS [facility] Last Admin: 11/25/19 05:58 Dose: 1 gm Documented by: STROKE Vital Signs/Narrative: Vital Signs Pulse 11/25/19 07:45 73 Medical Necessity - Tobacco Use Smoking Status: Never smoker Tobacco Use: Non-smoker Assessment/Plan All Active Problems (Last Reviewed 11/13/19 @ 00:[address] 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 -Neuro recommended -high-dose Solu-Medrol 1 g/day for 3 days with GI prophylaxis then prednisone 1 mg/kg and then taper as outpatient -continue prednisone 60 mg -Imuran -Acyclovir for prophylaxis -Marketing Mgr is not able to see the while inpatient there for follow-up as an outpatient -CRP remains elevated -ASA -PT/OT/BINDERY PRODUCTION MANAGER Leukocytosis -suspected from demargination with steroid -up slightly today but post op PEG yesterday -will repeat in am -no s/o infection Hypokalemia -80 mEq enterally today via PEG -mag is WNL -repeat BMP in am 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 -Patient was not on chronic steroid therapy or immunosuppression -Elevated CRP -no on PO steroid 60 mg -Bactrim prophylaxis for PJP PNA as I suspect pt will be on >30 mg steroids/day for longer than 4 weeks--> d/c if rheum sees and are able to taper more quickly -watch K and renal fxn -pt with no allergies -Patient has significant leukocytosis with neutrophilia most likely steroid effect -SOC neurology recommended azathioprine suggested for Behcet's disease vasculitis but probably will need sales office assistant opinion and consult and patient is already on steroid -outpt f/u GI prophylaxis -will need while on steroids -PPI DVT prophylaxis -Lovenox Code status -FULL PLAN -D/C Rehab 11/25 Inpatient E&M: 29400 Subs Hosp L3
--- NOTE | 2019-11-25 09:21 | PCM.PN.SRG ---
Patient Problems: Active and Suspected Problems (Last Reviewed 11/13/19 @ 00:[address] Navi Bee MD) Vomiting (Acute) Hypoxia (Acute) Respiratory insufficiency (Acute) Subjective: Pt doesn't c/o of issues w the peg, mild clot at PEG - Physical Exam Vitals/I&O's: Vital Signs Temp Pulse Resp BP Pulse Ox 97.8 F 73 16 119/76 94 11/25/19 02:00 11/25/19 07:45 11/25/19 02:00 11/25/19 02:00 11/25/19 02:00 Oxygen Flow Rate (L/min) 2 Oxygen Delivery Method Room Air Weight: 118 lb 2.684 oz Body Mass Index (BMI) 17.6 Intake and Output for Last 24 Hours 11/23/19 11/24/19 11/25/19 23:59 23:59 23:59 Intake Total 2294 / 2294 797 / 797 847 / 847 Output Total 450 / 650 650 / 650 400 / 400 Balance 1844 / 1644 147 / 147 447 / 447 General: Alert, Oriented x3, Cooperative, No apparent distress Cardiovascular: Regular rate Abdomen: Soft, Non Tender, Tender - mild at PEG site, small clot present/removed Laboratory Results 11/24/19 13:14: WBC 18.5 H, RBC 4.48 L, Hgb 13.9, Hct 42.7, MCV 95.3 H, MCH 31.0, MCHC 32.6, RDW Std Deviation 47.0 H, RDW Coeff of Eduin 13.8, Plt Count 289, MPV 9.9, Immature Gran % (Auto) 1.000 H, Neut % (Auto) 89.0 H, Lymph % (Auto) 5.2 L, Calvert % (Auto) 4.4, Eos % (Auto) 0.3, Baso % (Auto) 0.1, Absolute Neuts (auto) 16.5 H, Absolute Lymphs (auto) 0.96, Nucleated RBC % 0 11/24/19 13:14: Sodium 136, Potassium 3.1 L, Chloride 100, Carbon Dioxide 31.0, Anion Gap 5, BUN 25 H, Creatinine 0.77, Estim Creat Clear Calc 107.13, Est GFR (MDRD) Af Amer 157, Est GFR (MDRD) Non-Af 130, BUN/Creatinine Ratio 32.6 H, Glucose 94, Calcium 8.5, Magnesium 2.3 Current Medications Acetaminophen (Tylenol Liquid) 650 mg GT Q4H PRN PRN PRN Reason: Pain Score 1-10/10 Acyclovir (Zovirax) 800 mg GT TID [facility] Albuterol Sulfate (Ventolin Aerosols) 2.5 mg INHALATION Q2H PRN PRN PRN Reason: sob/wheezing Last Admin: 11/20/19 05:39 Dose: 2.5 mg Documented by: Aspirin (Aspirin, Baby) 81 mg GT DAILY@1000 [facility] Last Admin: 11/25/19 08:53 Dose: 81 mg Documented by: Atorvastatin Calcium (Lipitor) 40 mg GT QHS [facility] Azathioprine (Imuran) 50 mg GT DAILY [facility] Last Admin: 11/25/19 08:53 Dose: 50 mg Documented by: Buspirone HCl (Buspar) 10 mg GT BID [facility] Last Admin: 11/25/19 08:52 Dose: 10 mg Documented by: Dextrose (D50w Syringe) 0 gm IV X1 PRN; Protocol PRN Reason: Hypoglycemia Enoxaparin Sodium (Lovenox) 40 mg SC DAILY [facility] Last Admin: 11/25/19 08:54 Dose: 40 mg Documented by: Glucagon () 1 mg IM .X1 PRN PRN Reason: Hypoglycemia Guaifenesin (Mucinex) 1,200 mg PO BID [facility] Last Admin: 11/24/19 21:00 Dose: 1,200 mg Documented by: Sodium Chloride () 250 mls @ 15 mls/hr IV .[id number] PRN PRN Reason: Saline Flush Last Infusion: 11/23/19 00:38 Dose: Infused Documented by: Sodium Chloride () 250 mls @ 15 mls/hr IV .[id number] PRN PRN Reason: Additional IVPB Infusion Dextrose/Sodium Chloride () 1,000 mls @ 60 mls/hr IV .[id number] [facility] Last Admin: 11/25/19 01:02 Dose: 60 mls/hr Documented by: Pantoprazole Sodium 40 mg/ (Sodium Chloride) 110 mls @ 330 mls/hr IV Q24 [facility] Last Admin: 11/25/19 08:58 Dose: 330 mls/hr Documented by: Morphine Sulfate () 2 mg IV Q4H PRN PRN PRN Reason: Pain Score 6-10/10 Last Admin: 11/25/19 02:52 Dose: 2 mg Documented by: Mupirocin (Bactroban) 1 applic TOPICAL BID [facility]; Protocol Last Admin: 11/25/19 08:54 Dose: 1 applicatio Documented by: Ondansetron HCl (Zofran) 4 mg IV Q6H PRN PRN PRN Reason: NAUSEA/VOMITING Last Admin: 11/16/19 18:27 Dose: 4 mg Documented by: Polyethylene Glycol (Miralax) 17 gm GT DAILY [facility] Last Admin: 11/25/19 08:50 Dose: 17 gm Documented by: Prednisone () 60 mg GT DAILY@0800 [facility] Last Admin: 11/25/19 08:52 Dose: 60 mg Documented by: Quetiapine Fumarate (Seroquel) 50 mg GT BID [facility] Last Admin: 11/25/19 08:52 Dose: 50 mg Documented by: Senna/Docusate Sodium (Senokot-S, Becky-Colace) 2 tablet GT BID [facility] Last Admin: 11/25/19 08:50 Dose: 2 tablet Documented by: Sodium Chloride () 10 - 40 ml IV UD PRN PRN Reason: SALINE FLUSH Last Admin: 11/25/19 02:53 Dose: 10 ml Documented by: Sucralfate (Carafate) 1 gm GT 1HR_ACHS [facility] Last Admin: 11/25/19 05:58 Dose: 1 gm Documented by: Medical Necessity - Tobacco Use Smoking Status: Never smoker Tobacco Use: Non-smoker Assessment/Plan All Active Problems (Last Reviewed 11/13/19 @ 00:[address] 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 ok to start TF as previously order, if dayan ok to d/c to rehab per surgery d/w Dr. Pritesh Monet M.D. Pager: [phone] [facility] [address] [place] [address], [facility], [address] [place] [address] Office: [phone] Inpatient E&M: [id number] Subs Hosp L1
--- NOTE | 2019-11-25 10:22 | NS ---
Jevity 1.5 @ 50ml/hr ordered to start via PEG. Recommend start rate of tube feeds at 20ml/hr and increase every 8 hours if tolerating feeds by 10ml/hr until goal of 50ml/hour is reached. 150ml H2O flush every 4 hours. Call clinical dietitian at [phone] with questions. Note reviewed by Jared Schaffer MS, RDN, LD
[2019-11-25] MEDS: guaiFENesin 10 ML UDC (200MG/10ML) GT ×4 (11:21→21:43)
[2019-11-25] MEDS: Jevity 1.5 1,000 ML 20 ML GT (11:21)
[2019-11-25] MEDS: SMZ/TPM Suspension 10 ML PO (11:22)
[2019-11-25] MEDS: Acyclovir 800 MG Tablet GT ×2 (14:55→21:43)
--- NOTE | 2019-11-25 21:26 | NURSING ---
Peg residual checked at this time for 0cc. Jevity feeding increased at this time to 30cc/hr from 20cc/hr per order.
[2019-11-25] MEDS: Atorvastatin Calcium 40 MG Tablet GT (21:42)
[2019-11-25] MEDS: QUEtiapine 25 MG Tablet GT (21:42)
[2019-11-26] VITALS (10 sets, daily range): BP systolic 125–134; BP diastolic 65–82; PULSE 62–82; RESP 16–18; TEMP 36.7–36.9; O2SAT 94–98; BMI 17.6
[2019-11-26] MEDS: guaiFENesin 10 ML UDC (200MG/10ML) GT ×6 (01:22→22:12)
[2019-11-26] MEDS: Morphine 2 MG/ML Syringe IV ×4 (01:33→23:37)
[2019-11-26] MEDS: Acyclovir 800 MG Tablet GT ×3 (05:36→22:12)
[2019-11-26] MEDS: Sucralfate 1 GM Tablet GT (05:36)
--- NOTE | 2019-11-26 05:40 | NURSING ---
Jevity rate increased at this time from 30cc/hour to 40cc/hour per order. HOB 30 degrees.
[2019-11-26 07:15] LABS: Anion Gap 4 (5-15); BUN 14 mg/dL (7-18); Calcium,Total 8.1 mg/dL (8.5-10.1); Chloride 103 mmol/L (98-107); Creatinine, Serum 0.74 mg/dL (0.70-1.30); EST Glomerular Filtration Rate 136 mL/min (>60); Est Glom Filt Rate - Afr Amer 164 mL/min (>60); Estimated Creatinine Clearance 112.76 ml/min; Glucose 94 mg/dL (74-106); Potassium 3.8 mmol/L (3.5-5.1); Sodium Level 137 mmol/L (136-145)
[2019-11-26] MEDS: Senna/Docusate Sodium 1 Tablet 2 TABLET GT (08:48)
[2019-11-26] MEDS: QUEtiapine 25 MG Tablet GT ×2 (08:48→22:12)
[2019-11-26] MEDS: busPIRone 5 MG Tablet 10 MG GT ×2 (08:48→22:12)
[2019-11-26] MEDS: predniSONE 20 MG Tablet 60 MG GT (08:49)
[2019-11-26] MEDS: Aspirin 81 MG TAB.CHEW GT (08:49)
[2019-11-26] MEDS: Mupirocin Ointment 22gm Tube 1 APPLIC TOPICAL ×2 (08:49→22:13)
[2019-11-26] MEDS: Enoxaparin 40 MG/0.4 ML Syringe SC (08:50)
[2019-11-26] MEDS: Polyethylene Glycol 3350 17 GM PACKET GT (08:51)
[2019-11-26] MEDS: Dext 5%-0.45% NS 1,000 ML 60 ML IV (10:31)
[2019-11-26] MEDS: azaTHIOprine 50 MG Tablet GT (12:30)
--- NOTE | 2019-11-26 14:00 | SP.MBSS_ITS ---
PRIMARY / SECONDARY DIAGNOSIS: dysphagia (R13.10) CURRENT DIET (SOLIDS): nothing by mouth (NPO) CURRENT DIET (LIQUIDS): nothing by mouth (NPO) DENTITION: natural upper / lower dentition MENTAL STATUS: sufficient for participation; dysarthric RESPIRATORY STATUS: O2 via room air REASON FOR REFERRAL: The Patient is a 24 year old male referred for a modified barium swallow (MBS) study to objectively assess the Patients oropharyngeal swallow function under fluoroscopy secondary to concerns for PO intake sufficiency secondary to a variety of complicating factors; currently admitted to [facility] secondary to an acute / subacute brainstem infarction, with recent acute hypoxemic respiratory failure necessitating intubation (intubated 11/15/2019; extubated 11/19/2019); 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 PREVIOUS MODIFIED BARIUM SWALLOW STUDY RESULTS: None ADDITIONAL OBJECTIVE ASSESSMENT RESULTS: 11/17/2019 MRI revealed acute / subacute infarct of the right side of the brainstem. ASSESSMENT PARAMETERS: The Patient participated in a Modified Barium Swallow (MBS) study on 11/26/2019. This study was recorded in the lateral view and images were sent to PACs for storage. Scoring was completed through each trial using the 8- point Penetration-Aspiration Scale (PAS) and the Videofluoroscopic Scale Score (VSS), and summarized via the Modified Barium Swallow Impairment Profile (MBSImP) and the Bolus Residue Scale (BRS), with severity scoring through the Dysphagia Severity Rating Scale (DSRS) and the Dysphagia Classification Scale (DCS), and recommended diet textures through the International Dysphagia Diet Standardisation Initiative (IDDSI) RESULTS OF THE EVALUATION: The Patient presents with SEVERE oropharyngeal dysphagia (DSRS: 6; DCS: D3) with grade III and IV SILENT aspiration of thin liquids, pureed textures, and solid textures and marked pharyngeal dysmotility OBJECTIVE ASSESSMENT OF SWALLOW FUNCTION (QUANTITATIVE ? PER TRIAL): PENETRATION / ASPIRATION SCALE (BENSON): 1 = does not enter airway 2 = enters airway/above vocal folds/ejected 3 = enters airway/above vocal folds/not ejected 4 = enters airway/contacts vocal folds/ejected 5 = enters airway/contacts vocal folds/not ejected 6 = enters airway/below vocal folds/ejected 7 = enters airway/below vocal folds/not ejected despite effort 8 = enters airway/below vocal folds/no effort VIDEOFLOROSCOPIC SCALE SCORE (BENSON): Grade I = aspiration of material that has penetrated into the laryngeal vestibule, intact cough reflex Grade II = aspiration < 10 % of the bolus, intact cough reflex Grade III = aspiration of < 10 % of the bolus, reduced cough reflex or aspiration of > 10 % of the bolus, intact cough reflex Grade IV = aspiration of > 10 % of the bolus, reduced cough reflex PENETRATION / ASPIRATION SCALE (SCORE) WITH VIDEOFLOROSCOPIC SCALE SCORE: Thin liquids via straw (single sip): 1 Thin liquids via straw (single sip): 1 Thin liquids via straw (single sip): 3 Thin liquids via straw (single sip): 3 Thin liquids via straw (single sip): 5 Thin liquids via cup (chin tuck): 2 Thin liquids via cup (chin tuck): 1 Thin liquids via cup (chin tuck): 1 Thin liquids via cup (chin tuck): 1 Pudding via spoon: 1 Regular textured cookie: 8 ? Grade III * Aspiration of pharyngeal residue: 8 ? Grade IV Thin liquids via cup (chin tuck): 3 Thin liquids via cup (chin tuck): 3 OBJECTIVE ASSESSMENT OF SWALLOW FUNCTION (QUANTITATIVE ? AGGREGATE): MODIFIED BARIUM SWALLOW IMPAIRMENT PROFILE (MBSImP) LABIAL SEAL: 0 (of 4) no labial escape TONGUE CONTROL: 3 (of 3) posterior escape > 50% BOLUS PREPARATION / MASTICATION: 1 (of 3) slow prolonged; complete recollection BOLUS TRANSPORT / LINGUAL MOTION: 2 (of 4) slowed motion ORAL RESIDUE: 2 (of 4) residue collection on oral structures INITIATION OF PHARYNGEAL SWALLOW: 3 (of 4) pyriforms SOFT PALATE ELEVATION: 0 (of 4) no bolus between soft palate & pharyngeal wall LARYNGEAL ELEVATION: 2 (of 3) minimal superior movement / approximation ANTERIOR HYOID EXCURSION: 1 (of 2) partial movement EPIGLOTTIC MOVEMENT: 2 (of 2) no inversion LARYNGEAL VESTIBULE CLOSURE: 1 (of 2) incomplete closure PHARYNGEAL STRIPPING WAVE: 2 (of 2) absent PE SEGMENT OPENIN (of 3) partial distension / duration / obstruction TONGUE BASE RETRACTION: 3 (of 4) wide column of contrast PHARYNGEAL RESIDUE: 3 (of 4) majority of contrast remaining ESOPHAGEAL BOLUS CLEARANCE: could not view BOLUS RESIDUE SCALE (BRS): BRS SCORE: 6 (of 6) BRS SCORE DESCRIPTION: residue in valleculae, posterior pharyngeal wall, and piriform sinus OBJECTIVE ASSESSMENT OF SWALLOW FUNCTION (SEVERITY GRADING): DYSPHAGIA SEVERITY RATING SCALE (DSRS): DSRS CLASSIFICATION: 6 (severe - 100% impairment) DSRS CLASSIFICATION CHARACTERISTICS: severe dysphagia?more than 10% aspiration for all consistencies; NPO recommended. DYSPHAGIA CLASSIFICATION SCALE (DCS): DCS CLASSIFICATION: D3 (severe) DCS CLASSIFICATION CHARACTERISTICS: moderate to severe stasis, with the restriction of more than one food consistency OBJECTIVE ASSESSMENT OF SWALLOW FUNCTION (QUALITATIVE): ORAL PREPARATORY PHASE: slowed albeit competent bolus manipulation; sufficient anterior oral containment during oral manipulation; preserved management of breathing / bolus formation ORAL TRANSITIONAL PHASE: at times slowed bolus manipulation / transportation with impaired oral clearance; with presumed right sided buccal pocketing; premature posterior bolus loss occurring regularly particularly with liquids PHARYNGEAL PHASE: consistent pharyngeal swallow delay / dyssynchrony; reduced hyolaryngeal excursion and duration with insufficient laryngeal vestibule pressure generated to expel penetrated material; profound pharyngeal dysmotility most prominently with semisolids and solids with consolidation predominantly within the vallecula and pyriforms resulting in post prandial penetration and subsequent SILENT aspiration of larger collections of semisolids and solids, attributed to an apparent global impairment to the pharyngeal constrictors; appropriate velopharyngeal functioning ESOPHAGEAL PHASE: no obvious esophageal phase abnormalities observed. CONTRIBUTING / COMPLICATING FACTORS AND NOTABLE FINDINGS:no response to aspiration events whatsoever despite the contents of semisolid and solid textures; weak and ineffective cued volitional cough intensity generated to expel penetrated material / tracheobronchial aspiration (dystussia). RESPONSE TO STRATEGIES: promising effects noted with execution of the chin tuck posture with thin liquids; insufficient effects noted from a variety of compensatory strategies implemented across studies, particularly execution of a cued cough and reswallow, liquid chaser, and head turn (right and left) to improve pharyngeal motility DYSPHAGIA ASSOCIATED MEDICAL CONSIDERATIONS / INTERVENTION CONSIDERATIONS: The Patient was noted to SILENTLY aspirate with thin liquids, pureed textures, and regular textures, with events predominantly post prandial though consisting of quite large and viscous materials that heighten concern for aspiration related pulmonary complications; clinical assessment at bedside relying on identification of classic overt signs and symptoms of aspiration considered unreliable. I would consider a repeat modified barium swallow study within 1 - 2 weeks (if clinically appropriate) to further assess the presence and extent of silent and overt aspiration prior to advancement to a less restrictive diet, though given the location of infarction his course will likely be protracted in length. INTERVENTION RECOMMENDATIONS AND CONSIDERATIONS: The Patient requires intensive skilled speech-language intervention targeting diet texture management and training / implementation of recommended compensatory strategies (when appropriate); training and implementation of recommended oropharyngeal strengthening exercises to facilitate improved lingual control / strength, laryngeal vestibule closure / pressure, and pharyngeal motility; training, implementation, and Patient / caregiver education regarding implementation of the Graff Free Water Protocol (FFWP); Patient and caregiver education regarding stroke associated dysphagia. POST ASSESSMENT EDUCATION: The results and recommendations were discussed with the Patient immediately following MBS completion, with the Patient verbalizing understanding and agreement with all recommendations and education provided, though was clearly and understandably distraught. We discussed factors impacting effects of aspiration, to include: the quantity of aspiration, the depth of aspiration (trachea or distal airways), and the physical properties of the aspirate. We discussed consequences of oropharyngeal dysphagia, to include pulmonary complications from tracheobronchial aspiration; potential for airway obstruction / asphyxiation; impairment in mental and physical condition to include increased disability rates and lengthening of healing; and complications in overall course of care with later discharge from acute admissions / increased length of hospitalizations, increased likelihood for discharge to [facility], and overall worse rehabilitation outcomes particularly with any potential aspiration related pulmonary complications; and increased risk for mortality / . We discussed benefits and risks associated with alternative means of nutrition, with increased access to caloric supplementation and reduce hydration deficits, though nasogastric / gastrostomy feeding does not significantly reduce aspiration risk and use should include dedicated oral care. DIET TEXTURE RECOMMENDATIONS: Cannot recommend PO intake at this time, will require continued dependence on alternative means of nutrition in place IMAGE COUNT: [id number] Ady Collado M.A., JOSE [employer]NER REPAIRER, CBIS MBSImP Certified, LSVT Certified [facility] Speech-Language Pathology Department Email: [email or web address]
--- NOTE | 2019-11-26 14:00 | NURSING ---
off unit for mbs.
--- NOTE | 2019-11-26 14:09 | PCM.PN.HOSP ---
Patient Problems: Active and Suspected Problems (Last Reviewed 11/13/19 @ 00:[address] Navi Bee MD) Vomiting (Acute) Hypoxia (Acute) Respiratory insufficiency (Acute) Subjective: States that APPRENTICE PATTERN MAKER told him he could eat earlier. D/W nursing and they did but she was concerned about him managing his secretions and she held his PO intake. Pt has an MBS at 2 today. Vitals/I&O's: Vital Signs Temp Pulse Resp BP Pulse Ox 98.4 F 72 16 125/76 H 94 11/26/19 08:04 11/26/19 08:04 11/26/19 08:04 11/26/19 08:04 11/26/19 08:04 Oxygen Flow Rate (L/min) 2 Oxygen Delivery Method Room Air Weight: 52.7 kg Body Mass Index (BMI) 17.6 Intake and Output for Last 24 Hours 11/24/19 11/25/19 11/26/19 23:59 23:59 23:59 Intake Total 797 / 797 3001 / 3001 1599 / 1599 Output Total 650 / 650 1275 / 1275 200 / 200 Balance 147 / 147 1726 / 1726 1399 / 1399 General: Alert, Oriented x3, Cooperative, No apparent distress, Well developed, Well nourished HEENT: Atraumatic, PERRLA, EOMI, Normocephalic, EAC Clear Oral: Moist Mucosa, Ulcerations Present - lips, - - seems to have pooling secretions in his post oropharynx Neck: Supple, No Nodes, Trachea Midline Lungs: Clear to auscultation, Normal air movement, No rhonchi, No wheeze, No rales Cardiovascular: Regular rate, Regular Rhythm, Normal S1, Normal S2, No murmurs, No Ectopic Activity, No rub noted, No Gallop Abdomen: Bowel Sounds Present, Soft, Non Tender, Non-Distended, No hernias noted Extremities: No clubbing, No cyanosis, No edema, Capillary Refill Less than 3 Seconds, Peripheral Pulses Normal Skin: No rashes, No breakdown Musculoskeletal: No Tenderness to Palpation of Joints or Extremities, No Muscle Wasting Lymphatic: No Cervical, Supraclavicular, or Inguinal Adenopathy Neurological: Muscle tone normal, - - garbled speech,with pooling secretions in oropharynx Psych/Mental Status: Appropriate, - - frustrated about wanting to eat Laboratory Results 11/26/19 05:50: Sodium 137, Potassium 3.8, Chloride 103, Carbon Dioxide 30.0, Anion Gap 4 L, BUN 14, Creatinine 0.74, Estim Creat Clear Calc 112.76, Est GFR (MDRD) Af Amer 164, Est GFR (MDRD) Non-Af 136, BUN/Creatinine Ratio 19.0, Glucose 94, Calcium 8.1 L Current Medications Acetaminophen (Tylenol Liquid) 650 mg GT Q4H PRN PRN PRN Reason: Pain Score 1-10/10 Acyclovir (Zovirax) 800 mg GT TID [facility] Last Admin: 11/26/19 05:36 Dose: 800 mg Documented by: Albuterol Sulfate (Ventolin Aerosols) 2.5 mg INHALATION Q2H PRN PRN PRN Reason: sob/wheezing Last Admin: 11/20/19 05:39 Dose: 2.5 mg Documented by: Aspirin (Aspirin, Baby) 81 mg GT DAILY@1000 [facility] Last Admin: 11/26/19 08:49 Dose: 81 mg Documented by: Atorvastatin Calcium (Lipitor) 40 mg GT QHS [facility] Last Admin: 11/25/19 21:42 Dose: 40 mg Documented by: Azathioprine (Imuran) 50 mg GT DAILY [facility] Last Admin: 11/26/19 12:30 Dose: 50 mg Documented by: Buspirone HCl (Buspar) 10 mg GT BID [facility] Last Admin: 11/26/19 08:48 Dose: 10 mg Documented by: Dextrose (D50w Syringe) 0 gm IV X1 PRN; Protocol PRN Reason: Hypoglycemia Enoxaparin Sodium (Lovenox) 40 mg SC DAILY [facility] Last Admin: 11/26/19 08:50 Dose: 40 mg Documented by: Glucagon () 1 mg IM .X1 PRN PRN Reason: Hypoglycemia Guaifenesin (Robitussin) 10 ml GT Q4 [facility] Last Admin: 11/26/19 08:50 Dose: 10 ml Documented by: Sodium Chloride () 250 mls @ 15 mls/hr IV .[id number] PRN PRN Reason: Saline Flush Last Infusion: 11/23/19 00:38 Dose: Infused Documented by: Sodium Chloride () 250 mls @ 15 mls/hr IV .[id number] PRN PRN Reason: Additional IVPB Infusion Dextrose/Sodium Chloride () 1,000 mls @ 60 mls/hr IV .[id number] [facility] Last Admin: 11/26/19 10:31 Dose: 60 mls/hr Documented by: Pantoprazole Sodium 40 mg/ (Sodium Chloride) 110 mls @ 330 mls/hr IV Q24 [facility] Last Admin: 11/26/19 10:26 Dose: 330 mls/hr Documented by: Enteral Nutritional Formula (Jevity 1.5) 1,000 mls @ 50 mls/hr GT .Q20H [facility] Last Admin: 11/25/19 11:21 Dose: 20 mls/hr Documented by: Morphine Sulfate () 2 mg IV Q4H PRN PRN PRN Reason: Pain Score 6-10/10 Last Admin: 11/26/19 01:33 Dose: 2 mg Documented by: Mupirocin (Bactroban) 1 applic TOPICAL BID [facility]; Protocol Last Admin: 11/26/19 08:49 Dose: 1 applicatio Documented by: Ondansetron HCl (Zofran) 4 mg IV Q6H PRN PRN PRN Reason: NAUSEA/VOMITING Last Admin: 11/16/19 18:27 Dose: 4 mg Documented by: Polyethylene Glycol (Miralax) 17 gm GT DAILY [facility] Last Admin: 11/26/19 08:51 Dose: 17 gm Documented by: Prednisone () 60 mg GT DAILY@0800 [facility] Last Admin: 11/26/19 08:49 Dose: 60 mg Documented by: Quetiapine Fumarate (Seroquel) 25 mg GT BID [facility] Last Admin: 11/26/19 08:48 Dose: 25 mg Documented by: Senna/Docusate Sodium (Senokot-S, Becky-Colace) 2 tablet GT BID [facility] Last Admin: 11/26/19 08:48 Dose: 2 tablet Documented by: Sodium Chloride () 10 - 40 ml IV UD PRN PRN Reason: SALINE FLUSH Last Admin: 11/25/19 02:53 Dose: 10 ml Documented by: Sucralfate (Carafate) 1 gm GT 1HR_ACHS [facility] Last Admin: 11/26/19 12:31 Dose: Not Given Documented by: Trimethoprim/Sulfamethoxazole (Bactrim Suspension 800-160mg/20ml) 10 ml PO TuThSa@1000 [facility] Last Admin: 11/25/19 11:22 Dose: 10 ml Documented by: Medical Necessity - Tobacco Use Smoking Status: Never smoker Tobacco Use: Non-smoker Assessment/Plan All Active Problems (Last Reviewed 11/13/19 @ 00:[address] aNvi Bee MD) Mediastinal shift (Acute) Mucus plugging of bronchi (Acute) CVA (cerebral vascular accident) (Resolved) Vomiting (Acute) Hypoxia (Acute) Respiratory insufficiency (Acute) Acute Hypoxic Respiratory Failure -multiple chest x-ray reviewed and shows mediastinal shift with right tracheal pull most likely from mucous plugging -Intubated in ED on 11/12 and Extubated on 11/18 -COVID 19 neg -Viral PCR neg -Suptum unremarkable -Blood cx neg -pt now on RA and SpO2 stable Dysphagia -Using PEG for meds with no issue -tolerating TF well -MBS today -continue APPRENTICE PATTERN MAKER Non-bleeding Gastric Ulcer -noted on EGD for PEG -Protonix BID for 8 weeks then daily until off steroids -Carafate for 4 weeks 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 -Neuro recommended -high-dose Solu-Medrol 1 g/day for 3 days with GI prophylaxis then prednisone 1 mg/kg and then taper as outpatient -continue prednisone 60 mg -Imuran -Music Agent is not able to see the while inpatient there for follow-up as an outpatient -CRP remains elevated -ASA -PT/OT/APPRENTICE PATTERN MAKER Leukocytosis -suspected from demargination with steroid -up slightly today but post op PEG yesterday -will repeat in am -no s/o infection Hypokalemia -resolved -repeat on Sunday am if still here 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 -Patient was not on chronic steroid therapy or immunosuppression -Elevated CRP -no on PO steroid 60 mg -Acyclovir for prophylaxis -Bactrim prophylaxis for PJP PNA as I suspect pt will be on >30 mg steroids/day for longer than 4 weeks--> d/c if rheum sees and are able to taper more quickly -watch K and renal fxn -pt with no allergies -Patient has significant leukocytosis with neutrophilia most likely steroid effect -SOC neurology recommended azathioprine suggested for Behcet's disease vasculitis but probably will need circuit board repair technician opinion and consult and patient is already on steroid -outpt f/u GI prophylaxis -will need while on steroids -PPI DVT prophylaxis -Lovenox Code status -FULL PLAN -D/C Rehab --> precert pending Inpatient E&M: 14917 Subs Hosp L2
--- NOTE | 2019-11-26 14:26 | RAD_ITS ---
STUDY: X-RAY CHEST REASON FOR EXAM: Male, 24 years old. 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 COMPARISON: Comparison is made with prior examination dated November 16, 2019. FINDINGS: A right-sided venous catheter is seen with the tip in the midportion of the superior cava. EKG electrodes are seen. The lungs are clear and expanded. There is no demonstrated pleural abnormality. Normal size heart. Normal mediastinum and sergio. Normal visualized pulmonary arteries. Normal visualized aortic arch and descending thoracic aorta. Normal visualized thoracic spine. Normal visualized ribs, clavicles, and shoulders. Oral contrast is seen within the stomach. RAD/Chest PA and Lateral IMPRESSION: Normal x-ray examination of the chest. Electronically Signed: Gael Manley, at 14:49 EDT , Service support ,
[2019-11-26] MEDS: Jevity 1.5 1,000 ML 50 ML GT (15:34)
[2019-11-26] MEDS: Atorvastatin Calcium 40 MG Tablet GT (22:12)
[2019-11-26] MEDS: 0.9% Saline Lock 10 ML Syringe IV (23:36)
[2019-11-27] VITALS (9 sets, daily range): BP systolic 111–130; BP diastolic 63–80; PULSE 64–80; RESP 16–18; TEMP 36.7–37.2; O2SAT 97–98; BMI 17.6; BMI 18.4
[2019-11-27] MEDS: Dext 5%-0.45% NS 1,000 ML 60 ML IV (05:22)
--- NOTE | 2019-11-27 05:31 | NURSING ---
Patient refusing AM medications to be administered through PEG tube. Pt refusing to allow this RN to check residual at this time. Tube feed restarted.
--- NOTE | 2019-11-27 05:55 | RAD_ITS ---
STUDY: X-RAY CHEST REASON FOR EXAM: Male, 24 years old. Aspiration TECHNIQUE: Single AP portable view of the chest. COMPARISON: Comparison is made with prior study dated November 26, 2019. FINDINGS: Stable appearance of the right internal jugular venous catheter with the tip in the midportion of the superior vena cava. EKG electrodes are seen. The lungs are clear and expanded. There is no demonstrated pleural abnormality. Normal size heart. Normal mediastinum and sergio. Normal visualized pulmonary arteries. Normal visualized aortic arch and descending thoracic aorta. Normal visualized thoracic spine. Normal visualized ribs, clavicles, and shoulders. Oral contrast is seen within the right hemicolon. RAD/Chest 1 View (Portable) IMPRESSION: Normal x-ray examination of the chest. Electronically Signed: Gael Manley, at 9:00 EDT , Service support ,
--- NOTE | 2019-11-27 09:54 | PN_ITS ---
Patient Problems: Active and Suspected Problems (Last Reviewed 11/13/19 @ 00:[address] Navi Bee MD) Vomiting (Acute) Hypoxia (Acute) Respiratory insufficiency (Acute) Subjective: Pt had MBS yesterday and aspirated during the procedure. Deemed not appropriate for any PO at this time. Pt is getting frustrated and wants to go home. Explained that we are just waiting for his insurance to okay d/c to rehab. Precert was initiated on Sunday am. Vitals/I&O's: Vital Signs Temp Pulse Resp BP Pulse Ox 98.1 F 64 16 111/63 98 11/27/19 04:30 11/27/19 06:55 11/27/19 04:30 11/27/19 04:30 11/27/19 04:43 Oxygen Flow Rate (L/min) 2 Oxygen Delivery Method Room Air Weight: 53.4 kg Body Mass Index (BMI) 17.6 Intake and Output for Last 24 Hours 11/25/19 11/26/19 11/27/19 23:59 23:59 23:59 Intake Total 3001 / 3001 3227 / 3227 1590 / 1590 Output Total 1275 / 1275 1300 / 1300 Balance 1726 / 1726 1927 / 1927 1590 / 1590 General: Alert, Oriented x3, Cooperative, No apparent distress, Well developed, Well nourished, - - Young AAM lying in bed on R side, initially won't talk to me but finally does HEENT: Atraumatic, PERRLA, EOMI, Normocephalic, EAC Clear Oral: Moist Mucosa, No Gingival or Mucosal Lesions/ Ulcerations, - - pooling oral secretions Neck: Supple, No JVD, Negative Hepatojugular Reflux, No Nodes, Trachea Midline Lungs: Clear to auscultation, No wheeze, No rales, Rhonchi - few scattered initially but cleared with cough Cardiovascular: Regular rate, Regular Rhythm, Normal S1, Normal S2, No murmurs, No Ectopic Activity, No rub noted, No Gallop Abdomen: Bowel Sounds Present, Soft, Non Tender, Non-Distended, - - PEG clean and dry L UQ-TF at goal Extremities: No clubbing, No cyanosis, No edema, Capillary Refill Less than 3 Seconds, Peripheral Pulses Normal Skin: No rashes, No breakdown Musculoskeletal: No Tenderness to Palpation of Joints or Extremities, No Muscle Wasting Lymphatic: No Cervical, Supraclavicular, or Inguinal Adenopathy Neurological: Muscle tone normal, Coordination normal, - - dyarthria Psych/Mental Status: Flat Affect, Depressed, - - frustrated, A&O x3 Current Medications Acetaminophen (Tylenol Liquid) 650 mg GT Q4H PRN PRN PRN Reason: Pain Score 1-10/10 Acyclovir (Zovirax) 800 mg GT TID [facility] Last Admin: 11/27/19 05:30 Dose: Not Given Documented by: Albuterol Sulfate (Ventolin Aerosols) 2.5 mg INHALATION Q2H PRN PRN PRN Reason: sob/wheezing Last Admin: 11/20/19 05:39 Dose: 2.5 mg Documented by: Aspirin (Aspirin, Baby) 81 mg GT DAILY@1000 [facility] Last Admin: 11/26/19 08:49 Dose: 81 mg Documented by: Atorvastatin Calcium (Lipitor) 40 mg GT QHS [facility] Last Admin: 11/26/19 22:12 Dose: 40 mg Documented by: Azathioprine (Imuran) 50 mg GT DAILY [facility] Last Admin: 11/26/19 12:30 Dose: 50 mg Documented by: Buspirone HCl (Buspar) 10 mg GT BID [facility] Last Admin: 11/26/19 22:12 Dose: 10 mg Documented by: Dextrose (D50w Syringe) 0 gm IV X1 PRN; Protocol PRN Reason: Hypoglycemia Enoxaparin Sodium (Lovenox) 40 mg SC DAILY [facility] Last Admin: 11/26/19 08:50 Dose: 40 mg Documented by: Glucagon () 1 mg IM .X1 PRN PRN Reason: Hypoglycemia Guaifenesin (Robitussin) 10 ml GT Q4 [facility] Last Admin: 11/27/19 05:30 Dose: Not Given Documented by: Sodium Chloride () 250 mls @ 15 mls/hr IV .[id number] PRN PRN Reason: Saline Flush Last Infusion: 11/23/19 00:38 Dose: Infused Documented by: Sodium Chloride () 250 mls @ 15 mls/hr IV .[id number] PRN PRN Reason: Additional IVPB Infusion Dextrose/Sodium Chloride () 1,000 mls @ 60 mls/hr IV .[id number] [facility] Last Admin: 11/27/19 05:22 Dose: 60 mls/hr Documented by: Pantoprazole Sodium 40 mg/ (Sodium Chloride) 110 mls @ 330 mls/hr IV Q24 [facility] Last Infusion: 11/26/19 10:46 Dose: Infused Documented by: Enteral Nutritional Formula (Jevity 1.5) 1,000 mls @ 50 mls/hr GT .Q20H [facility] Last Admin: 11/27/19 03:00 Dose: Not Given Documented by: Ampicillin Sodium/Sulbactam (Sodium 3 gm/ Sodium Chloride) 112 mls @ 150 mls/hr IV Q6 [facility] Last Infusion: 11/27/19 06:09 Dose: Infused Documented by: Morphine Sulfate () 2 mg IV Q4H PRN PRN PRN Reason: Pain Score 6-10/10 Last Admin: 11/26/19 23:37 Dose: 2 mg Documented by: Mupirocin (Bactroban) 1 applic TOPICAL BID [facility]; Protocol Last Admin: 11/26/19 22:13 Dose: 1 applicatio Documented by: Ondansetron HCl (Zofran) 4 mg IV Q6H PRN PRN PRN Reason: NAUSEA/VOMITING Last Admin: 11/16/19 18:27 Dose: 4 mg Documented by: Polyethylene Glycol (Miralax) 17 gm GT DAILY [facility] Last Admin: 11/26/19 08:51 Dose: 17 gm Documented by: Prednisone () 60 mg GT DAILY@0800 [facility] Last Admin: 11/26/19 08:49 Dose: 60 mg Documented by: Quetiapine Fumarate (Seroquel) 25 mg GT BID [facility] Last Admin: 11/26/19 22:12 Dose: 25 mg Documented by: Senna/Docusate Sodium (Senokot-S, Becky-Colace) 2 tablet GT BID [facility] Last Admin: 11/26/19 22:12 Dose: Not Given Documented by: Sodium Chloride () 10 - 40 ml IV UD PRN PRN Reason: SALINE FLUSH Last Admin: 11/26/19 23:36 Dose: 10 ml Documented by: Sucralfate (Carafate) 1 gm GT 1HR_ACHS [facility] Last Admin: 11/26/19 16:53 Dose: Not Given Documented by: Trimethoprim/Sulfamethoxazole (Bactrim Suspension 800-160mg/20ml) 10 ml PO TuThSa@1000 [facility] Last Admin: 11/25/19 11:22 Dose: 10 ml Documented by: STROKE Vital Signs/Narrative: Vital Signs Pulse 11/27/19 06:55 64 Medical Necessity - Tobacco Use Smoking Status: Never smoker Tobacco Use: Non-smoker Assessment/Plan All Active Problems (Last Reviewed 11/13/19 @ 00:[address] Navi Bee MD) Mediastinal shift (Acute) Mucus plugging of bronchi (Acute) CVA (cerebral vascular accident) (Resolved) Vomiting (Acute) Hypoxia (Acute) Respiratory insufficiency (Acute) Acute Hypoxic Respiratory Failure -multiple chest x-ray reviewed and shows mediastinal shift with right tracheal pull most likely from mucous plugging -Intubated in ED on 11/12 and Extubated on 11/18 -COVID 19 neg -Viral PCR neg -Suptum unremarkable -Blood cx neg -remains stable RA and SpO2 stable Dysphagia -Using PEG for meds with no issue -tolerating TF well and now at goal rate of 50 cc/hr -will switch to Bolus feed today--> d/w Dietitian and will make bolus recommendations -pt did very poorly on MBS-->cannot recommend PO intake at this time, will require continued dependence on alternative means of nutrition in place -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 Aspiration -occurred during MBS -CXR remains clear -initially placed on Unasyn after event but given that he is stable on RA and CXR remains clear will d/c ABX Non-bleeding Gastric Ulcer -noted on EGD for PEG -Protonix BID for 8 weeks then daily until off steroids -Carafate for 4 weeks -held as was interfering with TF -switch to bolus feed and re-initiate 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 -Neuro recommended -high-dose Solu-Medrol 1 g/day for 3 days with GI prophylaxis then prednisone 1 mg/kg and then taper as outpatient -continue prednisone 60 mg -Imuran -Cook Helper Juice is not able to see the while inpatient there for follow-up as an outpatient -CRP remains elevated -ASA/Statin -PT/OT/ENVIRONMENTAL TECHNICAL OFFICER Leukocytosis -suspected from demargination with steroid -up slightly today but post op PEG yesterday -will repeat in am -no s/o infection Hypokalemia -resolved -repeat in am 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 -Patient was not on chronic steroid therapy or immunosuppression -Elevated CRP -no on PO steroid 60 mg -Acyclovir for prophylaxis -Bactrim prophylaxis for PJP PNA as I suspect pt will be on >30 mg steroids/day for longer than 4 weeks--> d/c if rheum sees and are able to taper more quickly -watch K and renal fxn -pt with no allergies -Patient has significant leukocytosis with neutrophilia most likely steroid effect -SOC neurology recommended azathioprine suggested for Behcet's disease vasculitis but probably will need retail marketing specialist opinion and consult and patient is already on steroid -outpt f/u GI prophylaxis -will need while on steroids -PPI DVT prophylaxis -Lovenox Code status -FULL PLAN -D/C Rehab --> precert remains pending--> stable for transfer when ok with insurance Inpatient E&M: 76120 Subs Hosp L3
--- NOTE | 2019-11-27 10:42 | NT.THERAPY_ITS ---
Nutrition Therapy Report - History Nutrition Services has been consulted to:: Manage enteral nutrition Current diet / nutrition support order:: NPO; Jevity 1.5 via PEG @ 50ml/hr with 150ml H2O flush every 4 hours. - Anthropometric Measurements Height:: 5 ft 7 in Weight:: 53.4 kg Body Mass Index (BMI):: 18.4 - Relevant Labs Relevant Labs:: WBC 18.5 K/mm3 (4.4-11.0) H 11/24/19 13:14 RBC 4.48 M/mm3 (4.6-6.2) L 11/24/19 13:14 Hgb 11.8 g/dL (13.0-16.5) L 11/19/19 04:00 Hct 37.1 % (40-54) L 11/19/19 04:00 MCV 95.3 fL (80-94) H 11/24/19 13:14 MCHC 31.8 g/dL (32-36) L 11/19/19 04:00 RDW Std Deviation 47.0 fl (35.1-43.9) H 11/24/19 13:14 Immature Gran % (Auto) 1.000 % (0.0-0.9) H 11/24/19 13:14 Neut % (Auto) 89.0 % (47-70) H 11/24/19 13:14 Lymph % (Auto) 5.2 % (19-41) L 11/24/19 13:14 [place] % (Auto) 10.1 % (0-10) H 11/12/19 20:35 Absolute Neuts (auto) 16.5 X10^3/uL (2.0-7.7) H 11/24/19 13:14 ESR 115 mm/hr (0-15) H 11/12/19 20:55 D-Dimer Quant (PE/DVT) 1.99 FEU/ug/m (0.27-0.49) H* 11/13/19 10:00 Sodium 135 mmol/L (136-145) L 11/21/19 06:25 Potassium 3.1 mmol/L (3.5-5.1) L 11/24/19 13:14 Chloride 97 mmol/L (98-107) L 11/14/19 05:55 Carbon Dioxide 33.0 mmol/L (21.0-32.0) H 11/15/19 05:15 Anion Gap 4 (5-15) L 11/26/19 05:50 BUN 25 mg/dL (7-18) H 11/24/19 13:14 Creatinine 0.62 mg/dL (0.70-1.30) L 11/20/19 03:40 BUN/Creatinine Ratio 32.6 RATIO (10-20) H 11/24/19 13:14 Glucose 114 mg/dL (74-106) H 11/20/19 03:40 Calcium 8.1 mg/dL (8.5-10.1) L 11/26/19 05:50 Phosphorus 0.6 mg/dL (2.5-4.9) L* 11/17/19 03:50 ALT 14 U/L (16-61) L 11/12/19 20:35 Total Creatine Kinase 333 U/L (39-308) H 11/21/19 06:25 C-React Prot Ext Range 24.70 mg/L (0.0-3.0) H 11/20/19 03:40 Total Protein 8.7 g/dL (6.4-8.2) H 11/12/19 20:35 Albumin 2.7 g/dL (3.2-5.0) L 11/18/19 04:15 Globulin 4.6 g/dL (2.2-4.2) H 11/18/19 04:15 HDL Cholesterol 30 mg/dL (40-) L 11/17/19 03:50 Lipase 67 U/L (73-393) L 11/12/19 20:35 Procalcitonin 0.12 ng/mL (0.00-0.09) H 11/13/19 10:00 - Assessment Food / Nutrition-Related History:: Pt s/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 Dr. Mirtha Jonas requesting bolus TF as pt receieving carafate requiring hold of TF 2 hours before and 2 hours after administration. Currently recieving Jevity 1.5 continous feeds via PEG at 50ml/hr w/ 150 ml flush every 4 hours- progressed to goal rate, held at this time for medication administration. Tolerated TF at goal rate well w/ minimal residuals. Pt w/ wt increase of 0.7kg x 1 day; CBW 117.7#. Pt w/ total wt loss of 10#/8% x 2 weeks; wt 11/13 127.9#. - Nutrition Diagnosis Problem / Etiology / Signs & Symptoms (PES):: Severe malnutrition in the context of acute illness/injury related to inadequate oral intake as evidenced by severe oropharyngeal dysphagia, NPO status, 8% severe wt loss x 2 weeks, and moderate subcutaneous fat loss/ muscle wasting. Evidence of Malnutrition Exists:: Yes Severe PCM:: Acute Illness - Nutrition Intervention Nutrition Prescription:: [id number] charo, 50-60 gm pro/day - Food / Nutrient Delivery Interventions Summary of nutrition intervention:: Rec Jevity 1.5 250ml bolus 5 times per day with 90ml H2O flush before and after each feeding to provide 1875kcal, 80g pro, and 1850ml free water. TF estimated to meet 100% of pt nutritional needs. Nutrition support ordered as / adjusted to:: Jevity 1.5 250ml bolus 5 times per day with 90ml H2O flush before and after each feeding to provide 1875kcal, 80g pro, and 1850ml free water. Nutrition education provided?: No - MNT Monitoring Further MNT monitoring and evaluation required?: Yes MNT Follow-up in:: 1-2 days - if questions- please call RDN at x [phone]
--- NOTE | 2019-11-27 11:04 | CASEMGMT ---
MISAEL spoke with Kim from Rehab. She is still waiting on [facility] to give their answer. Camila RANDOLPH MSW
[2019-11-27] MEDS: Aspirin 81 MG TAB.CHEW GT (11:27)
[2019-11-27] MEDS: busPIRone 5 MG Tablet 10 MG GT ×2 (11:27→22:13)
[2019-11-27] MEDS: predniSONE 20 MG Tablet 60 MG GT (11:27)
[2019-11-27] MEDS: SMZ/TPM Suspension 10 ML PO (11:27)
[2019-11-27] MEDS: Polyethylene Glycol 3350 17 GM PACKET GT (11:28)
[2019-11-27] MEDS: Enoxaparin 40 MG/0.4 ML Syringe SC (11:28)
[2019-11-27] MEDS: azaTHIOprine 50 MG Tablet GT (11:28)
[2019-11-27] MEDS: Senna/Docusate Sodium 1 Tablet 2 TABLET GT (11:29)
[2019-11-27] MEDS: QUEtiapine 25 MG Tablet GT ×2 (11:29→22:12)
[2019-11-27] MEDS: guaiFENesin 10 ML UDC (200MG/10ML) GT ×3 (11:40→18:10)
[2019-11-27] MEDS: Mupirocin Ointment 22gm Tube 1 APPLIC TOPICAL ×2 (11:50→22:14)
[2019-11-27] MEDS: Morphine 2 MG/ML Syringe IV ×3 (12:11→22:14)
[2019-11-27] MEDS: 0.9% Saline Lock 10 ML Syringe IV ×3 (12:11→22:14)
[2019-11-27] MEDS: Jevity 1.5. 1,000 ML Bottle 250 ML GT ×3 (15:30→22:13)
[2019-11-27] MEDS: Acyclovir 800 MG Tablet GT ×2 (15:30→22:12)
--- NOTE | 2019-11-27 15:38 | CASEMGMT ---
We continue to wait on insurance to give us answer as to whether or not they are going to approve patient for the Rehab Unit. This pre-cert request was started on Sunday. Kayla from Inpatient Rehab called insurance yesterday to check on status and she was told they will call when they have made a decision. Camila RANDOLPH MSW
[2019-11-27] MEDS: Sucralfate 1 GM Tablet GT ×2 (16:43→20:44)
[2019-11-27] MEDS: Atorvastatin Calcium 40 MG Tablet GT (22:13)
[2019-11-28 00:16] VITALS: PULSE 81
[2019-11-28 02:00] VITALS: BP 114/66; PULSE 68; RESP 18; TEMP 36.8; O2SAT 97
[2019-11-28] MEDS: 0.9% Saline Lock 10 ML Syringe IV (02:17)
[2019-11-28] MEDS: Morphine 2 MG/ML Syringe IV (02:17)
[2019-11-28 03:17] VITALS: PULSE 71
[2019-11-28] MEDS: Jevity 1.5. 1,000 ML Bottle 250 ML GT (06:05)
[2019-11-28] MEDS: Acyclovir 800 MG Tablet GT (06:05)
[2019-11-28 06:44] LABS: Absolute Lymphocyte Count 3.25 X10^3/uL (0.83-4.51); Absolute Neutrophil Count 8.7 X10^3/uL (2.0-7.7); Basophil# 0.03 X10^3/uL; Basophil% 0.2 % (0-1); Eosinophil# 0.04 X10^3/uL; Eosinophils% 0.3 % (0-5); Hematocrit 39.5 % (40-54); Hemoglobin 12.6 g/dL (13.0-16.5); Lymphocyte # 3.25 X10^3/ul (4.0); Lymphocyte % 25.1 % (19-41); Mean Corp Hgb Conc 31.9 g/dL (32-36); Mean Corpuscular Hgb 30.6 pg (27.0-32.0); Mean Corpuscular Volume 95.9 fL (80-94); Mean Platelet Vol. 10.2 fl (6.2-12.0); Monocyte# 0.88 X10^3/uL; Monocyte% 6.8 % (0-10); NRBC Flagged by Analyzer 0 % (0-5); Neutrophil # 8.71 X10^3/uL (2.7-7.7); Neutrophil % 67.3 % (47-70); Platelet Count 269 K/mm3 (150-450); RBC Distribution Width CV 13.5 % (11.6-14.6); RBC Distribution Width SD 46.5 fl (35.1-43.9); Red Blood Count 4.12 M/mm3 (4.6-6.2)
[2019-11-28 06:54] VITALS: PULSE 75
[2019-11-28 07:03] LABS: Anion Gap 6 (5-15); BUN 16 mg/dL (7-18); BUN/Creat Ratio 22.4 RATIO (10-20); Calcium,Total 8.7 mg/dL (8.5-10.1); Chloride 101 mmol/L (98-107); Creatinine, Serum 0.72 mg/dL (0.70-1.30); EST Glomerular Filtration Rate 141 mL/min (>60); Est Glom Filt Rate - Afr Amer 171 mL/min (>60); Estimated Creatinine Clearance 117.43 ml/min; Glucose 81 mg/dL (74-106); Potassium 3.6 mmol/L (3.5-5.1); Sodium Level 138 mmol/L (136-145)
[2019-11-28 08:24] VITALS: BP 135/81; PULSE 81; RESP 16; TEMP 37.1; O2SAT 97
[2019-11-28] MEDS: Sucralfate 1 GM Tablet GT (08:25)
--- NOTE | 2019-11-28 08:37 | PCM.PN.HOSP ---
Patient Problems: Active and Suspected Problems (Last Reviewed 11/13/19 @ 00:[address] Navi Bee MD) Vomiting (Acute) Hypoxia (Acute) Respiratory insufficiency (Acute) Subjective: No issues overnight. Was yelling at nursing this am. Wants to go. Still with some pain around PEG site and APAP is not helping. Vitals/I&O's: Vital Signs Temp Pulse Resp BP Pulse Ox 98.8 F 81 16 135/81 H 97 11/28/19 08:24 11/28/19 08:24 11/28/19 08:24 11/28/19 08:24 11/28/19 08:24 Oxygen Flow Rate (L/min) 2 Oxygen Delivery Method Room Air Weight: 53.4 kg Body Mass Index (BMI) 18.4 Intake and Output for Last 24 Hours 11/26/19 11/27/19 11/28/19 23:59 23:59 23:59 Intake Total 3227 / 3227 3057 / 3057 430 / 430 Output Total 1300 / 1300 1800 / 1800 Balance 1927 / 1927 1257 / 1257 430 / 430 General: Alert, Oriented x3, Cooperative, No apparent distress, - - AAM in street clothes sitting up in chair on phone Lungs: Clear to auscultation, Normal air movement, No rhonchi, No wheeze Cardiovascular: Regular rate, Regular Rhythm, Normal S1, Normal S2, No murmurs, No Ectopic Activity, No rub noted, No Gallop Abdomen: Bowel Sounds Present, Soft, Non Tender, Non-Distended, No hernias noted, - - PEG LUQ clean and dry Skin: No rashes, No breakdown Psych/Mental Status: Appropriate, Flat Affect Laboratory Results 11/28/19 06:05: WBC 13.0 H, RBC 4.12 L, Hgb 12.6 L, Hct 39.5 L, MCV 95.9 H, MCH 30.6, MCHC 31.9 L, RDW Std Deviation 46.5 H, RDW Coeff of Eduin 13.5, Plt Count 269, MPV 10.2, Immature Gran % (Auto) 0.300, Neut % (Auto) 67.3, Lymph % (Auto) 25.1, [place] % (Auto) 6.8, Eos % (Auto) 0.3, Baso % (Auto) 0.2, Absolute Neuts (auto) 8.7 H, Absolute Lymphs (auto) 3.25, Nucleated RBC % 0 11/28/19 06:05: Sodium 138, Potassium 3.6, Chloride 101, Carbon Dioxide 31.0, Anion Gap 6, BUN 16, Creatinine 0.72, Estim Creat Clear Calc 117.43, Est GFR (MDRD) Af Amer 171, Est GFR (MDRD) Non-Af 141, BUN/Creatinine Ratio 22.4 H, Glucose 81, Calcium 8.7 Current Medications Acetaminophen (Tylenol Liquid) 650 mg GT Q4H PRN PRN PRN Reason: Pain Score 1-1010 Albuterol Sulfate (Ventolin Aerosols) 2.5 mg INHALATION Q2H PRN PRN PRN Reason: sob/wheezing Last Admin: 11/20/19 05:39 Dose: 2.5 mg Documented by: Aspirin (Aspirin, Baby) 81 mg GT DAILY@1000 [facility] Last Admin: 11/27/19 11:27 Dose: 81 mg Documented by: Atorvastatin Calcium (Lipitor) 40 mg GT QHS [facility] Last Admin: 11/27/19 22:13 Dose: 40 mg Documented by: Azathioprine (Imuran) 50 mg GT DAILY [facility] Last Admin: 11/27/19 11:28 Dose: 50 mg Documented by: Buspirone HCl (Buspar) 10 mg GT BID [facility] Last Admin: 11/27/19 22:13 Dose: 10 mg Documented by: Dextrose (D50w Syringe) 0 gm IV X1 PRN; Protocol PRN Reason: Hypoglycemia Enoxaparin Sodium (Lovenox) 40 mg SC DAILY [facility] Last Admin: 11/27/19 11:28 Dose: 40 mg Documented by: Enteral Nutritional Formula (Jevity 1.5) 250 ml GT 5X/DAY [facility] Last Admin: 11/28/19 06:05 Dose: 250 ml Documented by: Glucagon () 1 mg IM .X1 PRN PRN Reason: Hypoglycemia Sodium Chloride () 250 mls @ 15 mls/hr IV .[id number] PRN PRN Reason: Saline Flush Last Infusion: 11/23/19 00:38 Dose: Infused Documented by: Sodium Chloride () 250 mls @ 15 mls/hr IV .[id number] PRN PRN Reason: Additional IVPB Infusion Lansoprazole (Lansoprazole) 30 mg GT BID [facility] Mupirocin (Bactroban) 1 applic TOPICAL BID [facility]; Protocol Last Admin: 11/27/19 22:14 Dose: 1 applicatio Documented by: Ondansetron HCl (Zofran) 4 mg IV Q6H PRN PRN PRN Reason: NAUSEA/VOMITING Last Admin: 11/16/19 18:27 Dose: 4 mg Documented by: Oxycodone HCl (Oxyfast) 5 mg SL Q4H PRN PRN Reason: Pain Score 6-10/10 Polyethylene Glycol (Miralax) 17 gm GT DAILY [facility] Last Admin: 11/27/19 11:28 Dose: 17 gm Documented by: Prednisone () 60 mg GT DAILY@0800 [facility] Last Admin: 11/27/19 11:27 Dose: 60 mg Documented by: Quetiapine Fumarate (Seroquel) 25 mg GT BID [facility] Last Admin: 11/27/19 22:12 Dose: 25 mg Documented by: Senna/Docusate Sodium (Senokot-S, Becky-Colace) 2 tablet GT BID [facility] Last Admin: 11/27/19 22:13 Dose: Not Given Documented by: Sodium Chloride () 10 - 40 ml IV UD PRN PRN Reason: SALINE FLUSH Last Admin: 11/28/19 02:17 Dose: 10 ml Documented by: Sucralfate (Carafate) 1 gm GT 0700,1100,1600,2100 [facility] Last Admin: 11/28/19 08:25 Dose: 1 gm Documented by: Trimethoprim/Sulfamethoxazole (Bactrim Suspension 800-160mg/20ml) 10 ml PO TuThSa@1000 [facility] Last Admin: 11/27/19 11:27 Dose: 10 ml Documented by: STROKE Vital Signs/Narrative: Vital Signs Temp Pulse Resp BP Pulse Ox 11/28/19 08:24 98.8 F 81 16 135/81 H 97 11/28/19 06:54 75 Medical Necessity - Tobacco Use Smoking Status: Never smoker Tobacco Use: Non-smoker Assessment/Plan All Active Problems (Last Reviewed 11/13/19 @ 00:[address] Navi Bee MD) Mediastinal shift (Acute) Mucus plugging of bronchi (Acute) CVA (cerebral vascular accident) (Resolved) Vomiting (Acute) Hypoxia (Acute) Respiratory insufficiency (Acute) Acute Hypoxic Respiratory Failure -multiple chest x-ray reviewed and shows mediastinal shift with right tracheal pull most likely from mucous plugging -Intubated in ED on 11/12 and Extubated on 11/18 -COVID 19 neg -Viral PCR neg -Suptum unremarkable -Blood cx neg -remains stable RA and SpO2 stable Dysphagia -Using PEG for meds with no issue -tolerating TF well and now at goal rate of 50 cc/hr -will switch to Bolus feed today--> d/w Dietitian and will make bolus recommendations -pt did very poorly on MBS-->cannot recommend PO intake at this time, will require continued dependence on alternative means of nutrition in place -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 Aspiration -occurred during MBS -CXR remains clear -initially placed on Unasyn after event but given that he is stable on RA and CXR remains clear will d/c ABX Non-bleeding Gastric Ulcer -noted on EGD for PEG -PPI BID for 8 weeks then daily until off steroids -Carafate for 4 weeks -held as was interfering with TF -switch to bolus feed and re-initiate 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 -Neuro recommended -high-dose Solu-Medrol 1 g/day for 3 days with GI prophylaxis then prednisone 1 mg/kg and then taper as outpatient -continue prednisone 60 mg -Imuran -Automobile Rental Representative is not able to see the while inpatient there for follow-up as an outpatient -CRP remains elevated -ASA/Statin -PT/OT/BOAT WORKER Leukocytosis -suspected from demargination with steroid -up slightly today but post op PEG yesterday -down to 13 this am -no s/o infection Hypokalemia -resolved 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 -Patient was not on chronic steroid therapy or immunosuppression -Elevated CRP -no on PO steroid 60 mg -Bactrim prophylaxis for PJP PNA as I suspect pt will be on >30 mg steroids/day for longer than 4 weeks--> d/c if rheum sees and are able to taper more quickly -watch K and renal fxn -pt with no allergies -Patient has significant leukocytosis with neutrophilia most likely steroid effect -SOC neurology recommended azathioprine suggested for Behcet's disease vasculitis but probably will need spare hand opinion and consult and patient is already on steroid -outpt f/u GI prophylaxis -will need while on steroids -PPI--> switched to PO DVT prophylaxis -Lovenox Code status -FULL PLAN -D/C Rehab --> precert remains pending--> stable for transfer when ok with insurance Inpatient E&M: 69604 Subs Hosp L2
--- NOTE | 2019-11-28 10:18 | CASEMGMT ---
Patient is now threatening to leave AMA. He is tired of waiting on insurance to give their answer as to whether or not he can go to Inpatient Rehab. MISAEL called patient's mom and explained this to her. She understands it is dangerous if he leaves AMA. She will call him and talk with him. MISAEL also called the Rehab referral line and left a vm inquiring if [facility] could be contacted and notified patient is wanting to leave AMA as he is tired of waiting. Camila RANDOLPH MSW
--- NOTE | 2019-11-28 10:45 | NURSING ---
Pt reported to staff that he wanted to talk to the doctor. Dr Jonas in patient's room in which the patient stated that he wanted to go home. Risks explained if the patient would go home and that we are waiting for insurance approval to get the patient over to the Rehab unit. Explained that he has the option to sign out AMA and risks explained what would happen when he goes home and eats or drinks normal foods/liquids and precautions with his newly placed PEG tube. came out to desk and asked social work to please call patient's mother to see if she would be able to deescalate the situation. This RN in room to talk with patient in which he stated that he is a grown man and can make his own decisions and not to talk to him. Social work reported to this RN that the mother is going to call the patient and try to talk with him. Patient in room and adamant that he is leaving and no one is stopping him. Explained the risks of him leaving. Explained that we have had him NPO here at the hospital because he is not swallowing safely and if he goes home and eats and drinks that he will aspirate, possibility of needing to be on a breathing tube again and possibility of . This RN called pt's mom and she stated that she had not called the patient yet because she was on a work phone call and that she would call him when she was done. Explained to the pt's mom that he was trying to leave at this moment. Pt's mom attempted to call the patient multiple times but his cell phone was off. She then called his hospital phone and he repeatedly hung up on her and unplugged the phone. This RN called pt's mom on [employer] phone and put her on speaker phone in patient's room. Pt's mom spoke with patient and explained the risks to patient at which point he started arguing with her and stated that he was grown and could make his own decisions and understood the risks. Pt grabbed the phone out of this RN's hand and hung up on his mom. Pt stated that he was going to go to sleep. Left pt in his recliner and called pt's mother and explained that we are trying to educate but the patient states that he understands the risks and he just wants to go home, that he has a taxi coming to get him. Pt ambulating in hallway and wanting to leave. Mother stated to let him go if he understands his risks. Once again risks explained if patient leaves AMA. Pt signed AMA formed. Dr Jonas notified once again and came to talk with the patient while patient sitting in a wheelchair in the hallway. Pt called taxi for a ride and MEDICINAL PLANT PICKER wheeled pt to main entrance.
--- NOTE | 2019-11-28 10:45 | CASEMGMT ---
RN, patient's mom, and physician have all spoken to patient and made him aware of the dangers of leaving in his condition. He is still leaving AMA. Camila RANDOLPH MSW
--- NOTE | 2019-11-28 11:21 | DS.PCM_ITS ---
Discharge Date and Diagnosis - Problem List Patient Problems: Active and Suspected Problems (Last Reviewed 11/13/19 @ 00:[address] Navi Bee MD) Vomiting (Acute) Hypoxia (Acute) Respiratory insufficiency (Acute) Date of Admission: 11/13/19 Date of Discharge: 11/28/19 - Primary Discharge Diagnosis Acute Problems: Active Problems (Last Reviewed 11/13/19 @ 00:[address] Navi Bee MD) Vomiting (Acute) Hypoxia (Acute) Respiratory insufficiency (Acute) - Secondary Discharge Diagnosis Chronic Problems: Chronic Problems (Last Reviewed 11/13/19 @ 00:[address] Navi Bee MD) Behcet's disease (Chronic) Smoker (Chronic) Open wound of lip with complication (Chronic) 1.3 cm post-traumatic nonhealing open wound left lower lip near midline 2 cm post-traumatic nonhealing open wound central upper lip in posterior portion of lip Hospital Course and Treatment Summary of Care Provided: Mr. Rios a 24 year old M with a significant history of Behcet's disease, depression, and anxiety who presented to the ED pm 11/13/2019 with nausea and vomiting. His symptoms had been going on for about 3 days at that time. The day before his presentation he was in the ED and he was given IV fluids and antiemetics for the same and was discharged home with a prescription for phenergan. However, patient reported he was too weak to go and pick up and delivery driver the prescription. Other associated symptoms were productive cough of dark black sputum, chills, weakness and muscle aches. His sats were 87% on RA. He had not been wearing a mask and he had not been quarantining. He was COVID-19 + and overnight from 11/13- he became progressively hypoxic and chest x-ray was consistent with a right-sided mucous plug. Patient was intubated and had central line placed. He was able to be extubated on 11/18 and by d/c was able to be weaned to RA. An MRI was obtained on 11/17 given his h/o Bechet's and he was found to have a infarct in the R side of the brainstem in the acute to subacute phase. Neurology was consulted and recommended Imuran initiation and high dosed steroids 1 gm/day x 3 days and then Prednisone 60 mg/kg/day with a taper to follow as outpt and f/u with rheumatology. He was on 60 mg at d/c and was on PJP prophylaxis with Bactrim 3x/week. He did poorly with GERMAN PROFESSOR and a PEG tube was recommended with continued NPO as pt was deemed a high aspiration risk. PEG was placed on 11/24/2019 and will need to stay in until at least 12/2019. He was tolerating TF boluses 5x daily. Incidentally he was found to have a clean based gastric ulcer with his EGD for his PEG and was placed on Carafate 4x/day and PPI BID. He will need the carafate for a month and the PPI BID for 2 mos with PPI daily to follow. A repeat MBS was done on 11/25 in which the pt was deemed still unsafe for PO intake. All therapies were recommending Rehab and D/C and the precert was initiated on 11/23. As of 11/27 am the precert was not obtained and the pt continued to be frustrated and wanted to leave AMA. I did talk to him 3x on 11/27 regarding the risks of him leaving. He was alert and oriented x 3 and stated that he understood that he could choke on his food if he ate and him leaving prior to being medically ready could result in his premature . He was able to repeat this back and stated that that was a risk he was willing to take and just wanted to leave. His mother called and talked to him as well and was unable to convince him into staying. He signed AMA papers and left after calling a taxi to pick him up. I did tell him that I would write him 1 month of his medications and told him that I strongly recommend he stay but if he was unwilling that he should f/u with the [facility] in [place], [place] for a rheumatology appt. Prescriptions were faxed to his pharmacy and he was told to use his PEG. Prior to leaving he asked when the PEG could be removed and I told him it had to remain in for 1 month prior to being removed. I encouraged him to come back to the ED at anytime for readmission. Acute Hypoxic Respiratory Failure -multiple chest x-ray reviewed and shows mediastinal shift with right tracheal pull most likely from mucous plugging -Intubated in ED on 11/12 and Extubated on 11/18 -COVID 19 neg -Viral PCR neg -Suptum unremarkable -Blood cx neg -remains stable RA and SpO2 stable Dysphagia -Using PEG for meds with no issue -tolerating TF well and now at goal rate of 50 cc/hr -will switch to Bolus feed today--> d/w Dietitian and will make bolus recommendations -pt did very poorly on MBS-->cannot recommend PO intake at this time, will require continued dependence on alternative means of nutrition in place -continue GERMAN PROFESSOR Aspiration -occurred during MBS -CXR remains clear -initially placed on Unasyn after event but given that he is stable on RA and CXR remains clear will d/c ABX Non-bleeding Gastric Ulcer -noted on EGD for PEG -PPI BID for 8 weeks then daily until off steroids -Carafate for 4 weeks -held as was interfering with TF -switch to bolus feed and re-initiate 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 -Neuro recommended -high-dose Solu-Medrol 1 g/day for 3 days with GI prophylaxis then prednisone 1 mg/kg and then taper as outpatient -continue prednisone 60 mg -Imuran -Brick Handler is not able to see the while inpatient there for follow-up as an outpatient -CRP remains elevated -ASA/Statin -PT/OT/GERMAN PROFESSOR Leukocytosis -suspected from demargination with steroid -up slightly today but post op PEG yesterday -down to 13 this am -no s/o infection Hypokalemia -resolved 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 -Patient was not on chronic steroid therapy or immunosuppression -Elevated CRP -no on PO steroid 60 mg -Bactrim prophylaxis for PJP PNA as I suspect pt will be on >30 mg steroids/day for longer than 4 weeks--> d/c if rheum sees and are able to taper more quickly -watch K and renal fxn -pt with no allergies -Patient has significant leukocytosis with neutrophilia most likely steroid effect -SOC neurology recommended azathioprine suggested for Behcet's disease vasculitis but probably will need airconditioning drafting officer opinion and consult and patient is already on steroid -outpt f/u GI prophylaxis -will need while on steroids -PPI--> switched to PO DVT prophylaxis -Lovenox Code status -FULL Patient Problems: Active and Suspected Problems (Last Reviewed 11/13/19 @ 00:[address] Navi Bee MD) Vomiting (Acute) Hypoxia (Acute) Respiratory insufficiency (Acute) - Physical Exam Vitals/I&O's: Vital Signs Temp Pulse Resp BP Pulse Ox 98.8 F 81 16 135/81 H 97 11/28/19 08:24 11/28/19 08:24 11/28/19 08:24 11/28/19 08:24 11/28/19 08:24 Oxygen Flow Rate (L/min) 2 Oxygen Delivery Method Room Air Weight: 53.5 kg Body Mass Index (BMI) 18.4 Intake and Output for Last 24 Hours 11/26/19 11/27/19 11/28/19 23:59 23:59 23:59 Intake Total 3227 / 3227 3057 / 3057 430 / 430 Output Total 1300 / 1300 1800 / 1800 Balance 1927 / 1927 1257 / 1257 430 / 430 Laboratory Results 11/28/19 06:05: WBC 13.0 H, RBC 4.12 L, Hgb 12.6 L, Hct 39.5 L, MCV 95.9 H, MCH 30.6, MCHC 31.9 L, RDW Std Deviation 46.5 H, RDW Coeff of Eduin 13.5, Plt Count 269, MPV 10.2, Immature Gran % (Auto) 0.300, Neut % (Auto) 67.3, Lymph % (Auto) 25.1, [place] % (Auto) 6.8, Eos % (Auto) 0.3, Baso % (Auto) 0.2, Absolute Neuts (auto) 8.7 H, Absolute Lymphs (auto) 3.25, Nucleated RBC % 0 11/28/19 06:05: Sodium 138, Potassium 3.6, Chloride 101, Carbon Dioxide 31.0, Anion Gap 6, BUN 16, Creatinine 0.72, Estim Creat Clear Calc 117.43, Est GFR (MDRD) Af Amer 171, Est GFR (MDRD) Non-Af 141, BUN/Creatinine Ratio 22.4 H, Glucose 81, Calcium 8.7 Current Medications Acetaminophen (Tylenol Liquid) 650 mg GT Q4H PRN PRN PRN Reason: Pain Score 1-10/10 Albuterol Sulfate (Ventolin Aerosols) 2.5 mg INHALATION Q2H PRN PRN PRN Reason: sob/wheezing Last Admin: 11/20/19 05:39 Dose: 2.5 mg Documented by: Aspirin (Aspirin, Baby) 81 mg GT DAILY@1000 [facility] Last Admin: 11/27/19 11:27 Dose: 81 mg Documented by: Atorvastatin Calcium (Lipitor) 40 mg GT QHS [facility] Last Admin: 11/27/19 22:13 Dose: 40 mg Documented by: Azathioprine (Imuran) 50 mg GT DAILY [facility] Last Admin: 11/27/19 11:28 Dose: 50 mg Documented by: Buspirone HCl (Buspar) 10 mg GT BID [facility] Last Admin: 11/27/19 22:13 Dose: 10 mg Documented by: Dextrose (D50w Syringe) 0 gm IV X1 PRN; Protocol PRN Reason: Hypoglycemia Enoxaparin Sodium (Lovenox) 40 mg SC DAILY [facility] Last Admin: 11/27/19 11:28 Dose: 40 mg Documented by: Enteral Nutritional Formula (Jevity 1.5) 250 ml GT 5X/DAY [facility] Last Admin: 11/28/19 06:05 Dose: 250 ml Documented by: Glucagon () 1 mg IM .X1 PRN PRN Reason: Hypoglycemia Sodium Chloride () 250 mls @ 15 mls/hr IV .[id number] PRN PRN Reason: Saline Flush Last Infusion: 11/23/19 00:38 Dose: Infused Documented by: Sodium Chloride () 250 mls @ 15 mls/hr IV .[id number] PRN PRN Reason: Additional IVPB Infusion Lansoprazole (Lansoprazole) 30 mg GT BID [facility] Mupirocin (Bactroban) 1 applic TOPICAL BID [facility]; Protocol Last Admin: 11/27/19 22:14 Dose: 1 applicatio Documented by: Ondansetron HCl (Zofran) 4 mg IV Q6H PRN PRN PRN Reason: NAUSEA/VOMITING Last Admin: 11/16/19 18:27 Dose: 4 mg Documented by: Oxycodone HCl (Oxyfast) 5 mg SL Q4H PRN PRN Reason: Pain Score 6-10/10 Polyethylene Glycol (Miralax) 17 gm GT DAILY [facility] Last Admin: 11/27/19 11:28 Dose: 17 gm Documented by: Prednisone () 60 mg GT DAILY@0800 [facility] Last Admin: 11/27/19 11:27 Dose: 60 mg Documented by: Quetiapine Fumarate (Seroquel) 25 mg GT BID [facility] Last Admin: 11/27/19 22:12 Dose: 25 mg Documented by: Senna/Docusate Sodium (Senokot-S, Becky-Colace) 2 tablet GT BID [facility] Last Admin: 11/27/19 22:13 Dose: Not Given Documented by: Sodium Chloride () 10 - 40 ml IV UD PRN PRN Reason: SALINE FLUSH Last Admin: 11/28/19 02:17 Dose: 10 ml Documented by: Sucralfate (Carafate) 1 gm GT 0700,1100,1600,2100 [facility] Last Admin: 11/28/19 08:25 Dose: 1 gm Documented by: Trimethoprim/Sulfamethoxazole (Bactrim Suspension 800-160mg/20ml) 10 ml PO TuThSa@1000 [facility] Last Admin: 11/27/19 11:27 Dose: 10 ml Documented by: Home Medications: Medications to take at Discharge Acyclovir [Zovirax] 800 mg PO TID 11/01/19 Aspirin [Aspirin, Baby] 81 mg GT DAILY@1000 #30 tab.chew 11/28/19 Atorvastatin Calcium [Lipitor] 40 mg GT QHS #30 tab 11/28/19 Azathioprine [Imuran] 50 mg GT DAILY #30 tab 11/28/19 Lansoprazole 30 mg GT BID #60 capsule. 11/28/19 Quetiapine Fumarate [Seroquel] 50 mg PO QHS #30 tab 11/28/19 Smz/Tpm Suspension [Bactrim Suspension] 10 ml PO TuThSa@1000 #1 udc 11/28/19 Sucralfate [Carafate] 1 gm GT 0700,1100,1600,2100 #120 tab 11/28/19 predniSONE tablet 60 mg GT DAILY@0800 #90 tab 11/28/19 Following Prescrptions Were Given to Patient: Aspirin [Aspirin, Baby] 81 mg GT DAILY@1000 #30 tab.chew Transmission Status: Received by [facility] [facility] #30 Smz/Tpm Suspension [Bactrim Suspension] 10 ml PO TuThSa@1000 #1 udc Transmission Status: Received by [facility] #30 Sucralfate [Carafate] 1 gm GT 0700,1100,1600,2100 #120 tab Transmission Status: Received by [facility]30 Azathioprine [Imuran] 50 mg GT DAILY #30 tab Transmission Status: Received by [facility]30 Lansoprazole 30 mg GT BID #60 capsule.dr Transmission Status: Received by [facility] #30 Atorvastatin Calcium [Lipitor] 40 mg GT QHS #30 tab Transmission Status: Received by [facility] #30 predniSONE tablet 60 mg GT DAILY@0800 #90 tab Transmission Status: Received by [facility]30 Quetiapine Fumarate [Seroquel] 50 mg PO QHS #30 tab Transmission Status: Received by [facility] [facility]30 Primary Care Physician: Zoey Delgado [Primary Care Provider] - Medical Necessity - Tobacco Use Smoking Status: Never smoker Tobacco Use: Non-smoker Meaningful Use Info Meaningful Use Diagnoses (Choose all that apply): Ischemic CVA - CVA Therapy Assessed for PT,OT and/or ST?: Yes - Ischemic Stroke Antithrombotic order at d/c?: Yes Dx of Atrial fib/flutter?: No Anticoagulant at discharge?: No Reason anticoagulant not ordered: Procedure not Indicated Statins at discharge?: Yes Primary Dx Acute Ischemic CVA?: No IV tPA ordered during stay?: No Reason IV t-PA not ordered: Procedure not Indicated Inpatient E&M: 36146 Disch Hosp
--- NOTE | 2019-11-28 11:53 | PCM.HOSP.N ---
Hospitalist Note Pt's mother called requesting to speak to me. States that in the past he was pink slipped and sent to a psychiatric hospital. I explained that today he was alert and oriented x 4 (person, place, date, POTUS) and the could re-iterate the risks of leaving and stated that it was a risk he was willing to take. I expressed my frustration with him leaving as well and we discussed his high likelihood of aspiration if he eats PO food. She was still frustrated that i did not pink slip but I informed her that legally I couldn't and couldn't prevent him from making a bad decision. She was informed that a 1 month supply of meds was faxed to his pharmacy and that he needs f/u with Rheumatology as a outpt.
--- NOTE | 2019-11-28 12:02 | NURSING ---
Patient was visualized sitting in a wheelchair at the nurses station speaking to Terra Lopez RN, MARTINEZ Schneider and the patient's hospitalist Dr. Mirtha Jonas at 1040 this morning. This RN remained at the nurses station and listened to the conversation between Dr. Jonas and the patient Alber Rios. Patient was A+Ox3, answering questions appropriately and was stating he wanted to leave AMA. Patient called local cab service and provided address in [place] of where he wanted the cab company to drop him off. Dr. Jonas attempted multiple times to convince the patient to stay and not leave AMA. Dr. Jonas explained that the patient has a high risk of aspirating and expiring-that Rehab is the safest choice for the patient. The patient verbalized understanding and stated, I know, I could . I understand. Now I want to go. Dr. Jonas explained to patient that she would be sending a months worth of prescriptions to his pharmacy and they would be ready to picking machine operator helper later today. As well, Dr. Jonas encouraged the patient multiple times to follow up with a soft tile setter. Per the patient's request, Dr. Jonas wrote down information about [facility] rheumatology in [place]. The patient then took his paperwork and signed the CEDAR paperwork that Terra had provided. The patient was wheeled down to the entrance by MARTINEZ Vazquez where a cab was waiting to pick him up.
--- NOTE | 2019-12-02 15:08 | CASEMGMT ---
RAFAL BAIN Discharge F/U Phone Call LACE: 14 Strata: 4 Discharge date: 11/28/2019, pt left AMA with PEG tube in place Call date: 12/02/2019 Call time: 1513 Attempted to reach pt without success at this time,non-descript voicemail, so message not left for pt at this time. SStaten RAFAL CM Admission dx: Acute febrile illness
--- NOTE | 2019-12-03 11:41 | CASEMGMT ---
Social Work Discharge follow up Phone call: Discharge Date: 11/28/19 Call Date: 12/03/19 Callt Time: 1140 Reason for Follow up: Pt left AMA. Pt was to go to Inpatient Rehab, however pt left prior to receiving insurance authorization to transfer to . Summary of Call: Left message to call this health science writer back. NO patient identifiers left on message. Interventions: If pt returns call, will address followup questions as indicated. MANNY Martini
== END 2019-11-28 10:41 | disposition left against medical advice (07) | DRG 346 ==
LOC: ED 23:34 → ICU 11-13 00:17 → MS2 11-17 11:14 → ICU 11-20 12:57 → PCU 11-20 14:27
PROVIDERS: Family Medicine; Internal Medicine; Internal Medicine Critical Care Medicine; Internal Medicine Infectious Disease; Surgery; Admitting Provider Hospitalist; Emergency Provider Emergency Medicine; Referring Provider Hospitalist; Visit Provider Internal Medicine
PROC: 0DJ08ZZ Inspection of Upper Intestinal Tract, Via Natural or Artificial Opening Endoscopic (ICD-10-PCS; CPT 43235; principal; 2019-11-24 07:45)
DX: M35.2 Behcet's disease (principal); J96.01 Acute respiratory failure with hypoxia; I63.9 Cerebral infarction, unspecified; T17.990A Other foreign object in respiratory tract, part unspecified in causing asphyxiation, initial encounter; E87.6 Hypokalemia; J98.19 Other pulmonary collapse; K25.9 Gastric ulcer, unspecified as acute or chronic, without hemorrhage or perforation; F32.9 Major depressive disorder, single episode, unspecified; F41.9 Anxiety disorder, unspecified; D72.810 Lymphocytopenia; Z20.828 Contact with and (suspected) exposure to other viral communicable diseases; R13.12 Dysphagia, oropharyngeal phase; N50.89 Other specified disorders of the male genital organs; K29.70 Gastritis, unspecified, without bleeding; E83.39 Other disorders of phosphorus metabolism; D72.829 Elevated white blood cell count, unspecified; F17.210 Nicotine dependence, cigarettes, uncomplicated; I77.6 Arteritis, unspecified; Z79.899 Other long term (current) drug therapy; Z79.82 Long term (current) use of aspirin; Z86.73 Personal history of transient ischemic attack (TIA), and cerebral infarction without residual deficits; Z82.49 Family history of ischemic heart disease and other diseases of the circulatory system; Z93.1 Gastrostomy status; R79.82 Elevated C-reactive protein (CRP); W19.XXXA Unspecified fall, initial encounter; S01.501A Unspecified open wound of lip, initial encounter; R01.1 Cardiac murmur, unspecified; R47.02 Dysphasia
CPT/HCPCS: 31500; 31720; 36415; 36600; 70496; 70498; 70553; 71045; 71046; 71275; 74018; 74230; 80048; 80053; 80061; 80076; 82550; 82728; 82803; 82962; 83605; 83615; 83690; 83735; 83880; 84100; 84145; 84478; 84484; 85025; 85027; 85379; 85652; 86140; 86609; 86769; 87040; 87070; 87205; 87449; 87633; 87635; 92526; 92610; 92611; 93005; 93306; 94002; 94003; 94640; 94660; 94668; 94799; 96361; 96374; 97110; 97112; 97116; 97162; 97166; 97530; 97535; 97802; 97803; 99251; 99285; 99406; A9575; G2023; J7030; J7040; J7050; Q9967; A4216; C1751; G0463; J0295; J0330; J0696; J2405; J3010; J3490; J7799; U0003

== ENCOUNTER → 2020-02-11 13:59 | Outpatient (CLI) | payer MEDICAID, SELFPAY ==
[2020-01-16 14:48] VITALS: BMI 18.4
--- NOTE | 2020-02-11 17:40 | ST.MBS ---
Modified Barium Swallow - Patient Information Study Date: 02/11/20 Study Time: 14:00 Direct Billable Minutes: 60 Total Minutes procedure & reportin Diagnosis: Dysphagia (R13.12) Referring Physician: Elizabeth Miller NP Reason for Referral: The Patient is a pleasant 24 year old male referred for a repeat modified barium swallow (MBS) study to objectively assess the Patients oropharyngeal swallow function under fluoroscopy secondary to persistent dysphagia associated with a prior cerebrovascular accident involving the right brainstem with Bechet?s disease; recently admitted to [facility] secondary to an acute / subacute brainstem infarction, with acute hypoxemic respiratory failure necessitating intubation (intubated 11/15/2019; extubated 11/19/2019). He has since participated in outpatient speech-language pathology sessions, with anticipated improvements in PO intake tolerance suspected. 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 - Penetration-Aspiration Scale Score Thin Liquid via teaspoon Result: 1= does not enter airway Thin Liquid Result: 1= does not enter airway Thin Liquid Trial 2 Result: 1= does not enter airway Thin Liquid Trial 3 Result: 1= does not enter airway Thin Liquid Trial 4 Result: 1= does not enter airway Thin Liquid via sequential sips from straw Result: 1= does not enter airway Pudding Result: 1= does not enter airway Cookie Result: 1= does not enter airway Thin Liquid Trial 5 Result: 1= does not enter airway Thin Liquid Trial 6 Result: 1= does not enter airway - Oral Phase Labial Seal: No Labial Escape Tongue Control During Bolus Hold: Escape to lateral buccal cavity/floor of mouth Bolus Preparation/Mastication: Slow prolonged chewing/mashing with complete recollection Bolus Transport/Lingual Motion: Brisk tongue motion Oral Residue: Residue collection on oral structures - Pharyngeal Phase Initiation of Pharyngeal Swallow: Bolus head in pyriforms Soft Palate Elevation: No bolus between soft palate and pharyngeal wall Laryngeal Elevation: Partial superior movement thyroid cart/partial apprx aryt-epig petiole Anterior Hyoid Excursion: Partial anterior movement Epiglottic Movement: Partial inversion Laryngeal Vestibule Closure at Height of Swallow: Incomplete; narrow column of air/contrast in laryngeal vestibule Pharyngeal Stripping Wave: Present - complete Pharyngoesophageal Segment Opening: Parital distension and partial duration; parital obstruction of flow Tongue Base Retraction: Trace column of contrast between tongue base & post. pharyngeal wall Pharyngeal Residue: Trace residue within or on pharyngeal structures - Diagnosis/Impression Diagnosis: Dysphagia (R13.12) Impression: The Patient presents with mild to moderate oropharyngeal dysphagia (DSRS: 3; DCS: D0) without penetration or aspiration. While he does still demonstrate an abnormal (and at times inconsistent) swallow pattern, the results of this study demonstrate a marked improvement in the oropharyngeal swallow function. He strongly wants to proceed with removal of his PEG tube, with the current results supporting his ability to proceed with PO route of intake, with no evidence that he would need supplemental nutrition at his current functional level. He does have a history of silent aspiration under fluoroscopy, though no aspiration was appreciated throughout trials this date; while this is clearly a positive, technically we are unable to definitively rule out silent aspiration. However, this should not preclude clinical advancement to a full PO diet. - Recommendations Comment: DIET TEXTURE RECOMMENDATIONS: regular ? soft textured (IDDSI: 6), thin liquid diet (IDDSI: 0) diet RECOMMENDED COMPENSATORY STRATEGIES: consider cutting tougher textures into bite sized pieces, reduced bolus volume / rate of ingestion, straws with all liquids, seated upright at 90 degrees during PO intake, remain upright for 30-60 minutes post meal (GERD precaution), medications one at a time with purees. Recommend Repeat Modified Barium Swallow: TBD Need for Skilled Speech Therapy Services: Yes Education Completed: 1. Described result of evaluation., 2. Pt understands evaluation & agrees with goals and treatment plan. - Image Count: [phone] - Status Active ST Patient: Not Active - Contact Information [facility] Speech Therapy:: Ady Collado M.A., JOSE LUIS-JAVA SOFTWARE ENGINEER, CBIS MBSImP Certified, LSVT Certified [facility] Speech-Language Pathology Department Email: [email or web address]
== END ==
PROVIDERS: PCP Internal Medicine; Referring Provider Nurse Practitioner Family; Visit Provider Nurse Practitioner Family
DX: R13.12 Dysphagia, oropharyngeal phase (principal)
CPT/HCPCS: 74230; 92611

== ENCOUNTER 2020-02-26 15:27 | Emergency (ER) | payer MEDICAID, SELFPAY ==
[2020-02-23 09:34] VITALS: BMI 18.4
[2020-02-26 15:28] VITALS: BP 118/70; PULSE 89; RESP 14; TEMP 36.7; O2SAT 95; BMI 16.7
--- NOTE | 2020-02-26 15:53 | ED.DCSUM_ITS ---
History of Present Illness Chief Complaint: Wound Check Informant: Patient Narrative: 24-year-old male with past medical history of CVA presents with concern for infected PEG tube removal site. States he had his PEG tube removed and is concerned that it is reddened and having drainage. Denies any fever or chills. Denies any nausea, vomiting, abdominal pain. Past Medical History - Allergies and Home Meds Allergies/Adverse Reactions: Allergies No Known Allergies Allergy (Verified 02/26/20 15:27) Primary Care Physician: Elizabeth Miller LABOR ECONOMICS PROFESSOR, LABOR ECONOMICS PROFESSOR-C [Primary Care Provider] - Prior records reviewed: Yes Past Medical History: - - CVA, respiratory failure Surgical History: - - No surgical history except incision and drainage. Smoking Status: Current every day smoker Alcohol: None Drugs: None - Family History Paternal Family History: Family History (Last Reviewed 01/08/20 @ 15:06 by Lawanda Fairchild) Unknown No problems noted. Family History: Reports: Hypertension Review of Systems General: Denies: Chills, Fever, Sweats Eyes: Denies: Visual changes - bilaterally, Diplopia ENT: Denies: Rhinorrhea, Sore throat Cardiovascular: Denies: Chest pain, Palpitations Respiratory: Denies: Dyspnea, Cough, Dyspnea on exertion Gastrointestinal: Denies: Abdominal pain, Nausea, Vomiting, Diarrhea, Melena, Hematochezia Genitourinary: Denies: Dysuria, Hematuria, Frequency Musculoskeletal: Denies: Back pain, Extremity Pain Skin: Denies: Rash, Wounds Neurological: Denies: Headache, Weakness, Numbness Physical Exam Vital Signs/Narrative: Vital Signs Temp Pulse Resp BP Pulse Ox 02/26/20 15:28 98.1 F 89 14 118/70 95 General: Well nourished, Well developed, No Acute Distress Head: Normocephalic, Atraumatic Eyes: Perrl, EOMI ENT: Moist mucous membranes, No rhinorrhea Neck: Supple, Nontender Cardiovascular: Regular rate, Regular rhythm, No murmurs Respiratory: No distress, CTA bilaterally, Chest nontender Abdomen: Soft, Nontender, Nondistended, Normal bowel sounds Back: Nontender, Normal Inspection Extremities: Nontender, No edema Skin: Normal color, No rash, - - Closed abdominal ostomy with no surrounding erythema. No abscess formation. No drainage. No TTP. Neurological: Alert, Oriented x3, Cranial nerves II-XII grossly intact, Normal Strength, Normal Sensation Psychological: Normal affect, Normal Mood Diagnostic/Tx/Re-eval - Medical Decision Making Appears well and nontoxic. No evidence of infection. Wound will be redressed and he will be discharged home with follow-up as an outpatient. Impression: 1. Wound check ED Disposition - Plan for ED Patient: Disposition: Home or Assisted Living Instructions: ED Wound Check Post Op No Infec Referrals: Elizabeth Miller LABOR ECONOMICS PROFESSOR, LABOR ECONOMICS PROFESSOR-C [Primary Care Provider] -
== END 2020-02-26 16:08 | disposition home or self-care (01) ==
LOC: ED 16:02
PROVIDERS: Emergency Provider Emergency Medicine; PCP Nurse Practitioner Family
DX: Z48.01 Encounter for change or removal of surgical wound dressing (principal); F17.200 Nicotine dependence, unspecified, uncomplicated; Z86.73 Personal history of transient ischemic attack (TIA), and cerebral infarction without residual deficits
CPT/HCPCS: 99282

== ENCOUNTER 2020-04-28 14:00 | Outpatient (RCR) | payer MEDICAID, SELFPAY ==
[2019-11-27 20:24] VITALS: BMI 18.4
--- NOTE | 2019-12-23 15:14 | HP.PTEVAL_ITS ---
Patient's Visit Information NATI HOOD Jr. is a 24 year old M referred to Physical Therapy by JENNIFER Perez with a diagnosis of Behcets syndrome. Date of Evaluation: 12/23/19 Physical Therapist: Hemant Gibbons, PT, ATC - Visit Plan Frequency: 3x /Week Duration: 4-6 Weeks Plan: B LE strengthening, balance and prorio, core strengthening, nustep, and HEP - Subjective Pt reports he had a CVA approximately 3 weeks ago and notes he was hospitalized for 2 weeks. Pt notes he has become very debilitated and weak in his LE's as a result. Pt notes this is the second CVA he has had. Pt notes he has Behcets Syndrome, and believes his body might have been flared up and he thinks this is what has caused his pain. Pt reports he was much stronger and able to walk better prior to this episode. No tingling or numbness in L LE. Pt is moving soon and is unsure if he will have stairs to negotiate or not. No pain at this time. Pt reports he also has very poor balance and would sreally like to improve on that. - Objective Neuro: B LE sensation is WNL to light touch. B patellar reflex= 2/3. MMT: B LE's are grossly 4-/5. ROM: B LE's are WFL. Gait: Pt is able to ambulate 500 feet with WW and CGA x 1. Very slow cadance and poor balance noted - Goals Goal 1:: Increase B LE strength x 1 grade to aid with stair negotiation Goal Time Frame: 4-6 Weeks Goal 2:: Increase SDB x 1 grade to aid with preventing future falls Goal Time Frame: 4-6 Weeks Goal 3:: Pt will be able to ambulate 1000 feet with LRD to aid with community ambulation Goal Time Frame: 4-6 Weeks Goal 4:: I with HEP Goal Time Frame: 4-6 Weeks - Rehabilitation Potential Physical Therapy Diagnosis: Pt has B LE weakness, poor balance, and unstable gait secondary to debiliation. Rehabilitation Potential: Good - Anticipated Interventions Patient/Client Instruction: Educate patient on: Condition, Plan of Care For the Purpose of:: To improve self management Therapeutic Exercise to Include: Strength training, Endurance training, Balance training, Flexibilty training, Dynamic Lumbar Stabilization For the Purpose of:: To increase ROM, To increase oxygenation perfusion, To improve muscle performance and motor function Thank you for the opportunity to evaluate your patient. For Medicare and Medicare HMO plans, please review the plan of care and approve it. It will need to be FAXED BACK to us at [phone] for Medicare purposes. For Medicare only, by signing this I certify the plan of care. Please let me know if there are questions or concerns regarding this plan of care. Physician Signature: Date:
--- NOTE | 2019-12-31 09:53 | HP.SP.AD_ITS ---
History - History Date of Eval: 12/30/19 Medical Diagnosis (from RX): Bechet's Disease Date of Onset of Diagnosis: 2 years Previous speech therapy: Yes Results: Patient was treated as an outpatient. Jaime attended six therapy sessions following his initial evaluation targeting mildly impaired speech and cognitive-linguistic skills secondary to a diagnosis of Bechet's Disease. Other Relevant Medical History/Diagnoses/Surgery: Behcet's disease (Chronic). Smoker (Chronic). 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 1.3 cm post- traumatic nonhealing open wound left lower lip near midline. 2 cm post- traumatic nonhealing open wound central upper lip in posterior portion of lip. [facility] secondary to an acute / subacute brainstem infarction, with recent acute hypoxemic respiratory failure necessitating intubation (intubated 11/15/2019; extubated 11/19/2019); 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 Cerebrovascular accident involving the right brainstem, Bechet?s disease, dysphagia necessitating percutaneous endoscopic gastrostomy (PEG) tube placement (11/24/2019) Medications related to this diagnosis: Acyclovir [Zovirax] 800 mg PO TID 11/01/19. Aspirin [Aspirin, Baby] 81 mg GT DAILY@1000 #30 tab.chew 11/28/19. Atorvastatin Calcium [Lipitor] 40 mg GT QHS #30 tab 11/28/19. Azathioprine [Imuran] 50 mg GT DAILY #30 tab 11/28/19. Lansoprazole 30 mg GT BID #60 capsule. 11/28/19. Quetiapine Fumarate [Seroquel] 50 mg PO QHS #30 tab 11/28/19. Smz/Tpm Suspension [Bactrim Suspension] 10 ml PO TuThSa@1000 #1 udc 11/28/19. Sucralfate [Carafate] 1 gm GT 0700,1100,1600,2100 #120 tab 11/28/19. predniSONE tablet 60 mg GT DAILY@0800 #90 tab 11/28/19 Smoking Status: Current every day smoker Hx Smoking: No Years Smokin Hx Tobacco Use: Yes - Pain Is pain an issue with your current prescribed condition?: No - Personal Education History: 11th grade Occupation: disabled. Right Hearing Abillity: Normal Left Hearing Abillity: Normal Visual Assistive Devices: Glasses Patients Living Arrangements: Alone Patient Allergies - Allergies Allergies No Known Allergies Allergy (Verified 11/05/19 08:50) Subjective Oral Motor - Subjective Patient Reports: Slurred Speech, Difficulty being Understood Objective Oral Motor - Oral Status Dentition: WNL - Labial Impairment: Mild Closure: WNL Pucker: WNL Retraction: WNL Involuntary Movement noted: No - Lingual Protrusion: WNL Lateralization: WNL Involuntary Movement: No - Lingual Comments Comments: Movements were very slow and deliberate. - Jaw Impairment: WNL - Respiratory Status Respiratory Status: Room Air Subjective Dysphagia - Current Diet Solids Current Diet: Regular - Current Diet Liquids Current Liquids: Thin Dysphagia Assessment - Swallowing Impairment Contributing Factors to Swallowing Impairment: Difficulty Following Directions - Impact Impact on Safety & Functioning: Risk for Aspiration Comments: Patient is at high risk for aspiration. - Recommendations Modified Barium Swallow/Cookie Swallow Recommended: Yes Swallowing Treatment: Yes - Diet Texture Recommendations NPO: NPO Other: MBS on 11/26/19: The Patient was noted to SILENTLY aspirate with thin liquids, pureed textures, and regular textures, with events predominantly post prandial though consisting of quite large and viscous materials that heighten concern for aspiration related pulmonary complications; clinical assessment at bedside relying on identification of classic overt signs and symptoms of aspiration considered unreliable. Repeat MBS recommended to further assess the presence and extent of silent and overt aspiration prior to advancement to a less restrictive diet, though given the location of infarction his course will likely be protracted in length. Subjective Dysarthria/Motor - Subjective Subjective: Patient reports that his speech is slow and slurred. Patient stated that he thinks his speech is a 3 out of 10 for being clear. Objective Dysarthira/Motor - Speech Intelligibility Phonemes: WNL Single Words: WNL Sentences: Mild Conversation: Mild - Volume Volume: Mild Loudness: Antelope loudness - Sounds Sounds in Error: Noted no sound errors in single sounds. - Consistency w/Multiple Repetitions Words: Mild - Observation Observation of Apraxia of Speech: No Oral Groping for Placement: No Inconsistent Errors: No - Awareness/Strategy Use Limited to no awareness of motor speech impairment: Yes - Comments Comments -: Patient is able to produce sounds but he had difficulty with air control and enough air flow for a sentence. He reduced his volume and needed maximal cues to sit upright to take a deep breathe. Plan - Plan Plan: Speech therapy is recommended for dysarthria and dysphagia. Recommend MBS when patient is willing to complete it. - Recommendations MBS: Yes Treatment Warranted: Yes - Frequency Frequency: 1x/Week Duration: 6 Weeks Visits in this POC: 6 - Prognosis Prognosis: Fair - Goals that are Established: Determination:: Goals will be added/modified as deemed necessary and appropriate. Therapy will be discontinued when results of re-evaluation indicate therapy is no longer needed or lack of progress has been documented. - Goal #1-5 Goal #1: Further evaluation of dysphagia. Recommended MBS when patient is willing. Goal #2: Patient will sustain phonation for 15-20 seconds to increase breath support for conversational skills on 4/5 trials. Goal #3: The patient will independently utilize strategies to improve intelligibility during conversational interactions in 4/5 trials across 3 consecutive sessions. Goal #4: Evaluation of cognitive linguistic skills. Education - Patient has Indicated that the Following Identified Educational Needs: Cognitively Impaired - Patient Instruction Patient Education: Diagnosis, Treatment Plan Person Taught: Patient Teaching Method: Discussion Response to teaching: Verbalize understanding
--- NOTE | 2020-01-05 13:23 | HP.OTEVAL_ITS ---
Patient's Visit Information NATI HOOD Jr. is a 24 year old M, referred to Occupational Therapy by JENNIFER Perez, with a diagnosis of Behcet's Disease M35.2. Date of Evaluation: 01/05/20 Occupational Therapist: Kat Falk, GUILLAUME/Sathish, CHT - Subjective This 24 year old male was seen for OT eval with dx. with Behcet's disease. Pt states he lives alone in apt. states he performs his ADLs at MAU level. pt states he has a shower chair but does not use his shower chair. pt states he uses wheel chair. pt states he does all the cooking and cleaning and goes to the laundry mat to do his laundry. PT states he does his own grocery shopping. pt uses taxi for transportation. pt states he uses [employer] to cook or oven. pt states he would like to know how better. pt states he cooks chicken patties, chicken nuggets, sausages, fries, pt states he can cook beef stew, noodles and corn the stove. pt state he can cook pancakes on the stove. in speaking with pt it appears that he is more concernd with balance than his cooking. Pt has been working with physical therapy on and off for about two years. Therapist advised possible apt with wc accessability stove and oven pt demo understanding - ADLs Comments: pt demo good legible handwritng. pt report he can perform sets of 50 push-ups. pt states he has a wt. bar for UB every day using to strengthen biceps and shoulders - Objective pt in wc using LE to amb. throughout the dept. - ROM ROM Comments: pt demo ROM WNL. - Strength Shoulder: right/left 4+/5 Elbow: right/left 4+/5 Dye Colorist Formulator: right 65# left 60# Lateral Pinch: right 6# left 12# Tripod Pinch: right 12# left 10# Strength Comments: pt demo with functional strength - Sensation Sensation Comments: denies - Quick DASH-Disab of Arm,Shoulder& Hand Quick DASH Score: 2.2725 - Rehabilitation General Assessment: pt reports difficulty standing to cook he reasoned out that balance was his issue not ability with coordination or use of cooking tools. Pt would benefit from cont. physical therapy to address LE strength and balance. pt does not demo a need for skilled OT services at this time. Rehabilitation Potential: Good - Visit Plan General Plan: Pt will cont. with Physical therapy and speech therapy- due to pts MAU level with ADLS and IADLs no skilled OT services are needed at this time. TEXT: Thank you for the opportunity to evaluate your patient. For Medicare and Medicare HMO plans, please review the plan of care and approve it. It will need to be FAXED BACK to us at [phone] for Medicare purposes. Please let me know if there are questions or concerns regarding this plan of care. Physician Signature: Date:
--- NOTE | 2020-02-11 14:00 | SP.MBSS_ITS ---
PRIMARY / SECONDARY DIAGNOSIS: dysphagia (R13.12) CURRENT DIET (SOLIDS): nothing by mouth (NPO) CURRENT DIET (LIQUIDS): nothing by mouth (NPO) DENTITION: natural upper / lower dentition MENTAL STATUS: intact RESPIRATORY STATUS: O2 via room air REASON FOR REFERRAL: The Patient is a pleasant 24 year old male referred for a repeat modified barium swallow (MBS) study to objectively assess the Patients oropharyngeal swallow function under fluoroscopy secondary to persistent dysphagia associated with a prior cerebrovascular accident involving the right brainstem with Bechet?s disease; recently admitted to [facility] secondary to an acute / subacute brainstem infarction, with acute hypoxemic respiratory failure necessitating intubation (intubated 11/15/2019; extubated 11/19/2019). He has since participated in outpatient speech- language pathology sessions, with anticipated improvements in PO intake tolerance suspected. 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 PREVIOUS MODIFIED BARIUM SWALLOW STUDY RESULTS: 11/26/2019 MBS revealed SEVERE oropharyngeal dysphagia (DSRS: 6; DCS: D3) with grade III and IV SILENT aspiration of thin liquids, pureed textures, and solid textures and marked pharyngeal dysmotility ASSESSMENT PARAMETERS: The Patient participated in a Modified Barium Swallow (MBS) study on 02/11/2020. This study was recorded in the lateral view and images were sent to PACs for storage. Scoring was completed through each trial using the 8- point Penetration-Aspiration Scale (PAS) and summarized via the Modified Barium Swallow Impairment Profile (MBSImP) and the Bolus Residue Scale (BRS), with severity scoring through the Dysphagia Severity Rating Scale (DSRS) and the Dysphagia Classification Scale (DCS), and recommended diet textures through the International Dysphagia Diet Standardisation Initiative (IDDSI) RESULTS OF THE EVALUATION: The Patient presents with mild to moderate oropharyngeal dysphagia (DSRS: 3; DCS: D0) without penetration or aspiration. OBJECTIVE ASSESSMENT OF SWALLOW FUNCTION (QUANTITATIVE ? PER TRIAL): PENETRATION / ASPIRATION SCALE (BENSON): 1 = does not enter airway 2 = enters airway/above vocal folds/ejected 3 = enters airway/above vocal folds/not ejected 4 = enters airway/contacts vocal folds/ejected 5 = enters airway/contacts vocal folds/not ejected 6 = enters airway/below vocal folds/ejected 7 = enters airway/below vocal folds/not ejected despite effort 8 = enters airway/below vocal folds/no effort PENETRATION / ASPIRATION SCALE (SCORE): Thin liquid - 5 mL tsp.: 1 Thin liquids via straw (single sip): 1 Thin liquids via straw (single sip): 1 Thin liquids via straw (single sip): 1 Thin liquids via straw (single sip): 1 Thin liquids via cup (sequential swallows): 1 Pudding via spoon: 1 Regular textured cookie: 1 Thin liquids via straw (single sip): 1 Thin liquids via straw (single sip): 1 OBJECTIVE ASSESSMENT OF SWALLOW FUNCTION (QUANTITATIVE ? AGGREGATE): MODIFIED BARIUM SWALLOW IMPAIRMENT PROFILE (MBSImP) LABIAL SEAL: 0 (of 4) no labial escape TONGUE CONTROL: 1 (of 3) lateral buccal cavity / floor of mouth BOLUS PREPARATION / MASTICATION: 1 (of 3) slow prolonged; complete recollection BOLUS TRANSPORT / LINGUAL MOTION: 0 (of 4) brisk tongue motion ORAL RESIDUE: 1 (of 4) trace residue lining oral structures INITIATION OF PHARYNGEAL SWALLOW: 3 (of 4) pyriforms SOFT PALATE ELEVATION: 0 (of 4) no bolus between soft palate & pharyngeal wall LARYNGEAL ELEVATION: 1 (of 3) partial superior movement / approximation ANTERIOR HYOID EXCURSION: 1 (of 2) partial movement EPIGLOTTIC MOVEMENT: 1 (of 2) partial inversion LARYNGEAL VESTIBULE CLOSURE: 1 (of 2) incomplete closure PHARYNGEAL STRIPPING WAVE: 0 (of 2) present / complete PE SEGMENT OPENIN (of 3) partial distension / duration / obstruction TONGUE BASE RETRACTION: 1 (of 4) trace column of contrast PHARYNGEAL RESIDUE: 1 (of 4) trace residue ESOPHAGEAL BOLUS CLEARANCE: could not view BOLUS RESIDUE SCALE (BRS): BRS SCORE: 1 (of 6) BRS SCORE DESCRIPTION: no residue OBJECTIVE ASSESSMENT OF SWALLOW FUNCTION (SEVERITY GRADING): DYSPHAGIA SEVERITY RATING SCALE (DSRS): DSRS SCORE: 3 (of 6) DSRS SEVERITY: mild-moderate DSRS CLASSIFICATION DESCRIPTION: mild-moderate dysphagia?potential for aspiration exists but is diminished by specific swallow techniques and a modified diet; time for eating is significantly increased DYSPHAGIA CLASSIFICATION SCALE (DCS): DCS CLASSIFICATION: D0 DCS SEVERITY: normal DCS CLASSIFICATION CHARACTERISTICS: without stasis or food consistency restrictions OBJECTIVE ASSESSMENT OF SWALLOW FUNCTION (QUALITATIVE): ORAL PREPARATORY PHASE: slowed and methodical mastication with initial anterior munching quality, though mastication was sufficient to promote bolus breakdown; sufficient anterior oral containment during oral manipulation; preserved management of breathing / bolus formation without disrupted E ? S ? E pattern ORAL TRANSITIONAL PHASE: sufficient bolus transportation; no lingual discoordination (no tremor / undulations); sufficient oral clearance; sufficient oral containment across textures with no presence of premature posterior bolus loss PHARYNGEAL PHASE: mild pharyngeal phase dyssynchrony resulting in suboptimal bolus placement upon swallow onset (bolus head / body adjacent to laryngeal vestibule) with occasional audible quality noted; mild reduction in hyolaryngeal excursion and duration resulting in suboptimal laryngeal vestibule closure / pressure / duration; appropriate pharyngeal motility (vastly improved from his initial study); appropriate velopharyngeal functioning; no penetration / aspiration throughout trials. ESOPHAGEAL PHASE: no obvious esophageal phase abnormalities observed. RESPONSE TO STRATEGIES: all deficits managed successfully with reduction in bolus rate / volume adjustments DYSPHAGIA ASSOCIATED MEDICAL CONSIDERATIONS / INTERVENTION CONSIDERATIONS: While he does still demonstrate an abnormal (and at times inconsistent) swallow pattern, the results of this study demonstrate a marked improvement in the oropharyngeal swallow function. He strongly wants to proceed with removal of his PEG tube, with the current results supporting his ability to proceed with PO route of intake, with no evidence that he would need supplemental nutrition at his current functional level. He does have a history of silent aspiration under fluoroscopy, though no aspiration was appreciated throughout trials this date; while this is clearly a positive, technically we are unable to definitively rule out silent aspiration. However, this should not preclude clinical advancement to a full PO diet. INTERVENTION RECOMMENDATIONS AND CONSIDERATIONS: The Patient requires continued skilled speech-language intervention targeting diet texture management and training / implementation of recommended compensatory strategies; training and implementation of a home based prophylactic swallowing exercise program to promote continued improvements in laryngeal valving; continued reinforcement of a home oral care protocol to reduce the risk of aspiration related pulmonary complications; continued Patient education regarding stroke associated dysphagia; and Patient training targeting meal preparation; all in conjunction with his cognitive based intervention goals. POST ASSESSMENT EDUCATION: The results and recommendations were discussed with the Patient immediately following MBS completion, with the Patient verbalizing understanding and agreement with all recommendations and education provided. DIET TEXTURE RECOMMENDATIONS: Will recommend a regular ? soft textured (IDDSI: 6), thin liquid diet (IDDSI: 0) diet RECOMMENDED COMPENSATORY STRATEGIES: Consider cutting tougher textures into bite sized pieces, reduced bolus volume / rate of ingestion, straws with all liquids, seated upright at 90 degrees during PO intake, remain upright for 30-60 minutes post meal (GERD precaution), medications one at a time with purees. IMAGE COUNT: [id number] Ady Collado M.A., JOSE LUIS-SWITCHBOARD WIRE WORKER HELPER, CBIS MBSImP Certified, LSVT Certified [facility] Speech-Language Pathology Department Email: [email or web address]
--- NOTE | 2020-02-17 14:08 | HP.PTREVAL ---
Elizabeth Miller, FELICITAS-C, It has been my pleasure to treat NATI HOOD Jr. over the last 9 visits for Behcets syndrome. Please see the progress note below for an update on the physical therapy plan of care! Subjective: Pt reports he is getting stronger and he feels like his walking is improving. Objective/Function: B LE strength 4+/5 throughout with the exception of B knee flexion 4-/5. SDB: Pt is able to stand witout UE support for greater than 60 seconds without LOB. Gait: Pt is able to ambulate 1020 feet with rollator and CGAx1 with a slow [place] and without difficulty. Pt is progressing well toward Rx goals Plan Plan: Continue with POC Goals Goal 1:: Increase B LE strength x 1 grade to aid with stair negotiation Goal Time Frame: 4-6 Weeks Goal Progress: Progressing Goal 2:: Increase SDB x 1 grade to aid with preventing future falls Goal Time Frame: 4-6 Weeks Goal Progress: Progressing Goal 3:: Pt will be able to ambulate 1000 feet with LRD to aid with community ambulation Goal Time Frame: 4-6 Weeks Goal Progress: Goal Met Goal 4:: I with HEP Goal Time Frame: 4-6 Weeks Goal Progress: Progressing Anticipated Interventions Patient/Client Instruction: Educate patient on: Condition, Plan of Care For the Purpose of:: To improve self management Therapeutic Exercise to Include: Strength training, Endurance training, Balance training, Flexibilty training, Dynamic Lumbar Stabilization For the Purpose of:: To increase ROM, To increase oxygenation perfusion, To improve muscle performance and motor function Please do not hesitate to contact me at [phone] by phone or if you have questions or concerns regarding this new plan of care! Sincerely, Hemant Gibbons, PT, ATC
--- NOTE | 2020-03-18 15:08 | HP.PTREVAL ---
Elizabeth Miller, FELICITAS-C, It has been my pleasure to treat NATI HOOD Jr. 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 Please see the progress note below for an update on the physical therapy plan of care! Subjective: Pt reportshe is getting stronger. Pt reports he can walk farther and get out of chairs easier. Objective/Function: MMT: B hips are 5/5 throughout. B knees 4+/5. SDB: Pt is able to stand 60 sec EO without difficulty. Pt is not able to stand EC for greater than 10 sec. Stairs: Pt can negotiate stairs without difficulty ascending, one at a time descending. Gait: Pt is able to ambulate 340' very slow today with rollator and CGA. Pt is progressing well toward Rx goals. Plan Plan: Cont with LE strengthening, balance, and core strengthening Goals Goal 1:: Increase B LE strength x 1 grade to aid with stair negotiation Goal Time Frame: 4-6 Weeks Goal Progress: Progressing Goal 2:: Increase SDB x 1 grade to aid with preventing future falls Goal Time Frame: 4-6 Weeks Goal Progress: Progressing Goal 3:: Pt will be able to ambulate 1000 feet with LRD to aid with community ambulation Goal Time Frame: 4-6 Weeks Goal Progress: Goal Met Goal 4:: I with HEP Goal Time Frame: 4-6 Weeks Goal Progress: Progressing Anticipated Interventions Patient/Client Instruction: Educate patient on: Condition, Plan of Care For the Purpose of:: To improve self management Therapeutic Exercise to Include: Strength training, Endurance training, Balance training, Flexibilty training, Dynamic Lumbar Stabilization For the Purpose of:: To increase ROM, To increase oxygenation perfusion, To improve muscle performance and motor function Please do not hesitate to contact me at [phone] by phone or if you have questions or concerns regarding this new plan of care! Sincerely, Hemant Gibbons, PT, ATC
--- NOTE | 2020-04-28 14:34 | HP.PTREVAL ---
Elizabeth Miller, FELICITAS-C, It has been my pleasure to treat NATI HOOD Jr. over the last 17 visits for Behcets syndrome. Please see the progress note below for an update on the physical therapy plan of care! Subjective: Pt reports he feels like he continues to improve, and knows he needs continued work on his balance, strength, and gait Objective/Function: B LE strength grossly 4/5. SDB now fair. Pt is able to SLS for 30 sec without LOB. SLS EC for 5 sec until LOB. Pt is able to ambulate greater than 1000 feet with WW. Pt is progressing well but would benefit from further strengthening and balance ex's Plan Plan: Cont with strengthening, balance, and gait training. Goals Goal 1:: Increase B LE strength x 1 grade to aid with stair negotiation Goal Time Frame: 4-6 Weeks Goal Progress: Progressing Goal 2:: Increase SDB x 1 grade to aid with preventing future falls Goal Time Frame: 4-6 Weeks Goal Progress: Progressing Goal 3:: Pt will be able to ambulate 1000 feet with LRD to aid with community ambulation Goal Time Frame: 4-6 Weeks Goal Progress: Goal Met Goal 4:: I with HEP Goal Time Frame: 4-6 Weeks Goal Progress: Progressing Anticipated Interventions Patient/Client Instruction: Educate patient on: Condition, Plan of Care For the Purpose of:: To improve self management Therapeutic Exercise to Include: Strength training, Endurance training, Balance training, Flexibilty training, Dynamic Lumbar Stabilization For the Purpose of:: To increase ROM, To increase oxygenation perfusion, To improve muscle performance and motor function Please do not hesitate to contact me at [phone] by phone or if you have questions or concerns regarding this new plan of care! Sincerely, Hemant Gibbons, PT, ATC
--- NOTE | 2020-05-20 15:05 | HP.PT.NRP ---
NATI HOOD Jr. was seen in my office for initial evaluation on 12/23/19. The following Plan of Care was established for this patient: Initial Frequency: 3x /Week Initial Duration: 4-6 Weeks Patient/Client Instruction: Educate patient on: Condition, Plan of Care For the Purpose of:: To improve self management Therapeutic Exercise to Include: Strength training, Endurance training, Balance training, Flexibilty training, Dynamic Lumbar Stabilization For the Purpose of:: To increase ROM, To increase oxygenation perfusion, To improve muscle performance and motor function This patient was last seen in our office . Pertinent comments regarding their Physical therapy will appear below: Pt did not show up for last 7 of 9 PT appointments. Pt is discontinued at this time. At this point I will be discontinuing this patient from physical therapy. I would be happy to see this patient again in the future if found appropriate by the physician. Thank you! Hemant Gibbons, PT, ATC
== END 2020-04-28 19:00 | disposition home or self-care (01) ==
LOC: PT 14:00
PROVIDERS: Referring Provider Nurse Practitioner Family; Visit Provider Nurse Practitioner Family
DX: M35.2 Behcet's disease (principal)
CPT/HCPCS: 92507; 92522; 92526; 97110; 97161; 97164; 97166

== ENCOUNTER 2020-06-20 18:41 | Emergency (ER) | payer MEDICAID, SELFPAY ==
[2020-06-20 18:54] VITALS: BP 104/80; PULSE 110; RESP 17; RESP 20; TEMP 37.6; O2SAT 98; O2SAT 99; BMI 20.7
--- NOTE | 2020-06-20 19:18 | ED.VIS.GEN ---
History of Present Illness Chief Complaint: Head Injury Informant: Patient Narrative: 25-year-old male states that about 3 to 4 days ago he hit his right upper eyelid on a car door while shopping. States he had a small cut and has progressively gotten more swollen and red is now draining pus. Denies any visual changes or diplopia. States that his way to the hospital tonight he sustained a fall and has a left hand laceration. He states his tetanus is up-to-date. - Past Medical History (1) Behcet's disease Status: Chronic (2) CVA (cerebral vascular accident) Status: Resolved Past Medical History - Allergies and Home Meds Allergies/Adverse Reactions: Allergies No Known Allergies Allergy (Verified 06/20/20 18:54) Primary Care Physician: NOT,DEFINED [NON-STAFF] - Surgical History: - - No surgical history except incision and drainage. Smoking Status: Former smoker Drugs: None - Family History Paternal Family History: Family History (Last Reviewed 01/08/20 @ 15:06 by Lawanda Fairchild) Unknown No problems noted. Family History: Reports: Hypertension Review of Systems General: Denies: Chills, Fever, Sweats Eyes: Denies: Visual changes - bilaterally, Diplopia ENT: Denies: Rhinorrhea, Sore throat Cardiovascular: Denies: Chest pain, Palpitations Respiratory: Denies: Dyspnea, Cough, Dyspnea on exertion Gastrointestinal: Denies: Abdominal pain, Nausea, Vomiting, Diarrhea, Melena, Hematochezia Genitourinary: Denies: Dysuria, Hematuria, Frequency Musculoskeletal: Denies: Back pain, Extremity Pain Skin: Reports: Wounds. Denies: Rash Neurological: Denies: Headache, Weakness, Numbness Physical Exam Vital Signs/Narrative: Vital Signs Temp Pulse Resp BP Pulse Ox 06/20/20 18:54 99.6 F H 110 H 17 104/80 99 Inital Vital Signs reviewed: Yes General: Well nourished, Well developed, No Acute Distress Head: Normocephalic, Atraumatic Eyes: Perrl, EOMI, - - Right upper eyelid demonstrates a superficial abrasion with purulent drainage and surrounding erythema and mild swelling. ENT: Moist mucous membranes, No rhinorrhea Neck: Supple, Nontender Cardiovascular: Regular rate, Regular rhythm, No murmurs Respiratory: No distress, CTA bilaterally, Chest nontender Abdomen: Soft, Nontender, Nondistended, Normal bowel sounds Back: Nontender, Normal Inspection Extremities: Nontender, No edema Skin: Normal color, No rash, Trauma - There is a 1 cm linear laceration to the dorsum of the left hand along the first metacarpal. Neurological: Alert, Oriented x3, Cranial nerves II-XII grossly intact, Normal Strength, Normal Sensation Psychological: Normal affect, Normal Mood Diagnostic/Tx/Re-eval - Medical Decision Making The laceration was locally anesthetized using 1% lidocaine. Is washed with Shur-Clens and explored. It was closed using a total of 2 simple interrupted 5-0 Ethilon sutures. Wound care discussed with patient. The wound was dressed with bacitracin and Band-Aid by this physician. He was given some home supplies to help locally care for this wound at home. For the upper eyelid infection we will place him on Bactrim Keflex. He will follow-up with his primary care physician in 1 week for suture removal. Return if worsening or concerns Local wound care and follow-up instructions were explicitly written out as the patient notes he has a very poor memory. ED Disposition - Plan for ED Patient: Disposition: Home or Assisted Living Diagnosis: Wound infection, Hand laceration Instructions: ED Wound Check (Infection) Prescriptions: Smz/Tmp Ds [Bactrim Ds] 1 tab PO BID #14 tab Prescription Printed Smz/Tmp Ds [Bactrim Ds] 1 tab PO BID #14 tab Transmission Status: Pending to [facility] Cephalexin [Keflex] 500 mg PO Q6 #28 cap Prescription Printed Cephalexin [Keflex] 500 mg PO Q6 #28 cap Transmission Status: Pending to [facility] Referrals: Zoey Parra [NON-STAFF] - 7 Days for suture removal Additional Instructions: Recommend applying bacitracin ointment to your wounds twice a day. Please take all of the antibiotics prescribed Please use warm compresses 4 times a day 20-minute sessions for the upper eyelid. Please follow-up in 7 days for suture removal Your prescriptions were sent to [facility] and will be available for pickup tomorrow morning Return if worsening or concerns
[2020-06-20] MEDS: Lidocaine 1% (20 ml mdv) 20 ML Vial INFILT (19:21)
[2020-06-20 19:28] VITALS: BP 124/63; PULSE 73; RESP 15; O2SAT 98
[2020-06-20] MEDS: Cephalexin 250 MG Capsule 500 MG PO (19:28)
[2020-06-20] MEDS: Smz/Tmp Ds Tablet 1 TABLET PO (19:28)
== END 2020-06-20 19:42 | disposition home or self-care (01) ==
PROVIDERS: Emergency Provider Emergency Medicine
DX: S61.412A Laceration without foreign body of left hand, initial encounter (principal); L08.9 Local infection of the skin and subcutaneous tissue, unspecified; M35.2 Behcet's disease; Z82.49 Family history of ischemic heart disease and other diseases of the circulatory system; Z86.73 Personal history of transient ischemic attack (TIA), and cerebral infarction without residual deficits; Z87.891 Personal history of nicotine dependence; W22.8XXA Striking against or struck by other objects, initial encounter; Y92.89 Other specified places as the place of occurrence of the external cause; Y99.9 Unspecified external cause status
CPT/HCPCS: 12001; 99285

== ENCOUNTER 2020-06-28 21:41 | Emergency (ER) | payer MEDICAID, SELFPAY ==
[2020-06-28 21:43] VITALS: BP 101/62; PULSE 51; RESP 16; TEMP 35.2; O2SAT 95; BMI 20.3
--- NOTE | 2020-06-28 21:54 | ED.VIS.GEN ---
History of Present Illness Chief Complaint: Suture Remv Informant: Patient Narrative: 25-year-old male presents for suture removal from the left hand. Patient states sutures were placed about 10 days ago. He has been on antibiotics recently for an infected right eyebrow which is now healed. - Past Medical History (1) Behcet's disease Status: Chronic (2) CVA (cerebral vascular accident) Status: Resolved Past Medical History - Allergies and Home Meds Allergies/Adverse Reactions: Allergies No Known Allergies Allergy (Verified 06/28/20 21:43) Surgical History: noncontributory, - - No surgical history except incision and drainage. Smoking Status: Former smoker Drugs: None - Family History Paternal Family History: Family History (Last Reviewed 01/08/20 @ 15:06 by Lawanda Fairchild) Unknown No problems noted. Family History: Reports: Hypertension Review of Systems General: Denies: Chills, Fever, Sweats Eyes: Denies: Visual changes - bilaterally, Diplopia ENT: Denies: Rhinorrhea, Sore throat Cardiovascular: Denies: Chest pain, Palpitations Respiratory: Denies: Dyspnea, Cough, Dyspnea on exertion Gastrointestinal: Denies: Abdominal pain, Nausea, Vomiting, Diarrhea, Melena, Hematochezia Genitourinary: Denies: Dysuria, Hematuria, Frequency Musculoskeletal: Denies: Back pain, Extremity Pain Skin: Reports: Wounds. Denies: Rash Neurological: Denies: Headache, Weakness, Numbness Physical Exam Vital Signs/Narrative: Vital Signs Temp Pulse Resp BP Pulse Ox 06/28/20 21:43 95.4 F L 51 L 16 101/62 95 Inital Vital Signs reviewed: Yes General: Well nourished, Well developed, No Acute Distress Head: Normocephalic, Atraumatic Eyes: Perrl, EOMI ENT: Moist mucous membranes, No rhinorrhea Neck: Supple, Nontender Cardiovascular: Regular rate, Regular rhythm, No murmurs Respiratory: No distress, CTA bilaterally, Chest nontender Abdomen: Soft, Nontender, Nondistended, Normal bowel sounds Back: Nontender, Normal Inspection Extremities: Nontender, No edema Skin: Normal color, No rash, Trauma - There is a healing laceration on the dorsum of the left hand with [address] There is slight gaping of the skin. Neurological: Alert, Oriented x3 Psychological: Normal affect, Normal Mood Diagnostic/Tx/Re-eval - Medical Decision Making Sutures were removed. A small amount of Dermabond was used to approximate the wound edges as it was still opened. This was done rather than keeping the stitches in place to hopefully prevent the patient from requiring another emergency department visit ED Disposition - Plan for ED Patient: Disposition: Home or Assisted Living Diagnosis: Visit for suture removal Instructions: ED Stitches/Staple Removal No ...
[2020-06-28 21:56] VITALS: RESP 18
== END 2020-06-28 22:15 | disposition home or self-care (01) ==
LOC: ED 21:59
PROVIDERS: Emergency Provider Emergency Medicine
DX: Z48.02 Encounter for removal of sutures (principal); S61.412D Laceration without foreign body of left hand, subsequent encounter; Z82.49 Family history of ischemic heart disease and other diseases of the circulatory system; Z86.73 Personal history of transient ischemic attack (TIA), and cerebral infarction without residual deficits; Z87.891 Personal history of nicotine dependence; M35.2 Behcet's disease
CPT/HCPCS: 99282

== ENCOUNTER 2020-12-08 00:11 | Emergency (ER) | payer MEDICAID, SELFPAY ==
[2020-12-08 00:12] VITALS: BP 143/100; PULSE 105; RESP 16; TEMP 35.6; O2SAT 95; BMI 18.6
--- NOTE | 2020-12-08 00:54 | EDS_ITS ---
HPI History of Present Illness Chief Complaint: Fall Informant: patient Narrative Narrative: Patient presents mechanical fall abrasions and laceration right lower extremity. Reports history of Behcet's disease causing difficulty with ambulation. He states for prolonged walks use wheelchair. He states he was getting out walking on gravel when he tripped fell and down onto his right leg causing laceration. Reports his tetanus was this past December. He is not on any anticoagulation medications. There is also no history of CVA. Denies head injuries. Denies back pain. Tetanus Immunization: <5 years [facility] Medical History (Updated 12/08/20 @ 02:[address] Alex Mansfield DO) Accidental fall Back problem Behcet's disease Head ache Heart murmur Open wound of lip with complication Open wound, nose, without complication Stroke Ulcer Vision problems Home Medications acyclovir 800 mg PO TID 11/01/19 [History Last Taken 02/26/20] quetiapine 50 mg PO QHS #30 tab 11/28/19 [Rx Last Taken 02/25/20] prednisolone acetate 1 drp OPHTHALMIC (EYE) TID 12/08/20 [History Last Taken Unknown] prednisone 80 mg PO DAILY 12/08/20 [History Last Taken Unknown] Allergy/AdvReac Type Severity Reaction Status Date / Time No Known Allergies Allergy Verified 12/08/20 00:22 Family History Unknown No problems noted. Surgical History History of incision and drainage History of percutaneous endoscopic gastrostomy Social History Smoking Status: Current every day smoker tobacco type: cigarettes counseling given: provider counseling and counseling >10 minutes alcohol intake: never substance use type: does not use ROS ROS ED Constitutional Constitutional ED: Denies chills, fever(s) or sweats Eyes Eyes: Denies change in vision ENT ENT ED: Denies dysphagia or sore throat Cardiovascular Cardiovascular: Denies chest pain, leg edema, palpitations or racing heartbeat Respiratory/Chest Respiratory/Chest: Denies cough, dyspnea or dyspnea on exertion Gastrointestinal Gastrointestinal: Denies abdominal pain, diarrhea, nausea or vomiting Genitourinary Genitourinary ED: Denies dysuria, hematuria or urinary frequency Musculoskeletal Musculoskeletal: Denies back pain, extremity pain or neck pain Integumentary Reports other Details: Right lower extremity wound, left lower extremity abrasions. ; Denies rash or wounds Neurologic Neurologic: Denies headache(s), paresthesias or weakness EXAM Physical Exam Const Vital Signs: 12/08/20 00:12 Temperature 96.1 F L Temperature Source Temporal Pulse Rate 105 H Respiratory Rate 16 Blood Pressure 143/100 H Blood Pressure Mean 114 Pulse Ox 95 Oxygen Delivery Method Room Air Positive well nourished and well developed Constitutional Narrative: GCS 15. General Appearance ED: well developed and NAD HEENT Reports TM's clear and moist mucous membranes normocephalic and atraumatic Tympanic Membrane ED: Yes TM's clear Eyes PERRL, EOMs intact bilaterally and conjunctivae normal General Eye ED: Yes normal appearance of both eyes Neck no lymphadenopathy and supple General: Negative for tenderness Chest Wall Chest: Negative for tenderness Resp normal respiratory effort and normal air movement Effort and Inspection: symmetric chest movement; Negative for respiratory distress Cardio regular rate, regular rhythm and no murmurs Peripheral Pulses: pulses 2+ throughout GI normal to inspection, nondistended, normoactive bowel sounds and non-tender Palpation: Negative for guarding or rebound tenderness present Back/Spine no CVA tenderness and no thoracic nor lumbar tenderness Extremity normal to inspection Extremity Narrative: Negative logroll bilateral lower extremities. Right lower extremity: There is a vertical laceration anterior proximal right lower extremity. There is no gross foreign bodies. No active bleeding. 4 cm in length. Negative varus and valgus, knee extensor mechanism intact. Neuro vas intact distally. Left lower extremity: Multiple abrasions sites left knee distal leg laterally. There is no active bleeding. Negative varus and valgus. Extensor mechanism intact. Neuro vas intact distally. No deformities. General Extremety ED: Yes tenderness; Negative for edema General Extremity: Negative for edema Neuro oriented x3 and no sensory deficits noted Sensorium / Orientation: awake and alert Skin no rashes or lesions noted and no wounds MDM MDM MDM Narrative Medical decision making narrative: Patient with a mechanical fall laceration right lower extremity. This was repaired at bedside with a total of 5, 4-0 nylon simple sutures. Wound care discussed with the patient. Abrasions were cleansed and dressed by nursing. Further discussion with patient he is disabled, he states he use a walker inside at home the wheelchair is for distances. He is not currently of help. Nursing will place a social work consult for him to check on him at home. Patient will have his sutures removed in 10 to 14 days. All questions were answered. Discharge Plan Triage Chief Complaint: Fall ED Provider: Alex Mansfield Dx/Rx/DC Orders Clinical Impression: Fall, Behcet's disease, Laceration of right lower leg, Abrasion, multiple sites Instructions: ED Abrasion, ED Laceration: All Closures Prescriptions: No Action acyclovir 800 MG tablet 800 mg PO TID RF: 0 quetiapine 50 MG tablet 50 mg PO QHS Qty: 30 RF: 0 prednisone 20 mg tablet 80 mg PO DAILY RF: 0 prednisolone acetate 1 % drops,suspension 1 drp ophthalmic (eye) TID RF: 0 Primary Care Provider: Elizabeth Miller Referrals: Elizabeth Miller, OCCUPATIONAL THERAPY SPECIALIST-C [Primary Care Provider] - 10-14 Days suture removal Disposition Disposition: Home, Self Care
[2020-12-08] MEDS: Lidocaine 1% (20 ml mdv) 20 ML Vial INFILT (01:21)
== END 2020-12-08 02:40 | disposition home or self-care (01) ==
PROVIDERS: Emergency Provider Emergency Medicine; PCP Nurse Practitioner Family
DX: M35.2 Behcet's disease (principal); S81.811A Laceration without foreign body, right lower leg, initial encounter; W01.0XXA Fall on same level from slipping, tripping and stumbling without subsequent striking against object, initial encounter; Y93.01 Activity, walking, marching and hiking; F17.210 Nicotine dependence, cigarettes, uncomplicated; Z79.52 Long term (current) use of systemic steroids
CPT/HCPCS: 12002; 99285

== ENCOUNTER 2021-02-04 15:53 | Emergency (ER) | payer MEDICAID, SELFPAY ==
[2021-02-04 15:55] VITALS: BP 122/91; PULSE 119; RESP 17; TEMP 36.2; O2SAT 96; BMI 20.2
--- NOTE | 2021-02-04 16:47 | EX.ED.DYSGE1 ---
HPI History of Present Illness Chief Complaint: Wound Check Informant: patient Narrative Narrative: 25-year-old male presents to the emergency room with a black spot on the palm of his right hand. He states that about 2 weeks ago he fell going through a screen door and thought that it was a collection of blood in the skin of his hand. However was not going away and his home health nurse recommended he come to emergency. He notes that is not painful and it does not limit range of motion. He otherwise denies any other complaints [facility] Medical History (Updated 02/04/21 @ 16:[address] Wil Roblero DO) Accidental fall Back problem Behcet's disease Head ache Heart murmur Open wound of lip with complication Open wound, nose, without complication Stroke Ulcer Vision problems Home Medications acyclovir 800 mg PO TID 11/01/19 [History Last Taken 02/26/20] quetiapine 50 mg PO QHS #30 tab 11/28/19 [Rx Last Taken 02/25/20] prednisolone acetate 1 drp OPHTHALMIC (EYE) TID 12/08/20 [History Last Taken Unknown] prednisone 80 mg PO DAILY 12/08/20 [History Last Taken Unknown] Allergy/AdvReac Type Severity Reaction Status Date / Time No Known Allergies Allergy Verified 02/04/21 15:54 Family History Unknown No problems noted. Surgical History History of incision and drainage History of percutaneous endoscopic gastrostomy Social History Smoking Status: Current every day smoker tobacco type: cigarettes counseling given: provider counseling and counseling >10 minutes alcohol intake: never substance use type: does not use ROS ROS ED Constitutional Constitutional ED: Denies chills or weight loss Eyes Eyes: Denies change in vision or diplopia ENT ENT ED: Denies ear pain, rhinorrhea or sore throat Cardiovascular Cardiovascular: Denies chest pain, orthopnea, palpitations or racing heartbeat Respiratory/Chest Respiratory/Chest: Denies cough, dyspnea or orthopnea Gastrointestinal Gastrointestinal: Denies abdominal pain, diarrhea, nausea or vomiting Genitourinary Genitourinary ED: Denies dysuria, hematuria or urinary frequency Musculoskeletal Musculoskeletal: Denies arthralgias or myalgias Integumentary Reports other Details: See history of present illness ; Denies abscess or rash Neurologic Neurologic: Denies headache(s) or weakness Psychiatric Psychiatric: Denies anxiety, depression, suicidal ideation or suicidal thoughts Endocrine Endocrinology: Denies polydipsia, polyphagia or polyuria Allergic/Immunologic Allergic/Immunologic ED: Denies mouth swelling, tongue swelling or urticaria EXAM Physical Exam Const Vital Signs: 02/04/21 15:55 Temperature 97.2 F L Temperature Source Temporal Pulse Rate 119 H Respiratory Rate 17 Blood Pressure 122/91 H Blood Pressure Mean 101 Pulse Ox 96 Oxygen Delivery Method Room Air Positive well nourished and well developed General Appearance ED: well developed HEENT Reports normocephalic, head/scalp atraumatic and moist mucous membranes Eyes PERRL and EOMs intact bilaterally Neck no lymphadenopathy, supple and no JVD Resp normal respiratory effort and clear to auscultation bilaterally Cardio regular rate, regular rhythm and no murmurs GI normal to inspection, nondistended, normoactive bowel sounds and non-tender Palpation: soft Back/Spine no CVA tenderness and normal ROM Extremity normal to inspection General Extremety ED: Negative for edema General Extremity: Negative for edema Neuro oriented x3 and CN's II-XII intact bilaterally Sensorium / Orientation: alert Motor Exam: strength 5/5 throughout Psych mental status grossly normal Mood & Affect: Negative for depressed or tearful Skin Skin Narrative: Located right base of the palm is 1/2 cm oblong black slightly raised lesion. Most similarly appears to look like it would be old blood in the skin. No erythema. No swelling. Eventually to MDM MDM MDM Narrative Medical decision making narrative: Patient was advised to monitor it for any changes. If continues to persist he may wish to follow-up with dermatology for excision. Discharge Plan Triage Chief Complaint: Wound Check ED Provider: Wil Roblero Dx/Rx/DC Orders Clinical Impression: Traumatic hematoma of right hand Instructions: ED Soft Tissue Contusion Prescriptions: No Action acyclovir 800 MG tablet 800 mg PO TID RF: 0 quetiapine 50 MG tablet 50 mg PO QHS Qty: 30 RF: 0 prednisone 20 mg tablet 80 mg PO DAILY RF: 0 prednisolone acetate 1 % drops,suspension 1 drp ophthalmic (eye) TID RF: 0 Primary Care Provider: Elizabeth Miller Referrals: Elizabeth Miller, BENDING MACHINE SET UP OPERATOR-C [Primary Care Provider] - As Needed Activity Restrictions/Additional Instructions: If this wound is not resolving you may wish to follow-up with dermatology. Your primary care physician can refer you if need be. Disposition Disposition: Home, Self Care
== END 2021-02-04 17:09 | disposition home or self-care (01) ==
LOC: ED 17:06
PROVIDERS: Emergency Provider Emergency Medicine
DX: S60.221A Contusion of right hand, initial encounter (principal); W01.198A Fall on same level from slipping, tripping and stumbling with subsequent striking against other object, initial encounter; Y93.9 Activity, unspecified; Y92.89 Other specified places as the place of occurrence of the external cause; Y99.8 Other external cause status; F17.210 Nicotine dependence, cigarettes, uncomplicated; M35.2 Behcet's disease; Z79.52 Long term (current) use of systemic steroids
CPT/HCPCS: 99282

== ENCOUNTER 2021-02-05 21:43 | Emergency (ER) | payer MEDICAID, SELFPAY ==
[2021-02-05 21:44] VITALS: BP 114/98; PULSE 101; RESP 18; TEMP 36.8; O2SAT 98; BMI 20.3
--- NOTE | 2021-02-05 21:52 | RAD_ITS ---
STUDY: X-RAY - LEFT HAND REASON FOR EXAM: Male, 25 years old. injury TECHNIQUE: 3 view(s) of the hand. COMPARISON: None. FINDINGS: Normal radiocarpal articulation. Normal distal radioulnar joint. Normal visualized carpal bones. Normal carpal articulations Normal carpometacarpal articulation of the thumb. Normal second through fifth carpometacarpal joints. Normal metacarpi. Normal metacarpophalangeal joint of the thumb. Normal interphalangeal joint of the thumb. Normal proximal and distal phalanges of the thumb. Normal metacarpophalangeal joints of the second through fifth fingers. Normal proximal and distal interphalangeal joints of the second through fifth fingers. Normal phalanges of the second through fifth fingers. The soft tissue structures are unremarkable. RAD/Hand Min 3 Views IMPRESSION: Normal x-ray examination of the hand. Electronically Signed: Jun Blackwood DO at 23:16 EDT Tel [phone], Service support ,
[2021-02-05] MEDS: HYDROcodone Bitartrate/Apap 5/325 Tablet PO (21:57)
--- NOTE | 2021-02-05 22:17 | EDS_ITS ---
HPI History of Present Illness Chief Complaint: Upper Extremity Injury Informant: patient and EMS Narrative Narrative: 25-year-old male states he fell out of his wheelchair striking his hand on the ground. He notes some pain in his back. No loss of consciousness. [facility] Medical History (Updated 02/05/21 @ 22:[address] Wil Roblero DO) Accidental fall Back problem Behcet's disease Head ache Heart murmur Open wound of lip with complication Open wound, nose, without complication Stroke Ulcer Vision problems Home Medications acyclovir 800 mg PO TID 11/01/19 [History Last Taken 02/26/20] quetiapine 50 mg PO QHS #30 tab 11/28/19 [Rx Last Taken 02/25/20] prednisolone acetate 1 drp OPHTHALMIC (EYE) TID 12/08/20 [History Last Taken Unknown] prednisone 80 mg PO DAILY 12/08/20 [History Last Taken Unknown] Allergy/AdvReac Type Severity Reaction Status Date / Time No Known Allergies Allergy Verified 02/04/21 15:54 Family History Unknown No problems noted. Surgical History History of incision and drainage History of percutaneous endoscopic gastrostomy Social History Smoking Status: Current every day smoker tobacco type: cigarettes counseling given: provider counseling and counseling >10 minutes alcohol intake: never substance use type: does not use ROS ROS ED Constitutional Constitutional ED: Denies chills or weight loss Eyes Eyes: Denies change in vision or diplopia ENT ENT ED: Denies ear pain, rhinorrhea or sore throat Cardiovascular Cardiovascular: Denies chest pain, orthopnea, palpitations or racing heartbeat Respiratory/Chest Respiratory/Chest: Denies cough, dyspnea or orthopnea Gastrointestinal Gastrointestinal: Denies abdominal pain, diarrhea, nausea or vomiting Genitourinary Genitourinary ED: Denies dysuria, hematuria or urinary frequency Musculoskeletal Musculoskeletal: Reports other Details: Left hand pain ; Denies arthralgias or myalgias Integumentary Reports Abrasions; Denies abscess or rash Neurologic Neurologic: Denies headache(s) or weakness Psychiatric Psychiatric: Denies anxiety, depression, suicidal ideation or suicidal thoughts Endocrine Endocrinology: Denies polydipsia, polyphagia or polyuria Allergic/Immunologic Allergic/Immunologic ED: Denies mouth swelling, tongue swelling or urticaria EXAM Physical Exam Const Vital Signs: 02/05/21 21:44 Temperature 98.3 F Temperature Source Oral Pulse Rate 101 H Respiratory Rate 18 Blood Pressure 114/98 H Blood Pressure Mean 103 Pulse Ox 98 Oxygen Delivery Method Room Air Positive well nourished and well developed General Appearance ED: well developed HEENT Reports normocephalic, head/scalp atraumatic and moist mucous membranes atraumatic Eyes PERRL and EOMs intact bilaterally Neck no lymphadenopathy, supple and no JVD Resp normal respiratory effort and clear to auscultation bilaterally Cardio regular rate, regular rhythm and no murmurs GI normal to inspection, nondistended, normoactive bowel sounds and non-tender Palpation: soft Back/Spine no CVA tenderness and normal ROM Back/Spine Narrative: There is a quarter sized area of abrasion just to the left of midline of the low back. Extremity Extremity Narrative: Dorsum of the left hand demonstrates a hematoma General Extremety ED: Negative for edema General Extremity: Negative for edema Neuro oriented x3 and CN's II-XII intact bilaterally Sensorium / Orientation: alert Motor Exam: strength 5/5 throughout Psych mental status grossly normal Mood & Affect: Negative for depressed or tearful Skin no rashes or lesions noted and no wounds MDM MDM MDM Narrative Medical decision making narrative: My impression of the plain films of the left hand is no acute fracture. Patient received a Spencer. Wound was cleansed and dressed. Patient be discharged home with supportive care return if worsening or concerns Discharge Plan Triage Chief Complaint: Upper Extremity Injury ED Provider: Wil Roblero Dx/Rx/DC Orders Clinical Impression: Traumatic hematoma of left hand, Abrasion of back Instructions: ED Hand Contusion Prescriptions: No Action acyclovir 800 MG tablet 800 mg PO TID RF: 0 quetiapine 50 MG tablet 50 mg PO QHS Qty: 30 RF: 0 prednisone 20 mg tablet 80 mg PO DAILY RF: 0 prednisolone acetate 1 % drops,suspension 1 drp ophthalmic (eye) TID RF: 0 Primary Care Provider: Shantell Hensley Referrals: Shantell Hensley, TECHNICAL SUPPORT PROFESSIONAL-C [Primary Care Provider] - As Needed Disposition Disposition: Home, Self Care
[2021-02-05 23:08] VITALS: BP 121/81; PULSE 90; RESP 15
== END 2021-02-05 23:54 | disposition home or self-care (01) ==
PROVIDERS: Emergency Provider Emergency Medicine; PCP Nurse Practitioner Adult Health
DX: S60.222A Contusion of left hand, initial encounter (principal); W05.0XXA Fall from non-moving wheelchair, initial encounter; F17.210 Nicotine dependence, cigarettes, uncomplicated; M35.2 Behcet's disease; Z79.52 Long term (current) use of systemic steroids
CPT/HCPCS: 73130; 99284

== ENCOUNTER 2021-02-06 17:48 | Emergency (ER) | payer MEDICAID, SELFPAY ==
[2021-02-06 17:49] VITALS: BP 124/86; PULSE 89; RESP 16; TEMP 37; O2SAT 97; BMI 20.2
--- NOTE | 2021-02-06 19:15 | EDS_ITS ---
HPI History of Present Illness Chief Complaint: Fall Narrative Narrative: Patient presenting for reevaluation from yesterday. Patient had a fall out of his wheelchair and injured his left hand yesterday. He had x-rays done which were negative in ER. He states he forgot to mention that his left ribs hurt. He is not having any shortness of breath. He does not have cough. [facility] Medical History Accidental fall Back problem Behcet's disease Head ache Heart murmur Open wound of lip with complication Open wound, nose, without complication Stroke Ulcer Vision problems Home Medications acyclovir 800 mg PO TID 11/01/19 [History Last Taken 02/26/20] prednisolone acetate 1 drp OPHTHALMIC (EYE) TID 12/08/20 [History Last Taken Unknown] prednisone 80 mg PO DAILY 12/08/20 [History Last Taken Unknown] naproxen [Naprosyn] 500 mg PO BID PRN #14 tab 02/06/21 [Rx Last Taken Unknown] quetiapine [Seroquel] 50 mg PO QHS 02/06/21 [History Last Taken Unknown] Allergy/AdvReac Type Severity Reaction Status Date / Time No Known Allergies Allergy Verified 02/06/21 17:49 Family History Unknown No problems noted. Surgical History History of incision and drainage History of percutaneous endoscopic gastrostomy Social History Smoking Status: Current every day smoker tobacco type: cigarettes counseling given: provider counseling and counseling >10 minutes alcohol intake: never substance use type: does not use ROS ROS ED Constitutional Constitutional ED: Denies chills or fever(s) Eyes Eyes: Denies blurry vision or change in vision ENT ENT ED: Denies rhinorrhea or sore throat Cardiovascular Cardiovascular: Reports other Details: Left rib pain ; Denies palpitations Respiratory/Chest Respiratory/Chest: Denies cough or dyspnea Gastrointestinal Gastrointestinal: Denies abdominal pain, nausea or vomiting Genitourinary Genitourinary ED: Denies dysuria or hematuria Musculoskeletal Musculoskeletal: Reports other Details: Left hand pain Integumentary Reports other Details: Chronic sacral decubitus ulcer stage I without surroundin g erythema or induration. Neurologic Neurologic: Denies headache(s) or weakness EXAM Physical Exam Const Vital Signs: 02/06/21 17:49 02/06/21 19:19 02/06/21 19:22 Temperature 98.6 F Temperature Source Temporal Pulse Rate 89 Respiratory Rate 16 17 Respiratory Effort Normal Blood Pressure 124/86 H Blood Pressure Mean 98 Pulse Ox 97 97 Oxygen Delivery Method Room Air Room Air Positive well nourished General Appearance ED: NAD HEENT atraumatic; Negative for tenderness Eyes PERRL and EOMs intact bilaterally Neck full ROM General: tenderness Chest Wall Chest Narrative: Tenderness palpation of her left posterior ribs. No crepitance or deformity. No ecchymosis. Equal symmetric breath sounds and chest wall rise. Resp normal respiratory effort and clear to auscultation bilaterally Cardio regular rhythm Rate: regular rate GI normal to inspection, nondistended, normoactive bowel sounds Extremity Extremity Narrative: Tenderness palpation over the dorsum of the left hand. No obvious bony deformities. Left hand neurovascular intact brisk cap refill all five fingers Neuro oriented x3 Sensorium / Orientation: alert Skin Skin Narrative: C decubitus ulcer without induration or erythema. MDM MDM MDM Narrative Medical decision making narrative: Patient presenting with left rib pain which he forgot to mention last today when he was in the ER. There is no external findings on exam except for mild tenderness. Left rib series on my interpretation shows no acute cardiopulmonary process and no rib fractures. I did review the x-ray of the left hand is he is again complaining of pain with this and this is negative on my interpretation. Patient received [place] in the ED for his pain. Chest x-ray is negative.. I do not believe he needs narcotic pain medication for home. Patient is also stating that he has a chronic decubitus ulcer that he needs follow-up with wound care for. He states he was previously in wound care but has been lost to follow-up secondary to being in skilled nursing. Patient will be given a referral for this. Patient is discharged home in stable condition. Impression: 1. Clinical fall 2. Left rib contusion Radiography Diagnostic Testing: Radiology Impression Ribs w/Chest X-Ray 02/06/21 19:28 IMPRESSION: RIBS: Normal x-ray examination of the ribs. CHEST: Normal x-ray examination of the chest. Electronically Signed: Jun Blackwood DO at 21:04 EDT Tel [phone], Service support , Discharge Plan Triage Chief Complaint: Fall ED Provider: Jeremiah Cr Dx/Rx/DC Orders Instructions: ED Pressure Injury, ED Contusion, Rib Prescriptions: New naproxen [Naprosyn] 500 mg tablet 500 mg PO BID PRN (Reason: pain) Qty: 14 RF: 0 No Action acyclovir 800 MG tablet 800 mg PO TID RF: 0 prednisone 20 mg tablet 80 mg PO DAILY RF: 0 prednisolone acetate 1 % drops,suspension 1 drp ophthalmic (eye) TID RF: 0 quetiapine [Seroquel] 50 MG tablet 50 mg PO QHS RF: 0 Primary Care Provider: Shantell Hensley Referrals: Shantell Hensley, PROGRAM SERVICES ASSISTANT-C [Primary Care Provider] - Center,Wound [NON-STAFF] - As soon as possible Disposition Disposition: Home, Self Care Discharge Date/Time: 02/06/21 21:30
[2021-02-06 19:19] VITALS: RESP 17
[2021-02-06 19:22] VITALS: O2SAT 97
[2021-02-06] MEDS: HYDROcodone Bitartrate/Apap 5/325 Tablet PO (19:26)
--- NOTE | 2021-02-06 19:28 | RAD_ITS ---
STUDY: X-RAY - UNILATERAL RIBS ( LEFT ) WITH CHEST REASON FOR EXAM: Male, 25 years old. rib pain TECHNIQUE - RIBS: 4 view(s) of the ribs. TECHNIQUE - CHEST: Frontal view COMPARISON: None. FINDINGS - RIBS: Normal visualized ribs without a demonstrated fracture. FINDINGS - CHEST: The lungs are clear and expanded. There is no demonstrated pleural abnormality. Normal size heart. Normal mediastinum and sergio. Normal visualized pulmonary arteries. Normal visualized aortic arch and descending thoracic aorta. Normal visualized thoracic spine. Normal visualized ribs, clavicles, and shoulders. There is no demonstrated abnormality of the visualized soft tissue structures of the upper abdomen. RAD/Ribs Uni Min 3V w/PA Chest IMPRESSION: RIBS: Normal x-ray examination of the ribs. CHEST: Normal x-ray examination of the chest. Electronically Signed: Jun Blackwood DO at 21:04 EDT Tel [phone], Service support ,
== END 2021-02-06 21:30 | disposition home or self-care (01) ==
PROVIDERS: Emergency Provider Student in an Organized Health Care Education/Training Program; PCP Nurse Practitioner Adult Health
DX: S20.212A Contusion of left front wall of thorax, initial encounter (principal); W05.0XXA Fall from non-moving wheelchair, initial encounter; M35.2 Behcet's disease; F17.210 Nicotine dependence, cigarettes, uncomplicated; Z79.1 Long term (current) use of non-steroidal anti-inflammatories (NSAID); Z79.52 Long term (current) use of systemic steroids; Z79.899 Other long term (current) drug therapy
CPT/HCPCS: 71101; 99283

== ENCOUNTER 2021-03-15 18:53 | Emergency (ER) | payer MEDICAID, SELFPAY ==
[2021-03-15 18:55] VITALS: BP 133/86; PULSE 113; RESP 18; TEMP 36.6; O2SAT 97
--- NOTE | 2021-03-15 19:09 | EDS_ITS ---
HPI History of Present Illness Chief Complaint: Med Refill Informant: patient Onset/Context/Timing Onset: Days Context: Gradual Onset Timing: Continuous Current Severity: Mild Maximum Severity: Mild Narrative Narrative: 25-year-old male history of Behcet's and prior intracranial bleed. Patient states he is having a flare of his Behcet's where he gets watering of his eyes and get irritated. He called his [facility] eye physician who wanted him to go to the emergency department and get a refill of his eyedrop prescription. He denies other complaints. He has had this happen other times before. He wears glasses. He denies any eye trauma. He denies any discharge other than increased watering. Prior similar symptoms: Yes Recent Illness/Hospitalization: No PFSH PFSH Medical History (Updated 03/15/21 @ 19:[address] Amandeep Uribe MD) Accidental fall Back problem Behcet's disease Head ache Heart murmur Open wound of lip with complication Open wound, nose, without complication Stroke Ulcer Vision problems Home Medications acyclovir 800 mg PO TID 11/01/19 [History Last Taken 02/26/20] prednisolone acetate 1 drp OPHTHALMIC (EYE) TID 12/08/20 [History Last Taken Unknown] prednisone 80 mg PO DAILY 12/08/20 [History Last Taken Unknown] naproxen [Naprosyn] 500 mg PO BID PRN #14 tab 02/06/21 [Rx Last Taken Unknown] quetiapine [Seroquel] 50 mg PO QHS 02/06/21 [History Last Taken Unknown] sulfacetamide-prednisolone 1 drp EACH EYE Q6H 10 Days ml 03/15/21 [Rx Last Taken Unknown] Allergy/AdvReac Type Severity Reaction Status Date / Time No Known Allergies Allergy Verified 03/15/21 18:54 Family History Unknown No problems noted. Surgical History History of incision and drainage History of percutaneous endoscopic gastrostomy Social History Smoking Status: Current every day smoker tobacco type: cigarettes counseling given: provider counseling and counseling >10 minutes alcohol intake: never substance use type: does not use ROS ROS ED ROS Narrative Denies recent illness. Review of Systems ROS Unobtainable: Denies due to encephalopathy Constitutional Constitutional ED: Denies chills or fever(s) Eyes Eyes: Denies change in vision ENT ENT ED: Denies ear pain Cardiovascular Cardiovascular: Denies chest pain Respiratory/Chest Respiratory/Chest: Denies cough or dyspnea Gastrointestinal Gastrointestinal: Denies abdominal pain, nausea or vomiting Genitourinary Genitourinary ED: Denies dysuria Musculoskeletal Musculoskeletal: Denies myalgias Integumentary Denies rash Neurologic Neurologic: Denies headache(s) Psychiatric Psychiatric: Denies depression Endocrine Endocrinology: Denies polyuria Allergic/Immunologic Allergic/Immunologic ED: Denies urticaria EXAM Physical Exam Narrative Exam Narrative: Young male no acute distress. Vital signs stable afebrile. HEENT exam shows watering eyes. Pupils round reactive light his motions are intact. No facial trauma. No periorbital swelling. No redness or discharge. Neck nontender no lymphadenopathy. Lungs clear to auscultation. Heart regular rhythm no murmur. Chest were nontender. Abdomen soft nontender normal bowel sounds no peritoneal signs. Moving all 4 extremities. He is seated in a wheelchair. Neurologically is awake and alert. Answering questions following commands. Const Vital Signs: 03/15/21 18:55 Temperature 98 F Temperature Source Temporal Pulse Rate 113 H Respiratory Rate 18 Blood Pressure 133/86 H Blood Pressure Mean 101 Pulse Ox 97 Oxygen Delivery Method Room Air Positive well nourished and well developed; Negative for obese, cachectic, contractures or unkempt General Appearance ED: well developed and NAD; Negative for unkempt, cachectic, contractures, cyanotic or diaphoretic Nutritional Appearance: Negative for cachectic or obese HEENT Reports moist mucous membranes Negative for trauma or tenderness Eyes PERRL and EOMs intact bilaterally Eyes Narrative: Watering eyes. No discharge. No swelling. Pupils round reactive light. Extra motions are intact. Neck no lymphadenopathy, supple and no JVD Chest Wall inspection of chest normal and palpation of chest normal Resp normal respiratory effort and clear to auscultation bilaterally Auscultation: Negative for rales, rhonchi or wheezes Cardio regular rate, regular rhythm, S1 normal heart sound, S2 normal heart sound and no murmurs GI normal to inspection, nondistended, normoactive bowel sounds, non-tender, non- distended and no masses Auscultation: normoactive bowel sounds Palpation: soft; Negative for tender, guarding or rebound tenderness present Back/Spine no CVA tenderness Extremity normal to inspection General Extremety ED: Negative for edema or tenderness General Extremity: Negative for edema Neuro oriented x3 Sensorium / Orientation: alert; Negative for orientation impaired, lethargic or stuporous Psych mental status grossly normal Appearance: Negative for unkempt Attitude: No agitated Mood & Affect: Negative for tearful Skin no rashes or lesions noted MDM MDM MDM Narrative Medical decision making narrative: 25-year-old male with Behcet's having a flare he needs his eyedrops refilled. He is looking on his [facility] account to see the prescription and he needs refilled. ER nurse called the patient's pharmacy he is on prednisolone drops 4 times a day. Which I will write him a prescription for. He will be discharged home. Discharge Plan Triage Chief Complaint: Med Refill ED Provider: Amandeep Uribe Dx/Rx/DC Orders Clinical Impression: Behcet's disease Prescriptions: New sulfacetamide-prednisolone 10 %-0.23 % (0.25 %) drops 1 drp EACH EYE Q6H 10 Days RF: 0 No Action acyclovir 800 MG tablet 800 mg PO TID RF: 0 prednisone 20 mg tablet 80 mg PO DAILY RF: 0 prednisolone acetate 1 % drops,suspension 1 drp ophthalmic (eye) TID RF: 0 quetiapine [Seroquel] 50 MG tablet 50 mg PO QHS RF: 0 naproxen [Naprosyn] 500 mg tablet 500 mg PO BID PRN (Reason: pain) Qty: 14 RF: 0 Primary Care Provider: Care Physician,No Primary Referrals: Care Physician,No Primary [Primary Care Provider] - Activity Restrictions/Additional Instructions: Use your eyedrops 1 drop per eye 4 times a day each eye. Follow-up with your [facility] eye doctor. Disposition Disposition: Home, Self Care
== END 2021-03-15 19:33 | disposition home or self-care (01) ==
PROVIDERS: Emergency Provider Emergency Medicine
DX: M35.2 Behcet's disease (principal); F17.210 Nicotine dependence, cigarettes, uncomplicated; Z86.73 Personal history of transient ischemic attack (TIA), and cerebral infarction without residual deficits; Z76.0 Encounter for issue of repeat prescription
CPT/HCPCS: 99282

== ENCOUNTER 2021-03-28 22:15 | Emergency (ER) | payer MEDICAID, SELFPAY ==
[2021-03-28 22:16] VITALS: BP 121/84; PULSE 73; RESP 15; TEMP 35.8; O2SAT 99; BMI 25.0
--- NOTE | 2021-03-28 22:18 | RAD_ITS ---
STUDY: X-RAY - LEFT WRIST REASON FOR EXAM: Male, 25 years old. Pain. TECHNIQUE: 3 view(s) of the wrist were obtained. COMPARISON: None. FINDINGS: Normal visualized distal radius and ulna. Normal radiocarpal articulation. Normal distal radioulnar articulation. Normal carpal bones. Normal carpal articulations. Normal carpometacarpal articulation of the thumb. Normal second through fifth carpometacarpal articulations. Normal visualized metacarpal bones. The soft tissue structures are unremarkable. RAD/Wrist min 3 Views IMPRESSION: Normal x-ray examination of the left wrist. Electronically Signed: Kawbena Page DO at 22:37 EST Tel [phone], Service support ,
--- NOTE | 2021-03-28 23:50 | RAD_ITS ---
STUDY: X-RAY - UNILATERAL RIBS ( RIGHT ) WITH CHEST REASON FOR EXAM: Male, 25 years old. injury TECHNIQUE - RIBS: 4 view(s) of the ribs. TECHNIQUE - CHEST: PA COMPARISON: None. FINDINGS - RIBS: Normal visualized ribs without a demonstrated fracture. FINDINGS - CHEST: The lungs are clear and expanded. There is no demonstrated pleural abnormality. Normal size heart. Normal mediastinum and sergio. Normal visualized pulmonary arteries. Normal visualized aortic arch and descending thoracic aorta. Normal visualized thoracic spine. Normal visualized ribs, clavicles, and shoulders. There is no demonstrated abnormality of the visualized soft tissue structures of the upper abdomen. RAD/Ribs Uni Min 3V w/PA Chest IMPRESSION: RIBS: Normal x-ray examination of the ribs. CHEST: Normal x-ray examination of the chest. Electronically Signed: Rupesh Chahal MD at 0:15 EST Tel , Service support ,
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
[2021-03-29 00:35] VITALS: BP 124/78; PULSE 74; RESP 17; TEMP 36.8; O2SAT 98
== END 2021-03-29 00:36 | disposition home or self-care (01) ==
PROVIDERS: Emergency Provider Emergency Medicine
DX: S20.219A Contusion of unspecified front wall of thorax, initial encounter (principal); S63.502A Unspecified sprain of left wrist, initial encounter; Y04.8XXA Assault by other bodily force, initial encounter; Y93.9 Activity, unspecified; Y92.89 Other specified places as the place of occurrence of the external cause; Y99.8 Other external cause status; M35.2 Behcet's disease; F17.210 Nicotine dependence, cigarettes, uncomplicated; Z76.0 Encounter for issue of repeat prescription; Z79.1 Long term (current) use of non-steroidal anti-inflammatories (NSAID); Z79.52 Long term (current) use of systemic steroids
CPT/HCPCS: 71101; 73110; 99283

== ENCOUNTER 2021-05-12 11:22 | Emergency (ER) | payer MEDICAID, SELFPAY ==
[2021-05-12 11:22] VITALS: BP 123/80; PULSE 119; RESP 16; TEMP 37; O2SAT 100; BMI 18.8
--- NOTE | 2021-05-12 11:39 | RAD_ITS ---
STUDY: X-RAY - LEFT HAND REASON FOR EXAM: Left hand pain, left hand injury. TECHNIQUE: 3 view(s) of the hand. COMPARISON: Radiographs 02/05/2021. FINDINGS: Normal radiocarpal articulation. Normal distal radioulnar joint. Normal visualized carpal bones. Normal carpal articulations Normal carpometacarpal articulation of the thumb. Normal second through fifth carpometacarpal joints. Normal metacarpi. Normal metacarpophalangeal joint of the thumb. Normal interphalangeal joint of the thumb. Normal proximal and distal phalanges of the thumb. Normal metacarpophalangeal joints of the second through fifth fingers. Normal proximal and distal interphalangeal joints of the second through fifth fingers. Normal phalanges of the second through fifth fingers. There is mild soft tissue swelling. RAD/Hand Min 3 Views IMPRESSION: No demonstrated left hand fracture. Electronically Signed: Deshawn Sosa MD at 12:49 EST Tel , Service support ,
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
--- NOTE | 2021-05-12 13:05 | ED.RN ---
patient has been given discharge instructions and has been told he can leave. patient asking inappropriate questions to this RN, such as her personal life and her personal information. patient has been informed that is not appropriate to ask and she will not answer those questions. RN has helped patient put on gloves and assisted to wheelchair.
== END 2021-05-12 13:07 | disposition home or self-care (01) ==
PROVIDERS: Emergency Provider Emergency Medicine; PCP Nurse Practitioner Family
DX: S60.222A Contusion of left hand, initial encounter (principal); W21.11XA Struck by baseball bat, initial encounter; Y93.79 Activity, other specified sports and athletics; Y92.89 Other specified places as the place of occurrence of the external cause; Y99.8 Other external cause status; F17.210 Nicotine dependence, cigarettes, uncomplicated; M35.2 Behcet's disease
CPT/HCPCS: 73130; 99282

== ENCOUNTER 2021-05-25 16:03 | Emergency (ER) | payer MEDICAID, SELFPAY ==
[2021-05-25 16:04] VITALS: BP 132/86; PULSE 87; RESP 16; TEMP 36.6; O2SAT 98; BMI 19.5
== END 2021-05-25 16:14 | disposition left against medical advice (07) ==
LOC: ED 16:20
PROVIDERS: PCP Nurse Practitioner Family
DX: H57.10 Ocular pain, unspecified eye (principal); Z53.21 Procedure and treatment not carried out due to patient leaving prior to being seen by health care provider

== ENCOUNTER 2021-10-08 00:47 | Emergency (ER) | payer MEDICAID, SELFPAY ==
[2021-10-08 00:49] VITALS: BP 118/79; PULSE 96; RESP 15; TEMP 36.8; O2SAT 96; BMI 21.0
[2021-10-08 00:52] VITALS: BP 118/79; PULSE 96; RESP 15; TEMP 36.8; O2SAT 96
--- NOTE | 2021-10-08 01:46 | EX.ED.VIS.EY ---
HPI History of Present Illness Chief Complaint: Eye Problem Informant: patient Onset/Context/Timing Location: Bilateral Eyes Onset: Days Context: Gradual Onset Timing: Continuous Current Severity: Mild Maximum Severity: Mild Associated Symptoms Associated Symptoms - Eyes: Crusting, Eyelid swelling, Matting and Redness; Negative for Photophobia History of injury: No Visual correction: Glasses Narrative Narrative: 26-year-old male history of Behcet's for which he is prednisone eyedrops. He has never had any eye surgery. He wears glasses but no contacts. States for the last several days his eyes have been increased watering. Denies any visual changes. No trauma. No foreign body sensation. Says the right slightly worse than the left. He is also had crusting. Denies any exposure to pinkeye. Prior similar symptoms: No Recent Illness/Hospitalization: No PFSH [facility] Medical History (Updated 10/08/21 @ 02:[address] Amandeep Uribe MD) Accidental fall Back problem Behcet's disease Head ache Heart murmur Open wound of lip with complication Open wound, nose, without complication Stroke Ulcer Vision problems Home Medications acyclovir 800 mg PO TID 11/01/19 [History Last Taken 02/26/20] prednisone 80 mg PO DAILY 12/08/20 [History Last Taken Unknown] naproxen [Naprosyn] 500 mg PO BID PRN #14 tab 02/06/21 [Rx Last Taken Unknown] quetiapine [Seroquel] 50 mg PO QHS 02/06/21 [History Last Taken Unknown] diclofenac sodium 2 g TOPICAL Q8H PRN PRN #100 g 03/29/21 [Rx Last Taken Unknown] prednisolone acetate 1 drp EACH EYE Q6H #10 ml 03/29/21 [Rx Last Taken Unknown] Allergy/AdvReac Type Severity Reaction Status Date / Time No Known Allergies Allergy Verified 05/25/21 16:07 Family History Unknown No problems noted. Surgical History History of incision and drainage History of percutaneous endoscopic gastrostomy Social History Smoking Status: Current every day smoker tobacco type: cigarettes counseling given: provider counseling and counseling >10 minutes alcohol intake: never substance use type: does not use ROS ROS ED ROS Narrative Denies recent illness. Review of Systems ROS Unobtainable: Denies due to encephalopathy Constitutional Constitutional ED: Denies fever(s) Eyes Eyes: Denies change in vision or diplopia ENT ENT ED: Denies ear pain Cardiovascular Cardiovascular: Denies chest pain Respiratory/Chest Respiratory/Chest: Denies dyspnea Gastrointestinal Gastrointestinal: Denies abdominal pain, diarrhea, nausea or vomiting Genitourinary Genitourinary ED: Denies dysuria Musculoskeletal Musculoskeletal: Denies myalgias Integumentary Denies rash Neurologic Neurologic: Denies headache(s) Psychiatric Psychiatric: Denies depression Endocrine Endocrinology: Denies polyuria Hematologic/Lymphatic Hematologic/Lymphatic: Denies easy bruising Allergic/Immunologic Allergic/Immunologic ED: Denies urticaria EXAM Physical Exam Narrative Exam Narrative: 26-year-old male no acute distress vital signs stable afebrile. H EENT exam pupils round reactive light extra motions are intact. Minimal swelling of the upper and lower lids bilaterally. Injected sclera. Increased watering. No discharge. Currently no crusting. Able to open and closes eyes difficulty. No foreign body noted. No obvious corneal abrasions. No obvious foreign bodies. No preauricular lymphadenopathy. No proptosis. No orbital or periorbital cellulitis. No pain with extraocular motion. Const Vital Signs: 10/08/21 00:49 10/08/21 00:52 Temperature 98.2 F 98.2 F Temperature Source Temporal Temporal Pulse Rate 96 96 Respiratory Rate 15 15 Blood Pressure 118/79 118/79 Blood Pressure Mean 92 92 Pulse Ox 96 96 Oxygen Delivery Method Room Air Room Air Positive well nourished and well developed; Negative for obese, cachectic, contractures or unkempt General Appearance ED: well developed and NAD; Negative for unkempt, cachectic or contractures Nutritional Appearance: Negative for cachectic or obese HEENT atraumatic; Negative for trauma or tenderness Eyes General Eye ED: Yes normal light reflex; Negative for normal appearance of both eyes, enophthalmos, exophthalmos, proptosis, pale conjunctiva or scleral icterus Alignment: alignment normal Periorbital: periorbital findings normal Eyelid: eyelids abnormal Conjunctiva: conjunctiva abnormal Sclera: sclera abnormal Cornea: cornea normal Pupil: PERRL EOM: EOM abnormal Neck no lymphadenopathy, supple and no JVD General: Negative for tenderness Resp normal respiratory effort, no retractions, no use of accessory muscles and clear to auscultation bilaterally Cardio regular rate, regular rhythm, S1 normal heart sound, S2 normal heart sound and no murmurs GI non-tender, non-distended and no masses Auscultation: normoactive bowel sounds Palpation: soft Back/Spine no CVA tenderness General Back: Negative for CVA tenderness Extremity normal to inspection General Extremety ED: Negative for edema General Extremity: Negative for edema Neuro oriented x3 Sensorium / Orientation: alert, oriented to person, oriented to place and oriented to time Psych Appearance: Negative for unkempt Attitude: No agitated Mood & Affect: depressed and tearful; Negative for anxious Skin no wounds Lesions: no lesions and No lesion noted Rashes: no rashes and No rashes noted Trauma: Negative for abrasion or laceration MDM MDM MDM Narrative Medical decision making narrative: 18-year-old male increased eye watering and injected sclera consistent with a viral conjunctivitis. He will be placed on gentamicin eye ointment and follow-up with [facility] if not improving. Currently there is no signs of a bacterial eye infection. There is no apparent discharge. He does not wear contacts. There has been no history of trauma. Discharge Plan Triage Chief Complaint: Eye Problem ED Provider: Amandeep Uribe Dx/Rx/DC Orders Clinical Impression: Acute viral conjunctivitis Instructions: ED Conjunctivitis, Viral Prescriptions: No Action acyclovir 800 MG tablet 800 mg PO TID RF: 0 prednisone 20 mg tablet 80 mg PO DAILY RF: 0 quetiapine [Seroquel] 50 MG tablet 50 mg PO QHS RF: 0 naproxen [Naprosyn] 500 mg tablet 500 mg PO BID PRN (Reason: pain) Qty: 14 RF: 0 diclofenac sodium 1 % gel 2 g topical Q8H PRN PRN (Reason: pain) Qty: 100 RF: 0 prednisolone acetate 1 % drops,suspension 1 drp EACH EYE Q6H Qty: 10 RF: 0 Primary Care Provider: Elizabeth Miller Referrals: Aram Hwang MD [STAFF PHYSICIAN] - 3-5 Days Elizabeth Miller, LEGAL BILLER-C [Primary Care Provider] - Activity Restrictions/Additional Instructions: Eye ointment to both eyes 3 times a day. Call and follow-up with the eye doctor on Sunday. Warm compresses to your eyes to prevent crusting. Disposition Disposition: Home, Self Care
[2021-10-08 01:56] VITALS: PULSE 74; RESP 17; TEMP 36.7; O2SAT 99
[2021-10-08] MEDS: Gentamicin Sulfate 1 OPTH.BTL 1 DRP EACH EYE (02:14)
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
== END 2021-10-08 02:31 | disposition home or self-care (01) ==
PROVIDERS: Emergency Provider Emergency Medicine; PCP Nurse Practitioner Family; Visit Provider Emergency Medicine
DX: B30.9 Viral conjunctivitis, unspecified (principal); Z97.3 Presence of spectacles and contact lenses; Z86.73 Personal history of transient ischemic attack (TIA), and cerebral infarction without residual deficits; F17.210 Nicotine dependence, cigarettes, uncomplicated
CPT/HCPCS: 99284

== ENCOUNTER 2021-10-16 23:43 | Emergency (ER) | payer MEDICAID, SELFPAY ==
[2021-10-16 23:44] VITALS: BP 134/97; PULSE 94; RESP 16; TEMP 37.1; O2SAT 95; BMI 20.5
--- NOTE | 2021-10-17 00:08 | EX.ED.VIS.EY ---
HPI History of Present Illness Chief Complaint: Eye Problem Informant: patient Narrative Narrative: Patient tells me that he has a chronic eye problem. He is normally on drops of prednisolone and antibiotics. He has run out of these. He last saw his control room helper [facility] 2 months ago. He is going to see her sometime this week. He wonders if we can refill his meds. He states he is starting to get some crusting in the morning which is typical of what happens. He denies visual complaints such as decreased vision acutely. He denies headaches. No swelling. No pain. He does not know what antibiotic drops he is used before. [facility] Medical History (Updated 10/17/21 @ 00:[address] Jenaro Mares MD) Accidental fall Back problem Behcet's disease Head ache Heart murmur Open wound of lip with complication Open wound, nose, without complication Stroke Ulcer Vision problems Home Medications acyclovir 800 mg PO TID 11/01/19 [History Last Taken 02/26/20] prednisone 40 mg PO DAILY 12/08/20 [History Last Taken Unknown] naproxen [Naprosyn] 500 mg PO BID PRN #14 tab 02/06/21 [Rx Last Taken Unknown] quetiapine [Seroquel] 50 mg PO QHS 02/06/21 [History Last Taken Unknown] diclofenac sodium 2 g TOPICAL Q8H PRN PRN #100 g 03/29/21 [Rx Last Taken Unknown] prednisolone acetate 1 drp EACH EYE Q6H #10 ml 03/29/21 [Rx Last Taken Unknown] chlorhexidine gluconate 0.5 ml PO TID 10/16/21 [History Last Taken Unknown] cholecalciferol (vitamin D3) 1,000 unit PO DAILY 10/16/21 [History Last Taken Unknown] bacitracin 1 applic EACH EYE Q12H #3.5 g 10/17/21 [Rx Last Taken Unknown] Allergy/AdvReac Type Severity Reaction Status Date / Time No Known Allergies Allergy Verified 05/25/21 16:07 Family History Unknown No problems noted. Surgical History History of incision and drainage History of percutaneous endoscopic gastrostomy Social History Smoking Status: Current every day smoker tobacco type: cigarettes counseling given: provider counseling and counseling >10 minutes alcohol intake: never substance use type: does not use ROS ROS ED Constitutional Constitutional ED: Denies chills or fever(s) Eyes Eyes: Reports other Details: Increase crusting but no change in vision. Please see history of present illness. ; Denies blurry vision, change in vision or diplopia ENT ENT ED: Denies ear pain, rhinorrhea or sore throat Cardiovascular Cardiovascular: Denies chest pain Respiratory/Chest Respiratory/Chest: Denies cough Gastrointestinal Gastrointestinal: Denies nausea or vomiting Integumentary Denies abscess, Abrasions or rash Hematologic/Lymphatic Hematologic/Lymphatic: Denies easy bleeding or easy bruising Allergic/Immunologic Allergic/Immunologic ED: Denies urticaria EXAM Physical Exam Const Vital Signs: 10/16/21 23:44 Temperature 98.8 F Temperature Source Temporal Pulse Rate 94 Respiratory Rate 16 Blood Pressure 134/97 H Blood Pressure Mean 109 Pulse Ox 95 Oxygen Delivery Method Room Air Positive well nourished and well developed General Appearance ED: well developed and NAD HEENT HEENT Narrative: No facial trauma. No vesicles. Negative Pack sign. No sinus tenderness. atraumatic Eyes Eyes Narrative: Lids are not swollen. There is a minimal injection of the conjunctive on the left but is quite minimal. None on the right. Cornea is clear. Pupils are about 2 and half to 3 mm equal and reactive. No pain with range of motion. No proptosis. Lids are not swollen or red. There is no crusting currently on exam. No photophobia. Resp normal respiratory effort Cardio regular rate and regular rhythm Neuro Sensorium / Orientation: alert Skin Rashes: no rashes MDM MDM MDM Narrative Medical decision making narrative: I will refill antibiotics. Patient does have a little bit of the prednisolone left. I explained that I think he should really see his eye physician to make sure he still needs the prednisolone. This is not something we normally prescribed. He should see his control room helper as scheduled later this week. Discharge Plan Triage Chief Complaint: Eye Problem ED Provider: Jenaro Mares Dx/Rx/DC Orders Clinical Impression: Bilateral conjunctivitis Instructions: ED Conjunctivitis, Nonspecific Prescriptions: New bacitracin 500 unit/gram ointment 1 applic EACH EYE Q12H Qty: 3.5 RF: 0 No Action acyclovir 800 MG tablet 800 mg PO TID RF: 0 prednisone 20 mg tablet 40 mg PO DAILY RF: 0 quetiapine [Seroquel] 50 MG tablet 50 mg PO QHS RF: 0 naproxen [Naprosyn] 500 mg tablet 500 mg PO BID PRN (Reason: pain) Qty: 14 RF: 0 diclofenac sodium 1 % gel 2 g topical Q8H PRN PRN (Reason: pain) Qty: 100 RF: 0 prednisolone acetate 1 % drops,suspension 1 drp EACH EYE Q6H Qty: 10 RF: 0 cholecalciferol (vitamin D3) 25 mcg (1,000 unit) capsule 1,000 unit PO DAILY RF: 0 chlorhexidine gluconate 0.12 % mouthwash 0.5 ml PO TID RF: 0 Primary Care Provider: Elizabeth Miller Referrals: Elizabeth Miller, PERFORMANCE MAKEUP ARTIST-C [Primary Care Provider] - Activity Restrictions/Additional Instructions: See your control room helper as soon as possible. Disposition Disposition: Home, Self Care
[2021-10-17 00:26] VITALS: PULSE 54; O2SAT 98
[2021-10-17] MEDS: Erythromycin Base 1 OPTH.TUBE 1 APPLIC EACH EYE (00:28)
== END 2021-10-17 06:19 | disposition home or self-care (01) ==
PROVIDERS: Emergency Provider Emergency Medicine; PCP Nurse Practitioner Family; Visit Provider Emergency Medicine
DX: H10.9 Unspecified conjunctivitis (principal); Z86.73 Personal history of transient ischemic attack (TIA), and cerebral infarction without residual deficits; F17.210 Nicotine dependence, cigarettes, uncomplicated

== ENCOUNTER 2021-10-17 23:29 | Emergency (ER) | payer MEDICAID, SELFPAY ==
[2021-10-17 23:31] VITALS: BP 127/89; PULSE 102; RESP 16; TEMP 36.4; O2SAT 98; BMI 19.5
--- NOTE | 2021-10-17 23:36 | RAD_ITS ---
STUDY: X-RAY - RIGHT HAND REASON FOR EXAM: Male, 26 years old. cut on glass, pain, ?FB TECHNIQUE: 3 view(s) of the hand. COMPARISON: Left hand radiographs of 05/12/2021. FINDINGS: Normal radiocarpal articulation. Normal distal radioulnar joint. Normal visualized carpal bones. Normal carpal articulations Normal carpometacarpal articulation of the thumb. Normal second through fifth carpometacarpal joints. Well-healed mid shaft fracture of the second metacarpal. No acute metacarpal fracture. Normal metacarpophalangeal joint of the thumb. Normal interphalangeal joint of the thumb. Normal proximal and distal phalanges of the thumb. Normal metacarpophalangeal joints of the second through fifth fingers. Normal proximal and distal interphalangeal joints of the second through fifth fingers. Normal phalanges of the second through fifth fingers. Soft tissue swelling and soft tissue deformity adjacent to the distal end of the little finger proximal phalanx, with bandage material. No opaque foreign body identified. RAD/Hand Min 3 Views IMPRESSION: Soft tissue swelling and deformity adjacent to the little finger proximal phalanx, consistent with the history of laceration. No acute fracture or opaque foreign body identified. Electronically Signed: Felton Byers MD at 0:02 EDT ,
--- NOTE | 2021-10-17 23:37 | EX.ED.GENINJ ---
HPI History of Present Illness Chief Complaint: Laceration Informant: patient Narrative Narrative: Patient presents to the laceration to his right dominant hand. This happened several hours ago. He cut it on a broken mirror. Denies loss of function. No active bleeding. Unknown last tetanus shot. [facility] Medical History (Updated 10/17/21 @ 23:[address] Jenaro Mares MD) Accidental fall Back problem Behcet's disease Head ache Heart murmur Open wound of lip with complication Open wound, nose, without complication Stroke Ulcer Vision problems Home Medications acyclovir 800 mg PO TID 11/01/19 [History Last Taken 02/26/20] prednisone 40 mg PO DAILY 12/08/20 [History Last Taken Unknown] naproxen [Naprosyn] 500 mg PO BID PRN #14 tab 02/06/21 [Rx Last Taken Unknown] quetiapine [Seroquel] 50 mg PO QHS 02/06/21 [History Last Taken Unknown] diclofenac sodium 2 g TOPICAL Q8H PRN PRN #100 g 03/29/21 [Rx Last Taken Unknown] prednisolone acetate 1 drp EACH EYE Q6H #10 ml 03/29/21 [Rx Last Taken Unknown] chlorhexidine gluconate 0.5 ml PO TID 10/16/21 [History Last Taken Unknown] cholecalciferol (vitamin D3) 1,000 unit PO DAILY 10/16/21 [History Last Taken Unknown] bacitracin 1 applic EACH EYE Q12H #3.5 g 10/17/21 [Rx Last Taken Unknown] cephalexin 500 mg PO Q6 #20 cap 10/18/21 [Rx Last Taken Unknown] Allergy/AdvReac Type Severity Reaction Status Date / Time No Known Allergies Allergy Verified 10/17/21 23:30 Family History Unknown No problems noted. Surgical History History of incision and drainage History of percutaneous endoscopic gastrostomy Social History Smoking Status: Current every day smoker tobacco type: cigarettes counseling given: provider counseling and counseling >10 minutes alcohol intake: never substance use type: does not use ROS ROS ED Gastrointestinal Gastrointestinal: Denies nausea or vomiting Musculoskeletal Musculoskeletal: Reports other Details: Injury to right hand as in history of present illness. Integumentary Reports Abrasions and other Details: Lacerations and abrasions to right hand Neurologic Neurologic: Denies paresthesias or weakness Hematologic/Lymphatic Hematologic/Lymphatic: Denies easy bleeding or easy bruising EXAM Physical Exam Const Vital Signs: 10/17/21 23:31 Temperature 97.5 F L Temperature Source Temporal Pulse Rate 102 H Respiratory Rate 16 Blood Pressure 127/89 H Blood Pressure Mean 101 Pulse Ox 98 Oxygen Delivery Method Room Air Positive well nourished and well developed General Appearance ED: well developed and NAD HEENT atraumatic Resp normal respiratory effort Cardio Rate: regular rate GI normal to inspection, nondistended, normoactive bowel sounds Extremity Extremity Narrative: Patient has an abrasion to the dorsal knuckles of his right long and ring finger. There is a small abrasion/avulsion of tissue. No exposed tendon. No difficulty range of motion. His right small finger on the dorsal medial aspect has a large flap type laceration. The skin is somewhat shriveled up near its attachment point. It is a little bit dusky. It is very thin. However, there is no tendon visible. His range of motion and strength and sensation are all intact. Neuro oriented x3 Sensorium / Orientation: alert Skin Skin Narrative: As above. PROC Procedures Lacerations See MDM: Length: 5 m Depth: Sub Q Shape: Stellate Prep: Shure-Clens Laceration repair: Digital block, Irrigated, Local and Wound explored Number of Sutures/Jamison: 9 Suture Information: Ethilon, Simple and 5-0 Comment: See MDM MDM MDM MDM Narrative Medical decision making narrative: X-ray showed no foreign material noted in the wound. Wound is also going to be fully explored. I explained to the patient that this is a very thin flap of skin. We will try to tack this down to hold the best we can to get coverage. However, there is a good chance that this flap of tissue may not survive because of its devitalization. This may take long time to heal. This may need to heal by secondary intention or even skin grafting in the future. Because this has been several hours since injury and has devitalized tissue, I will place him on a short course of antibiotics. X-rays do not show any foreign body. These were looked at by me and read by radiology. Procedure: Suture laceration: We discussed risk benefits and options. I also explained the significant chance of poor healing based on the damage that was done. The wound was cleansed. I then did a digital block and a partial anesthesia to the edge of the wound using a total of 2 cc of 1% lidocaine without epinephrine. Good anesthesia was achieved. I then thoroughly scrubbed completely under and around the flap. It was copiously irrigated with subdural saline. The flap actually had multiple intervening lacerations that cut into it. I ended up sewing this flap down with a total of 9 interrupted 5-0 Ethilon. We got better coverage than I thought. The wound was not excessively tension. I put through full range of motion afterwards and it did very well. I still think he has a chance of tissue loss because of the devitalization that was done. We discussed signs to return and signs of infection. I also discussed that the sutures should stay in for about 14 days to allow good chance of healing. Any questions he should follow-up or return for recheck. Radiography Diagnostic Testing: Clinical Impression(s) from Imaging Studies Hand X-Ray 10/17/21 23:36 IMPRESSION: Soft tissue swelling and deformity adjacent to the little finger proximal phalanx, consistent with the history of laceration. No acute fracture or opaque foreign body identified. Electronically Signed: Felton Byers MD at 0:02 EDT , Discharge Plan Triage Chief Complaint: Laceration ED Provider: Jenaro Mares Dx/Rx/DC Orders Clinical Impression: Laceration of hand, right, complicated Instructions: ED Laceration, Hand: All Closures Prescriptions: New cephalexin [cephalexin] 500 MG capsule 500 mg PO Q6 Qty: 20 RF: 0 No Action acyclovir 800 MG tablet 800 mg PO TID RF: 0 prednisone 20 mg tablet 40 mg PO DAILY RF: 0 quetiapine [Seroquel] 50 MG tablet 50 mg PO QHS RF: 0 naproxen [Naprosyn] 500 mg tablet 500 mg PO BID PRN (Reason: pain) Qty: 14 RF: 0 diclofenac sodium 1 % gel 2 g topical Q8H PRN PRN (Reason: pain) Qty: 100 RF: 0 prednisolone acetate 1 % drops,suspension 1 drp EACH EYE Q6H Qty: 10 RF: 0 cholecalciferol (vitamin D3) 25 mcg (1,000 unit) capsule 1,000 unit PO DAILY RF: 0 chlorhexidine gluconate 0.12 % mouthwash 0.5 ml PO TID RF: 0 bacitracin 500 unit/gram ointment 1 applic EACH EYE Q12H Qty: 3.5 RF: 0 Primary Care Provider: Elizabeth Miller Referrals: Elizabeth Miller, SENIOR ELECTRICAL ESTIMATOR-C [Primary Care Provider] - 10-14 Days suture removal Disposition Disposition: Home, Self Care
[2021-10-18] MEDS: Cephalexin 250 MG Capsule 500 MG PO (00:46)
[2021-10-18] MEDS: Lidocaine 1% (20 ml mdv) 20 ML Vial INFILT (00:47)
[2021-10-18 05:00] VITALS: BP 132/68; PULSE 68; RESP 16; O2SAT 98
== END 2021-10-18 06:45 | disposition home or self-care (01) ==
PROVIDERS: Emergency Provider Emergency Medicine; PCP Nurse Practitioner Family; Visit Provider Emergency Medicine
DX: S61.216A Laceration without foreign body of right little finger without damage to nail, initial encounter (principal); W26.8XXA Contact with other sharp object(s), not elsewhere classified, initial encounter; F17.210 Nicotine dependence, cigarettes, uncomplicated; S60.412A Abrasion of right middle finger, initial encounter; S60.414A Abrasion of right ring finger, initial encounter
CPT/HCPCS: 12001; 90715; 73130; 99284; 99285

== ENCOUNTER 2021-10-23 06:34 | Emergency (ER) | payer MEDICAID, SELFPAY ==
[2021-10-23 06:35] VITALS: PULSE 96; RESP 20; TEMP 36.9; O2SAT 97; BMI 21.1
--- NOTE | 2021-10-23 07:26 | EX.ED.VIS.EY ---
HPI History of Present Illness Chief Complaint: Eye Problem Narrative Narrative: 18-year-old male with history of SS disease presenting for medication refill. He states that his eyes are chronically inflamed and he is supposed to take prednisolone acetate for his eyes but does not have any more of this. His vision is normal. He is not had any crusting or weeping. No trauma. Patient also requests a refill on his daily prednisone which is 20 mg p.o. daily. He states he is run out of this as well. In addition to this patient had a laceration to the right hand which he requests to have his dressing changed. He has not noticed any sign of infection or drainage. No increased pain PFSH [facility] Medical History Accidental fall Back problem Behcet's disease Head ache Heart murmur Open wound of lip with complication Open wound, nose, without complication Stroke Ulcer Vision problems Home Medications acyclovir 800 mg PO TID 11/01/19 [History Last Taken 02/26/20] prednisone 40 mg PO DAILY 12/08/20 [History Last Taken Unknown] naproxen [Naprosyn] 500 mg PO BID PRN #14 tab 02/06/21 [Rx Last Taken Unknown] quetiapine [Seroquel] 50 mg PO QHS 02/06/21 [History Last Taken Unknown] diclofenac sodium 2 g TOPICAL Q8H PRN PRN #100 g 03/29/21 [Rx Last Taken Unknown] prednisolone acetate 1 drp EACH EYE Q6H #10 ml 03/29/21 [Rx Last Taken Unknown] chlorhexidine gluconate 0.5 ml PO TID 10/16/21 [History Last Taken Unknown] cholecalciferol (vitamin D3) 1,000 unit PO DAILY 10/16/21 [History Last Taken Unknown] bacitracin 1 applic EACH EYE Q12H #3.5 g 10/17/21 [Rx Last Taken Unknown] cephalexin 500 mg PO Q6 #20 cap 10/18/21 [Rx Last Taken Unknown] prednisolone acetate 1 drp EACH EYE TID #15 ml 10/23/21 [Rx Last Taken Unknown] prednisone 20 mg PO DAILY #30 tab 10/23/21 [Rx Last Taken Unknown] Allergy/AdvReac Type Severity Reaction Status Date / Time No Known Allergies Allergy Verified 10/17/21 23:30 Family History Unknown No problems noted. Surgical History History of incision and drainage History of percutaneous endoscopic gastrostomy Social History Smoking Status: Current every day smoker tobacco type: cigarettes counseling given: provider counseling and counseling >10 minutes alcohol intake: never substance use type: does not use ROS ROS ED Constitutional Constitutional ED: Denies chills, fever(s) or sweats Eyes Eyes: Denies blurry vision or change in vision ENT ENT ED: Reports other Details: Bilateral eye irritation ; Denies ear pain or sore throat Cardiovascular Cardiovascular: Denies chest pain, palpitations or racing heartbeat Respiratory/Chest Respiratory/Chest: Denies cough, dyspnea or sputum Gastrointestinal Gastrointestinal: Denies abdominal pain, constipation, diarrhea, nausea or vomiting Genitourinary Genitourinary ED: Denies dysuria, hematuria or urinary frequency Musculoskeletal Musculoskeletal: Denies arthralgias, myalgias or neck pain Integumentary Reports other Details: Laceration right hand status post repair Neurologic Neurologic: Denies headache(s), paresthesias or weakness Psychiatric Psychiatric: Denies anxiety, depression, suicidal ideation or suicidal thoughts Endocrine Endocrinology: Denies polydipsia or polyuria EXAM Physical Exam Const Vital Signs: 10/23/21 06:35 Temperature 98.4 F Temperature Source Oral Pulse Rate 96 Respiratory Rate 20 H Pulse Ox 97 Oxygen Delivery Method Room Air Positive well nourished General Appearance ED: NAD HEENT atraumatic Nose: nares normal Eyes General Eye ED: Yes normal appearance of both eyes Visual Acuity: acuity normal Alignment: alignment normal Periorbital: periorbital findings normal Eyelid: eyelids normal Conjunctiva: conjunctiva normal Sclera: sclera normal Cornea: cornea normal Pupil: PERRL and accommodation reflex normal Resp normal respiratory effort Neuro oriented x3 and CN's II-XII intact bilaterally Sensorium / Orientation: alert Skin Skin Narrative: Well-healing laceration to the right hand with sutures clean dry and intact. MDM MDM MDM Narrative Medical decision making narrative: Patient requesting medication refill for prednisone acetate which he takes for his eyes and also oral prednisone which he takes daily at 20 mg p.o. daily. Patient not having any new or worsening symptoms but states he does not want to be without his medication too long because of his history of Behcet's and inflammatory pain. Patient states that he also needs his dressing changed. He is not noticing signs of infection. His wound appears to be healing well. Patient to continue wound care. His medications will be refilled. Impression: 1. Wound check 2. Medication refill Discharge Plan Triage Chief Complaint: Eye Problem ED Provider: Jeremiah Cr Dx/Rx/DC Orders Clinical Impression: Behcet's disease Instructions: ED Dressing Change Prescriptions: New prednisone 20 mg tablet 20 mg PO DAILY Qty: 30 RF: 0 prednisolone acetate 1 % drops,suspension 1 drp EACH EYE TID Qty: 15 RF: 0 No Action acyclovir 800 MG tablet 800 mg PO TID RF: 0 prednisone 20 mg tablet 40 mg PO DAILY RF: 0 quetiapine [Seroquel] 50 MG tablet 50 mg PO QHS RF: 0 naproxen [Naprosyn] 500 mg tablet 500 mg PO BID PRN (Reason: pain) Qty: 14 RF: 0 diclofenac sodium 1 % gel 2 g topical Q8H PRN PRN (Reason: pain) Qty: 100 RF: 0 prednisolone acetate 1 % drops,suspension 1 drp EACH EYE Q6H Qty: 10 RF: 0 cholecalciferol (vitamin D3) 25 mcg (1,000 unit) capsule 1,000 unit PO DAILY RF: 0 chlorhexidine gluconate 0.12 % mouthwash 0.5 ml PO TID RF: 0 bacitracin 500 unit/gram ointment 1 applic EACH EYE Q12H Qty: 3.5 RF: 0 cephalexin [cephalexin] 500 MG capsule 500 mg PO Q6 Qty: 20 RF: 0 Primary Care Provider: Elizabeth Miller Referrals: Elizabeth Miller, BUILDING EQUIPMENT OPERATOR-C [Primary Care Provider] - Disposition Disposition: Home, Self Care
== END 2021-10-23 07:45 | disposition home or self-care (01) ==
LOC: ED 07:30
PROVIDERS: Emergency Provider Student in an Organized Health Care Education/Training Program; PCP Nurse Practitioner Family; Visit Provider Student in an Organized Health Care Education/Training Program
DX: Z76.0 Encounter for issue of repeat prescription (principal); M35.2 Behcet's disease; H02.9 Unspecified disorder of eyelid; Z79.899 Other long term (current) drug therapy; Z79.51 Long term (current) use of inhaled steroids; F17.210 Nicotine dependence, cigarettes, uncomplicated
CPT/HCPCS: 99284

== ENCOUNTER 2021-10-24 16:50 | Emergency (ER) | payer MEDICAID, SELFPAY ==
[2021-10-24 16:52] VITALS: BP 129/75; PULSE 107; RESP 14; TEMP 36.6; O2SAT 98
--- NOTE | 2021-10-24 17:12 | EX.ED.UPPERE ---
HPI History of Present Illness Chief Complaint: Upper Extremity Injury Detail of Chief Complaint: concern for laceration infection Informant: patient Occured/Mechanism Comment: injury occurred October 17. Onset/Context/Timing Onset: Days Timing: Continuous Quality of Pain: - (no pain) Location: right index finger Current Severity: concern for infection Maximum Severity: unknown Worsened by: N/A Relieved by: N/A Associated Symptoms Associated Symptoms: Negative for Parasthesia, Weakness and Loss of Funtion Narrative Narrative: Concern suture site infected No constitutional symptoms . Denies paraesthesia or anesthesia. Tetanus Immunization: <5 years Prior similar symptoms: Yes Recent Illness/Hospitalization: Yes [facility] Medical History (Updated 10/24/21 @ 17:[address] Moisés Roche MD) Accidental fall Back problem Behcet's disease Head ache Heart murmur Open wound of lip with complication Open wound, nose, without complication Stroke Ulcer Vision problems Home Medications acyclovir 800 mg PO TID 11/01/19 [History Last Taken 02/26/20] prednisone 40 mg PO DAILY 12/08/20 [History Last Taken Unknown] naproxen [Naprosyn] 500 mg PO BID PRN #14 tab 02/06/21 [Rx Last Taken Unknown] quetiapine [Seroquel] 50 mg PO QHS 02/06/21 [History Last Taken Unknown] diclofenac sodium 2 g TOPICAL Q8H PRN PRN #100 g 03/29/21 [Rx Last Taken Unknown] prednisolone acetate 1 drp EACH EYE Q6H #10 ml 03/29/21 [Rx Last Taken Unknown] chlorhexidine gluconate 0.5 ml PO TID 10/16/21 [History Last Taken Unknown] cholecalciferol (vitamin D3) 1,000 unit PO DAILY 10/16/21 [History Last Taken Unknown] bacitracin 1 applic EACH EYE Q12H #3.5 g 10/17/21 [Rx Last Taken Unknown] cephalexin 500 mg PO Q6 #20 cap 10/18/21 [Rx Last Taken Unknown] prednisolone acetate 1 drp EACH EYE TID #15 ml 10/23/21 [Rx Last Taken Unknown] prednisone 20 mg PO DAILY #30 tab 10/23/21 [Rx Last Taken Unknown] Allergy/AdvReac Type Severity Reaction Status Date / Time No Known Allergies Allergy Verified 10/24/21 16:52 Family History Unknown No problems noted. Surgical History History of incision and drainage History of percutaneous endoscopic gastrostomy Social History Smoking Status: Current every day smoker tobacco type: cigarettes counseling given: provider counseling and counseling >10 minutes alcohol intake: never substance use type: does not use ROS ROS ED Constitutional Constitutional ED: Denies chills, fever(s), subjective or sweats Gastrointestinal Gastrointestinal: Denies nausea or vomiting Integumentary Denies abscess, Abrasions or rash Hematologic/Lymphatic Hematologic/Lymphatic: Denies easy bleeding, easy bruising or lymphadenopathy EXAM Physical Exam Const Vital Signs: 10/24/21 16:52 Temperature 98 F Temperature Source Temporal Pulse Rate 107 H Respiratory Rate 14 Blood Pressure 129/75 H Blood Pressure Mean 93 Pulse Ox 98 Oxygen Delivery Method Room Air Positive well nourished and well developed General Appearance ED: well developed and NAD HEENT Reports moist mucous membranes normocephalic and atraumatic Eyes PERRL and EOMs intact bilaterally Resp normal respiratory effort Cardio regular rate and regular rhythm Extremity Negative for normal to inspection Extremity Narrative: Healing laceration dorsal radial side of right index finger Neuro oriented x3 and CN's II-XII intact bilaterally Sensorium / Orientation: alert Skin Lesions: no lesions Rashes: no rashes MDM MDM MDM Narrative Medical decision making narrative: Evaluation for infectedlaceration repaired on October 17. Patient told no evidence of infection. Wound care Discharge Plan Triage Chief Complaint: Upper Extremity Injury ED Provider: Moisés Roche Dx/Rx/DC Orders Clinical Impression: Encounter for assessment of wound Instructions: Discharge Instructions Wound ... Prescriptions: No Action acyclovir 800 MG tablet 800 mg PO TID RF: 0 prednisone 20 mg tablet 40 mg PO DAILY RF: 0 quetiapine [Seroquel] 50 MG tablet 50 mg PO QHS RF: 0 naproxen [Naprosyn] 500 mg tablet 500 mg PO BID PRN (Reason: pain) Qty: 14 RF: 0 diclofenac sodium 1 % gel 2 g topical Q8H PRN PRN (Reason: pain) Qty: 100 RF: 0 prednisolone acetate 1 % drops,suspension 1 drp EACH EYE Q6H Qty: 10 RF: 0 cholecalciferol (vitamin D3) 25 mcg (1,000 unit) capsule 1,000 unit PO DAILY RF: 0 chlorhexidine gluconate 0.12 % mouthwash 0.5 ml PO TID RF: 0 bacitracin 500 unit/gram ointment 1 applic EACH EYE Q12H Qty: 3.5 RF: 0 cephalexin [cephalexin] 500 MG capsule 500 mg PO Q6 Qty: 20 RF: 0 prednisone 20 mg tablet 20 mg PO DAILY Qty: 30 RF: 0 prednisolone acetate 1 % drops,suspension 1 drp EACH EYE TID Qty: 15 RF: 0 Primary Care Provider: Elizabeth Miller Referrals: Elizabeth Miller, DEPUTY COURT CLERK-C [Primary Care Provider] - 7 Days for suture removal Disposition Disposition: Home, Self Care
--- NOTE | 2021-10-24 17:40 | ED.RN ---
Patient requested for right 5th digit to be wrapped and cleaned. Patient up to sink to clean hands with soap and water. Patients right 5th digit wrapped with gauze and taped. Patient asking this RN personal questions. RN stated this is inappropriate and would not like to talk about it. Patient continues to ask personal questions and requesting finger to be wrapped. Rn stated she has wrapped his finger. Patient became verbally aggressive stating Bitch, do your job and wrap it. RN stated she will not be talked to like this. Patient is discharged and to leave the premises now. Patient continues to call this RN a bitch and calls MARTINEZ Cervantes a bitch also. Romulo Ying,RAFAL and security Manuel at bedside. Patient in wheelchair wheeling himself out. MARTINEZ Cervantes following patient with personal belongings.
== END 2021-10-24 17:47 | disposition home or self-care (01) ==
PROVIDERS: Emergency Provider Emergency Medicine; PCP Nurse Practitioner Family; Visit Provider Emergency Medicine
DX: S61.210D Laceration without foreign body of right index finger without damage to nail, subsequent encounter (principal); M35.2 Behcet's disease; Z86.73 Personal history of transient ischemic attack (TIA), and cerebral infarction without residual deficits; Z79.899 Other long term (current) drug therapy; Z79.52 Long term (current) use of systemic steroids; F17.210 Nicotine dependence, cigarettes, uncomplicated; X58.XXXD Exposure to other specified factors, subsequent encounter
CPT/HCPCS: 99284

== ENCOUNTER 2021-10-29 14:12 | Emergency (ER) | payer MEDICAID, SELFPAY ==
[2021-10-29 14:13] VITALS: BP 132/97; PULSE 99; RESP 14; TEMP 36.8; O2SAT 100; BMI 19.5
--- NOTE | 2021-10-29 15:08 | EX.ED.UPPERE ---
HPI History of Present Illness Chief Complaint: Upper Extremity Injury Detail of Chief Complaint: Wound eval Informant: patient Narrative Narrative: Patient was to the urgency department complaining of a wound to his right small finger that he wants us to look at. Patient states that he fell and some of his stitches tore out of a laceration repair that he had had on October 17. Patient initially cut his hand on some glass. Patient was seen in our emergency department and had the suture repaired. Patient subsequently came in for a wound check and was seen by Dr. Roche for concern for infection but there was no evidence of infection at the time. Patient states that he saw his primary care physician who took out 3 of the stitches but was supposed to still have 6 and there. Patient is right-hand dominant. [facility] Medical History (Updated 10/29/21 @ 15:[address] Man Alanis, ) Accidental fall Back problem Behcet's disease Head ache Heart murmur Open wound of lip with complication Open wound, nose, without complication Stroke Ulcer Vision problems Home Medications acyclovir 800 mg PO TID 11/01/19 [History Last Taken 02/26/20] prednisone 40 mg PO DAILY 12/08/20 [History Last Taken Unknown] naproxen [Naprosyn] 500 mg PO BID PRN #14 tab 02/06/21 [Rx Last Taken Unknown] quetiapine [Seroquel] 50 mg PO QHS 02/06/21 [History Last Taken Unknown] diclofenac sodium 2 g TOPICAL Q8H PRN PRN #100 g 03/29/21 [Rx Last Taken Unknown] prednisolone acetate 1 drp EACH EYE Q6H #10 ml 03/29/21 [Rx Last Taken Unknown] chlorhexidine gluconate 0.5 ml PO TID 10/16/21 [History Last Taken Unknown] cholecalciferol (vitamin D3) 1,000 unit PO DAILY 10/16/21 [History Last Taken Unknown] bacitracin 1 applic EACH EYE Q12H #3.5 g 10/17/21 [Rx Last Taken Unknown] cephalexin 500 mg PO Q6 #20 cap 10/18/21 [Rx Last Taken Unknown] prednisolone acetate 1 drp EACH EYE TID #15 ml 10/23/21 [Rx Last Taken Unknown] prednisone 20 mg PO DAILY #30 tab 06/05/22 [Rx Last Taken Unknown] Allergy/AdvReac Type Severity Reaction Status Date / Time No Known Allergies Allergy Verified 10/29/21 14:16 Family History Unknown No problems noted. Surgical History History of incision and drainage History of percutaneous endoscopic gastrostomy Social History Smoking Status: Current every day smoker tobacco type: cigarettes counseling given: provider counseling and counseling >10 minutes alcohol intake: never substance use type: does not use ROS ROS ED Constitutional Constitutional ED: Reports systems reviewed and no addt'l complaints, except as documented; Denies body ache(s), change in weight or chills Eyes Eyes: Denies acute decrease in peripheral vision, change in vision, double vision or loss of vision ENT ENT ED: Reports none; Denies ear pain, lip swelling, loss taste/smell, neck pain, otalgia or sore throat Cardiovascular Cardiovascular: Reports none; Denies abdominal pain, chest pain with activity, leg edema, lightheadedness, palpitations, rapid heart rate or syncope Respiratory/Chest Respiratory/Chest: Reports none; Denies change in mental status, dry cough, dyspnea, hemoptysis, shortness of breath at rest or shortness of breath with exertion Gastrointestinal Gastrointestinal: Reports none; Denies abdominal pain, change in stool character, diarrhea, hematemesis, hematochezia, melena, rectal bleeding or vomiting Genitourinary Genitourinary ED: Reports none; Denies abdominal discomfort, anuria, dysuria, genital pain or polyuria Musculoskeletal Musculoskeletal: Reports none; Denies arthralgias, back pain, difficulty walking, extremity pain, muscle weakness or myalgias Integumentary Reports none and other Details: Right small finger wound check ; Denies abscess or rash Neurologic Neurologic: Reports none; Denies abnormal gait, confusion, focal weakness, frequent falls, headache(s), loss of vision, numbness, paresthesias, radicular pain, vertigo or weakness Psychiatric Psychiatric: Reports systems reviewed and no addt'l complaints, except as documented and none; Denies behavioral changes, confusion, difficulty concentrating, hallucinations, suicidal ideation, tactile hallucinations or visual hallucinations Endocrine Endocrinology: Denies none, cold intolerance, excessive sweating, fatigue or heat intolerance Hematologic/Lymphatic Hematologic/Lymphatic: Reports none; Denies anemia, easy bleeding or easy bruising Allergic/Immunologic Allergic/Immunologic ED: Denies as per HPI, none, lip swelling, mouth swelling, throat swelling, tongue swelling or hives EXAM Physical Exam Const Vital Signs: 10/29/21 14:13 Temperature 98.3 F Temperature Source Temporal Pulse Rate 99 Respiratory Rate 14 Blood Pressure 132/97 H Blood Pressure Mean 108 Pulse Ox 100 Oxygen Delivery Method Room Air Positive well nourished and well developed General Appearance ED: well developed and NAD HEENT Reports TM's clear and moist mucous membranes normocephalic and atraumatic; Negative for trauma or tenderness Tympanic Membrane ED: Yes TM's clear Eyes PERRL and EOMs intact bilaterally General Eye ED: Negative for pale conjunctiva or scleral icterus Neck no lymphadenopathy, supple and no JVD General: Negative for tenderness Chest Wall inspection of chest normal and palpation of chest normal Chest: Negative for tenderness Resp normal respiratory effort and clear to auscultation bilaterally Effort and Inspection: Negative for respiratory distress or pain with movement Auscultation: Negative for rhonchi, wheezes or diminished lung sounds Cardio regular rate, regular rhythm, S1 normal heart sound, S2 normal heart sound and no murmurs Peripheral Pulses: pulses 2+ throughout GI normal to inspection, nondistended, normoactive bowel sounds, soft to palpation, non-tender, non-distended and no masses Back/Spine no CVA tenderness and no thoracic nor lumbar tenderness Extremity normal to inspection General Extremety ED: Negative for edema General Extremity: Negative for edema Neuro oriented x3, CN's II-XII intact bilaterally, no sensory deficits noted and gait normal Sensorium / Orientation: awake, alert, oriented to person, oriented to place and oriented to time Motor Exam: strength 5/5 throughout and strength abnormal Psych mental status grossly normal Skin no rashes or lesions noted and no wounds Skin Narrative: Patient has a flap like laceration measuring total of about 3 cm over the PIP joint of the right small finger. The flap is not held in place as now there are sutures that have formed through the flap edge and now only on the opposite dermal edge. 4 sutures were then removed. There is no evidence of infection at this time. At this point this wound will require healing by secondary intention. MDM MDM MDM Narrative Medical decision making narrative: Sutures were removed that were not holding any thing in the place. Patient will have a clean dressing applied. Wound will have to heal by secondary intention. I will refer him to orthopedics for follow-up. Discharge Plan Triage Chief Complaint: Upper Extremity Injury ED Provider: Man Alanis Dx/Rx/DC Orders Clinical Impression: Visit for suture removal, Visit for wound check Instructions: ED Stitches/Staple Removal No ..., ED Wound Check (No Infection) Prescriptions: No Action acyclovir 800 MG tablet 800 mg PO TID RF: 0 prednisone 20 mg tablet 40 mg PO DAILY RF: 0 quetiapine [Seroquel] 50 MG tablet 50 mg PO QHS RF: 0 naproxen [Naprosyn] 500 mg tablet 500 mg PO BID PRN (Reason: pain) Qty: 14 RF: 0 diclofenac sodium 1 % gel 2 g topical Q8H PRN PRN (Reason: pain) Qty: 100 RF: 0 prednisolone acetate 1 % drops,suspension 1 drp EACH EYE Q6H Qty: 10 RF: 0 cholecalciferol (vitamin D3) 25 mcg (1,000 unit) capsule 1,000 unit PO DAILY RF: 0 chlorhexidine gluconate 0.12 % mouthwash 0.5 ml PO TID RF: 0 bacitracin 500 unit/gram ointment 1 applic EACH EYE Q12H Qty: 3.5 RF: 0 cephalexin [cephalexin] 500 MG capsule 500 mg PO Q6 Qty: 20 RF: 0 prednisone 20 mg tablet 20 mg PO DAILY Qty: 30 RF: 0 prednisolone acetate 1 % drops,suspension 1 drp EACH EYE TID Qty: 15 RF: 0 Primary Care Provider: Elizabeth Miller Referrals: Jose Orlando DO [STAFF PHYSICIAN] - 3-5 Days Elizabeth Miller NP-C [Primary Care Provider] - Disposition Disposition: Home, Self Care
== END 2021-10-29 15:27 | disposition home or self-care (01) ==
PROVIDERS: Emergency Provider Emergency Medicine; PCP Nurse Practitioner Family; Visit Provider Emergency Medicine
DX: Z48.02 Encounter for removal of sutures (principal); Z86.73 Personal history of transient ischemic attack (TIA), and cerebral infarction without residual deficits
CPT/HCPCS: 99283

== ENCOUNTER 2021-11-28 15:09 | Emergency (ER) | payer MEDICAID, SELFPAY ==
[2021-11-28 15:10] VITALS: BP 121/85; PULSE 114; RESP 16; TEMP 36.9; O2SAT 95; BMI 19.5
--- NOTE | 2021-11-28 15:37 | EDS_ITS ---
HPI HPI - Fall History of Present Illness Chief Complaint: Fall Informant: patient Narrative Narrative: 26-year-old male history of Behcet's disease states that 2 days ago he fell sustaining laceration to his lower lip. He notes that it continues to swell and is painful to him. He is concerned about infection. [facility] Medical History (Updated 11/28/21 @ 15:[address] Wil Roblero, DO) Accidental fall Back problem Behcet's disease Head ache Heart murmur Open wound of lip with complication Open wound, nose, without complication Stroke Ulcer Vision problems Home Medications acyclovir 800 mg tablet 800 mg PO TID 11/01/19 [History Last Taken 02/26/20] prednisone 20 mg tablet 40 mg PO DAILY 12/08/20 [History Last Taken Unknown] naproxen 500 mg tablet (Naprosyn) 500 mg PO BID PRN pain #14 tabs 02/06/21 [Rx Last Taken Unknown] quetiapine 50 mg tablet (Seroquel) 50 mg PO QHS 02/06/21 [History Last Taken Unknown] diclofenac sodium 1 % topical gel 2 g topical Q8H PRN PRN pain #100 grams 03/29/21 [Rx Last Taken Unknown] prednisolone acetate 1 % eye drops,suspension 1 drp EACH EYE Q6H #10 mL 03/29/21 [Rx Last Taken Unknown] chlorhexidine gluconate 0.12 % mouthwash 0.5 ml PO TID 10/16/21 [History Last Taken Unknown] cholecalciferol (vitamin D3) 25 mcg (1,000 unit) capsule 1,000 unit PO DAILY 10/16/21 [History Last Taken Unknown] bacitracin 500 unit/gram eye ointment 1 applic EACH EYE Q12H #3.5 grams 10/17/21 [Rx Last Taken Unknown] cephalexin 500 mg capsule 500 mg PO Q6 #20 caps 10/18/21 [Rx Last Taken Unknown] prednisolone acetate 1 % eye drops,suspension 1 drp EACH EYE TID #15 mL 10/23/21 [Rx Last Taken Unknown] prednisone 20 mg tablet 20 mg PO DAILY #30 tabs 10/23/21 [Rx Last Taken Unknown] amoxicillin 875 mg-potassium clavulanate 125 mg tablet 875 mg PO Q12H #20 TABLETS 11/28/21 [Rx Last Taken Unknown] hydrocodone-acetaminophen 5-325mg 5mg-325mg 1 tab PO Q6H PRN PRN Pain 3 days #10 TABLETS 11/28/21 [Rx Last Taken Unknown] Allergy/AdvReac Type Severity Reaction Status Date / Time No Known Allergies Allergy Verified 10/29/21 14:16 Family History Unknown No problems noted. Surgical History History of incision and drainage History of percutaneous endoscopic gastrostomy Social History Smoking Status: Current every day smoker tobacco type: cigarettes counseling given: provider counseling and counseling >10 minutes alcohol intake: never substance use type: does not use ROS ROS ED Constitutional Constitutional ED: Denies chills or weight loss Eyes Eyes: Denies change in vision or diplopia ENT ENT ED: Reports other Details: See history of present illness ; Denies ear pain, rhinorrhea or sore throat Cardiovascular Cardiovascular: Denies chest pain, orthopnea, palpitations or racing heartbeat Respiratory/Chest Respiratory/Chest: Denies cough, dyspnea or orthopnea Gastrointestinal Gastrointestinal: Denies abdominal pain, diarrhea, nausea or vomiting Genitourinary Genitourinary ED: Denies dysuria, hematuria or urinary frequency Musculoskeletal Musculoskeletal: Denies arthralgias or myalgias Integumentary Denies abscess or rash Neurologic Neurologic: Denies headache(s) or weakness Psychiatric Psychiatric: Denies anxiety, depression, suicidal ideation or suicidal thoughts Endocrine Endocrinology: Denies polydipsia, polyphagia or polyuria Allergic/Immunologic Allergic/Immunologic ED: Denies mouth swelling, tongue swelling or urticaria EXAM Physical Exam Const Vital Signs: 11/28/21 15:10 Temperature 98.4 F Temperature Source Temporal Pulse Rate 114 H Respiratory Rate 16 Blood Pressure 121/85 H Blood Pressure Mean 97 Pulse Ox 95 Oxygen Delivery Method Room Air Positive well nourished and well developed General Appearance ED: well developed HEENT Reports normocephalic, head/scalp atraumatic and moist mucous membranes HEENT Narrative: There is swelling of the lower lip. In the midline there is a 1.5 cm laceration that is gaping that is trying to have early granulation tissue in it. I do not see any pus. It is tender to palpation Eyes PERRL and EOMs intact bilaterally Neck no lymphadenopathy, supple and no JVD Resp normal respiratory effort and clear to auscultation bilaterally Cardio regular rate, regular rhythm and no murmurs GI normal to inspection, nondistended, normoactive bowel sounds and non-tender Palpation: soft Back/Spine no CVA tenderness and normal ROM Extremity normal to inspection General Extremety ED: Negative for edema General Extremity: Negative for edema Neuro oriented x3 and CN's II-XII intact bilaterally Sensorium / Orientation: alert Motor Exam: strength 5/5 throughout Psych mental status grossly normal Mood & Affect: Negative for depressed or tearful Skin no rashes or lesions noted and no wounds MDM MDM MDM Narrative Medical decision making narrative: Patient will be started on Augmentin I can write for a few [place]. Follow-up with primary care return if worsening or concern Discharge Plan Triage Chief Complaint: Fall ED Provider: Wil Roblero Dx/Rx/DC Orders Clinical Impression: Open wound of lip with complication, Behcet's disease, Fall Instructions: ED Wound Check (Infection) Prescriptions: New hydrocodone-acetaminophen [hydrocodone-acetaminophen] 5-325 mg tablet 1 tab PO Q6H PRN PRN (Reason: Pain) 3 Days Qty: 10 0RF amoxicillin-pot clavulanate [amoxicillin-pot clavulanate] 875-125 mg tablet 875 mg PO Q12H Qty: 20 0RF No Action acyclovir 800 MG tablet 800 mg PO TID prednisone 20 mg tablet 40 mg PO DAILY Label Comments: TAKE 4 TABLETS BY MOUTH EVERY DAY quetiapine [Seroquel] 50 MG tablet 50 mg PO QHS naproxen [Naprosyn] 500 mg tablet 500 mg PO BID PRN (Reason: pain) Qty: 14 0RF diclofenac sodium 1 % gel 2 g topical Q8H PRN PRN (Reason: pain) Qty: 100 0RF prednisolone acetate 1 % drops,suspension 1 drp EACH EYE Q6H Qty: 10 0RF cholecalciferol (vitamin D3) 25 mcg (1,000 unit) capsule 1,000 unit PO DAILY Label Comments: Take 1 capsule by mouth once daily. chlorhexidine gluconate 0.12 % mouthwash 0.5 ml PO TID Label Comments: SWISH AND SPIT 2 TEASPOONS (10ML) THREE TIMES A DAY bacitracin 500 unit/gram ointment 1 applic EACH EYE Q12H Qty: 3.5 0RF cephalexin [cephalexin] 500 MG capsule 500 mg PO Q6 Qty: 20 0RF prednisone 20 mg tablet 20 mg PO DAILY Qty: 30 0RF prednisolone acetate 1 % drops,suspension 1 drp EACH EYE TID Qty: 15 0RF Primary Care Provider: Elizabeth Miller Referrals: Elizabeth Miller, [facility] [Primary Care Provider] - Disposition Disposition: Home, Self Care
[2021-11-28 16:03] VITALS: PULSE 74; RESP 74; TEMP 36.8
== END 2021-11-28 16:03 | disposition home or self-care (01) ==
LOC: ED 15:56
PROVIDERS: Emergency Provider Emergency Medicine; Visit Provider Emergency Medicine
DX: S01.511A Laceration without foreign body of lip, initial encounter (principal); M35.2 Behcet's disease; F17.210 Nicotine dependence, cigarettes, uncomplicated; W19.XXXA Unspecified fall, initial encounter; Z86.73 Personal history of transient ischemic attack (TIA), and cerebral infarction without residual deficits; Z79.899 Other long term (current) drug therapy
CPT/HCPCS: 99282